=== PATIENT | male | born 1945 | race Caucasian/White ===

== ENCOUNTER 2020-07-28 17:12 | Emergency (ER) | payer MEDICAID, MEDICARE ==
[~2020-07-28] VITALS: Ht 172.7 cm; Wt 136.6 kg
[2020-07-28 17:28] VITALS: BP 116/79
--- NOTE | 2020-07-28 17:39 | ED.ADGEN ---
Adult General Chief Complaint Chief Complaint: MEDICAL CLEARANCE HPI HPI Patient is a 75 year old male brought in while he was on transfer to a rehab hospital. When the EMS drivers gave report to the facility they had indicated that his pacer was "firing". Hospital said the patient needed to get medically screened prior to going to the facility. Possibly due to concern about a defibrillator first pacer spikes. Patient states he feels well and has no complaints. Has had the pacemaker since 2018 without incident Review of Systems Review of Systems Constitutional: Denies fever or chills. [] Eyes: Denies change in visual acuity. [] HENT: Denies nasal congestion or sore throat. [] Respiratory: Denies cough or shortness of breath. [] Cardiovascular: Denies chest pain or edema. [] GI: Denies abdominal pain, nausea, vomiting, bloody stools or diarrhea. [] : Denies dysuria. [] Musculoskeletal: Denies back pain or joint pain. [] Integument: Denies rash. [] Neurologic: Denies headache, focal weakness or sensory changes. [] Endocrine: Denies polyuria or polydipsia. [] Lymphatic: Denies swollen glands. [] Psychiatric: Denies depression or anxiety. [] Allergies Allergies Allergies Coded Allergies Type Severity Reaction Last Updated Verified No Known Drug Allergies 07/28/20 No Physical Exam Physical Exam Constitutional: Well developed, well nourished, no acute distress, non-toxic appearance. [] HENT: Normocephalic, atraumatic, bilateral external ears normal, oropharynx moist, no oral exudates, nose normal. [] Eyes: PERRLA, EOMI, conjunctiva normal, no discharge. [] Neck: Normal range of motion, no tenderness, supple, no stridor. [] Cardiovascular:Heart rate regular rhythm, no murmur [] Lungs & Thorax: Bilateral breath sounds clear to auscultation [] Abdomen: Bowel sounds normal, soft, no tenderness, no masses, no pulsatile masses. [] Skin: Warm, dry, no erythema, no rash. [] Back: No tenderness, no CVA tenderness. [] Extremities: No tenderness, no cyanosis, no clubbing, ROM intact, bilateral lower extremity edema. [] Neurologic: Alert and oriented X 3, normal motor function, normal sensory function, no focal deficits noted. [] Psychologic: Affect normal, judgement normal, mood normal. [] Current Patient Data Vital Signs Vital Signs Date Time Temp Pulse Resp B/P (MAP) Pulse Ox O2 Delivery O2 Flow Rate FiO2 07/28/20 17:28 97.7 69 22 116/79 (91) 97 Nasal Cannula 3.0 97.7 EKG EKG Paced rhythm indeterminate axis, right bundle branch block, wide QRS, no ST elevation or depression [] Radiology/Procedures Radiology/Procedures [] Course & Med Decision Making Course & Med Decision Making Pertinent Labs and Imaging studies reviewed. (See chart for details) [] Dragon Disclaimer Dragon Disclaimer This electronic medical record was generated, in whole or in part, using a voice recognition dictation system. Departure Departure Impression: Primary Impression: Paced cardiac rhythm Disposition: 03 DC/TRF TO SNF Condition: STABLE Patient Instructions: Medical Screening Exam SORAIDA ZARAGOZA MD Jul 28, 2020 17:39
== END 2020-07-28 19:48 ==
LOC: ER 17:12
DX: I49.9 Cardiac arrhythmia, unspecified (principal)
CPT/HCPCS: 99283

== ENCOUNTER 2020-08-03 11:33 | Inpatient (IN) | payer MEDICARE ==
[~2020-08-03] VITALS: Ht 165.1 cm; Wt 139.0 kg
[2020-08-03] VITALS (15 sets, daily range): BP systolic 73–156; BP diastolic 41–94
--- NOTE | 2020-08-03 12:21 | PHYS DOC ---
Past Medical History Past Medical History: A-Fib, CAD, CHF Additional Past Medical Histor: GI BLEED,HODGKINS LYMPHOMA Past Surgical History: Cholecystectomy, Knee Replacement, Pacemaker Additional Past Surgical Histo: PICC RIGHT ARM,RIGHT ANKLE,LEFT MASTECTOMY Smoking Status: Never Smoker Alcohol Use: None General Adult EDM: Chief Complaint: HYPOTENSION HPI: HPI: 75M with PMH of HTN, AF, CKD, CHF, Hx PE on eliquis, presenting from [facility] for evaluation of hypotension. Reportedly hypotensive since yesterday, receiving norepi gtt via right UE midline. Patient reports feeling generally unwell. He developed a nosebleed yesterday, though now hemostatic. Eliquis was held starting 08/01. Hx GI bleed, though patient reports no hematochezia or hematemesis. Per outside facility, the patient's creatinine has been gradually increasing. Review of Systems: Review of Systems: Gen: No fever, chills. Reports feeling unwell. Eyes: No blurred vision, diplopia. ENT: No nasal congestion, sore throat. Reports epistaxis. CV: No CP, palpitations. Resp. No SOB, cough. GI: No abd pain, N/V, hematochezia. : No dysuria, hematuria. Neuro: No THOMASON.reports dizziness, weakness. Skin: No acute rash or lesion. Remainder of systems reviewed and negative unless otherwise specified. Heart Score: Risk Factors: Risk Factors: DM, Current or recent (<one month) smoker, HTN, HLP, family history of CAD, obesity. Risk Scores: Score 0 - 3: 2.5% MACE over next 6 weeks - Discharge Home Score 4 - 6: 20.3% MACE over next 6 weeks - Admit for Clinical Observation Score 7 - 10: 72.7% MACE over next 6 weeks - Early Invasive Strategies Allergies: Allergies: Allergies Coded Allergies Type Severity Reaction Last Updated Verified No Known Drug Allergies 07/28/20 No Physical Exam: PE: Gen: NAD. Well nourished. Head: NC/AT. Eyes: No scleral icterus. No conjunctival injection. ENT: MMM. Posterior OP clear. Neck: Supple. NT. CV: RRR. Peripheral pulses intact. Resp: CTAB. No W/C/R. Abd: Soft. NT. ND. MSK: No peripheral cyanosis. Neuro: Awake and alert. Skin. Warm. Dry. Pale appearing. Psych: Appropriate mood & affect. Current Patient Data: Labs: Laboratory Tests Test 08/03/20 13:09 White Blood Count 17.3 x10^3/uL (4.0-11.0) Red Blood Count 2.41 x10^6/uL (4.30-5.70) Hemoglobin 8.0 g/dL (13.0-17.5) Hematocrit 23.7 % (39.0-53.0) Mean Corpuscular Volume 98 fL (79-100) Mean Corpuscular Hemoglobin 33 pg (25-35) Mean Corpuscular Hemoglobin Concent 34 g/dL (31-37) Red Cell Distribution Width 17.1 % (11.5-14.5) Platelet Count 166 x10^3/uL (140-400) Neutrophils (%) (Auto) 85 % (31-73) Lymphocytes (%) (Auto) 11 % (24-48) Monocytes (%) (Auto) 3 % (0-9) Eosinophils (%) (Auto) 1 % (0-3) Basophils (%) (Auto) 1 % (0-3) Neutrophils # (Auto) 14.6 x10^3/uL (1.8-7.7) Lymphocytes # (Auto) 1.8 x10^3/uL (1.0-4.8) Monocytes # (Auto) 0.6 x10^3/uL (0.0-1.1) Eosinophils # (Auto) 0.2 x10^3/uL (0.0-0.7) Basophils # (Auto) 0.1 x10^3/uL (0.0-0.2) Prothrombin Time 28.8 SEC (11.7-14.0) Prothromb Time International Ratio 2.7 (0.8-1.1) Activated Partial Thromboplast Time 60 SEC (24-38) Urine Collection Type Unknown Urine Color Kaya Urine Clarity Clear Urine pH 5.0 (<5.0-8.0) Urine Specific [place] 1.015 (1.000-1.030) Urine Protein Negative mg/dL (NEG-TRACE) Urine Glucose (UA) Negative mg/dL (NEG) Urine Ketones (Stick) Negative mg/dL (NEG) Urine Blood Moderate (NEG) Urine Nitrite Negative (NEG) Urine Bilirubin Negative (NEG) Urine Urobilinogen Dipstick 0.2 mg/dL (0.2 mg/dL) Urine Leukocyte Esterase Small (NEG) Urine RBC 3-5 /HPF (0-2) Urine WBC 1-4 /HPF (0-4) Urine Squamous Epithelial Cells Few /LPF Urine Bacteria 0 /HPF (0-FEW) Urine Hyaline Casts Few /HPF Urine Mucus Mod /LPF Sodium Level 126 mmol/L (136-145) Chloride Level 89 mmol/L (98-107) Carbon Dioxide Level 24 mmol/L (21-32) Anion Gap 13 (6-14) Blood Urea Nitrogen 113 mg/dL (8-26) Estimated GFR (Cockcroft-Gault) 10.1 BUN/Creatinine Ratio 21 (6-20) Glucose Level 144 mg/dL (70-99) Calcium Level 7.5 mg/dL (8.5-10.1) Total Bilirubin 2.5 mg/dL (0.2-1.0) Aspartate Amino Transf (AST/SGOT) 337 U/L (15-37) Alkaline Phosphatase 316 U/L (46-116) Troponin I Quantitative < 0.017 ng/mL (0.000-0.055) Total Protein 5.0 g/dL (6.4-8.2) Albumin 1.7 g/dL (3.4-5.0) Albumin/Globulin Ratio 0.5 (1.0-1.7) EKG: EKG: [] Radiology/Procedures: Radiology/Procedures: CHEST AP ONLY History: Hypotension Comparison: None. Findings: Single view of the chest is submitted. There is tortuous thoracic aorta. There is triple lead left electronic cardiac device. There is right internal jugular venous catheter with the tip near the superior aspect of the right atrium. There is interstitial opacity somewhat diffusely of the bilateral hemithoraces, also some patchy hazy airspace opacity of the mid left hemithorax. There is no dependent pleural fluid or pneumothorax. Cardiac silhouette is not significantly enlarged. Impression: 1. There is interstitial opacity bilaterally of uncertain chronicity, could be due to interstitial infiltrate or edema. There is also airspace opacity of the mid left hemithorax which may be infiltrate although cannot exclude underlying nodularity. Electronically signed by: Ammon Moreno MD (08/03/2020 1:45 PM) [facility] Course & Med Decision Making: Course & Med Decision Making Pertinent Labs and Imaging studies reviewed. (See chart for details) In summary, 75-year-old male who presents from [facility] for the management of hypotension requiring pressors, now with right IJ central line (was being administered via RUE midline at outside facility), found to be in acute renal failure with creatinine of 5.5. Potassium within normal limits. Also hyponatremic with essentially normal blood glucose. Receiving IV fluids. Hemoglobin is 8.0, at around baseline compared to prior labs. Also with redemonstration of transaminitis without abdominal pain or other GI complaints. Will be admitted for further management. Dragon Disclaimer: Dragon Disclaimer: This electronic medical record was generated, in whole or in part, using a voice recognition dictation system. Departure Departure Impression: Primary Impression: ARF (acute renal failure) Additional Impressions: Hypotension Transaminitis Disposition: ADMITTED INPT THIS HOSP Admitting Physician: TIGIST Condition: GUARDED Referrals: LUCAS BRAGA MD (PCP) TIERA SANCHEZ DO Aug 03, 2020 12:21
[2020-08-03] MEDS ORDERED: NOREPINEPHRINE VIAL 8 MG in IV DEXTROSE 5% 250 ML IV PRN (13:00)
[2020-08-03 13:26] LABS: BASO # 0.1 x10^3/uL (0.0-0.2); BASO % 1 % (0-3); EOS # 0.2 x10^3/uL (0.0-0.7); EOS % 1 % (0-3); HEMATOCRIT 23.7 % (39.0-53.0); LYMPH # 1.8 x10^3/uL (1.0-4.8); LYMPH % 11 % (24-48); MEAN CORPUSCULAR HEMOGLOBIN 33 pg (25-35); MEAN CORPUSCULAR HGB CONC 34 g/dL (31-37); MEAN CORPUSCULAR VOLUME 98 fL (79-100); MONO # 0.6 x10^3/uL (0.0-1.1); MONO % 3 % (0-9); NEUT # 14.6 x10^3/uL (1.8-7.7); NEUT % 85 % (31-73); PLATELET COUNT 166 x10^3/uL (140-400); RED BLOOD COUNT 2.41 x10^6/uL (4.30-5.70); RED CELL DISTRIBUTION WIDTH 17.1 % (11.5-14.5); WHITE BLOOD COUNT 17.3 x10^3/uL (4.0-11.0)
[2020-08-03 13:30] LABS: CALCIUM 7.5 mg/dL (8.5-10.1); CREATININE 5.5 mg/dL (0.7-1.3); GFR 10.1; POTASSIUM 4.9 mmol/L (3.5-5.1)
[2020-08-03 13:31] LABS: PROTHROMBIN TIME PATIENT 28.8 SEC (11.7-14.0)
[2020-08-03 13:36] LABS: ALBUMIN 1.7 g/dL (3.4-5.0); ALBUMIN/GLOBULIN RATIO 0.5 (1.0-1.7); MAGNESIUM 2.3 mg/dL (1.8-2.4); TOTAL BILIRUBIN 2.5 mg/dL (0.2-1.0)
--- NOTE | 2020-08-03 13:48 | RAD ---
CHEST AP ONLY History: Hypotension Comparison: None. Findings: Single view of the chest is submitted. There is tortuous thoracic aorta. There is triple lead left electronic cardiac device. There is right internal jugular venous catheter with the tip near the superior aspect of the right atrium. There is interstitial opacity somewhat diffusely of the bilateral hemithoraces, also some patchy hazy airspace opacity of the mid left hemithorax. There is no dependent pleural fluid or pneumothorax. Cardiac silhouette is not significantly enlarged. Impression: 1. There is interstitial opacity bilaterally of uncertain chronicity, could be due to interstitial infiltrate or edema. There is also airspace opacity of the mid left hemithorax which may be infiltrate although cannot exclude underlying nodularity. Electronically signed by: Ammon Moreno MD (08/03/2020 1:45 PM) [facility]
[2020-08-03 13:52] LABS: BILIRUBIN,URINE NEGATIVE (NEG); CLARITY,URINE CLEAR; COLOR,URINE AMBER; NITRITE,URINE NEGATIVE (NEG); PROTEIN,URINE NEGATIVE (NEG-TRACE); UROBILINOGEN,URINE 0.2 mg/dL (0.2 mg/dL)
[2020-08-03 13:59] LABS: BACTERIA,URINE 0 /HPF (0-FEW); HYALINE CASTS, URINE FEW /HPF
[2020-08-03] MEDS ORDERED: IV NORMAL SALINE 1000ML BAG 1,000 ML IV ONE (14:15)
[2020-08-03] MEDS ORDERED: LIDOCAINE 1% Multi-Dose 20 ML VIAL. ONE (14:55)
[2020-08-03] MEDS ORDERED: LIDOCAINE 1% Multi-Dose 20 ML VIAL. INJ ONE (15:15)
--- NOTE | 2020-08-03 15:28 | HP ---
ADMIT DATE: 08/03/2020 CHIEF COMPLAINT: Hypotension and bleeding. HISTORY OF PRESENT ILLNESS: The patient is a pleasant 75-year-old male who apparently had a pulmonary embolism a couple of years ago that was at another hospital in [place], [place]. His states he has been on Eliquis since then. It sounds as though he has been through a lot in the last couple of years. He actually came today from [facility] where he has been rehabbing, now he has got critical hypotension. We had to place him on IV norepinephrine. He is also bleeding from his gums and his mouth and his nose, although his denies any GI bleeding. This started on 08/01/2020. He rates his symptoms at 07/30, he has associated nausea. I discussed the case with the ER physician. We are going to admit the patient to the ICU. I am going to consult critical care physician and the lens generator. PAST MEDICAL HISTORY: Chronic anticoagulation, AFib, CAD, CHF, pulmonary embolism, Hodgkin's lymphoma, cholecystectomy, knee replacement, pacemaker, PICC line, left mastectomy, right ankle surgery. ALLERGIES: None. FAMILY HISTORY: Hypertension. SOCIAL HISTORY: He does not drink, smoke or take drugs. He is . He is retired. MEDICATIONS: Reviewed, please refer to the MRAD. REVIEW OF SYSTEMS: Unable to obtain. The patient is too weak. PHYSICAL EXAMINATION: VITALS: Within normal limits and are stable. GENERAL: Extremely weak, lethargic. HEENT: He has obvious blood coming from his mouth and gums and nose. EYES: Extraocular muscles are intact, pupils are equally round and reactive to light and accommodation MUSCULOSKELETAL: Well developed, well nourished, good range of motion ENDOCRINE: No thyromegaly was palpated LYMPHATICS: No cervical chain or axillary nodes were noted HEMATOPOIETIC: No bruising NECK: Supple, no JVD, no thyromegaly was noted. LUNGS: Clear to auscultation in all lung willis without rhonchi or wheezing. HEART: RRR, S1, S2 present. Peripheral pulses intact, no obvious murmurs were noted. ABDOMEN: Soft, nontender. Positive bowel sounds no organomegaly, normal bowel sounds. EXTREMITIES: Without any cyanosis, clubbing, or edema. Pedal pulses intact, Homans sign is negative. NEUROLOGIC: He is extremely lethargic, but can talk a little bit. PSYCHIATRIC: He is extremely lethargic. SKIN: He is very pale. VASCULAR: Good capillary refill, neurovascular bundle appears to be intact. LABORATORY DATA: Urinalysis showed a small amount of leukocyte esterase and 1-4 white cells. Electrolytes: Sodium 126, potassium 4.9, chloride 89, bicarbonate 24, BUN 113, creatinine 5.5, glucose 141. White count 17, hemoglobin 8, platelets 85. INR is 2.7. ASSESSMENT AND PLAN: Critical hypotension, possible GI bleed, anemia, azotemia, renal failure, leukocytosis, coagulopathy, transaminitis, with an AST and ALT of 337 and 116 respectively. The patient has been admitted to the ICU on norepinephrine. He is critically ill. I am going to consult Hematology and Pulmonary Medicine and Nephrology. Trend labs. IV saline. Home meds if we can get him stabilized. We will hold off on DVT prophylaxis right now because he is already anticoagulated. Prognosis is extremely guarded. He is critically ill. Critical care time 32 minutes. COREY HAHN DO DR: IKER/william JOB#: [id number] / [id number]
--- NOTE | 2020-08-03 15:58 | RAD ---
CHEST AP ONLY History: Reason: TEMP DIALYSIS CATHETER PLACEMENT / Spl. Instructions: / History: Comparison: August 03, 2020. 12:47 PM. Findings: Interval placement right IJ central line with tip projecting over the right atrium. No pneumothorax. Stable prior right IJ central line. Unchanged left-sided pacemaker/ICD. Unchanged diffuse interstitial thickening. Patchy left midlung opacities, unchanged. No pleural effusion. Unchanged heart size. Impression: 1. Interval placement right IJ central line. No pneumothorax. 2. Unchanged diffuse interstitial thickening with patchy left mid lung opacities. Electronically signed by: Jose Cruz Santiago DO (08/03/2020 3:55 PM) [facility]
[2020-08-03] MEDS ORDERED: ALBUMIN HUMAN 5% 500 ML IV ONE (17:00)
--- NOTE | 2020-08-03 17:07 | RAD ---
Procedure: Ultrasound-guided placement of right internal jugular central venous [id number]/14/2020 3:03 PM Clinical Indication: Acute renal failure, need for central venous access Discussion: The risks and benefits of the procedure were discussed the patient and/or their liability claims representative. Informed consent was obtained. A timeout procedure was performed. All elements of maximal sterile barrier technique including the use of a cap, mask, sterile gown, sterile gloves, large sterile sheet, appropriate hand hygiene, and 2% chlorhexidine for cutaneous antisepsis (or acceptable alternative antiseptic per current guidelines) were followed for this procedure. The patient was prepped and draped in the usual sterile fashion. Ultrasound interrogation of the right neck revealed patency and compressibility of the right internal jugular vein. A 21-gauge micropuncture was then used to gain access to this vein under ultrasound guidance. A hard copy ultrasound image was recorded. A guidewire was advanced centrally. 5 [place] sheath was placed. Over a wire following dilatation, a triple-lumen, temporary dialysis catheter was advanced centrally. Catheter was found to flush and aspirate normally. Follow-up chest radiograph demonstrates tip at the cavoatrial junction. Catheter secured in place and a sterile dressing was applied. No immediate complications were identified. Impression: Successful ultrasound-guided placement of right internal jugular triple-lumen central venous catheter
[2020-08-03] MEDS ORDERED: IV NORMAL SALINE 1000ML BAG 1,000 ML IV PRN ×2 (17:18)
[2020-08-03] MEDS ORDERED: ALBUMIN HUMAN 25% 200 ML IV PRN (17:30)
[2020-08-03] MEDS ORDERED: DIALYSIS PATIENT. MC PRN ×2 (17:30)
[2020-08-03] MEDS ORDERED: 0.9 % SODIUM CHLORIDE 10 ML DISP.SYRIN. IV PRN ×2 (17:30)
--- NOTE | 2020-08-03 17:38 | CONS ---
DATE OF CONSULTATION: 08/03/2020 PULMONARY CONSULTATION ATTENDING PHYSICIAN: Ayo Lock MD REASON FOR CONSULTATION: Shock, respiratory failure, CORKY, history of pulmonary embolism. HISTORY OF PRESENT ILLNESS: The patient is a 75-year-old male who has multiple chronic medical problems including history of chronic hypoxic respiratory failure, on home oxygen at 3 liters; history of non-Hodgkin's lymphoma, status post chemo, finished in 01/2019. According to the , the last two PET scans has shown no active disease. He also has history of breast cancer with bilateral mastectomy. He was on tamoxifen for 5 years and eventually was off. He has history of cardiomyopathy with an EF of 40% based on recent echo. He also has history of Agent Taney exposure and likely pulmonary fibrosis. The patient was at [facility]. However, he was noted to have progressive increase in his renal numbers. He had worsening CORKY. As a result, he was transferred to our facility for hemodialysis. He was also hypotensive and the patient was getting IV Lasix. Currently when he arrived, he was requiring Levophed. His latest blood pressure is 149. He does not appear to be in any obvious respiratory distress. The patient has history of pulmonary embolism without any DVT. He likely has hypercoagulable state due to underlying cancer. He has been on Eliquis. The noticed that he had a nosebleed yesterday. The patient's INR on admission was 2.7. Eliquis has been on hold. He just had a hemodialysis catheter placed and I have been asked to see him for further evaluation. Currently, he is on 3 liters. PAST MEDICAL HISTORY: Extensive including history of non-Hodgkin's lymphoma diagnosed in 2017 and completed chemo in 01/2019. History of morbid obesity with obstructive sleep apnea, on home CPAP; history of chronic hypoxic respiratory failure, on 3 liters of oxygen; history of aneurysmal dilatation of ascending aorta to diameter of about 4 cm; history of epidural abscess, T8 and T9; history of cardiomyopathy with improved ejection fraction based on echo in March to 40-45%. Previous EF was 20%. History of pulmonary embolism in 2017, has been on Eliquis. No DVT. History of breast cancer with bilateral mastectomy. History of GI bleed with colonoscopy with polyps in June. No significant tobacco history. PAST SURGICAL HISTORY: Including AICD. Colonoscopies. REVIEW OF SYSTEMS: Ten point system obtained. Pertinent positives discussed in my history of present illness, otherwise noncontributory. All systems that were negative were reviewed as well. SOCIAL HISTORY: He smoked half pack per day from age 13 to 79, probably 23 years of tobacco use. He used to drink alcohol in the 80s. ALLERGIES: None. MEDICATIONS: Reviewed as listed in the MRAD. FAMILY HISTORY: Noncontributory to lungs. PHYSICAL EXAMINATION: VITAL SIGNS: His vital signs in the ER were reviewed. Blood pressure 122/56, pulse is in the 90s. Pulse ox is 97% on 3 liters, afebrile. He does not appear to be in any obvious respiratory distress. NECK: Supple. He has some ecchymosis around the anterior chest area. No stigmata of active nosebleed at present. LUNGS: With diminished breath sounds. CARDIOVASCULAR: With a regular rate. ABDOMEN: Soft, obese. EXTREMITIES: With bilateral trace pitting edema. LABORATORY DATA: Reviewed. INR 2.7. BUN 113 and creatinine of 5.5. AST, ALT 337 and 116. Bilirubin of 2.5. Albumin 1.7. White cell count 17.3, hemoglobin 8.0 and platelets are 166. IMPRESSION: 1. Chronic hypoxic respiratory failure. Remains on 3 liters of oxygen on a 24-hour basis. 2. The patient with history of pulmonary embolism in 2018. Likely hypercoagulable state from underlying non-Hodgkin's lymphoma and breast cancer. He has been on Eliquis since then. He has no DVT. He had epistaxis yesterday. His INR is 2.7. His venous Doppler done 2 days ago, did not show any DVT as well. It would be reasonable to hold Eliquis for 24 hours and may consider restarting at a lower dose of 2.5 mg b.i.d. 3. Shock, could be combination of hypovolemic and cardiogenic. He is currently on Levophed. We will monitor his blood pressure closely. May try albumin and crystalloids to see an improvement in his blood pressure. 4. History of pulmonary fibrosis. His chest x-ray showed bilateral interstitial infiltrates. He has Agent Taney exposure and that could be the etiology of his fibrosis. It has been clinically stable. 5. History of non-Hodgkin's lymphoma, status post chemo, finished in 01/2019. 6. History of breast cancer with bilateral mastectomy. 7. History of gastrointestinal bleed with colonoscopy showing colonic small polyps in June of this year. 8. Acute kidney injury. The patient is status post hemodialysis catheter placement and will be initiated on hemodialysis. 9. Cardiomyopathy. His ejection fraction used to be 25%, now is improved to 40% based on records. 10. Minimal tobacco history. 11. Status post AICD and pacemaker. 12. History of aneurysmal dilatation of the ascending aorta to a diameter about 4.0. RECOMMENDATIONS: 1. Pulmonary status appears to be stable. I will remain on 3 liters of oxygen to keep saturation 94 and above. 2. We will try combination of colloids and crystalloids and wean Levophed off. 3. Hemodialysis will be initiated today. 4. We will hold Eliquis for 24 hours and if there is no further nosebleed then we can reinitiate at a lower dose of 2.5 mg p.o. b.i.d. 5. Follow renal recommendation. 6. Follow cardiology recommendations. 7. Monitor hemoglobin closely. 8. Not a candidate for IVC filter as there is no evidence of deep venous thrombosis. 9. Follow chest x-ray as needed. 10. Discussed with the patient's in detail. Discussed with the ER physician. His charts from [facility] reviewed and imaging studies reviewed. Critical care time 45 minutes. CHIVO ORDONEZ MD DR: NILSA/william JOB#: [id number] / [id number]
[2020-08-03] MEDS: NOREPINEPHRINE VIAL 32 MG in IV D5W 250ML IV PRN ×2 (17:49→18:13)
[2020-08-03] MEDS ORDERED: PHYTONADIONE 10 MG/ML AMPUL. SQ ONE (18:00)
[2020-08-03] MEDS ORDERED: diphenhydrAMINE ORAL ELIXIR 12.5 MG/5 ML ML PO PRN (18:00)
[2020-08-03] MEDS ORDERED: ACETAMINOPHEN 325 MG TABLET. PO PRN (18:00)
[2020-08-03] MEDS: fentaNYL PF VIAL 100 MCG/2 ML VIAL IVP PRN (18:31)
[2020-08-03] MEDS ORDERED: ONDANSETRON PF 4 MG/2 ML VIAL. IVP PRN (18:45)
--- NOTE | 2020-08-03 19:09 | PDOC ---
Provider Note Date of Service: DATE: 08/03/20 TIME: 19:08 Provider Note H&P dictated. #[id number] Critical care time 40 minutes. Justifications for Admission Other Justification LUCAS BRAGA MD Aug 03, 2020 19:09
[2020-08-03] MEDS ORDERED: GABAPENTIN 100 MG CAPSULE. PO SCH (21:00)
[2020-08-03] MEDS: SODIUM BICARBONATE VIAL 50 MEQ in IV 1/2 NORMAL SALINE 1,000 ML IV SCH (21:06)
--- NOTE | 2020-08-03 21:39 | HP ---
ADMIT DATE: 08/03/2020 HISTORY OF PRESENT ILLNESS: This 75-year-old male who was recently admitted to [facility] because of rectal bleeding and acute onset of atrial fibrillation and recurrent V-tach with fluid retention was treated with IV amiodarone, digoxin level was 2 and it was stopped. The patient also was recently treated for epidural abscess in 03/2020. The patient has a history of pulmonary embolism, atrial fibrillation, pulmonary fibrosis with chronic hypoxic respiratory failure, obstructive sleep apnea, using CPAP on oxygen by nasal cannula 3 liters at night and history of TIA and morbid obesity. He also has had likely GI bleeding that was diverticular and also had hemorrhoidal bleeding. The patient was transferred to [facility] on 07/29. During the stay at [facility], he was noted to have multiple medical problems including leukocytosis. He was on doxycycline for his epidural abscess. He did not have any surgical intervention. Dr. Antoine spoke to Dr. Stanley at the transferring hospital and they agreed to switch the antibiotics to cephalexin. He continued to have leukocytosis from 14,000-16,000. Initially, Eliquis had been stopped but then Eliquis was restarted. He started having nosebleeds and bleeding from the skin as well as other sites. His renal function started getting worse. His creatinine was in the upper 3 range, but then yesterday it went to 4.49 and today it was around 5.06. Dr. Rodriguez had been seeing him and Dr. Rodriguez started him on IV fluids yesterday and multiple IV boluses were given yesterday. His blood pressures fluctuated a lot yesterday and would become low and it would become very high. As per his , this has been also happening to him for the last month or so where the blood pressures have been fluctuating a lot. The patient was seen by the ER physician last night at [facility] and because of hypotension, was started on Levophed. The patient continued to receive more fluids this morning, but his urine output was only 150 mL in the last shift and he started becoming more edematous. He also had some bleeding from the nose. I discussed this with Dr. Rodriguez this morning and because of his hypotension and likely need for hemodialysis and worsening condition, it was decided to transfer the patient to [facility]. [facility] did not have a bed. The patient initially went to [facility] and then subsequently transferred to the ICU. Currently, his blood pressure has dropped further because he was having severe pain and he also received IV fentanyl. Blood pressure systolic dropped to 68. Levophed dose was high, so vasopressin was also added. Last blood pressure was 85/41. Because of his acute hypotension and acute kidney injury likely would require hemodialysis if he remains hemodynamically stable. GI bleeding is when the nurse was cleaning him noted stool with blood. He also has had epistaxis and the INR is 2.7 with last hemoglobin of 8. The patient has been admitted to [facility] for further management. REVIEW OF SYSTEMS: At present time, the patient is complaining of persistent low back pain. He denies any dyspnea, chest pains, palpitations, dizziness. He is not a good historian. He is not feeling well. He has had bleeding from the nose. He denies any abdominal pain, nausea, vomiting. Other systems partially reviewed and are negative. Unable to get all the information from the patient. He also has had some tremors. PAST MEDICAL HISTORY: History of borderline hypotension, GI bleeding, diverticular bleeding, hemorrhoids, recent atrial fibrillation, recurrent v-tach, pulmonary fibrosis with chronic hypoxic respiratory failure, on oxygen by nasal cannula 3 liters at night, obstructive sleep apnea using CPAP and previous history of TIA and morbid obesity. He also has a history of elevated LFTs, thrombocytopenia, congestive heart failure, dilated cardiomyopathy with ejection fraction of 40%, chronic diarrhea, hypokalemia, chronic kidney disease, aortic root dilatation, dyslipoproteinemia, mild coronary artery disease, history of pulmonary embolism, recent epidural abscess in 03/2020 initially treated with doxycycline recently changed to cephalexin. PAST SURGICAL HISTORY: Includes AICD and pacemaker, bilateral total knee arthroplasty, diverticulosis and GI bleeding. He also had a screw placed in the right ankle. FAMILY HISTORY: Brother has Alzheimer's disease, otherwise unremarkable per the patient. SOCIAL HISTORY: No history of smoking, alcoholism or drug abuse. ALLERGIES: None known any. MEDICATIONS: Reviewed and reconciled. PHYSICAL EXAMINATION: VITAL SIGNS: Last blood pressure is 85/41, pulse 62 per minute, respirations 16 per minute, O2 sat 96% on oxygen by nasal cannula 4 liters per minute, temperature 96.3. GENERAL: This patient is an elderly male who is alert, oriented, but not a good historian, obese and appears to be acutely ill, not in any acute distress at this time. EYES: Pupils reacting to light. Conjunctivae pale. Sclerae muddy. HENT: The patient has bleeding from the nostrils and some blood in the mouth. SKIN: Warm and dry. Skin is pale. The patient has macerated skin and wounds with some bleeding in the gluteal area. No cyanosis. NECK: Supple. JVP normal. No thyromegaly. LUNGS: Decreased breath sounds at bases. CARDIOVASCULAR: S1, S2 regular. ABDOMEN: Soft, obese, nontender, no guarding, no rigidity. Bowel sounds present. EXTREMITIES: 3+ edema in all extremities. Also, has anasarca. CENTRAL NERVOUS SYSTEM: Alert, weak, appropriate, but poor historian. LABORATORY FINDINGS: WBC count 17.3, hemoglobin 8, neutrophils 85. INR is 2.7, PTT 60. Sodium 126, potassium 4.9, BUN 113, creatinine 5.5, glucose 144, calcium 7.5, AST 337, ALT 116, alkaline phosphatase 316, total bilirubin 2.5, albumin 1.7. Urinalysis is negative. Hepatitis B surface antigen is nonreactive. Hepatitis B surface antibody reactive. IMPRESSION: 1. Acute hypotension, multifactorial. 2. Acute kidney injury with chronic kidney disease. 3. Coagulopathy. 4. Acute respiratory failure. 5. Recurrent ventricular tachycardia. 6. Atrial fibrillation. 7. Coronary artery disease. 8. Congestive heart failure with ejection fraction of 40%. 9. Elevated LFTs, possibly shock liver. 10. Recent gastrointestinal bleeding including diverticular and hemorrhoidal bleeding. 11. Aortic root dilatation. 12. Hypoalbuminemia with severe malnutrition. 13. History of pulmonary embolism. 14. Status post total knee arthroplasty. 15. Chronic hypoxic respiratory failure with pulmonary fibrosis, on 3 liters oxygen at night with exertion. 16. Obstructive sleep apnea syndrome, using CPAP. 17. Recent epidural abscess in 03/2020 initially treated with doxycycline, now on cephalexin. 18. Transient ischemic attack. 19. Physical deconditioning. 20. Morbid obesity. 21. Leukocytosis. PLAN: Admit to Intensive Care Unit. Consult Dr. Farrell for pulmonary evaluation and management, Dr. Sharif for cardiology evaluation and management. Consult Dr. Valladares for GI evaluation and management. Consult Dr. Rodriguez for nephrology evaluation and management. Consult Dr. Boone for hematology evaluation and management. Consult wound care. Consult Dr. Rey Antoine for infectious disease evaluation and management. Amiodarone Coreg were held yesterday at [facility] due to hypotension. The patient has been admitted to ICU. Continue Levophed, vasopressin has been added. Condition and treatment options were discussed with the on the phone this morning and in person here at bedside this evening. Prognosis of this patient is extremely poor. We will give him 3 mg of subcu vitamin K and also give him 2 units of fresh frozen plasma as he is bleeding in several places. He has a dialysis catheter, but as he is very hypotensive he may not be able to get dialysis soon. We will give him 1 unit of blood also and 500 mL of albumin has been ordered by Dr. Farrell. Continue to monitor hemoglobin and hematocrit q.6. Continue IV fluids. For details, please refer to the orders. LUCAS BRAGA MD DR: ED/william JOB#: [id number] / [id number] JACLYN
[2020-08-03] MEDS: PANTOPRAZOLE IV PUSH 40 MG VIAL. IVP SCH (23:07)
[2020-08-03 23:27] LABS: HEMATOCRIT 21.6 % (39.0-53.0); HEMOGLOBIN 7.2 g/dL (13.0-17.5); RED BLOOD COUNT 2.19 x10^6/uL (4.30-5.70); RED CELL DISTRIBUTION WIDTH 17.3 % (11.5-14.5); WHITE BLOOD COUNT 16.8 x10^3/uL (4.0-11.0)
[2020-08-04] VITALS (29 sets, daily range): BP systolic 75–125; BP diastolic 34–89
[2020-08-04] MEDS: NOREPINEPHRINE VIAL 32 MG in IV D5W 250ML IV PRN ×2 (02:29→20:59)
[2020-08-04 06:24] LABS: BASO # 0.1 x10^3/uL (0.0-0.2); BASO % 1 % (0-3); EOS # 0.2 x10^3/uL (0.0-0.7); EOS % 1 % (0-3); LYMPH # 1.6 x10^3/uL (1.0-4.8); LYMPH % 11 % (24-48); MEAN CORPUSCULAR HEMOGLOBIN 33 pg (25-35); MEAN CORPUSCULAR HGB CONC 33 g/dL (31-37); MEAN CORPUSCULAR VOLUME 98 fL (79-100); MONO # 0.7 x10^3/uL (0.0-1.1); MONO % 5 % (0-9); NEUT # 12.5 x10^3/uL (1.8-7.7); NEUT % 83 % (31-73); PLATELET COUNT 152 x10^3/uL (140-400); RED BLOOD COUNT 2.06 x10^6/uL (4.30-5.70); RED CELL DISTRIBUTION WIDTH 17.1 % (11.5-14.5); WHITE BLOOD COUNT 15.1 x10^3/uL (4.0-11.0)
[2020-08-04 06:38] LABS: ALBUMIN 2.2 g/dL (3.4-5.0); ALBUMIN/GLOBULIN RATIO 0.8 (1.0-1.7); CALCIUM 7.1 mg/dL (8.5-10.1); CREATININE 5.3 mg/dL (0.7-1.3); GFR 10.6; MAGNESIUM 2.1 mg/dL (1.8-2.4); PHOSPHORUS 7.1 mg/dL (2.6-4.7); POTASSIUM 4.7 mmol/L (3.5-5.1); TOTAL BILIRUBIN 3.1 mg/dL (0.2-1.0); TOTAL PROTEIN 5.1 g/dL (6.4-8.2)
[2020-08-04 06:45] LABS: HEMATOCRIT 20.2 % (39.0-53.0)
[2020-08-04 07:02] LABS: PROTHROMBIN TIME PATIENT 26.7 SEC (11.7-14.0)
--- NOTE | 2020-08-04 07:21 | PDOC ---
Infectious Disease Note Vital Sign Vital Signs Vital Signs Date Time Temp Pulse Resp B/P (MAP) Pulse Ox O2 Delivery O2 Flow Rate FiO2 08/04/20 06:00 95 24 90/41 (57) 96 Nasal Cannula 4.0 08/04/20 04:00 97.8 97.8 Labs Lab Laboratory Tests Test 08/03/20 13:09 08/03/20 14:09 08/03/20 23:23 08/04/20 05:50 White Blood Count 17.3 x10^3/uL (4.0-11.0) 16.8 x10^3/uL (4.0-11.0) 15.1 x10^3/uL (4.0-11.0) Red Blood Count 2.41 x10^6/uL (4.30-5.70) 2.19 x10^6/uL (4.30-5.70) 2.06 x10^6/uL (4.30-5.70) Hemoglobin 8.0 g/dL (13.0-17.5) 7.2 g/dL (13.0-17.5) 6.8 g/dL (13.0-17.5) Hematocrit 23.7 % (39.0-53.0) 21.6 % (39.0-53.0) 20.2 % (39.0-53.0) Mean Corpuscular Volume 98 fL (79-100) 99 fL (79-100) 98 fL (79-100) Mean Corpuscular Hemoglobin 33 pg (25-35) 33 pg (25-35) 33 pg (25-35) Mean Corpuscular Hemoglobin Concent 34 g/dL (31-37) 33 g/dL (31-37) 33 g/dL (31-37) Red Cell Distribution Width 17.1 % (11.5-14.5) 17.3 % (11.5-14.5) 17.1 % (11.5-14.5) Platelet Count 166 x10^3/uL (140-400) 158 x10^3/uL (140-400) 152 x10^3/uL (140-400) Neutrophils (%) (Auto) 85 % (31-73) 83 % (31-73) Lymphocytes (%) (Auto) 11 % (24-48) 11 % (24-48) Monocytes (%) (Auto) 3 % (0-9) 5 % (0-9) Eosinophils (%) (Auto) 1 % (0-3) 1 % (0-3) Basophils (%) (Auto) 1 % (0-3) 1 % (0-3) Neutrophils # (Auto) 14.6 x10^3/uL (1.8-7.7) 12.5 x10^3/uL (1.8-7.7) Lymphocytes # (Auto) 1.8 x10^3/uL (1.0-4.8) 1.6 x10^3/uL (1.0-4.8) Monocytes # (Auto) 0.6 x10^3/uL (0.0-1.1) 0.7 x10^3/uL (0.0-1.1) Eosinophils # (Auto) 0.2 x10^3/uL (0.0-0.7) 0.2 x10^3/uL (0.0-0.7) Basophils # (Auto) 0.1 x10^3/uL (0.0-0.2) 0.1 x10^3/uL (0.0-0.2) Prothrombin Time 28.8 SEC (11.7-14.0) 26.7 SEC (11.7-14.0) Prothromb Time International Ratio 2.7 (0.8-1.1) 2.5 (0.8-1.1) Activated Partial Thromboplast Time 60 SEC (24-38) Urine Collection Type Unknown Urine Color Kaya Urine Clarity Clear Urine pH 5.0 (<5.0-8.0) Urine Specific [place] 1.015 (1.000-1.030) Urine Protein Negative mg/dL (NEG-TRACE) Urine Glucose (UA) Negative mg/dL (NEG) Urine Ketones (Stick) Negative mg/dL (NEG) Urine Blood Moderate (NEG) Urine Nitrite Negative (NEG) Urine Bilirubin Negative (NEG) Urine Urobilinogen Dipstick 0.2 mg/dL (0.2 mg/dL) Urine Leukocyte Esterase Small (NEG) Urine RBC 3-5 /HPF (0-2) Urine WBC 1-4 /HPF (0-4) Urine Squamous Epithelial Cells Few /LPF Urine Bacteria 0 /HPF (0-FEW) Urine Hyaline Casts Few /HPF Urine Mucus Mod /LPF Sodium Level 126 mmol/L (136-145) 128 mmol/L (136-145) Potassium Level 4.9 mmol/L (3.5-5.1) 4.7 mmol/L (3.5-5.1) Chloride Level 89 mmol/L (98-107) 91 mmol/L (98-107) Carbon Dioxide Level 24 mmol/L (21-32) 22 mmol/L (21-32) Anion Gap 13 (6-14) 15 (6-14) Blood Urea Nitrogen 113 mg/dL (8-26) 112 mg/dL (8-26) Creatinine 5.5 mg/dL (0.7-1.3) 5.3 mg/dL (0.7-1.3) Estimated GFR (Cockcroft-Gault) 10.1 10.6 BUN/Creatinine Ratio 21 (6-20) 21 (6-20) Glucose Level 144 mg/dL (70-99) 123 mg/dL (70-99) Calcium Level 7.5 mg/dL (8.5-10.1) 7.1 mg/dL (8.5-10.1) Magnesium Level 2.3 mg/dL (1.8-2.4) 2.1 mg/dL (1.8-2.4) Total Bilirubin 2.5 mg/dL (0.2-1.0) 3.1 mg/dL (0.2-1.0) Aspartate Amino Transf (AST/SGOT) 337 U/L (15-37) 303 U/L (15-37) Alanine Aminotransferase (ALT/SGPT) 116 U/L (16-63) 106 U/L (16-63) Alkaline Phosphatase 316 U/L (46-116) 268 U/L (46-116) Troponin I Quantitative < 0.017 ng/mL (0.000-0.055) Total Protein 5.0 g/dL (6.4-8.2) 5.1 g/dL (6.4-8.2) Albumin 1.7 g/dL (3.4-5.0) 2.2 g/dL (3.4-5.0) Albumin/Globulin Ratio 0.5 (1.0-1.7) 0.8 (1.0-1.7) Hepatitis B Surface Antigen Nonreactive (Nonreactive) Hepatitis B Surface Antibody Reactive Phosphorus Level 7.1 mg/dL (2.6-4.7) Objective Assessment pt seen, consult dictated Plan Plan of Care / KEITH FERGUSON MD Aug 04, 2020 07:20
--- NOTE | 2020-08-04 07:52 | NUR ---
dialysis at bedside by Jackie MENDOZA who will give 1 unit PRBCS during treatment.
--- NOTE | 2020-08-04 08:25 | CONS ---
DATE OF CONSULTATION: 08/04/2020 REQUESTING PHYSICIAN: Dr. Lock. REASON FOR CONSULTATION: Hypotension, rule out sepsis. HISTORY OF PRESENT ILLNESS: This is a 75-year-old gentleman who is known to us. The patient originally was transferred to [facility] from [facility]. The patient had T8-T9 diskitis and osteomyelitis with a small epidural abscess. The patient was treated and the culture from the blood was staphylococcal lugdunensis. The patient was treated with nafcillin initially, but then subsequently was changed from [facility] to Rocephin and eventually on a doxycycline. The patient was getting oral doxycycline, where he was then switched over to the Keflex because of Keflex is a better chronic suppression for lugdunensis. The patient was on Keflex at [facility] and the patient had acute onset of atrial fibrillation with recurrent V-tach, fluid retention, eventual hypotension, acute renal failure, hence the patient was transferred to [place]. The patient is alert, awake. Dialysis has been planned for today. The patient is complaining of pain all over including the back, the knee, lot of bleeding from the mouth and under the skin has been noted. The patient is on a small dose of Levophed and his white count has been around 15,000. The patient denies any chest pain, denies any abdominal pain. Denies any nausea, vomiting, diarrhea, headache or visual symptoms. PAST MEDICAL HISTORY: Positive for, as I mentioned, T8-T9 diskitis, osteomyelitis, mall epidural abscess. The patient completed 6 weeks of ceftriaxone and was on oral doxy, which has been changed to Keflex at [facility]. The patient had Staphylococcus lugdunensis oxacillin sensitive bacteremia. The patient also has a history of cardiac arrhythmia, ventricular tachycardia. He has AICD in place, atrial fibrillation, obesity, pulmonary fibrosis, obstructive sleep apnea, congestive heart failure, cardiomyopathy, chronic renal insufficiency, history of pulmonary embolism, TIA, coronary artery disease, total knee arthroplasty bilaterally and has AICD as well as right ankle hardware in place. SOCIAL HISTORY: Negative for smoking, alcohol or drug use. ALLERGIES: No known drug allergies. CURRENT MEDICATIONS: Reviewed. REVIEW OF SYSTEMS: As per HPI, all other systems reviewed and are negative. PHYSICAL EXAMINATION: GENERAL: Awake gentleman, not in any distress. VITAL SIGNS: Stable, afebrile, pulse is 95, respirations 24, blood pressure 90/41. The patient is on vasopressor support. HEENT: Both pupils are round and reacting. No conjunctival lesion. Oral; the patient has dry blood in the mouth, on the tongue and palate, on the lips. NECK: Supple, no JVP, no lymphadenopathy. LUNGS: Decreased breath sounds bilaterally. HEART: S1, S2 regular. No gallop. ABDOMEN: Soft, nontender, no organomegaly. EXTREMITIES: No edema or cyanosis. The patient does have some bleeding under the skin, around the neck, and upper extremities. NEUROLOGIC: The patient is alert, awake, able to communicate and able to move all the extremities. No focal deficit. LABORATORY DATA: White count is 15.1, hemoglobin 6.8, platelets are 152,000. BUN and creatinine is 112 and 5.3. His total bilirubin is 3.1, AST 303, ALT 106, alkaline phosphatase is 268. Albumin is 2.2. Urinalysis showed 3-5 rbc's, 1-4 wbc's. Chest x-ray: Diffuse interstitial thickening with patchy lung opacity. IMPRESSION: 1. Leukocytosis, it is possible it is reactive. It is possible that it may have infection, most recent infection was T8-T9 diskitis and osteomyelitis. 2. T8-T9 diskitis and osteomyelitis with small epidural abscess, completed 6 weeks of ceftriaxone and on a chronic suppressive Keflex, was planned to give for 6 months. 3. Hypotension with acute kidney injury, etiology to be determined. 4. Elevated liver function tests secondary to hypotension. 5. History of staphylococcal lugdunensis oxacillin sensitive bacteremia. 6. Acute kidney injury on top of a chronic renal insufficiency. 7. Cardiac arrhythmia. The patient does have AICD in place. 8. Pulmonary fibrosis. 9. Morbid obesity. 10. Congestive heart failure. 11. Hypotension. RECOMMENDATIONS: We will get blood cultures done and then initiate Peptazol. Supportive care. The patient is going to get dialysis and once the patient is little more stabilized, I would repeat his scanning from the thoracic spine to rule out any further worsening of his prior osteo and epidural abscess. Thank you very much, Dr. Lock, for giving me the opportunity to participate in this patient's care. KEITH FERGUSON MD DR: JURGEN/william JOB#: [id number] / [id number]
--- NOTE | 2020-08-04 08:34 | NUR ---
BLOOD CULTURES DRAWN AND URINE. CHECK WITH BLOOD BANK TO SEE IF OK TO GIVE O-NEGATIVE BLOOD TO O-POSITIVE PT. BLOOD GAVE OK TO GIVE BLOOD.
[2020-08-04] MEDS: VASOPRESSIN 20 UNIT in IV DEXTROSE 5% 100ML 100 ML IV PRN ×3 (09:07→23:53)
--- NOTE | 2020-08-04 09:19 | PDOC ---
IM PROGRESS NOTES- Subjective Subjective No complaints of pain or dyspnea. Continues to have tremors. Has occasional back pain. Denies any abdominal pain or nausea. He had some blood in the mucus so patient has been kept n.p.o. by the transformer tester. Objective Vitals/I&O Vital Signs Date Time Temp Pulse Resp B/P (MAP) Pulse Ox O2 Delivery O2 Flow Rate FiO2 08/04/20 09:10 97.7 75 30 76/56 97.7 08/04/20 08:25 Nasal Cannula 4.0 08/04/20 08:00 96 I & O 08/03/20 08/03/20 08/04/20 15:00 23:00 07:00 Intake Total 1006.6 ml Output Total 300 ml 250 ml Balance -300 ml 756.6 ml Physical Exam Physical Exam GENERAL: This patient is an elderly male who is alert, oriented, but not a good historian, obese and appears to be acutely ill, not in any acute distress at this time. EYES: Pupils reacting to light. Conjunctivae pale. Sclerae muddy. HENT: The patient has bleeding from the nostrils and some blood in the mouth. SKIN: Warm and dry. Skin is pale. The patient has macerated skin and wounds with some bleeding in the gluteal area. No cyanosis. NECK: Supple. JVP normal. No thyromegaly. LUNGS: Decreased breath sounds at bases. CARDIOVASCULAR: S1, S2 regular. ABDOMEN: Soft, obese, nontender, no guarding, no rigidity. Bowel sounds present. EXTREMITIES: 3+ edema in all extremities. Also, has anasarca. CENTRAL NERVOUS SYSTEM: Alert, weak, appropriate, has tremors Labs Laboratory Tests Test 08/03/20 13:09 08/03/20 14:09 08/03/20 23:23 08/04/20 05:50 White Blood Count 17.3 x10^3/uL (4.0-11.0) H 16.8 x10^3/uL (4.0-11.0) H 15.1 x10^3/uL (4.0-11.0) H Red Blood Count 2.41 x10^6/uL (4.30-5.70) L 2.19 x10^6/uL (4.30-5.70) L 2.06 x10^6/uL (4.30-5.70) L Hemoglobin 8.0 g/dL (13.0-17.5) L 7.2 g/dL (13.0-17.5) L 6.8 g/dL (13.0-17.5) *L Hematocrit 23.7 % (39.0-53.0) L 21.6 % (39.0-53.0) L 20.2 % (39.0-53.0) *L Mean Corpuscular Volume 98 fL (79-100) 99 fL (79-100) 98 fL (79-100) Mean Corpuscular Hemoglobin 33 pg (25-35) 33 pg (25-35) 33 pg (25-35) Mean Corpuscular Hemoglobin Concent 34 g/dL (31-37) 33 g/dL (31-37) 33 g/dL (31-37) Red Cell Distribution Width 17.1 % (11.5-14.5) H 17.3 % (11.5-14.5) H 17.1 % (11.5-14.5) H Platelet Count 166 x10^3/uL (140-400) 158 x10^3/uL (140-400) 152 x10^3/uL (140-400) Neutrophils (%) (Auto) 85 % (31-73) H 83 % (31-73) H Lymphocytes (%) (Auto) 11 % (24-48) L 11 % (24-48) L Monocytes (%) (Auto) 3 % (0-9) 5 % (0-9) Eosinophils (%) (Auto) 1 % (0-3) 1 % (0-3) Basophils (%) (Auto) 1 % (0-3) 1 % (0-3) Neutrophils # (Auto) 14.6 x10^3/uL (1.8-7.7) H 12.5 x10^3/uL (1.8-7.7) H Lymphocytes # (Auto) 1.8 x10^3/uL (1.0-4.8) 1.6 x10^3/uL (1.0-4.8) Monocytes # (Auto) 0.6 x10^3/uL (0.0-1.1) 0.7 x10^3/uL (0.0-1.1) Eosinophils # (Auto) 0.2 x10^3/uL (0.0-0.7) 0.2 x10^3/uL (0.0-0.7) Basophils # (Auto) 0.1 x10^3/uL (0.0-0.2) 0.1 x10^3/uL (0.0-0.2) Prothrombin Time 28.8 SEC (11.7-14.0) H 26.7 SEC (11.7-14.0) H Prothrombin Time INR 2.7 (0.8-1.1) H 2.5 (0.8-1.1) H Activated Partial Thromboplast Time 60 SEC (24-38) H Urine Collection Type Unknown Urine Color Kaya Urine Clarity Clear Urine pH 5.0 (<5.0-8.0) Urine Specific [place] 1.015 (1.000-1.030) Urine Protein Negative mg/dL (NEG-TRACE) Urine Glucose (UA) Negative mg/dL (NEG) Urine Ketones (Stick) Negative mg/dL (NEG) Urine Blood Moderate (NEG) Urine Nitrite Negative (NEG) Urine Bilirubin Negative (NEG) Urine Urobilinogen Dipstick 0.2 mg/dL (0.2 mg/dL) Urine Leukocyte Esterase Small (NEG) Urine RBC 3-5 /HPF (0-2) Urine WBC 1-4 /HPF (0-4) Urine Squamous Epithelial Cells Few /LPF Urine Bacteria 0 /HPF (0-FEW) Urine Hyaline Casts Few /HPF Urine Mucus Mod /LPF Sodium Level 126 mmol/L (136-145) L 128 mmol/L (136-145) L Potassium Level 4.9 mmol/L (3.5-5.1) 4.7 mmol/L (3.5-5.1) Chloride Level 89 mmol/L (98-107) L 91 mmol/L (98-107) L Carbon Dioxide Level 24 mmol/L (21-32) 22 mmol/L (21-32) Anion Gap 13 (6-14) 15 (6-14) H Blood Urea Nitrogen 113 mg/dL (8-26) H 112 mg/dL (8-26) H Creatinine 5.5 mg/dL (0.7-1.3) H 5.3 mg/dL (0.7-1.3) H Estimated GFR (Cockcroft-Gault) 10.1 10.6 BUN/Creatinine Ratio 21 (6-20) H 21 (6-20) H Glucose Level 144 mg/dL (70-99) H 123 mg/dL (70-99) H Calcium Level 7.5 mg/dL (8.5-10.1) L 7.1 mg/dL (8.5-10.1) L Magnesium Level 2.3 mg/dL (1.8-2.4) 2.1 mg/dL (1.8-2.4) Total Bilirubin 2.5 mg/dL (0.2-1.0) H 3.1 mg/dL (0.2-1.0) H Aspartate Amino Transferase (AST) 337 U/L (15-37) H 303 U/L (15-37) H Alanine Aminotransferase (ALT) 116 U/L (16-63) H 106 U/L (16-63) H Alkaline Phosphatase 316 U/L (46-116) H 268 U/L (46-116) H Troponin I Quantitative < 0.017 ng/mL (0.000-0.055) Total Protein 5.0 g/dL (6.4-8.2) L 5.1 g/dL (6.4-8.2) L Albumin 1.7 g/dL (3.4-5.0) L 2.2 g/dL (3.4-5.0) L Albumin/Globulin Ratio 0.5 (1.0-1.7) L 0.8 (1.0-1.7) L Hepatitis B Surface Antigen Nonreactive (Nonreactive) Hepatitis B Surface Antibody Reactive Phosphorus Level 7.1 mg/dL (2.6-4.7) H Laboratory Tests 08/03/20 13:09 08/03/20 23:23 08/04/20 05:50 Laboratory Tests 08/03/20 13:09 08/04/20 05:50 Meds Current Medications Medications (Trade) Dose Ordered Sig/Samantha Route PRN Reason Start Time Stop Time Status Last Admin Dose Admin Norepinephrine Bitartrate 8 mg/ Dextrose 258 ml @ 26.51 mls/ hr CONT PRN PRN IV ELEVATED BP, SEE COMMENTS 08/03/20 13:00 08/04/20 01:32 DC 08/03/20 13:30 Sodium Chloride 1,000 ml @ 1,000 mls/hr 1X ONCE IV 08/03/20 14:15 08/03/20 15:14 DC 08/03/20 14:40 Lidocaine HCl (Lidocaine 1% 20ml Vial) 20 ml 1X ONCE INJ 08/03/20 15:15 08/03/20 15:16 DC 08/03/20 15:09 Albumin Human 500 ml @ 125 mls/hr 1X ONCE IV 08/03/20 17:00 08/03/20 20:59 DC 08/03/20 18:39 Norepinephrine Bitartrate 32 mg/ Dextrose 250 ml @ 6.422 mls/ hr CONT PRN IV SEE I/O RECORD 08/03/20 17:15 08/04/20 02:29 Fentanyl Citrate (Fentanyl 2ml Vial) 25 mcg PRN Q3HRS PRN IVP PAIN 08/03/20 18:00 08/03/20 18:31 Phytonadione (Vitamin K Ampule) 3 mg 1X ONCE SQ 08/03/20 18:00 08/03/20 18:26 DC 08/03/20 18:31 Vasopressin 20 unit/Dextrose 101 ml @ 12 mls/hr CONT PRN IV SEE I/O RECORD 08/03/20 18:45 08/04/20 09:07 Pantoprazole Sodium (PROTONIX VIAL for IV PUSH) 40 mg DAILY IVP 08/03/20 18:45 08/03/20 23:07 Sodium Bicarbonate 50 meq/Sodium Chloride 1,050 ml @ 75 mls/hr Q14H IV 08/03/20 20:00 08/03/20 21:06 Assessment Assessment 1. Acute hypotension, multifactorial. 2. Acute kidney injury with chronic kidney disease. 3. Coagulopathy. 4. Acute respiratory failure. 5. Recurrent ventricular tachycardia. 6. Atrial fibrillation. 7. Coronary artery disease. 8. Congestive heart failure with ejection fraction of 40%. 9. Elevated LFTs, possibly shock liver. 10. Recent gastrointestinal bleeding including diverticular and hemorrhoidal bleeding. 11. Aortic root dilatation. 12. Hypoalbuminemia with severe malnutrition. 13. History of pulmonary embolism. 14. Status post total knee arthroplasty. 15. Chronic hypoxic respiratory failure with pulmonary fibrosis, on 3 liters oxygen at night with exertion. 16. Obstructive sleep apnea syndrome, using CPAP. 17. Recent epidural abscess in 03/2020 initially treated with doxycycline, now on cephalexin. 18. Transient ischemic attack. 19. Physical deconditioning. 20. Morbid obesity. 21. Leukocytosis. PLAN: Admit to Intensive Care Unit. Consult Dr. Farrell for pulmonary evaluation and management, Dr. Sharif for cardiology evaluation and management. Consult Dr. Valladares for GI evaluation and management. Consult Dr. Rodriguez for nephrology evaluation and management. Consult Dr. Boone for hematology evaluation and management. Consult wound care. Consult Dr. Rey Antoine for infectious disease evaluation and management. The patient has been admitted to ICU. Continue Levophed,Vasopressin. Condition and treatment options were discussed with the on the phone this morning and in person here at bedside this evening. Prognosis of this patient is extremely poor. We will give him 3 mg of subcu vitamin K and also give him 2 units of fresh frozen plasma as he is bleeding in several places. He has a dialysis catheter, but as he is very hypotensive he may not be able to get dialysis soon. We will give him 1 unit of blood also and 500 mL of albumin has been ordered by Dr. Farrell. Continue to monitor hemoglobin and hematocrit q.6. Continue IV fluids. For details, please refer to the orders. Acute hypotension-continue pressure support, IV fluids, blood transfusion. Acute kidney injury-start hemodialysis as tolerated. BUN is 113 creatinine is 5.3. Acute respiratory failure, history of pulmonary fibrosis-continue oxygen by nasal cannula. Discussed with Dr. Holbrook this morning. He had started him on IV steroids until hypotension is corrected. I will restart IV Solu-Medrol Acute blood loss anemia-blood transfusion. Last hemoglobin is 6.8. Transfuse 2 units of packed red cells. Coagulopathy-he is off Eliquis . He received FFP and vitamin K yesterday. Process Area Supervisor has been consulted. We will check with dough braker if Kcentra is indicated. GI bleeding-consulted Dr. Valladares. Keep patient n.p.o. for now. He will receive 2 units of packed red cells. Recurrent ventricular tachycardia-AICD was adjusted to detect V. tach at 150/min yesterday. Coreg 3.125 mg twice a day was held yesterday because of hypotension. Patient was also on amiodarone and it was held yesterday. Coronary artery disease Dilated cardiomyopathy with ejection fraction of 40% Atrial fibrillation-hold anticoagulation for now Tremors-Likely due to renal failure. gabapentin decreased to 100 mg yesterday I will discontinue it for now. Leukocytosis, recent epidural abscess-likely reactive and due to steroids. Antibiotics per ID Clinically improving slowly. Continue treatment in the ICU. Prognosis of this patient is very poor. Condition, treatment and options discussed with Kathleen on phone. Critical care time 35 minutes. Plan Plan For more details regarding further plans, please refer to the orders. Justifications for Admission Other Justification LUCAS BRAGA MD Aug 04, 2020 09:19
--- NOTE | 2020-08-04 09:52 | PDOC2 ---
GI CONSULT Date of Service: DATE: 08/04/20 TIME: 09:52 Reason For Consult: GI bleed HPI: HPI: 75 y/o male from [facility], history limited from him so obtained from chart, staff, and other records. Sent to ER w/ hypotension, CORKY, epistaxis, bleeding from gums, and possible blood in stools. H/o A Fib, TIA, and PE on Eliquis. Dr. Valladares saw at [facility] - had bleeding c/w hemorrhoids, noted elevated LFTs possible related to CHF or amiodarone, and macrocytic anemia. Previously denied heartburn, dysphagia, PUD, liver, and pancreatic history. ?recent EGD and colonoscopy (06/24/20) at [facility] - colonoscopy w/ polyps? CT on 08/02/20 noted cholelithiasis and small right pleural effusion. Hgb 8.1 to 6.8, MCV 99, plt 120, INR 2.7, bili 3.1, AST 303, ALT 106, Alk Phos 268, BUN 110, Cr 5.3. "Coughed up" some bloody material here per nurse. Currently dialyzing in ICU. PMH: PMH: per other records: CHF, CAD, cardiomyopathy, JAZMINE, TIA, A Fib, PE, epidural abscess, pulm fibrosis/chronic resp failure, lymphoma, ?breast cancer AICD, pacemaker, right ankle surgery, bilateral knee surgeries, ?mastectomy, FH: Family History: No pertinent hx Social History: Smoke: No Drugs: None ROS: Denies pain. Vitals: Vitals: Vital Signs Date Time Temp Pulse Resp B/P (MAP) Pulse Ox O2 Delivery O2 Flow Rate FiO2 08/04/20 09:10 97.7 75 30 76/56 97.7 08/04/20 08:25 Nasal Cannula 4.0 08/04/20 08:00 96 Labs: Labs: Laboratory Tests Test 08/03/20 13:09 08/03/20 14:09 08/03/20 23:23 08/04/20 05:50 White Blood Count 17.3 x10^3/uL (4.0-11.0) 16.8 x10^3/uL (4.0-11.0) 15.1 x10^3/uL (4.0-11.0) Red Blood Count 2.41 x10^6/uL (4.30-5.70) 2.19 x10^6/uL (4.30-5.70) 2.06 x10^6/uL (4.30-5.70) Hemoglobin 8.0 g/dL (13.0-17.5) 7.2 g/dL (13.0-17.5) 6.8 g/dL (13.0-17.5) Hematocrit 23.7 % (39.0-53.0) 21.6 % (39.0-53.0) 20.2 % (39.0-53.0) Mean Corpuscular Volume 98 fL (79-100) 99 fL (79-100) 98 fL (79-100) Mean Corpuscular Hemoglobin 33 pg (25-35) 33 pg (25-35) 33 pg (25-35) Mean Corpuscular Hemoglobin Concent 34 g/dL (31-37) 33 g/dL (31-37) 33 g/dL (31-37) Red Cell Distribution Width 17.1 % (11.5-14.5) 17.3 % (11.5-14.5) 17.1 % (11.5-14.5) Platelet Count 166 x10^3/uL (140-400) 158 x10^3/uL (140-400) 152 x10^3/uL (140-400) Neutrophils (%) (Auto) 85 % (31-73) 83 % (31-73) Lymphocytes (%) (Auto) 11 % (24-48) 11 % (24-48) Monocytes (%) (Auto) 3 % (0-9) 5 % (0-9) Eosinophils (%) (Auto) 1 % (0-3) 1 % (0-3) Basophils (%) (Auto) 1 % (0-3) 1 % (0-3) Neutrophils # (Auto) 14.6 x10^3/uL (1.8-7.7) 12.5 x10^3/uL (1.8-7.7) Lymphocytes # (Auto) 1.8 x10^3/uL (1.0-4.8) 1.6 x10^3/uL (1.0-4.8) Monocytes # (Auto) 0.6 x10^3/uL (0.0-1.1) 0.7 x10^3/uL (0.0-1.1) Eosinophils # (Auto) 0.2 x10^3/uL (0.0-0.7) 0.2 x10^3/uL (0.0-0.7) Basophils # (Auto) 0.1 x10^3/uL (0.0-0.2) 0.1 x10^3/uL (0.0-0.2) Prothrombin Time 28.8 SEC (11.7-14.0) 26.7 SEC (11.7-14.0) Prothromb Time International Ratio 2.7 (0.8-1.1) 2.5 (0.8-1.1) Activated Partial Thromboplast Time 60 SEC (24-38) Urine Collection Type Unknown Urine Color Kaya Urine Clarity Clear Urine pH 5.0 (<5.0-8.0) Urine Specific [place] 1.015 (1.000-1.030) Urine Protein Negative mg/dL (NEG-TRACE) Urine Glucose (UA) Negative mg/dL (NEG) Urine Ketones (Stick) Negative mg/dL (NEG) Urine Blood Moderate (NEG) Urine Nitrite Negative (NEG) Urine Bilirubin Negative (NEG) Urine Urobilinogen Dipstick 0.2 mg/dL (0.2 mg/dL) Urine Leukocyte Esterase Small (NEG) Urine RBC 3-5 /HPF (0-2) Urine WBC 1-4 /HPF (0-4) Urine Squamous Epithelial Cells Few /LPF Urine Bacteria 0 /HPF (0-FEW) Urine Hyaline Casts Few /HPF Urine Mucus Mod /LPF Sodium Level 126 mmol/L (136-145) 128 mmol/L (136-145) Potassium Level 4.9 mmol/L (3.5-5.1) 4.7 mmol/L (3.5-5.1) Chloride Level 89 mmol/L (98-107) 91 mmol/L (98-107) Carbon Dioxide Level 24 mmol/L (21-32) 22 mmol/L (21-32) Anion Gap 13 (6-14) 15 (6-14) Blood Urea Nitrogen 113 mg/dL (8-26) 112 mg/dL (8-26) Creatinine 5.5 mg/dL (0.7-1.3) 5.3 mg/dL (0.7-1.3) Estimated GFR (Cockcroft-Gault) 10.1 10.6 BUN/Creatinine Ratio 21 (6-20) 21 (6-20) Glucose Level 144 mg/dL (70-99) 123 mg/dL (70-99) Calcium Level 7.5 mg/dL (8.5-10.1) 7.1 mg/dL (8.5-10.1) Magnesium Level 2.3 mg/dL (1.8-2.4) 2.1 mg/dL (1.8-2.4) Total Bilirubin 2.5 mg/dL (0.2-1.0) 3.1 mg/dL (0.2-1.0) Aspartate Amino Transf (AST/SGOT) 337 U/L (15-37) 303 U/L (15-37) Alanine Aminotransferase (ALT/SGPT) 116 U/L (16-63) 106 U/L (16-63) Alkaline Phosphatase 316 U/L (46-116) 268 U/L (46-116) Troponin I Quantitative < 0.017 ng/mL (0.000-0.055) Total Protein 5.0 g/dL (6.4-8.2) 5.1 g/dL (6.4-8.2) Albumin 1.7 g/dL (3.4-5.0) 2.2 g/dL (3.4-5.0) Albumin/Globulin Ratio 0.5 (1.0-1.7) 0.8 (1.0-1.7) Hepatitis B Surface Antigen Nonreactive (Nonreactive) Hepatitis B Surface Antibody Reactive Phosphorus Level 7.1 mg/dL (2.6-4.7) Allergies: Coded Allergies: No Known Drug Allergies (Unverified , 07/28/20) Medications: Current Medications Medications (Trade) Dose Ordered Sig/Samantha Route PRN Reason Start Time Stop Time Status Last Admin Dose Admin Norepinephrine Bitartrate 8 mg/ Dextrose 258 ml @ 26.51 mls/ hr CONT PRN PRN IV ELEVATED BP, SEE COMMENTS 08/03/20 13:00 08/04/20 01:32 DC 08/03/20 13:30 Sodium Chloride 1,000 ml @ 1,000 mls/hr 1X ONCE IV 08/03/20 14:15 08/03/20 15:14 DC 08/03/20 14:40 Lidocaine HCl (Lidocaine 1% 20ml Vial) 20 ml 1X ONCE INJ 08/03/20 15:15 08/03/20 15:16 DC 08/03/20 15:09 Albumin Human 500 ml @ 125 mls/hr 1X ONCE IV 08/03/20 17:00 08/03/20 20:59 DC 08/03/20 18:39 Norepinephrine Bitartrate 32 mg/ Dextrose 250 ml @ 6.422 mls/ hr CONT PRN IV SEE I/O RECORD 08/03/20 17:15 08/04/20 02:29 Fentanyl Citrate (Fentanyl 2ml Vial) 25 mcg PRN Q3HRS PRN IVP PAIN 08/03/20 18:00 08/03/20 18:31 Phytonadione (Vitamin K Ampule) 3 mg 1X ONCE SQ 08/03/20 18:00 08/03/20 18:26 DC 08/03/20 18:31 Vasopressin 20 unit/Dextrose 101 ml @ 12 mls/hr CONT PRN IV SEE I/O RECORD 08/03/20 18:45 08/04/20 09:07 Pantoprazole Sodium (PROTONIX VIAL for IV PUSH) 40 mg DAILY IVP 08/03/20 18:45 08/03/20 23:07 Sodium Bicarbonate 50 meq/Sodium Chloride 1,050 ml @ 75 mls/hr Q14H IV 08/03/20 20:00 08/03/20 21:06 Imaging: Imaging: CXR 08/03 Impression: 1. Interval placement right IJ central line. No pneumothorax. 2. Unchanged diffuse interstitial thickening with patchy left mid lung opacities. PE: GEN: chronically ill, dialyzing HEENT: Atraumatic LUNGS: diminished, NC HEART: RRR ABD: large, soft, non-tender EXTREMITY: BLE edema SKIN: bruising NEURO/PSYCH: confused A/P: A/P: CORKY/CKD, hypotension, epistaxis/?hematochezia H/o A Fib and PE on Eliquis Cardiomyopathy, chronic resp failure Chronic anemia, coagulopathy CRC screen - ?recently done at [facility] Elevated LFTs - noted previously, ?related to CHF/amiodarone Cholelithiasis H/o epidural abscess -- Agree w/ PPI. Transfuse as needed, monitor labs. Observe for GI bleeding. DERRICK CORTEZ Aug 04, 2020 09:52
--- NOTE | 2020-08-04 10:09 | PDOC2 ---
RONIT JALLOH FINANCIAL PLANNING ADVISOR 08/04/20 1009: CARDIAC CONSULT DATE OF CONSULT Date of Consult DATE: 08/04/20 TIME: 09:41 REASON FOR CONSULT Reason for Consult: Hypotension, recurrent v-tach REFERRING PHYSICIAN Referring Physician: Dr. Lock SOURCE Source: Chart review, Patient HISTORY OF PRESENT ILLNESS HISTORY OF PRESENT ILLNESS This is a 75 yo male who was initially at [facility] in [place] for concerns of GI bleed. Was noted with recurrent VT and treated with IV Amiodarone therapy. Was transferred to [facility] for ongoing care. While at [facility], noted with worsening CORKY on CKD. Cr was ^ 5. Patient was transferred to [facility] for initiation of hemodialysis. Was also hypotensive requiring pressor support. RN at [facility] noted blood in his stools while cleaning him. Was also having bleeding in his mouth. Has multiple chronic medical conditions including chronic respiratory failure, pulmonary fibrosis, JAZMINE with CPAP, dilated cardiomyopathy s/p AICD with reports of recent echo with LVEF 40%, AFIB, VT on Amiodarone therapy, NHL, breast CA, PE, CKD, spinal abscess, and G IB. He follows with [facility], Dr. Talley. He denies any dizziness, diaphoresis, chest pain or palpitations. PAST MEDICAL HISTORY Cardiovascular: AFIB, CHF, HTN, Hyperlipidemia, Other (VT, ascending aortic aneurysm ) Pulmonary: COPD, Pulmonary embolus, Other (JAZMINE with SPAP) CENTRAL NERVOUS SYSTEM: TIA GI: Diverticulosis, GERD, GI bleed Heme/Onc: Anemia NOS, Cancer (NHL, breast CA) Hepatobiliary: No pertinent hx Psych: No pertinent hx Musculoskeletal: Osteoarthritis Rheumatologic: No pertinent hx Infectious disease: Other (spinal abscess ) Renal/: Chronic renal insuff, Acute renal failure Dermatology: No pertinent hx PAST SURGICAL HISTORY Past Surgical History: Pacemaker (AICD), Total knee replacement (bilateral ) FAMILY HISTORY Family History: Diabetes SOCIAL HISTORY Smoke: Quit ALCOHOL: none Drugs: None Lives: with Family CURRENT MEDICATIONS CURRENT MEDICATIONS Current Medications Medications (Trade) Dose Ordered Sig/Samantha Route PRN Reason Start Time Stop Time Status Last Admin Dose Admin Norepinephrine Bitartrate 8 mg/ Dextrose 258 ml @ 26.51 mls/ hr CONT PRN PRN IV ELEVATED BP, SEE COMMENTS 08/03/20 13:00 08/04/20 01:32 DC 08/03/20 13:30 Sodium Chloride 1,000 ml @ 1,000 mls/hr 1X ONCE IV 08/03/20 14:15 08/03/20 15:14 DC 08/03/20 14:40 Lidocaine HCl (Lidocaine 1% 20ml Vial) 20 ml 1X ONCE INJ 08/03/20 15:15 08/03/20 15:16 DC 08/03/20 15:09 Albumin Human 500 ml @ 125 mls/hr 1X ONCE IV 08/03/20 17:00 08/03/20 20:59 DC 08/03/20 18:39 Norepinephrine Bitartrate 32 mg/ Dextrose 250 ml @ 6.422 mls/ hr CONT PRN IV SEE I/O RECORD 08/03/20 17:15 08/04/20 02:29 Fentanyl Citrate (Fentanyl 2ml Vial) 25 mcg PRN Q3HRS PRN IVP PAIN 08/03/20 18:00 08/03/20 18:31 Phytonadione (Vitamin K Ampule) 3 mg 1X ONCE SQ 08/03/20 18:00 08/03/20 18:26 DC 08/03/20 18:31 Vasopressin 20 unit/Dextrose 101 ml @ 12 mls/hr CONT PRN IV SEE I/O RECORD 08/03/20 18:45 08/04/20 09:07 Pantoprazole Sodium (PROTONIX VIAL for IV PUSH) 40 mg DAILY IVP 08/03/20 18:45 08/03/20 23:07 Sodium Bicarbonate 50 meq/Sodium Chloride 1,050 ml @ 75 mls/hr Q14H IV 08/03/20 20:00 08/03/20 21:06 ALLERGIES ALLERGIES: Coded Allergies: No Known Drug Allergies (Unverified , 07/28/20) ROS Review of System 14 point ROS conducted with pertinent positives noted above in HPI PHYSICAL EXAM General: Alert, Oriented X3, Cooperative, No acute distress HEENT: Atraumatic, Mucous membr. moist/pink Heart: Regular rate Abdomen: Soft, Other (obese) Neuro: Normal speech, Sensation intact Psych/Mental Status: Mental status NL, Mood NL MUSCULOSKELETAL: Osteoarthritic changes both hands VITALS/I&O VITALS/I&O: Vital Signs Date Time Temp Pulse Resp B/P (MAP) Pulse Ox O2 Delivery O2 Flow Rate FiO2 08/04/20 09:10 97.7 75 30 76/56 97.7 08/04/20 08:25 Nasal Cannula 4.0 08/04/20 08:00 96 I & O 08/03/20 08/03/20 08/04/20 15:00 23:00 07:00 Intake Total 1006.6 ml Output Total 300 ml 250 ml Balance -300 ml 756.6 ml LABS Lab: Laboratory Tests Test 08/03/20 13:09 08/03/20 14:09 08/03/20 23:23 08/04/20 05:50 White Blood Count 17.3 x10^3/uL (4.0-11.0) H 16.8 x10^3/uL (4.0-11.0) H 15.1 x10^3/uL (4.0-11.0) H Red Blood Count 2.41 x10^6/uL (4.30-5.70) L 2.19 x10^6/uL (4.30-5.70) L 2.06 x10^6/uL (4.30-5.70) L Hemoglobin 8.0 g/dL (13.0-17.5) L 7.2 g/dL (13.0-17.5) L 6.8 g/dL (13.0-17.5) *L Hematocrit 23.7 % (39.0-53.0) L 21.6 % (39.0-53.0) L 20.2 % (39.0-53.0) *L Mean Corpuscular Volume 98 fL (79-100) 99 fL (79-100) 98 fL (79-100) Mean Corpuscular Hemoglobin 33 pg (25-35) 33 pg (25-35) 33 pg (25-35) Mean Corpuscular Hemoglobin Concent 34 g/dL (31-37) 33 g/dL (31-37) 33 g/dL (31-37) Red Cell Distribution Width 17.1 % (11.5-14.5) H 17.3 % (11.5-14.5) H 17.1 % (11.5-14.5) H Platelet Count 166 x10^3/uL (140-400) 158 x10^3/uL (140-400) 152 x10^3/uL (140-400) Neutrophils (%) (Auto) 85 % (31-73) H 83 % (31-73) H Lymphocytes (%) (Auto) 11 % (24-48) L 11 % (24-48) L Monocytes (%) (Auto) 3 % (0-9) 5 % (0-9) Eosinophils (%) (Auto) 1 % (0-3) 1 % (0-3) Basophils (%) (Auto) 1 % (0-3) 1 % (0-3) Neutrophils # (Auto) 14.6 x10^3/uL (1.8-7.7) H 12.5 x10^3/uL (1.8-7.7) H Lymphocytes # (Auto) 1.8 x10^3/uL (1.0-4.8) 1.6 x10^3/uL (1.0-4.8) Monocytes # (Auto) 0.6 x10^3/uL (0.0-1.1) 0.7 x10^3/uL (0.0-1.1) Eosinophils # (Auto) 0.2 x10^3/uL (0.0-0.7) 0.2 x10^3/uL (0.0-0.7) Basophils # (Auto) 0.1 x10^3/uL (0.0-0.2) 0.1 x10^3/uL (0.0-0.2) Prothrombin Time 28.8 SEC (11.7-14.0) H 26.7 SEC (11.7-14.0) H Prothrombin Time INR 2.7 (0.8-1.1) H 2.5 (0.8-1.1) H Activated Partial Thromboplast Time 60 SEC (24-38) H Urine Collection Type Unknown Urine Color Kaya Urine Clarity Clear Urine pH 5.0 (<5.0-8.0) Urine Specific [place] 1.015 (1.000-1.030) Urine Protein Negative mg/dL (NEG-TRACE) Urine Glucose (UA) Negative mg/dL (NEG) Urine Ketones (Stick) Negative mg/dL (NEG) Urine Blood Moderate (NEG) Urine Nitrite Negative (NEG) Urine Bilirubin Negative (NEG) Urine Urobilinogen Dipstick 0.2 mg/dL (0.2 mg/dL) Urine Leukocyte Esterase Small (NEG) Urine RBC 3-5 /HPF (0-2) Urine WBC 1-4 /HPF (0-4) Urine Squamous Epithelial Cells Few /LPF Urine Bacteria 0 /HPF (0-FEW) Urine Hyaline Casts Few /HPF Urine Mucus Mod /LPF Sodium Level 126 mmol/L (136-145) L 128 mmol/L (136-145) L Potassium Level 4.9 mmol/L (3.5-5.1) 4.7 mmol/L (3.5-5.1) Chloride Level 89 mmol/L (98-107) L 91 mmol/L (98-107) L Carbon Dioxide Level 24 mmol/L (21-32) 22 mmol/L (21-32) Anion Gap 13 (6-14) 15 (6-14) H Blood Urea Nitrogen 113 mg/dL (8-26) H 112 mg/dL (8-26) H Creatinine 5.5 mg/dL (0.7-1.3) H 5.3 mg/dL (0.7-1.3) H Estimated GFR (Cockcroft-Gault) 10.1 10.6 BUN/Creatinine Ratio 21 (6-20) H 21 (6-20) H Glucose Level 144 mg/dL (70-99) H 123 mg/dL (70-99) H Calcium Level 7.5 mg/dL (8.5-10.1) L 7.1 mg/dL (8.5-10.1) L Magnesium Level 2.3 mg/dL (1.8-2.4) 2.1 mg/dL (1.8-2.4) Total Bilirubin 2.5 mg/dL (0.2-1.0) H 3.1 mg/dL (0.2-1.0) H Aspartate Amino Transferase (AST) 337 U/L (15-37) H 303 U/L (15-37) H Alanine Aminotransferase (ALT) 116 U/L (16-63) H 106 U/L (16-63) H Alkaline Phosphatase 316 U/L (46-116) H 268 U/L (46-116) H Troponin I Quantitative < 0.017 ng/mL (0.000-0.055) Total Protein 5.0 g/dL (6.4-8.2) L 5.1 g/dL (6.4-8.2) L Albumin 1.7 g/dL (3.4-5.0) L 2.2 g/dL (3.4-5.0) L Albumin/Globulin Ratio 0.5 (1.0-1.7) L 0.8 (1.0-1.7) L Hepatitis B Surface Antigen Nonreactive (Nonreactive) Hepatitis B Surface Antibody Reactive Phosphorus Level 7.1 mg/dL (2.6-4.7) H Laboratory Tests 08/03/20 13:09 08/03/20 23:23 08/04/20 05:50 Laboratory Tests 08/03/20 13:09 08/04/20 05:50 ECHOCARDIOGRAM ECHOCARDIOGRAM <Conclusion> Limited study. The left ventricle is normal size. Left ventricle systolic function is within normal limits. The Ejection Fraction is 50-55%. Apical motion consistent with pacemaker activation. There is mild concentric left ventricular hypertrophy. Doppler and Color Flow revealed mild tricuspid regurgitation The PA pressure was estimated at 33 mmHg. DATE: 08/04/20 1009 ASSESSMENT/PLAN ASSESSMENT/PLAN 1. CORKY on CKD; progressive. HD has been initiated 2. Chronic respiratory failure, pulmonary fibrosis 3. Dilated cardiomyopathy; s/p AICD ([employer]) last reported LVEF 40%. Follows with Dr. Talley with [facility]. Limited echo showed LVEF 50-55% as noted above 4. H/o VT; on Amiodarone therapy; Spoke with [employer]; patient had 10 min episode of VT 07/10/20 s/p ATP. Rate was near detection zone of 150. No other evidence of VT or shock therapies delivered. Device was interrogated 08/03/20 with normal function. detection zone was lowered. 5. Hypotensive; requiring pressor support 6. PAFIB; maintaining SR. On Eliquis for stroke prophylaxis 7. Anemia, recent GIB; hgb drifting to 6.8. To be transfused 8. Elevated LFTs, coagulopathy; INR 2.5. FFP and vit K 9. Ascending aortic aneurysm; 4.0 cm 10. Severe protein calorie malnutrition 11. H/o PE 12. Morbid obesity, JAZMINE with CPAP 13. Recent epidural abscess; treated with IV antibiotic therapy 14. H/o Non-Hodgkins lymphoma Recommendations Obtain cardiac records from [facility] Obtain recent device interrogation No ASA, OAC with anemia, bleeding Hold Amiodarone, statin with elevated LFTs Pressor support as warranted HD as per nephrology Supportive care Further pending review of records. FATMATA CARNEY MD 08/05/20 0608: CARDIAC CONSULT ASSESSMENT/PLAN ASSESSMENT/PLAN Patient seen and examined 08/04/20. Agree with BLOCKING MACHINE OPERATOR SECOND's assessment and plan. Stop amiodarone secondary to elevated LFT's and coagulopathy Recurrent VT needing ATP noted on device interrogation Consider outpatient referral to EP service once active issues resolve, for possible VT ablation PAF with tele showing AV paced rhythm. Cont eliquis for stroke prophylaxis 2D echo showed normal LVEF Continue hemodialysis per nephrology Thank you for your consultation RONIT JALLOH APRN Aug 04, 2020 10:09 FATMATA CARNEY MD Aug 05, 2020 06:08
--- NOTE | 2020-08-04 10:37 | PDOC ---
PULMONARY PROGRESS NOTES DATE: 08/04/20 TIME: 10:31 Subjective No SOA, cough with blood sputum, on levo and vaso Pale, on HD with concurrent blood transfusion No other concerns from nursing Vitals Vital Signs Date Time Temp Pulse Resp B/P (MAP) Pulse Ox O2 Delivery O2 Flow Rate FiO2 08/04/20 10:29 97.3 81 30 95/34 97.3 08/04/20 08:25 Nasal Cannula 4.0 08/04/20 08:00 96 ROS: No Nausea, No Chest Pain, No Abdominal Pain General: Alert Lungs: Crackles Cardiovascular: S1, S2 Abdomen: Soft, Non-tender Neuro Exam: Alert Extremities: Other (edema +2) Skin: Warm, Dry Labs Laboratory Tests Test 08/03/20 13:09 08/03/20 14:09 08/03/20 23:23 08/04/20 05:50 White Blood Count 17.3 x10^3/uL (4.0-11.0) 16.8 x10^3/uL (4.0-11.0) 15.1 x10^3/uL (4.0-11.0) Red Blood Count 2.41 x10^6/uL (4.30-5.70) 2.19 x10^6/uL (4.30-5.70) 2.06 x10^6/uL (4.30-5.70) Hemoglobin 8.0 g/dL (13.0-17.5) 7.2 g/dL (13.0-17.5) 6.8 g/dL (13.0-17.5) Hematocrit 23.7 % (39.0-53.0) 21.6 % (39.0-53.0) 20.2 % (39.0-53.0) Mean Corpuscular Volume 98 fL (79-100) 99 fL (79-100) 98 fL (79-100) Mean Corpuscular Hemoglobin 33 pg (25-35) 33 pg (25-35) 33 pg (25-35) Mean Corpuscular Hemoglobin Concent 34 g/dL (31-37) 33 g/dL (31-37) 33 g/dL (31-37) Red Cell Distribution Width 17.1 % (11.5-14.5) 17.3 % (11.5-14.5) 17.1 % (11.5-14.5) Platelet Count 166 x10^3/uL (140-400) 158 x10^3/uL (140-400) 152 x10^3/uL (140-400) Neutrophils (%) (Auto) 85 % (31-73) 83 % (31-73) Lymphocytes (%) (Auto) 11 % (24-48) 11 % (24-48) Monocytes (%) (Auto) 3 % (0-9) 5 % (0-9) Eosinophils (%) (Auto) 1 % (0-3) 1 % (0-3) Basophils (%) (Auto) 1 % (0-3) 1 % (0-3) Neutrophils # (Auto) 14.6 x10^3/uL (1.8-7.7) 12.5 x10^3/uL (1.8-7.7) Lymphocytes # (Auto) 1.8 x10^3/uL (1.0-4.8) 1.6 x10^3/uL (1.0-4.8) Monocytes # (Auto) 0.6 x10^3/uL (0.0-1.1) 0.7 x10^3/uL (0.0-1.1) Eosinophils # (Auto) 0.2 x10^3/uL (0.0-0.7) 0.2 x10^3/uL (0.0-0.7) Basophils # (Auto) 0.1 x10^3/uL (0.0-0.2) 0.1 x10^3/uL (0.0-0.2) Prothrombin Time 28.8 SEC (11.7-14.0) 26.7 SEC (11.7-14.0) Prothromb Time International Ratio 2.7 (0.8-1.1) 2.5 (0.8-1.1) Activated Partial Thromboplast Time 60 SEC (24-38) Urine Collection Type Unknown Urine Color Kaya Urine Clarity Clear Urine pH 5.0 (<5.0-8.0) Urine Specific [place] 1.015 (1.000-1.030) Urine Protein Negative mg/dL (NEG-TRACE) Urine Glucose (UA) Negative mg/dL (NEG) Urine Ketones (Stick) Negative mg/dL (NEG) Urine Blood Moderate (NEG) Urine Nitrite Negative (NEG) Urine Bilirubin Negative (NEG) Urine Urobilinogen Dipstick 0.2 mg/dL (0.2 mg/dL) Urine Leukocyte Esterase Small (NEG) Urine RBC 3-5 /HPF (0-2) Urine WBC 1-4 /HPF (0-4) Urine Squamous Epithelial Cells Few /LPF Urine Bacteria 0 /HPF (0-FEW) Urine Hyaline Casts Few /HPF Urine Mucus Mod /LPF Sodium Level 126 mmol/L (136-145) 128 mmol/L (136-145) Potassium Level 4.9 mmol/L (3.5-5.1) 4.7 mmol/L (3.5-5.1) Chloride Level 89 mmol/L (98-107) 91 mmol/L (98-107) Carbon Dioxide Level 24 mmol/L (21-32) 22 mmol/L (21-32) Anion Gap 13 (6-14) 15 (6-14) Blood Urea Nitrogen 113 mg/dL (8-26) 112 mg/dL (8-26) Creatinine 5.5 mg/dL (0.7-1.3) 5.3 mg/dL (0.7-1.3) Estimated GFR (Cockcroft-Gault) 10.1 10.6 BUN/Creatinine Ratio 21 (6-20) 21 (6-20) Glucose Level 144 mg/dL (70-99) 123 mg/dL (70-99) Calcium Level 7.5 mg/dL (8.5-10.1) 7.1 mg/dL (8.5-10.1) Magnesium Level 2.3 mg/dL (1.8-2.4) 2.1 mg/dL (1.8-2.4) Total Bilirubin 2.5 mg/dL (0.2-1.0) 3.1 mg/dL (0.2-1.0) Aspartate Amino Transf (AST/SGOT) 337 U/L (15-37) 303 U/L (15-37) Alanine Aminotransferase (ALT/SGPT) 116 U/L (16-63) 106 U/L (16-63) Alkaline Phosphatase 316 U/L (46-116) 268 U/L (46-116) Troponin I Quantitative < 0.017 ng/mL (0.000-0.055) Total Protein 5.0 g/dL (6.4-8.2) 5.1 g/dL (6.4-8.2) Albumin 1.7 g/dL (3.4-5.0) 2.2 g/dL (3.4-5.0) Albumin/Globulin Ratio 0.5 (1.0-1.7) 0.8 (1.0-1.7) Hepatitis B Surface Antigen Nonreactive (Nonreactive) Hepatitis B Surface Antibody Reactive Phosphorus Level 7.1 mg/dL (2.6-4.7) Laboratory Tests Test 08/03/20 13:09 08/03/20 14:09 08/03/20 23:23 08/04/20 05:50 White Blood Count 17.3 x10^3/uL (4.0-11.0) 16.8 x10^3/uL (4.0-11.0) 15.1 x10^3/uL (4.0-11.0) Red Blood Count 2.41 x10^6/uL (4.30-5.70) 2.19 x10^6/uL (4.30-5.70) 2.06 x10^6/uL (4.30-5.70) Hemoglobin 8.0 g/dL (13.0-17.5) 7.2 g/dL (13.0-17.5) 6.8 g/dL (13.0-17.5) Hematocrit 23.7 % (39.0-53.0) 21.6 % (39.0-53.0) 20.2 % (39.0-53.0) Mean Corpuscular Volume 98 fL (79-100) 99 fL (79-100) 98 fL (79-100) Mean Corpuscular Hemoglobin 33 pg (25-35) 33 pg (25-35) 33 pg (25-35) Mean Corpuscular Hemoglobin Concent 34 g/dL (31-37) 33 g/dL (31-37) 33 g/dL (31-37) Red Cell Distribution Width 17.1 % (11.5-14.5) 17.3 % (11.5-14.5) 17.1 % (11.5-14.5) Platelet Count 166 x10^3/uL (140-400) 158 x10^3/uL (140-400) 152 x10^3/uL (140-400) Neutrophils (%) (Auto) 85 % (31-73) 83 % (31-73) Lymphocytes (%) (Auto) 11 % (24-48) 11 % (24-48) Monocytes (%) (Auto) 3 % (0-9) 5 % (0-9) Eosinophils (%) (Auto) 1 % (0-3) 1 % (0-3) Basophils (%) (Auto) 1 % (0-3) 1 % (0-3) Neutrophils # (Auto) 14.6 x10^3/uL (1.8-7.7) 12.5 x10^3/uL (1.8-7.7) Lymphocytes # (Auto) 1.8 x10^3/uL (1.0-4.8) 1.6 x10^3/uL (1.0-4.8) Monocytes # (Auto) 0.6 x10^3/uL (0.0-1.1) 0.7 x10^3/uL (0.0-1.1) Eosinophils # (Auto) 0.2 x10^3/uL (0.0-0.7) 0.2 x10^3/uL (0.0-0.7) Basophils # (Auto) 0.1 x10^3/uL (0.0-0.2) 0.1 x10^3/uL (0.0-0.2) Prothrombin Time 28.8 SEC (11.7-14.0) 26.7 SEC (11.7-14.0) Prothromb Time International Ratio 2.7 (0.8-1.1) 2.5 (0.8-1.1) Activated Partial Thromboplast Time 60 SEC (24-38) Urine Collection Type Unknown Urine Color Kaya Urine Clarity Clear Urine pH 5.0 (<5.0-8.0) Urine Specific [place] 1.015 (1.000-1.030) Urine Protein Negative mg/dL (NEG-TRACE) Urine Glucose (UA) Negative mg/dL (NEG) Urine Ketones (Stick) Negative mg/dL (NEG) Urine Blood Moderate (NEG) Urine Nitrite Negative (NEG) Urine Bilirubin Negative (NEG) Urine Urobilinogen Dipstick 0.2 mg/dL (0.2 mg/dL) Urine Leukocyte Esterase Small (NEG) Urine RBC 3-5 /HPF (0-2) Urine WBC 1-4 /HPF (0-4) Urine Squamous Epithelial Cells Few /LPF Urine Bacteria 0 /HPF (0-FEW) Urine Hyaline Casts Few /HPF Urine Mucus Mod /LPF Sodium Level 126 mmol/L (136-145) 128 mmol/L (136-145) Potassium Level 4.9 mmol/L (3.5-5.1) 4.7 mmol/L (3.5-5.1) Chloride Level 89 mmol/L (98-107) 91 mmol/L (98-107) Carbon Dioxide Level 24 mmol/L (21-32) 22 mmol/L (21-32) Anion Gap 13 (6-14) 15 (6-14) Blood Urea Nitrogen 113 mg/dL (8-26) 112 mg/dL (8-26) Creatinine 5.5 mg/dL (0.7-1.3) 5.3 mg/dL (0.7-1.3) Estimated GFR (Cockcroft-Gault) 10.1 10.6 BUN/Creatinine Ratio 21 (6-20) 21 (6-20) Glucose Level 144 mg/dL (70-99) 123 mg/dL (70-99) Calcium Level 7.5 mg/dL (8.5-10.1) 7.1 mg/dL (8.5-10.1) Magnesium Level 2.3 mg/dL (1.8-2.4) 2.1 mg/dL (1.8-2.4) Total Bilirubin 2.5 mg/dL (0.2-1.0) 3.1 mg/dL (0.2-1.0) Aspartate Amino Transf (AST/SGOT) 337 U/L (15-37) 303 U/L (15-37) Alanine Aminotransferase (ALT/SGPT) 116 U/L (16-63) 106 U/L (16-63) Alkaline Phosphatase 316 U/L (46-116) 268 U/L (46-116) Troponin I Quantitative < 0.017 ng/mL (0.000-0.055) Total Protein 5.0 g/dL (6.4-8.2) 5.1 g/dL (6.4-8.2) Albumin 1.7 g/dL (3.4-5.0) 2.2 g/dL (3.4-5.0) Albumin/Globulin Ratio 0.5 (1.0-1.7) 0.8 (1.0-1.7) Hepatitis B Surface Antigen Nonreactive (Nonreactive) Hepatitis B Surface Antibody Reactive Phosphorus Level 7.1 mg/dL (2.6-4.7) Comments CXR Impression: 1. Interval placement right IJ central line. No pneumothorax. 2. Unchanged diffuse interstitial thickening with patchy left mid lung opacities. Impression . IMPRESSION: 1. Chronic hypoxic respiratory failure. Remains on 3 liters of oxygen on a 24- hour basis. 2. The patient with history of pulmonary embolism in 2018. Likely hypercoagulable state from underlying non-Hodgkin's lymphoma and breast cancer. He has been on Eliquis since then. He has no DVT. He had epistaxis yesterday. His INR is 2.7. His venous Doppler done 2 days ago, did not show any DVT as well. It would be reasonable to hold Eliquis for 24 hours and may consider restarting at a lower dose of 2.5 mg b.i.d. 3. Shock, could be combination of hypovolemic and cardiogenic. He is currently on Levophed. We will monitor his blood pressure closely. 4. History of pulmonary fibrosis. His chest x-ray showed bilateral interstitial infiltrates. He has Agent [place] exposure and that could be the etiology of his fibrosis. It has been clinically stable. 5. History of non-Hodgkin's lymphoma, status post chemo, finished in 01/2019. 6. History of breast cancer with bilateral mastectomy. 7. History of gastrointestinal bleed with colonoscopy showing colonic small polyps in June of this year. 8. Acute kidney injury. The patient is status post hemodialysis catheter placement and will be initiated on hemodialysis. 9. Cardiomyopathy. His ejection fraction used to be 25%, now is improved to 40% based on records. 10. Minimal tobacco history. 11. Status post AICD and pacemaker. 12. History of aneurysmal dilatation of the ascending aorta to a diameter about 4.0. Plan . RECOMMENDATIONS: Continue supplemental oxygen, baseline oxygen requirments are 3 liters N/C NEBS Follow CXR PRN cont. Vasopressors to keep MAP above 60 Follow nephrology recs for HD Monitor HGB, 6.8 today planned to get two units PRBCs Cont. to hold eliquis,Not a candidate for IVC filter as there is no evidence of deep venous thrombosis Follow HEM/ONC recs in regards to use of eliquis reversal agent Follow Cardiology recs D/W RN and Dr. Lock Critical Care time [id number] AM . CHIVO ORDONEZ MD Aug 04, 2020 10:37
[2020-08-04] MEDS ORDERED: IV NORMAL SALINE 250ML 250 ML IV ONE (11:30)
[2020-08-04] MEDS: SODIUM BICARBONATE VIAL 50 MEQ in IV 1/2 NORMAL SALINE 1,000 ML IV SCH ×2 (11:43→23:53)
[2020-08-04] MEDS: PANTOPRAZOLE IV PUSH 40 MG VIAL. IVP SCH (11:47)
[2020-08-04] MEDS: methylPREDNISolone SOD SUCC PF 125 MG/2 ML VIAL. IV SCH ×3 (11:47→21:03)
--- NOTE | 2020-08-04 11:47 | PDOC2 ---
CONSULT Date of Consult Date of Consult DATE: 08/04/20 TIME: 11:38 Reason for Consult Reason for Consult: CORKY Referring Physician Referring Physician: OMI Identification/Chief Complaint Chief Complaint CONFUSION AND CORKY AND LOW BP Source Source: Chart review History of Present Illness Reason for Visit: THIS IS A 75 YR OLD FROM [facility]. TRANSFERRED THERE FROM [facility]. HAS EPIDURAL ABSCESS AND DISKITIS. ON ANTIBIOTICS AND THERAPY. LAST COUPLE DAYS HAS HAD DECREASED UO AND HYPOTENSION. NEEDED PRESSORS. FLUID BOLUS AND VOLUME CHALLENGE DID NOT HELP. HAS CKD STAGE 3 WITH BASELINE CR OF 1.8. DEVELOPED CORKY WITH CR OF ABOUT 5.0 AND THEN WAS TRANSFERRED HERE AND NOW IN THE ICU. CONFUSED BUT PLEASANT. ALSO CONCERNS OF GI BLEED WITH DROP IN HGB. HAS HX OF V TACH AND ARRHYTHMIAS. HAS AN AICD IN PLACE. CARDIOLOGY AND GI TO SEE PT. PT ALSO BEING SEEN BY ID. RENAL CONSULT DUE TO CORKY. CKD DUE TO HTN HX. Past Medical History Cardiovascular: AFIB, CHF, HTN, Hyperlipidemia, Other (VT, ascending aortic aneurysm ) Pulmonary: COPD, Pulmonary embolus, Other (JAZMINE with SPAP) CENTRAL NERVOUS SYSTEM: TIA GI: GERD, GI bleed Heme/Onc: Anemia NOS, Cancer (NHL, breast CA) Hepatobiliary: No pertinent hx Psych: No pertinent hx Musculoskeletal: Osteoarthritis Rheumatologic: No pertinent hx Infectious disease: Other (spinal abscess ) Renal/: Chronic renal insuff, Acute renal failure Dermatology: No pertinent hx Past Surgical History Past Surgical History: Pacemaker (AICD), Total knee replacement (bilateral ) Family History Family History: Diabetes Social History No ALCOHOL: none Drugs: None Lives: with Family Current Problem List Problem List Problems Medical Problems: (1) ARF (acute renal failure) Status: Acute (2) Hypotension Status: Acute (3) Transaminitis Status: Acute Current Medications Current Medications Current Medications Norepinephrine Bitartrate 8 mg/ Dextrose 258 ml @ 26.51 mls/ hr CONT PRN PRN I V ELEVATED BP, SEE COMMENTS Last administered on 08/03/20at 13:30; Start 08/03/20 at 13:00; Stop 08/04/20 at 01:32; Status DC Sodium Chloride 1,000 ml @ 1,000 mls/hr 1X ONCE IV Last administered on 08/03/20at 14:40; Start 08/03/20 at 14:15; Stop 08/03/20 at 15:14; Status DC Lidocaine HCl (Lidocaine 1% 20ml Vial) 20 ml STK-MED ONCE .ROUTE ; Start 08/03/20 at 14:55; Stop 08/03/20 at 14:56; Status DC Lidocaine HCl (Lidocaine 1% 20ml Vial) 20 ml 1X ONCE INJ Last administered on 08/03/20at 15:09; Start 08/03/20 at 15:15; Stop 08/03/20 at 15:16; Status DC Albumin Human 500 ml @ 125 mls/hr 1X ONCE IV Last administered on 08/03/20at 18:39; Start 08/03/20 at 17:00; Stop 08/03/20 at 20:59; Status DC Norepinephrine Bitartrate 32 mg/ Dextrose 250 ml @ 6.422 mls/ hr CONT PRN IV SEE I/O RECORD Last administered on 08/04/20at 02:29; Start 08/03/20 at 17:15 Sodium Chloride 1,000 ml @ 1,000 mls/hr Q1H PRN IV hypotension; Start 08/03/20 at 17:18; Stop 08/03/20 at 23:17; Status DC Albumin Human 200 ml @ 200 mls/hr 1X PRN PRN IV Hypotension; Start 08/03/20 at 17:30; Stop 08/03/20 at 23:29; Status DC Sodium Chloride (Normal Saline Flush) 10 ml 1X PRN PRN IV AP catheter pack; Start 08/03/20 at 17:30; Stop 08/04/20 at 17:29 Sodium Chloride (Normal Saline Flush) 10 ml 1X PRN PRN IV THREE DIMENSIONAL MAP MODELER catheter pack; Start 08/03/20 at 17:30; Stop 08/04/20 at 17:29 Sodium Chloride 1,000 ml @ 400 mls/hr Q2H30M PRN IV PATENCY; Start 08/03/20 at 17:18; Stop 08/04/20 at 05:17; Status DC Info (PHARMACY MONITORING -- do not chart) 1 each PRN DAILY PRN MC SEE COMMENTS; Start 08/03/20 at 17:30; Stop 08/03/20 at 19:28; Status DC Info (PHARMACY MONITORING -- do not chart) 1 each PRN DAILY PRN MC SEE COMMENTS; Start 08/03/20 at 17:30 Fentanyl Citrate (Fentanyl 2ml Vial) 25 mcg PRN Q3HRS PRN IVP PAIN Last administered on 08/03/20at 18:31; Start 08/03/20 at 18:00 Phytonadione (Vitamin K Ampule) 3 mg 1X ONCE SQ Last administered on 08/03/20at 18:31; Start 08/03/20 at 18:00; Stop 08/03/20 at 18:26; Status DC Acetaminophen (Tylenol) 650 mg 1X PRN PRN PO PRE-TRANSFUSION; Start 08/03/20 at 18:00; Stop 08/04/20 at 17:59 Diphenhydramine HCl (Benadryl Oral Elixir) 12.5 mg 1X PRN PRN PO PRE- TRANSFUSION; Start 08/03/20 at 18:00; Stop 08/04/20 at 17:59 Vasopressin 20 unit/Dextrose 101 ml @ 12 mls/hr CONT PRN IV SEE I/O RECORD Last administered on 08/04/20at 09:07; Start 08/03/20 at 18:45 Pantoprazole Sodium (PROTONIX VIAL for IV PUSH) 40 mg DAILY IVP Last administered on 08/03/20at 23:07; Start 08/03/20 at 18:45 Gabapentin (Neurontin) 100 mg QHS PO ; Start 08/03/20 at 21:00; Stop 08/04/20 at 10:14; Status DC Albuterol Sulfate (Ventolin Neb Soln) 2.5 mg PRN Q4HRS PRN NEB SHORTNESS OF BREATH; Start 08/03/20 at 18:45 Ondansetron HCl (Zofran) 4 mg PRN Q6HRS PRN IVP NAUSEA/VOMITING; Start 08/03/20 at 18:45 Sodium Bicarbonate 50 meq/Sodium Chloride 1,050 ml @ 75 mls/hr Q14H IV Last administered on 08/03/20at 21:06; Start 08/03/20 at 20:00 Methylprednisolone Sodium Succinate (SOLU-Medrol 125MG VIAL) 100 mg Q8HRS IV ; Start 08/04/20 at 09:30 Sodium Chloride 250 ml @ 250 mls/hr 1X ONCE IV ; Start 08/04/20 at 11:30; Stop 08/04/20 at 12:29 Allergies Allergies: Coded Allergies: No Known Drug Allergies (Unverified , 07/28/20) ROS Review of System CONFUSED. UNABLE TO OBTAIN. Physical Exam General: Cooperative, No acute distress HEENT: Atraumatic, PERRLA Lungs: Clear to auscultation Heart: Regular rate Abdomen: Normal bowel sounds, No tenderness Extremities: No clubbing Skin: No breakdown Neuro: Other (CONFUSED) Psych/Mental Status: Other (FLAT AFFECT) MUSCULOSKELETAL: No joint tenderness, No deformity Vitals VITALS Vital Signs Date Time Temp Pulse Resp B/P (MAP) Pulse Ox O2 Delivery O2 Flow Rate FiO2 08/04/20 11:16 97.4 81 24 96/59 (71) 96 Nasal Cannula 4.0 97.4 Labs Labs Laboratory Tests Test 08/03/20 13:09 08/03/20 14:09 08/03/20 23:23 08/04/20 05:50 White Blood Count 17.3 x10^3/uL (4.0-11.0) 16.8 x10^3/uL (4.0-11.0) 15.1 x10^3/uL (4.0-11.0) Red Blood Count 2.41 x10^6/uL (4.30-5.70) 2.19 x10^6/uL (4.30-5.70) 2.06 x10^6/uL (4.30-5.70) Hemoglobin 8.0 g/dL (13.0-17.5) 7.2 g/dL (13.0-17.5) 6.8 g/dL (13.0-17.5) Hematocrit 23.7 % (39.0-53.0) 21.6 % (39.0-53.0) 20.2 % (39.0-53.0) Mean Corpuscular Volume 98 fL (79-100) 99 fL (79-100) 98 fL (79-100) Mean Corpuscular Hemoglobin 33 pg (25-35) 33 pg (25-35) 33 pg (25-35) Mean Corpuscular Hemoglobin Concent 34 g/dL (31-37) 33 g/dL (31-37) 33 g/dL (31-37) Red Cell Distribution Width 17.1 % (11.5-14.5) 17.3 % (11.5-14.5) 17.1 % (11.5-14.5) Platelet Count 166 x10^3/uL (140-400) 158 x10^3/uL (140-400) 152 x10^3/uL (140-400) Neutrophils (%) (Auto) 85 % (31-73) 83 % (31-73) Lymphocytes (%) (Auto) 11 % (24-48) 11 % (24-48) Monocytes (%) (Auto) 3 % (0-9) 5 % (0-9) Eosinophils (%) (Auto) 1 % (0-3) 1 % (0-3) Basophils (%) (Auto) 1 % (0-3) 1 % (0-3) Neutrophils # (Auto) 14.6 x10^3/uL (1.8-7.7) 12.5 x10^3/uL (1.8-7.7) Lymphocytes # (Auto) 1.8 x10^3/uL (1.0-4.8) 1.6 x10^3/uL (1.0-4.8) Monocytes # (Auto) 0.6 x10^3/uL (0.0-1.1) 0.7 x10^3/uL (0.0-1.1) Eosinophils # (Auto) 0.2 x10^3/uL (0.0-0.7) 0.2 x10^3/uL (0.0-0.7) Basophils # (Auto) 0.1 x10^3/uL (0.0-0.2) 0.1 x10^3/uL (0.0-0.2) Prothrombin Time 28.8 SEC (11.7-14.0) 26.7 SEC (11.7-14.0) Prothromb Time International Ratio 2.7 (0.8-1.1) 2.5 (0.8-1.1) Activated Partial Thromboplast Time 60 SEC (24-38) Urine Collection Type Unknown Urine Color Kaya Urine Clarity Clear Urine pH 5.0 (<5.0-8.0) Urine Specific [place] 1.015 (1.000-1.030) Urine Protein Negative mg/dL (NEG-TRACE) Urine Glucose (UA) Negative mg/dL (NEG) Urine Ketones (Stick) Negative mg/dL (NEG) Urine Blood Moderate (NEG) Urine Nitrite Negative (NEG) Urine Bilirubin Negative (NEG) Urine Urobilinogen Dipstick 0.2 mg/dL (0.2 mg/dL) Urine Leukocyte Esterase Small (NEG) Urine RBC 3-5 /HPF (0-2) Urine WBC 1-4 /HPF (0-4) Urine Squamous Epithelial Cells Few /LPF Urine Bacteria 0 /HPF (0-FEW) Urine Hyaline Casts Few /HPF Urine Mucus Mod /LPF Sodium Level 126 mmol/L (136-145) 128 mmol/L (136-145) Potassium Level 4.9 mmol/L (3.5-5.1) 4.7 mmol/L (3.5-5.1) Chloride Level 89 mmol/L (98-107) 91 mmol/L (98-107) Carbon Dioxide Level 24 mmol/L (21-32) 22 mmol/L (21-32) Anion Gap 13 (6-14) 15 (6-14) Blood Urea Nitrogen 113 mg/dL (8-26) 112 mg/dL (8-26) Creatinine 5.5 mg/dL (0.7-1.3) 5.3 mg/dL (0.7-1.3) Estimated GFR (Cockcroft-Gault) 10.1 10.6 BUN/Creatinine Ratio 21 (6-20) 21 (6-20) Glucose Level 144 mg/dL (70-99) 123 mg/dL (70-99) Calcium Level 7.5 mg/dL (8.5-10.1) 7.1 mg/dL (8.5-10.1) Magnesium Level 2.3 mg/dL (1.8-2.4) 2.1 mg/dL (1.8-2.4) Total Bilirubin 2.5 mg/dL (0.2-1.0) 3.1 mg/dL (0.2-1.0) Aspartate Amino Transf (AST/SGOT) 337 U/L (15-37) 303 U/L (15-37) Alanine Aminotransferase (ALT/SGPT) 116 U/L (16-63) 106 U/L (16-63) Alkaline Phosphatase 316 U/L (46-116) 268 U/L (46-116) Troponin I Quantitative < 0.017 ng/mL (0.000-0.055) Total Protein 5.0 g/dL (6.4-8.2) 5.1 g/dL (6.4-8.2) Albumin 1.7 g/dL (3.4-5.0) 2.2 g/dL (3.4-5.0) Albumin/Globulin Ratio 0.5 (1.0-1.7) 0.8 (1.0-1.7) Hepatitis B Surface Antigen Nonreactive (Nonreactive) Hepatitis B Surface Antibody Reactive Phosphorus Level 7.1 mg/dL (2.6-4.7) Laboratory Tests Test 08/03/20 13:09 08/03/20 14:09 08/03/20 23:23 08/04/20 05:50 White Blood Count 17.3 x10^3/uL (4.0-11.0) 16.8 x10^3/uL (4.0-11.0) 15.1 x10^3/uL (4.0-11.0) Red Blood Count 2.41 x10^6/uL (4.30-5.70) 2.19 x10^6/uL (4.30-5.70) 2.06 x10^6/uL (4.30-5.70) Hemoglobin 8.0 g/dL (13.0-17.5) 7.2 g/dL (13.0-17.5) 6.8 g/dL (13.0-17.5) Hematocrit 23.7 % (39.0-53.0) 21.6 % (39.0-53.0) 20.2 % (39.0-53.0) Mean Corpuscular Volume 98 fL (79-100) 99 fL (79-100) 98 fL (79-100) Mean Corpuscular Hemoglobin 33 pg (25-35) 33 pg (25-35) 33 pg (25-35) Mean Corpuscular Hemoglobin Concent 34 g/dL (31-37) 33 g/dL (31-37) 33 g/dL (31-37) Red Cell Distribution Width 17.1 % (11.5-14.5) 17.3 % (11.5-14.5) 17.1 % (11.5-14.5) Platelet Count 166 x10^3/uL (140-400) 158 x10^3/uL (140-400) 152 x10^3/uL (140-400) Neutrophils (%) (Auto) 85 % (31-73) 83 % (31-73) Lymphocytes (%) (Auto) 11 % (24-48) 11 % (24-48) Monocytes (%) (Auto) 3 % (0-9) 5 % (0-9) Eosinophils (%) (Auto) 1 % (0-3) 1 % (0-3) Basophils (%) (Auto) 1 % (0-3) 1 % (0-3) Neutrophils # (Auto) 14.6 x10^3/uL (1.8-7.7) 12.5 x10^3/uL (1.8-7.7) Lymphocytes # (Auto) 1.8 x10^3/uL (1.0-4.8) 1.6 x10^3/uL (1.0-4.8) Monocytes # (Auto) 0.6 x10^3/uL (0.0-1.1) 0.7 x10^3/uL (0.0-1.1) Eosinophils # (Auto) 0.2 x10^3/uL (0.0-0.7) 0.2 x10^3/uL (0.0-0.7) Basophils # (Auto) 0.1 x10^3/uL (0.0-0.2) 0.1 x10^3/uL (0.0-0.2) Prothrombin Time 28.8 SEC (11.7-14.0) 26.7 SEC (11.7-14.0) Prothromb Time International Ratio 2.7 (0.8-1.1) 2.5 (0.8-1.1) Activated Partial Thromboplast Time 60 SEC (24-38) Urine Collection Type Unknown Urine Color Kaya Urine Clarity Clear Urine pH 5.0 (<5.0-8.0) Urine Specific [place] 1.015 (1.000-1.030) Urine Protein Negative mg/dL (NEG-TRACE) Urine Glucose (UA) Negative mg/dL (NEG) Urine Ketones (Stick) Negative mg/dL (NEG) Urine Blood Moderate (NEG) Urine Nitrite Negative (NEG) Urine Bilirubin Negative (NEG) Urine Urobilinogen Dipstick 0.2 mg/dL (0.2 mg/dL) Urine Leukocyte Esterase Small (NEG) Urine RBC 3-5 /HPF (0-2) Urine WBC 1-4 /HPF (0-4) Urine Squamous Epithelial Cells Few /LPF Urine Bacteria 0 /HPF (0-FEW) Urine Hyaline Casts Few /HPF Urine Mucus Mod /LPF Sodium Level 126 mmol/L (136-145) 128 mmol/L (136-145) Potassium Level 4.9 mmol/L (3.5-5.1) 4.7 mmol/L (3.5-5.1) Chloride Level 89 mmol/L (98-107) 91 mmol/L (98-107) Carbon Dioxide Level 24 mmol/L (21-32) 22 mmol/L (21-32) Anion Gap 13 (6-14) 15 (6-14) Blood Urea Nitrogen 113 mg/dL (8-26) 112 mg/dL (8-26) Creatinine 5.5 mg/dL (0.7-1.3) 5.3 mg/dL (0.7-1.3) Estimated GFR (Cockcroft-Gault) 10.1 10.6 BUN/Creatinine Ratio 21 (6-20) 21 (6-20) Glucose Level 144 mg/dL (70-99) 123 mg/dL (70-99) Calcium Level 7.5 mg/dL (8.5-10.1) 7.1 mg/dL (8.5-10.1) Magnesium Level 2.3 mg/dL (1.8-2.4) 2.1 mg/dL (1.8-2.4) Total Bilirubin 2.5 mg/dL (0.2-1.0) 3.1 mg/dL (0.2-1.0) Aspartate Amino Transf (AST/SGOT) 337 U/L (15-37) 303 U/L (15-37) Alanine Aminotransferase (ALT/SGPT) 116 U/L (16-63) 106 U/L (16-63) Alkaline Phosphatase 316 U/L (46-116) 268 U/L (46-116) Troponin I Quantitative < 0.017 ng/mL (0.000-0.055) Total Protein 5.0 g/dL (6.4-8.2) 5.1 g/dL (6.4-8.2) Albumin 1.7 g/dL (3.4-5.0) 2.2 g/dL (3.4-5.0) Albumin/Globulin Ratio 0.5 (1.0-1.7) 0.8 (1.0-1.7) Hepatitis B Surface Antigen Nonreactive (Nonreactive) Hepatitis B Surface Antibody Reactive Phosphorus Level 7.1 mg/dL (2.6-4.7) Assessment/Plan Assessment/Plan IMP CORKY-ATN CKD STAGE 3-CR OF 1.8 AT BASELINE HYPONATREMIA MET ACIDOSIS LEUCOCYTOSIS T8-T9 DISKITIS-OSTEO HYPOTENSION INCREASED LFT'S ANEMIA POSSIBLE GI BLEED MORBID OBESITY CARDIAC ARRHYTHMIA-AICD PLAN PT TRANSFERRED HER FROM [facility] TEMP LINE FOR HD PLACED D/W IR D/W DR BRAGA PRESSORS NEEDED FLUID BOLUS PRBC NEEDED GI EVAL CARDIOLOGY EVAL START AVINASH CHECK IRON HD TODAY UF MINIMAL CLEARANCE ONLY TODAY ANTIBIOTICS PER ID WILL FOLLOW MARIA DOLORES ANGELES MD Aug 04, 2020 11:47
--- NOTE | 2020-08-04 11:58 | NUR ---
PT EXTUBATED BY SADIQ GARCIA.
[2020-08-04 12:22] LABS: HEMATOCRIT 24.8 % (39.0-53.0); HEMOGLOBIN 8.2 g/dL (13.0-17.5); RED BLOOD COUNT 2.58 x10^6/uL (4.30-5.70); WHITE BLOOD COUNT 13.6 x10^3/uL (4.0-11.0)
--- NOTE | 2020-08-04 12:24 | PDOC2 ---
CONSULT Date of Consult Date of Consult DATE: 08/04/20 TIME: 12:07 Reason for Consult Reason for Consult: Bleeding. Recent discontinuation of Eliquis. Question regarding need for Andexanet jenise Referring Physician Referring Physician: Dr. Lock Identification/Chief Complaint Chief Complaint Hypotension Source Source: Chart review, Patient History of Present Illness Reason for Visit: Juan Noguera is 75-year-old male who has been admitted from [facility] due to progressive CORKY. His medical history is pertinent for multiple medical conditions including non-Hodgkin's lymphoma for which he completed chemotherapy in 01/2019 with no evidence of disease recurrence. He also has a prior history of breast cancer for which he completed 5 years of adjuvant tamoxifen. He follows at [facility] in [place]. He does not recall additional details regarding his cancer care. Patient reports a history of pulmonary embolism for which she had been on apixaban 5 mg twice daily. This was recently resumed during his stay at [facility]. He was recently found to have gradually worsening renal function. He has been transferred to the hospital for initiation of dialysis. His initial evaluation in the time of hospitalization showed hypotension, OCRKY on chronic kidney disease, hyponatremia, worsened anemia and abnormal LFTs. He was placed on pressor support and IV hydration was initiated. His hemoglobin was 8 at presentation and has subsequently declined to 6.8 on today's labs. Hemodialysis was initiated today and 2 units of PRBC transfusion was given. Hematology consultation has been sought to advise need for Andexanet jenise given recent administration of Eliquis and current presentation with bleeding. Per chart review, patient had bloody stool at [facility]. He has not had any melena since then. Discussed with RN and bowel movement from this morning was examined and was not indicative of melena. He has had scant hemoptysis. No additional bleeding has been noted. Hemodynamic status has continued to improve. Of note, Mr. Noguera is a gentleman with multiple comorbid conditions including atrial fibrillation and recurrent V-tach which were noted during recent hospital stay,, pulmonary fibrosis with chronic hypoxic respiratory failure, obstructive sleep apnea, using CPAP on oxygen by nasal, GI bleeding secondary to diverticulosis, epidural abscess in 03/2020 for which he remains on antibiotic s. Past Medical History Cardiovascular: AFIB, CHF, HTN, Hyperlipidemia, Other (VT, ascending aortic aneurysm ) Pulmonary: COPD, Pulmonary embolus, Other (JAZMINE with SPAP) CENTRAL NERVOUS SYSTEM: TIA GI: GERD, GI bleed Heme/Onc: Anemia NOS, Cancer (NHL, breast CA) Hepatobiliary: No pertinent hx Psych: No pertinent hx Musculoskeletal: Osteoarthritis Rheumatologic: No pertinent hx Infectious disease: Other (spinal abscess ) Renal/: Chronic renal insuff, Acute renal failure Dermatology: No pertinent hx Past Surgical History Past Surgical History: Pacemaker (AICD), Total knee replacement (bilateral ) Family History Family History: Diabetes Social History No ALCOHOL: none Drugs: None Lives: with Family Current Problem List Problem List Problems Medical Problems: (1) ARF (acute renal failure) Status: Acute (2) Hypotension Status: Acute (3) Transaminitis Status: Acute Current Medications Current Medications Current Medications Norepinephrine Bitartrate 8 mg/ Dextrose 258 ml @ 26.51 mls/ hr CONT PRN PRN IV ELEVATED BP, SEE COMMENTS Last administered on 08/03/20at 13:30; Start 08/03/20 at 13:00; Stop 08/04/20 at 01:32; Status DC Sodium Chloride 1,000 ml @ 1,000 mls/hr 1X ONCE IV Last administered on 08/03/20at 14:40; Start 08/03/20 at 14:15; Stop 08/03/20 at 15:14; Status DC Lidocaine HCl (Lidocaine 1% 20ml Vial) 20 ml STK-MED ONCE .ROUTE ; Start 08/03/20 at 14:55; Stop 08/03/20 at 14:56; Status DC Lidocaine HCl (Lidocaine 1% 20ml Vial) 20 ml 1X ONCE INJ Last administered on 08/03/20at 15:09; Start 08/03/20 at 15:15; Stop 08/03/20 at 15:16; Status DC Albumin Human 500 ml @ 125 mls/hr 1X ONCE IV Last administered on 08/03/20at 18:39; Start 08/03/20 at 17:00; Stop 08/03/20 at 20:59; Status DC Norepinephrine Bitartrate 32 mg/ Dextrose 250 ml @ 6.422 mls/ hr CONT PRN IV SEE I/O RECORD Last administered on 08/04/20at 02:29; Start 08/03/20 at 17:15 Sodium Chloride 1,000 ml @ 1,000 mls/hr Q1H PRN IV hypotension; Start 08/03/20 at 17:18; Stop 08/03/20 at 23:17; Status DC Albumin Human 200 ml @ 200 mls/hr 1X PRN PRN IV Hypotension; Start 08/03/20 at 17:30; Stop 08/03/20 at 23:29; Status DC Sodium Chloride (Normal Saline Flush) 10 ml 1X PRN PRN IV AP catheter pack; Start 08/03/20 at 17:30; Stop 08/04/20 at 17:29 Sodium Chloride (Normal Saline Flush) 10 ml 1X PRN PRN IV TECHNICAL ASSISTANCE CONSULTANT catheter pack; Start 08/03/20 at 17:30; Stop 08/04/20 at 17:29 Sodium Chloride 1,000 ml @ 400 mls/hr Q2H30M PRN IV PATENCY; Start 08/03/20 at 17:18; Stop 08/04/20 at 05:17; Status DC Info (PHARMACY MONITORING -- do not chart) 1 each PRN DAILY PRN MC SEE COMMENTS; Start 08/03/20 at 17:30; Stop 08/03/20 at 19:28; Status DC Info (PHARMACY MONITORING -- do not chart) 1 each PRN DAILY PRN MC SEE COMMENTS; Start 08/03/20 at 17:30 Fentanyl Citrate (Fentanyl 2ml Vial) 25 mcg PRN Q3HRS PRN IVP PAIN Last administered on 08/03/20at 18:31; Start 08/03/20 at 18:00 Phytonadione (Vitamin K Ampule) 3 mg 1X ONCE SQ Last administered on 08/03/20at 18:31; Start 08/03/20 at 18:00; Stop 08/03/20 at 18:26; Status DC Acetaminophen (Tylenol) 650 mg 1X PRN PRN PO PRE-TRANSFUSION; Start 08/03/20 at 18:00; Stop 08/04/20 at 17:59 Diphenhydramine HCl (Benadryl Oral Elixir) 12.5 mg 1X PRN PRN PO PRE- TRANSFUSION; Start 08/03/20 at 18:00; Stop 08/04/20 at 17:59 Vasopressin 20 unit/Dextrose 101 ml @ 12 mls/hr CONT PRN IV SEE I/O RECORD Last administered on 08/04/20at 09:07; Start 08/03/20 at 18:45 Pantoprazole Sodium (PROTONIX VIAL for IV PUSH) 40 mg DAILY IVP Last administered on 08/04/20at 11:47; Start 08/03/20 at 18:45 Gabapentin (Neurontin) 100 mg QHS PO ; Start 08/03/20 at 21:00; Stop 08/04/20 at 10:14; Status DC Albuterol Sulfate (Ventolin Neb Soln) 2.5 mg PRN Q4HRS PRN NEB SHORTNESS OF BREATH; Start 08/03/20 at 18:45 Ondansetron HCl (Zofran) 4 mg PRN Q6HRS PRN IVP NAUSEA/VOMITING; Start 08/03/20 at 18:45 Sodium Bicarbonate 50 meq/Sodium Chloride 1,050 ml @ 75 mls/hr Q14H IV Last administered on 08/04/20at 11:43; Start 08/03/20 at 20:00 Methylprednisolone Sodium Succinate (SOLU-Medrol 125MG VIAL) 100 mg Q8HRS IV Last administered on 08/04/20at 11:47; Start 08/04/20 at 09:30 Sodium Chloride 250 ml @ 250 mls/hr 1X ONCE IV Last administered on 08/04/20at 11:43; Start 08/04/20 at 11:30; Stop 08/04/20 at 12:29 Darbepoetin Jenise (ARANESP for DIALYSIS PTS) 60 mcg WEEKLYHS SQ ; Start 08/04/20 at 21:00 Allergies Allergies: Coded Allergies: No Known Drug Allergies (Unverified , 07/28/20) ROS General: No: Chills, Night Sweats PSYCHOLOGICAL ROS: No: Anxiety, Behavioral Disorder Eyes: No Blurry vision, No Decreased vision HEENT: No: Heacaches, Visual Changes ALLERGY AND IMMUNOLOGY: No: Nasal Congestion, Post Nasal Drip ENDOCRINE: YES: Malaise/lethargy; No: Mood Swings Respiratory: YES: Hemoptysis; No: Cough Cardiovascular: No Chest Pain, No Palpitations Gastrointestinal: No Nausea, No Vomiting, No Melena, No Hematochezia Genitourinary: No Dysuria, No Hematuria Neurological: No Dizziness Skin: No Dry Skin Physical Exam General: Alert, Oriented X3 HEENT: Atraumatic Lungs: Clear to auscultation, Other Heart: Regular rate Abdomen: Normal bowel sounds, Soft Extremities: No clubbing Skin: No rashes, Other (Dialysis catheter in place in neck. No bleeding noted around the catheter) Neuro: Normal speech MUSCULOSKELETAL: No swelling Vitals VITALS Vital Signs Date Time Temp Pulse Resp B/P (MAP) Pulse Ox O2 Delivery O2 Flow Rate FiO2 08/04/20 11:16 97.4 81 24 96/59 (71) 96 Nasal Cannula 4.0 97.4 Labs Labs Laboratory Tests Test 08/03/20 13:09 08/03/20 14:09 08/03/20 23:23 08/04/20 05:50 White Blood Count 17.3 x10^3/uL (4.0-11.0) 16.8 x10^3/uL (4.0-11.0) 15.1 x10^3/uL (4.0-11.0) Red Blood Count 2.41 x10^6/uL (4.30-5.70) 2.19 x10^6/uL (4.30-5.70) 2.06 x10^6/uL (4.30-5.70) Hemoglobin 8.0 g/dL (13.0-17.5) 7.2 g/dL (13.0-17.5) 6.8 g/dL (13.0-17.5) Hematocrit 23.7 % (39.0-53.0) 21.6 % (39.0-53.0) 20.2 % (39.0-53.0) Mean Corpuscular Volume 98 fL (79-100) 99 fL (79-100) 98 fL (79-100) Mean Corpuscular Hemoglobin 33 pg (25-35) 33 pg (25-35) 33 pg (25-35) Mean Corpuscular Hemoglobin Concent 34 g/dL (31-37) 33 g/dL (31-37) 33 g/dL (31-37) Red Cell Distribution Width 17.1 % (11.5-14.5) 17.3 % (11.5-14.5) 17.1 % (11.5-14.5) Platelet Count 166 x10^3/uL (140-400) 158 x10^3/uL (140-400) 152 x10^3/uL (140-400) Neutrophils (%) (Auto) 85 % (31-73) 83 % (31-73) Lymphocytes (%) (Auto) 11 % (24-48) 11 % (24-48) Monocytes (%) (Auto) 3 % (0-9) 5 % (0-9) Eosinophils (%) (Auto) 1 % (0-3) 1 % (0-3) Basophils (%) (Auto) 1 % (0-3) 1 % (0-3) Neutrophils # (Auto) 14.6 x10^3/uL (1.8-7.7) 12.5 x10^3/uL (1.8-7.7) Lymphocytes # (Auto) 1.8 x10^3/uL (1.0-4.8) 1.6 x10^3/uL (1.0-4.8) Monocytes # (Auto) 0.6 x10^3/uL (0.0-1.1) 0.7 x10^3/uL (0.0-1.1) Eosinophils # (Auto) 0.2 x10^3/uL (0.0-0.7) 0.2 x10^3/uL (0.0-0.7) Basophils # (Auto) 0.1 x10^3/uL (0.0-0.2) 0.1 x10^3/uL (0.0-0.2) Prothrombin Time 28.8 SEC (11.7-14.0) 26.7 SEC (11.7-14.0) Prothromb Time International Ratio 2.7 (0.8-1.1) 2.5 (0.8-1.1) Activated Partial Thromboplast Time 60 SEC (24-38) Urine Collection Type Unknown Urine Color Kaya Urine Clarity Clear Urine pH 5.0 (<5.0-8.0) Urine Specific [place] 1.015 (1.000-1.030) Urine Protein Negative mg/dL (NEG-TRACE) Urine Glucose (UA) Negative mg/dL (NEG) Urine Ketones (Stick) Negative mg/dL (NEG) Urine Blood Moderate (NEG) Urine Nitrite Negative (NEG) Urine Bilirubin Negative (NEG) Urine Urobilinogen Dipstick 0.2 mg/dL (0.2 mg/dL) Urine Leukocyte Esterase Small (NEG) Urine RBC 3-5 /HPF (0-2) Urine WBC 1-4 /HPF (0-4) Urine Squamous Epithelial Cells Few /LPF Urine Bacteria 0 /HPF (0-FEW) Urine Hyaline Casts Few /HPF Urine Mucus Mod /LPF Sodium Level 126 mmol/L (136-145) 128 mmol/L (136-145) Potassium Level 4.9 mmol/L (3.5-5.1) 4.7 mmol/L (3.5-5.1) Chloride Level 89 mmol/L (98-107) 91 mmol/L (98-107) Carbon Dioxide Level 24 mmol/L (21-32) 22 mmol/L (21-32) Anion Gap 13 (6-14) 15 (6-14) Blood Urea Nitrogen 113 mg/dL (8-26) 112 mg/dL (8-26) Creatinine 5.5 mg/dL (0.7-1.3) 5.3 mg/dL (0.7-1.3) Estimated GFR (Cockcroft-Gault) 10.1 10.6 BUN/Creatinine Ratio 21 (6-20) 21 (6-20) Glucose Level 144 mg/dL (70-99) 123 mg/dL (70-99) Calcium Level 7.5 mg/dL (8.5-10.1) 7.1 mg/dL (8.5-10.1) Magnesium Level 2.3 mg/dL (1.8-2.4) 2.1 mg/dL (1.8-2.4) Total Bilirubin 2.5 mg/dL (0.2-1.0) 3.1 mg/dL (0.2-1.0) Aspartate Amino Transf (AST/SGOT) 337 U/L (15-37) 303 U/L (15-37) Alanine Aminotransferase (ALT/SGPT) 116 U/L (16-63) 106 U/L (16-63) Alkaline Phosphatase 316 U/L (46-116) 268 U/L (46-116) Troponin I Quantitative < 0.017 ng/mL (0.000-0.055) Total Protein 5.0 g/dL (6.4-8.2) 5.1 g/dL (6.4-8.2) Albumin 1.7 g/dL (3.4-5.0) 2.2 g/dL (3.4-5.0) Albumin/Globulin Ratio 0.5 (1.0-1.7) 0.8 (1.0-1.7) Hepatitis B Surface Antigen Nonreactive (Nonreactive) Hepatitis B Surface Antibody Reactive Phosphorus Level 7.1 mg/dL (2.6-4.7) Laboratory Tests Test 08/03/20 13:09 08/03/20 14:09 08/03/20 23:23 08/04/20 05:50 White Blood Count 17.3 x10^3/uL (4.0-11.0) 16.8 x10^3/uL (4.0-11.0) 15.1 x10^3/uL (4.0-11.0) Red Blood Count 2.41 x10^6/uL (4.30-5.70) 2.19 x10^6/uL (4.30-5.70) 2.06 x10^6/uL (4.30-5.70) Hemoglobin 8.0 g/dL (13.0-17.5) 7.2 g/dL (13.0-17.5) 6.8 g/dL (13.0-17.5) Hematocrit 23.7 % (39.0-53.0) 21.6 % (39.0-53.0) 20.2 % (39.0-53.0) Mean Corpuscular Volume 98 fL (79-100) 99 fL (79-100) 98 fL (79-100) Mean Corpuscular Hemoglobin 33 pg (25-35) 33 pg (25-35) 33 pg (25-35) Mean Corpuscular Hemoglobin Concent 34 g/dL (31-37) 33 g/dL (31-37) 33 g/dL (31-37) Red Cell Distribution Width 17.1 % (11.5-14.5) 17.3 % (11.5-14.5) 17.1 % (11.5-14.5) Platelet Count 166 x10^3/uL (140-400) 158 x10^3/uL (140-400) 152 x10^3/uL (140-400) Neutrophils (%) (Auto) 85 % (31-73) 83 % (31-73) Lymphocytes (%) (Auto) 11 % (24-48) 11 % (24-48) Monocytes (%) (Auto) 3 % (0-9) 5 % (0-9) Eosinophils (%) (Auto) 1 % (0-3) 1 % (0-3) Basophils (%) (Auto) 1 % (0-3) 1 % (0-3) Neutrophils # (Auto) 14.6 x10^3/uL (1.8-7.7) 12.5 x10^3/uL (1.8-7.7) Lymphocytes # (Auto) 1.8 x10^3/uL (1.0-4.8) 1.6 x10^3/uL (1.0-4.8) Monocytes # (Auto) 0.6 x10^3/uL (0.0-1.1) 0.7 x10^3/uL (0.0-1.1) Eosinophils # (Auto) 0.2 x10^3/uL (0.0-0.7) 0.2 x10^3/uL (0.0-0.7) Basophils # (Auto) 0.1 x10^3/uL (0.0-0.2) 0.1 x10^3/uL (0.0-0.2) Prothrombin Time 28.8 SEC (11.7-14.0) 26.7 SEC (11.7-14.0) Prothromb Time International Ratio 2.7 (0.8-1.1) 2.5 (0.8-1.1) Activated Partial Thromboplast Time 60 SEC (24-38) Urine Collection Type Unknown Urine Color Kaya Urine Clarity Clear Urine pH 5.0 (<5.0-8.0) Urine Specific [place] 1.015 (1.000-1.030) Urine Protein Negative mg/dL (NEG-TRACE) Urine Glucose (UA) Negative mg/dL (NEG) Urine Ketones (Stick) Negative mg/dL (NEG) Urine Blood Moderate (NEG) Urine Nitrite Negative (NEG) Urine Bilirubin Negative (NEG) Urine Urobilinogen Dipstick 0.2 mg/dL (0.2 mg/dL) Urine Leukocyte Esterase Small (NEG) Urine RBC 3-5 /HPF (0-2) Urine WBC 1-4 /HPF (0-4) Urine Squamous Epithelial Cells Few /LPF Urine Bacteria 0 /HPF (0-FEW) Urine Hyaline Casts Few /HPF Urine Mucus Mod /LPF Sodium Level 126 mmol/L (136-145) 128 mmol/L (136-145) Potassium Level 4.9 mmol/L (3.5-5.1) 4.7 mmol/L (3.5-5.1) Chloride Level 89 mmol/L (98-107) 91 mmol/L (98-107) Carbon Dioxide Level 24 mmol/L (21-32) 22 mmol/L (21-32) Anion Gap 13 (6-14) 15 (6-14) Blood Urea Nitrogen 113 mg/dL (8-26) 112 mg/dL (8-26) Creatinine 5.5 mg/dL (0.7-1.3) 5.3 mg/dL (0.7-1.3) Estimated GFR (Cockcroft-Gault) 10.1 10.6 BUN/Creatinine Ratio 21 (6-20) 21 (6-20) Glucose Level 144 mg/dL (70-99) 123 mg/dL (70-99) Calcium Level 7.5 mg/dL (8.5-10.1) 7.1 mg/dL (8.5-10.1) Magnesium Level 2.3 mg/dL (1.8-2.4) 2.1 mg/dL (1.8-2.4) Total Bilirubin 2.5 mg/dL (0.2-1.0) 3.1 mg/dL (0.2-1.0) Aspartate Amino Transf (AST/SGOT) 337 U/L (15-37) 303 U/L (15-37) Alanine Aminotransferase (ALT/SGPT) 116 U/L (16-63) 106 U/L (16-63) Alkaline Phosphatase 316 U/L (46-116) 268 U/L (46-116) Troponin I Quantitative < 0.017 ng/mL (0.000-0.055) Total Protein 5.0 g/dL (6.4-8.2) 5.1 g/dL (6.4-8.2) Albumin 1.7 g/dL (3.4-5.0) 2.2 g/dL (3.4-5.0) Albumin/Globulin Ratio 0.5 (1.0-1.7) 0.8 (1.0-1.7) Hepatitis B Surface Antigen Nonreactive (Nonreactive) Hepatitis B Surface Antibody Reactive Phosphorus Level 7.1 mg/dL (2.6-4.7) Assessment/Plan Assessment/Plan Assessment: Non-Hodgkin's lymphoma status post chemo immunotherapy completed in January 2019 History of breast cancer, completed adjuvant endocrine therapy History of pulmonary embolism, on Eliquis which is now on hold 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 Initiated on dialysis Acute on chronic normocytic anemia, likely multifactorial secondary to bleeding, chronic inflammation and worsened chronic kidney disease Vertebral osteomyelitis with epidural abscess Recommendations: -Given lack of active major bleeding and stabilization of hemodynamic status, I would recommend continued observation and holding Eliquis at this time -Can consider Andexanet jenise if major bleeding is noted. Please call [phone] if bloody stools are noted -Continue hemodialysis per nephrology -Check iron studies, B12, SPEP and free Light Chains for Evaluation of Anemia -Consider abdominal imaging to further investigate abnormal LFTs. I will defer to Dr. Lock regarding this. -I will request records regarding his stay of lymphoma and cancer care -Can consider resuming Eliquis at 2.5 mg twice daily dose after stabilization of clinical status. Would not recommend resuming at 5 mg twice daily dosing given renal dysfunction -Will follow Drake Lehman MD Medical Oncology/Hematology Ph: [phone] RACHELE LEHMAN MD Aug 04, 2020 12:24
--- NOTE | 2020-08-04 12:34 | CARD ---
MR#: [id number] Date of Study: 08/04/2020 Ordering Physician: CHIVO ORDONEZ, Referring Physician: CHIVO ORDONEZ Tech: Elva Arevalo RDCS APPROVED REPORT EXAM: LIMITED Two-dimensional echocardiogram Other Information Quality : Good INDICATION Cardiomyopathy LV Function:Systolic Surgery/Intervention ICD/Pacemaker: 2D DIMENSIONS RVDd2.5 (2.9-3.5cm)Left Atrium(2D)4.2 (1.6-4.0cm) IVSd1.2 (0.7-1.1cm)Aortic Root(2D)3.6 (2.0-3.7cm) LVDd5.6 (3.9-5.9cm)LVOT Diameter2.3 (1.8-2.4cm) PWd1.1 (0.7-1.1cm)LVDs4.3 (2.5-4.0cm) FS (%) 24.2 %SV74.4 ml Tricuspid Valve TR P. [id number] TR Peak [id number] LEFT VENTRICLE Limited study. The left ventricle is normal size. There is mild concentric left ventricular hypertro phy. Left ventricle systolic function is within normal limits. The Ejection Fraction is 50-55%. Apic al motion consistent with pacemaker activation. RIGHT VENTRICLE The right ventricle is normal size. The right ventricular systolic function is normal. There is a pac emaker lead in the right ventricle. ATRIA The left atrium is mildly dilated. The right atrium is mildly dilated. The interatrial septum is inta ct with no evidence for an atrial septal defect or patent foramen ovale as noted on 2-D or Doppler im aging. AORTIC VALVE The aortic valve is calcified but opens well. MITRAL VALVE The mitral valve is calcified but opens well. There is no evidence of mitral valve prolapse. TRICUSPID VALVE The tricuspid valve is normal in structure and function. Doppler and Color Flow revealed mild tricusp id regurgitation The PA pressure was estimated at 33 mmHg. There is no tricuspid valve stenosis. GREAT VESSELS The aortic root is mildly enlarged at 3.6 cm. The IVC is normal in size and collapses >50% with inspi ration. PERICARDIAL EFFUSION There is no evidence of significant pericardial effusion. Critical Notification Critical Value: No <Conclusion> Limited study. The left ventricle is normal size. Left ventricle systolic function is within normal limits. The Ejection Fraction is 50-55%. Apical motion consistent with pacemaker activation. There is mild concentric left ventricular hypertrophy. Doppler and Color Flow revealed mild tricuspid regurgitation The PA pressure was estimated at 33 mmHg. Signed by : Miky Zeng MD Electronically Approved : 08/04/2020 12:34:28
[2020-08-04] MEDS: PIPERACILLIN/TAZOBACTAM 2.25 GM in IV NORMAL SALINE 50ML 50 ML IV SCH ×2 (14:45→21:42)
--- NOTE | 2020-08-04 15:36 | NUR ---
SS following for discharge planning. SS reviewed pt chart and discussed with pt RN. Pt is from [facility], ; fax [phone]. Pt currently requiring oxygen. Pt on Levo and Vasopressin drips. Pt getting hemodialysis today. SS will continue to follow for discharge planning.
[2020-08-04 18:40] LABS: HEMATOCRIT 25.2 % (39.0-53.0); HEMOGLOBIN 8.5 g/dL (13.0-17.5); RED BLOOD COUNT 2.61 x10^6/uL (4.30-5.70); RED CELL DISTRIBUTION WIDTH 18.4 % (11.5-14.5)
--- NOTE | 2020-08-04 18:43 | NUR ---
ABLE TO WEAN DOWN LEVOPHED AND PT HAD DIALYSIS THIS SHIFT. PT WILL REMAIN NPO PER GI AND THEY WILL MAKE A DETERMINATION ON WORK UP IN AM. PT REMAINS ON 4L NC. WILL CONTINUE TO ASSESS.
[2020-08-04] MEDS: ALBUTEROL SULFATE 2.5 MG/3 ML NEBU. NEB PRN (20:42)
[2020-08-04] MEDS ORDERED: DARBEPOETIN ALFA 60 MCG/0.3 ML DISP.SYRIN. SQ SCH (21:00)
[2020-08-04] MEDS: fentaNYL PF VIAL 100 MCG/2 ML VIAL IVP PRN (21:04)
[2020-08-05] VITALS (23 sets, daily range): BP systolic 80–158; BP diastolic 44–97
[2020-08-05 00:09] LABS: HEMATOCRIT 25.2 % (39.0-53.0); HEMOGLOBIN 8.5 g/dL (13.0-17.5); RED BLOOD COUNT 2.62 x10^6/uL (4.30-5.70); RED CELL DISTRIBUTION WIDTH 18.6 % (11.5-14.5)
[2020-08-05] MEDS: methylPREDNISolone SOD SUCC PF 125 MG/2 ML VIAL. IV SCH ×3 (05:26→22:15)
[2020-08-05] MEDS: PIPERACILLIN/TAZOBACTAM 2.25 GM in IV NORMAL SALINE 50ML 50 ML IV SCH ×3 (05:27→22:15)
[2020-08-05 05:36] LABS: BASO % 0 % (0-3); EOS % 0 % (0-3); HEMOGLOBIN 8.4 g/dL (13.0-17.5); LYMPH % 7 % (24-48); MEAN CORPUSCULAR HEMOGLOBIN 32 pg (25-35); MEAN CORPUSCULAR HGB CONC 33 g/dL (31-37); MEAN CORPUSCULAR VOLUME 97 fL (79-100); MONO # 0.4 x10^3/uL (0.0-1.1); MONO % 3 % (0-9); NEUT # 14.5 x10^3/uL (1.8-7.7); NEUT % 91 % (31-73); PLATELET COUNT 124 x10^3/uL (140-400); RED BLOOD COUNT 2.58 x10^6/uL (4.30-5.70); RED CELL DISTRIBUTION WIDTH 18.3 % (11.5-14.5)
[2020-08-05 05:53] LABS: ALBUMIN/GLOBULIN RATIO 0.7 (1.0-1.7); CALCIUM 6.8 mg/dL (8.5-10.1); CREATININE 3.7 mg/dL (0.7-1.3); POTASSIUM 4.4 mmol/L (3.5-5.1); TOTAL BILIRUBIN 4.8 mg/dL (0.2-1.0); TOTAL PROTEIN 4.8 g/dL (6.4-8.2)
--- NOTE | 2020-08-05 05:58 | NUR ---
Patient restless through the night and occasionally would wear Bipap. Would get confused and belligerent and pulled off bipap mask complaining of diffucluty breathing. Applied mitts but would not wear either. Needed to be redirected frequently. Then he would begin complaining of SOA with NC. Agreed to wear bipap but still needed to redirected. Will continue to monitor. called and requested for update on patient.
[2020-08-05 06:08] LABS: PROTHROMBIN TIME PATIENT 23.9 SEC (11.7-14.0)
--- NOTE | 2020-08-05 07:26 | PDOC ---
Infectious Disease Note Subjective Subjective Patient is awake she is feeling okay although on BiPAP ROS ROS No nausea vomiting diarrhea Vital Sign Vital Signs Vital Signs Date Time Temp Pulse Resp B/P (MAP) Pulse Ox O2 Delivery O2 Flow Rate FiO2 08/05/20 06:00 73 32 113/66 (82) 96 BiPAP/CPAP 08/05/20 05:00 08/05/20 04:00 98.1 98.1 Physical Exam PHYSICAL EXAM GENERAL: Awake gentleman, not in any distress. VITAL SIGNS: Stable, The patient is on vasopressor support. HEENT: Both pupils are round and reacting. No conjunctival lesion. Oral; the patient has dry blood in the mouth, on the tongue and palate, on the lips. NECK: Supple, no JVP, no lymphadenopathy. LUNGS: Decreased breath sounds bilaterally. HEART: S1, S2 regular. No gallop. ABDOMEN: Soft, nontender, no organomegaly. EXTREMITIES: No edema or cyanosis. The patient does have some bleeding under the skin, around the neck, and upper extremities. NEUROLOGIC: The patient is alert, awake, able to communicate and able to move all the extremities. No focal deficit. Labs Lab Laboratory Tests Test 08/04/20 12:15 08/04/20 18:30 08/04/20 23:45 08/05/20 05:10 White Blood Count 13.6 x10^3/uL (4.0-11.0) 15.0 x10^3/uL (4.0-11.0) 15.0 x10^3/uL (4.0-11.0) 16.0 x10^3/uL (4.0-11.0) Red Blood Count 2.58 x10^6/uL (4.30-5.70) 2.61 x10^6/uL (4.30-5.70) 2.62 x10^6/uL (4.30-5.70) 2.58 x10^6/uL (4.30-5.70) Hemoglobin 8.2 g/dL (13.0-17.5) 8.5 g/dL (13.0-17.5) 8.5 g/dL (13.0-17.5) 8.4 g/dL (13.0-17.5) Hematocrit 24.8 % (39.0-53.0) 25.2 % (39.0-53.0) 25.2 % (39.0-53.0) 25.0 % (39.0-53.0) Mean Corpuscular Volume 96 fL (79-100) 96 fL (79-100) 96 fL (79-100) 97 fL (79-100) Mean Corpuscular Hemoglobin 32 pg (25-35) 33 pg (25-35) 32 pg (25-35) 32 pg (25-35) Mean Corpuscular Hemoglobin Concent 33 g/dL (31-37) 34 g/dL (31-37) 34 g/dL (31-37) 33 g/dL (31-37) Red Cell Distribution Width 18.0 % (11.5-14.5) 18.4 % (11.5-14.5) 18.6 % (11.5-14.5) 18.3 % (11.5-14.5) Platelet Count 116 x10^3/uL (140-400) 122 x10^3/uL (140-400) 125 x10^3/uL (140-400) 124 x10^3/uL (140-400) Neutrophils (%) (Auto) 91 % (31-73) Lymphocytes (%) (Auto) 7 % (24-48) Monocytes (%) (Auto) 3 % (0-9) Eosinophils (%) (Auto) 0 % (0-3) Basophils (%) (Auto) 0 % (0-3) Neutrophils # (Auto) 14.5 x10^3/uL (1.8-7.7) Lymphocytes # (Auto) 1.0 x10^3/uL (1.0-4.8) Monocytes # (Auto) 0.4 x10^3/uL (0.0-1.1) Eosinophils # (Auto) 0.0 x10^3/uL (0.0-0.7) Basophils # (Auto) 0.0 x10^3/uL (0.0-0.2) Prothrombin Time 23.9 SEC (11.7-14.0) Prothromb Time International Ratio 2.2 (0.8-1.1) Sodium Level 133 mmol/L (136-145) Potassium Level 4.4 mmol/L (3.5-5.1) Chloride Level 96 mmol/L (98-107) Carbon Dioxide Level 26 mmol/L (21-32) Anion Gap 11 (6-14) Blood Urea Nitrogen 67 mg/dL (8-26) Creatinine 3.7 mg/dL (0.7-1.3) Estimated GFR (Cockcroft-Gault) 16.0 BUN/Creatinine Ratio 18 (6-20) Glucose Level 160 mg/dL (70-99) Calcium Level 6.8 mg/dL (8.5-10.1) Iron Level 87 ug/dL (65-175) Total Iron Binding Capacity 78 ug/dL (250-450) Iron Saturation % (15-34) Total Bilirubin 4.8 mg/dL (0.2-1.0) Aspartate Amino Transf (AST/SGOT) 384 U/L (15-37) Alanine Aminotransferase (ALT/SGPT) 118 U/L (16-63) Alkaline Phosphatase 281 U/L (46-116) Total Protein 4.8 g/dL (6.4-8.2) Albumin 2.0 g/dL (3.4-5.0) Albumin/Globulin Ratio 0.7 (1.0-1.7) Micro Blood culture positive with gram-negative rods Objective Assessment IMPRESSION: 1. Leukocytosis, it is possible it is reactive. It is possible that it may have infection, most recent infection was T8-T9 diskitis and osteomyelitis. 2. T8-T9 diskitis and osteomyelitis with small epidural abscess, completed 6 weeks of ceftriaxone and on a chronic suppressive Keflex, was planned to give for 6 months. 3. Hypotension with acute kidney injury, etiology to be determined. 4. Elevated liver function tests secondary to hypotension. 5. History of staphylococcal lugdunensis oxacillin sensitive bacteremia. 6. Acute kidney injury on top of a chronic renal insufficiency. 7. Cardiac arrhythmia. The patient does have AICD in place. 8. Pulmonary fibrosis. 9. Morbid obesity. 10. Congestive heart failure. 11. Hypotension. Plan Plan of Care Continue Zosyn Follow the cultures Supportive care Dialysis KEITH FERGUSON MD Aug 05, 2020 07:26
[2020-08-05] MEDS ORDERED: IV NORMAL SALINE 1000ML BAG 1,000 ML IV PRN ×2 (08:20)
[2020-08-05] MEDS ORDERED: ALBUMIN HUMAN 25% 200 ML IV PRN (08:30)
[2020-08-05] MEDS ORDERED: DIALYSIS PATIENT. MC PRN ×2 (08:30)
[2020-08-05] MEDS: ALBUTEROL SULFATE 2.5 MG/3 ML NEBU. NEB PRN (08:34)
[2020-08-05] MEDS: VASOPRESSIN 20 UNIT in IV DEXTROSE 5% 100ML 100 ML IV PRN ×2 (08:37→16:36)
--- NOTE | 2020-08-05 08:50 | PDOC ---
IM PROGRESS NOTES- Subjective Subjective No complaints of pain or dyspnea. Continues to have tremors. Has occasional back pain. Denies any abdominal pain or nausea. He had some blood in the mucus so patient has been kept n.p.o. by the building tech. Objective Vitals/I&O Vital Signs Date Time Temp Pulse Resp B/P (MAP) Pulse Ox O2 Delivery O2 Flow Rate FiO2 08/05/20 08:35 94 Nasal Cannula 4.5 08/05/20 06:00 73 32 113/66 (82) 08/05/20 04:00 98.1 98.1 I & O 08/04/20 08/04/20 08/05/20 15:00 23:00 07:00 Intake Total 150 ml 50 ml 2943.2 ml Output Total 480 ml 230 ml Balance 150 ml -430 ml 2713.2 ml Physical Exam Physical Exam GENERAL: This patient is an elderly male who is alert, oriented, but not a good historian, obese and appears to be acutely ill, not in any acute distress at this time. EYES: Pupils reacting to light. Conjunctivae pale. Sclerae muddy. HENT: The patient has bleeding from the nostrils and some blood in the mouth. SKIN: Warm and dry. Skin is pale. The patient has macerated skin and wounds with some bleeding in the gluteal area. No cyanosis. NECK: Supple. JVP normal. No thyromegaly. LUNGS: Decreased breath sounds at bases. CARDIOVASCULAR: S1, S2 regular. ABDOMEN: Soft, obese, nontender, no guarding, no rigidity. Bowel sounds present. EXTREMITIES: 3+ edema in all extremities. Also, has anasarca. CENTRAL NERVOUS SYSTEM: Alert, weak, appropriate, has tremors Labs Laboratory Tests Test 08/04/20 12:15 08/04/20 18:30 08/04/20 23:45 08/05/20 05:10 White Blood Count 13.6 x10^3/uL (4.0-11.0) H 15.0 x10^3/uL (4.0-11.0) H 15.0 x10^3/uL (4.0-11.0) H 16.0 x10^3/uL (4.0-11.0) H Red Blood Count 2.58 x10^6/uL (4.30-5.70) L 2.61 x10^6/uL (4.30-5.70) L 2.62 x10^6/uL (4.30-5.70) L 2.58 x10^6/uL (4.30-5.70) L Hemoglobin 8.2 g/dL (13.0-17.5) L 8.5 g/dL (13.0-17.5) L 8.5 g/dL (13.0-17.5) L 8.4 g/dL (13.0-17.5) L Hematocrit 24.8 % (39.0-53.0) L 25.2 % (39.0-53.0) L 25.2 % (39.0-53.0) L 25.0 % (39.0-53.0) L Mean Corpuscular Volume 96 fL (79-100) 96 fL (79-100) 96 fL (79-100) 97 fL (79-100) Mean Corpuscular Hemoglobin 32 pg (25-35) 33 pg (25-35) 32 pg (25-35) 32 p g (25-35) Mean Corpuscular Hemoglobin Concent 33 g/dL (31-37) 34 g/dL (31-37) 34 g/dL (31-37) 33 g/dL (31-37) Red Cell Distribution Width 18.0 % (11.5-14.5) H 18.4 % (11.5-14.5) H 18.6 % (11.5-14.5) H 18.3 % (11.5-14.5) H Platelet Count 116 x10^3/uL (140-400) L 122 x10^3/uL (140-400) L 125 x10^3/uL (140-400) L 124 x10^3/uL (140-400) L Neutrophils (%) (Auto) 91 % (31-73) H Lymphocytes (%) (Auto) 7 % (24-48) L Monocytes (%) (Auto) 3 % (0-9) Eosinophils (%) (Auto) 0 % (0-3) Basophils (%) (Auto) 0 % (0-3) Neutrophils # (Auto) 14.5 x10^3/uL (1.8-7.7) H Lymphocytes # (Auto) 1.0 x10^3/uL (1.0-4.8) Monocytes # (Auto) 0.4 x10^3/uL (0.0-1.1) Eosinophils # (Auto) 0.0 x10^3/uL (0.0-0.7) Basophils # (Auto) 0.0 x10^3/uL (0.0-0.2) Prothrombin Time 23.9 SEC (11.7-14.0) H Prothrombin Time INR 2.2 (0.8-1.1) H Sodium Level 133 mmol/L (136-145) L Potassium Level 4.4 mmol/L (3.5-5.1) Chloride Level 96 mmol/L (98-107) L Carbon Dioxide Level 26 mmol/L (21-32) Anion Gap 11 (6-14) Blood Urea Nitrogen 67 mg/dL (8-26) H Creatinine 3.7 mg/dL (0.7-1.3) H Estimated GFR (Cockcroft-Gault) 16.0 BUN/Creatinine Ratio 18 (6-20) Glucose Level 160 mg/dL (70-99) H Calcium Level 6.8 mg/dL (8.5-10.1) L Iron Level 87 ug/dL (65-175) Total Iron Binding Capacity 78 ug/dL (250-450) L Iron Saturation % (15-34) Total Bilirubin 4.8 mg/dL (0.2-1.0) H Aspartate Amino Transferase (AST) 384 U/L (15-37) H Alanine Aminotransferase (ALT) 118 U/L (16-63) H Alkaline Phosphatase 281 U/L (46-116) H Total Protein 4.8 g/dL (6.4-8.2) L Albumin 2.0 g/dL (3.4-5.0) L Albumin/Globulin Ratio 0.7 (1.0-1.7) L Laboratory Tests 08/04/20 12:15 08/04/20 18:30 08/04/20 23:45 08/05/20 05:10 Laboratory Tests 08/05/20 05:10 Meds Current Medications Medications (Trade) Dose Ordered Sig/Samantha Route PRN Reason Start Time Stop Time Status Last Admin Dose Admin Methylprednisolone Sodium Succinate (SOLU-Medrol 125MG VIAL) 100 mg Q8HRS IV 08/04/20 09:30 08/05/20 05:26 Sodium Chloride 250 ml @ 250 mls/hr 1X ONCE IV 08/04/20 11:30 08/04/20 12:29 DC 08/04/20 11:43 Darbepoetin Hitesh (ARANESP for DIALYSIS PTS) 60 mcg WEEKLYHS SQ 08/04/20 21:00 08/04/20 21:00 Piperacillin Sod/ Tazobactam Sod 2.25 gm/Sodium Chloride 50 ml @ 100 mls/hr Q8HRS IV 08/04/20 14:00 08/05/20 05:27 Assessment Assessment 1. Acute hypotension, multifactorial. 2. Acute kidney injury with chronic kidney disease. 3. Coagulopathy. 4. Acute respiratory failure. 5. Recurrent ventricular tachycardia. 6. Atrial fibrillation. 7. Coronary artery disease. 8. Congestive heart failure with ejection fraction of 40%. 9. Elevated LFTs, possibly shock liver. 10. Recent gastrointestinal bleeding including diverticular and hemorrhoidal bleeding. 11. Aortic root dilatation. 12. Hypoalbuminemia with severe malnutrition. 13. History of pulmonary embolism. 14. Status post total knee arthroplasty. 15. Chronic hypoxic respiratory failure with pulmonary fibrosis, on 3 liters oxygen at night with exertion. 16. Obstructive sleep apnea syndrome, using CPAP. 17. Recent epidural abscess in 03/2020 initially treated with doxycycline, now on cephalexin. 18. Transient ischemic attack. 19. Physical deconditioning. 20. Morbid obesity. 21. Leukocytosis. PLAN: Admit to Intensive Care Unit. Consult Dr. Farrell for pulmonary evaluation and management, Dr. Sharif for cardiology evaluation and management. Consult Dr. Valladares for GI evaluation and management. Consult Dr. Rodriguez for nephrology evaluation and management. Consult Dr. Boone for hematology evaluation and management. Consult wound care. Consult Dr. Rey Antoine for infectious disease evaluation and management. The patient has been admitted to ICU. Continue Levophed,Vasopressin. Condition and treatment options were discussed with the on the phone this morning and in person here at bedside this evening. Prognosis of this patient is extremely poor. We will give him 3 mg of subcu vitamin K and also give him 2 units of fresh frozen plasma as he is bleeding in several places. He has a dialysis catheter, but as he is very hypotensive he may not be able to get dialysis soon. We will give him 1 unit of blood also and 500 mL of albumin has been ordered by Dr. Farrell. Continue to monitor hemoglobin and hematocrit q.6. Continue IV fluids. For details, please refer to the orders. Acute hypotension-continue pressure support, IV fluids, blood transfusion. Possible sepsis-blood culture 1 out of 2 shows gram-negative rods. On Zosyn. Acute kidney injury-start hemodialysis as tolerated. Renal function is improving with dialysis. Urine output is improving.. Acute respiratory failure, history of pulmonary fibrosis-continue oxygen by nasal cannula. Discussed with Dr. Holbrook this morning. He had started him on IV steroids until hypotension is corrected. Discontinue Solu-Medrol as patient is clinically improving. Acute blood loss anemia-blood transfusion. Globin dropped to 6.8. He was given 2 units of packed red blood cells. Currently hemoglobin is staying above 8. Coagulopathy-he is off Eliquis . He received FFP and vitamin K yesterday. Smooth Plater has been consulted. He does not recommend K Centra at this time but consider if major bleeding occurs. GI bleeding-consulted Dr. Valladares. Keep patient n.p.o. for now. He will receive 2 units of packed red cells. Recurrent ventricular tachycardia-AICD was adjusted to detect V. tach at 150/min yesterday. Coreg 3.125 mg twice a day was held yesterday because of hypotension. Patient was also on amiodarone and it was held yesterday. Coronary artery disease amiodarone and statins discontinued due to elevated LFTs and coagulopathy. He should follow-up with an web site specialist for VT ablation after he gets better. Dilated cardiomyopathy with ejection fraction of 40% Atrial fibrillation-hold anticoagulation for now Tremors-Likely due to renal failure. gabapentin decreased to 100 mg yesterday I will discontinue it for now. Leukocytosis, recent epidural abscess-likely reactive and due to steroids. Antibiotics per ID Clinically improving slowly. Continue treatment in the ICU. Prognosis of this patient is very poor. Condition, treatment and options discussed with Kathleen on phone. Plan Plan For more details regarding further plans, please refer to the orders. Justifications for Admission Other Justification LUCAS BRAGA MD Aug 05, 2020 08:50
--- NOTE | 2020-08-05 09:29 | PDOC ---
LARISA PITTMAN DEVICE ENGINEER 08/05/20 0929: CARDIO Progress Notes Date and Time Date of Service 08/05/2020 Time of Evaluation 0850 Subjective Subjective: No Chest Pain, No shortness of breath, No Palpitations, Other (laying flat no SOA) Vitals Vitals Vital Signs Date Time Temp Pulse Resp B/P (MAP) Pulse Ox O2 Delivery O2 Flow Rate FiO2 08/05/20 08:35 94 Nasal Cannula 4.5 08/05/20 06:00 73 32 113/66 (82) 08/05/20 04:00 98.1 98.1 Weight Weight [ ] Input and Output Intake and Output Intake and Output 08/05/20 07:00 Intake Total 3143.2 ml Output Total 710 ml Balance 2433.2 ml Intake IV Total 2993.2 ml Blood Product IV Normal Saline Flush 150 ml Output Urine Total 710 ml # Bowel Movements 2 Laboratory Labs Laboratory Tests Test 08/04/20 12:15 08/04/20 18:30 08/04/20 23:45 08/05/20 05:10 White Blood Count 13.6 x10^3/uL (4.0-11.0) 15.0 x10^3/uL (4.0-11.0) 15.0 x10^3/uL (4.0-11.0) 16.0 x10^3/uL (4.0-11.0) Red Blood Count 2.58 x10^6/uL (4.30-5.70) 2.61 x10^6/uL (4.30-5.70) 2.62 x10^6/uL (4.30-5.70) 2.58 x10^6/uL (4.30-5.70) Hemoglobin 8.2 g/dL (13.0-17.5) 8.5 g/dL (13.0-17.5) 8.5 g/dL (13.0-17.5) 8.4 g/dL (13.0-17.5) Hematocrit 24.8 % (39.0-53.0) 25.2 % (39.0-53.0) 25.2 % (39.0-53.0) 25.0 % (39.0-53.0) Mean Corpuscular Volume 96 fL (79-100) 96 fL (79-100) 96 fL (79-100) 97 fL (79-100) Mean Corpuscular Hemoglobin 32 pg (25-35) 33 pg (25-35) 32 pg (25-35) 32 pg (25-35) Mean Corpuscular Hemoglobin Concent 33 g/dL (31-37) 34 g/dL (31-37) 34 g/dL (31-37) 33 g/dL (31-37) Red Cell Distribution Width 18.0 % (11.5-14.5) 18.4 % (11.5-14.5) 18.6 % (11.5-14.5) 18.3 % (11.5-14.5) Platelet Count 116 x10^3/uL (140-400) 122 x10^3/uL (140-400) 125 x10^3/uL (140-400) 124 x10^3/uL (140-400) Neutrophils (%) (Auto) 91 % (31-73) Lymphocytes (%) (Auto) 7 % (24-48) Monocytes (%) (Auto) 3 % (0-9) Eosinophils (%) (Auto) 0 % (0-3) Basophils (%) (Auto) 0 % (0-3) Neutrophils # (Auto) 14.5 x10^3/uL (1.8-7.7) Lymphocytes # (Auto) 1.0 x10^3/uL (1.0-4.8) Monocytes # (Auto) 0.4 x10^3/uL (0.0-1.1) Eosinophils # (Auto) 0.0 x10^3/uL (0.0-0.7) Basophils # (Auto) 0.0 x10^3/uL (0.0-0.2) Prothrombin Time 23.9 SEC (11.7-14.0) Prothromb Time International Ratio 2.2 (0.8-1.1) Sodium Level 133 mmol/L (136-145) Potassium Level 4.4 mmol/L (3.5-5.1) Chloride Level 96 mmol/L (98-107) Carbon Dioxide Level 26 mmol/L (21-32) Anion Gap 11 (6-14) Blood Urea Nitrogen 67 mg/dL (8-26) Creatinine 3.7 mg/dL (0.7-1.3) Estimated GFR (Cockcroft-Gault) 16.0 BUN/Creatinine Ratio 18 (6-20) Glucose Level 160 mg/dL (70-99) Calcium Level 6.8 mg/dL (8.5-10.1) Iron Level 87 ug/dL (65-175) Total Iron Binding Capacity 78 ug/dL (250-450) Iron Saturation % (15-34) Total Bilirubin 4.8 mg/dL (0.2-1.0) Aspartate Amino Transf (AST/SGOT) 384 U/L (15-37) Alanine Aminotransferase (ALT/SGPT) 118 U/L (16-63) Alkaline Phosphatase 281 U/L (46-116) Total Protein 4.8 g/dL (6.4-8.2) Albumin 2.0 g/dL (3.4-5.0) Albumin/Globulin Ratio 0.7 (1.0-1.7) Microbiology Micro Microbiology 08/04/20 Urine Culture - Final, Complete 08/04/20 Blood Culture - Final, Complete Physical Exam HEENT: Neck Supple W Full Motion Chest: Symmetric LUNGS: Other (diminished) Heart: RRR (Atrial paced), other (distant heart sounds) Abdomen: Other (obese) Extremities: Other (anasarca) Neurology: alert, oriented, follow commands Assessment Assessment 1. CORKY on CKD; worse, presently having HD 2. Chronic respiratory failure, pulmonary fibrosis, SOA better 3. Dilated cardiomyopathy; s/p AICD ([employer]) last reported LVEF 40%. Follows with Dr. Talley with [facility]. Limited echo showed LVEF 50-55% as noted above 4. H/o VT; on Amiodarone therapy; Spoke with [employer]; patient had 10 min episode of VT 07/10/20 s/p ATP. Rate was near detection zone of 150. No other e vidence of VT or shock therapies delivered. Device was interrogated 08/03/20 with normal function. detection zone was lowered. 5. Hypotensive; requiring pressor support 6. PAFIB; maintaining SR. On Eliquis for stroke prophylaxis 7. Anemia, recent GIB; hgb drifting to 6.8. To be transfused 8. Elevated LFTs, coagulopathy; INR 2.5. FFP and vit K 9. Ascending aortic aneurysm; 4.0 cm 10. Severe protein calorie malnutrition 11. H/o PE 12. Morbid obesity, JAZMINE with CPAP 13. Recent epidural abscess; treated with IV antibiotic therapy 14. H/o Non-Hodgkins lymphoma Recommendations [facility] Holding ASA, OAC with anemia, bleeding Hold Amiodarone, statin with elevated LFTs Pressor support, on levophed/vasopressin HD as per nephrology Supportive care Justicifation of Admission Dx: Justifications for Admission: Justification of Admission Dx: Yes FATMATA CARNEY MD 08/05/20 1524: CARDIO Progress Notes Assessment Assessment Patient seen and examined. Agree with CARVER AND CHECKERER SPECIALS's assessment and plan. Amiodarone and statins stopped secondary to elevated LFT's and coagulopathy Recurrent VT needing ATP noted on device interrogation Consider outpatient referral to EP service once active issues resolve, for possible VT ablation PAF with tele showing AV paced rhythm. Cont eliquis for stroke prophylaxis 2D echo showed normal LVEF Continue hemodialysis per nephrology Wean pressors off as tolerated LARISA PITTMAN APRN Aug 05, 2020 09:29 FATMATA CARNEY MD Aug 05, 2020 15:24
--- NOTE | 2020-08-05 10:18 | PDOC ---
PULMONARY PROGRESS NOTES DATE: 08/05/20 TIME: 10:11 Subjective No SOA, no further hemoptysis or nose bleed on levo and vaso on HD with concurrent blood transfusion No other concerns from nursing Vitals Vital Signs Date Time Temp Pulse Resp B/P (MAP) Pulse Ox O2 Delivery O2 Flow Rate FiO2 08/05/20 08:35 94 Nasal Cannula 4.5 08/05/20 06:00 73 32 113/66 (82) 08/05/20 04:00 98.1 98.1 ROS: No Nausea, No Chest Pain, No Abdominal Pain General: Alert, No acute distress Lungs: Crackles Cardiovascular: S1, S2 Abdomen: Soft, Non-tender Neuro Exam: Alert Extremities: Other (edema +2) Skin: Warm, Dry Labs Laboratory Tests Test 08/03/20 13:09 08/03/20 14:09 08/03/20 23:23 08/04/20 05:50 White Blood Count 17.3 x10^3/uL (4.0-11.0) 16.8 x10^3/uL (4.0-11.0) 15.1 x10^3/uL (4.0-11.0) Red Blood Count 2.41 x10^6/uL (4.30-5.70) 2.19 x10^6/uL (4.30-5.70) 2.06 x10^6/uL (4.30-5.70) Hemoglobin 8.0 g/dL (13.0-17.5) 7.2 g/dL (13.0-17.5) 6.8 g/dL (13.0-17.5) Hematocrit 23.7 % (39.0-53.0) 21.6 % (39.0-53.0) 20.2 % (39.0-53.0) Mean Corpuscular Volume 98 fL (79-100) 99 fL (79-100) 98 fL (79-100) Mean Corpuscular Hemoglobin 33 pg (25-35) 33 pg (25-35) 33 pg (25-35) Mean Corpuscular Hemoglobin Concent 34 g/dL (31-37) 33 g/dL (31-37) 33 g/dL (31-37) Red Cell Distribution Width 17.1 % (11.5-14.5) 17.3 % (11.5-14.5) 17.1 % (11.5-14.5) Platelet Count 166 x10^3/uL (140-400) 158 x10^3/uL (140-400) 152 x10^3/uL (140-400) Neutrophils (%) (Auto) 85 % (31-73) 83 % (31-73) Lymphocytes (%) (Auto) 11 % (24-48) 11 % (24-48) Monocytes (%) (Auto) 3 % (0-9) 5 % (0-9) Eosinophils (%) (Auto) 1 % (0-3) 1 % (0-3) Basophils (%) (Auto) 1 % (0-3) 1 % (0-3) Neutrophils # (Auto) 14.6 x10^3/uL (1.8-7.7) 12.5 x10^3/uL (1.8-7.7) Lymphocytes # (Auto) 1.8 x10^3/uL (1.0-4.8) 1.6 x10^3/uL (1.0-4.8) Monocytes # (Auto) 0.6 x10^3/uL (0.0-1.1) 0.7 x10^3/uL (0.0-1.1) Eosinophils # (Auto) 0.2 x10^3/uL (0.0-0.7) 0.2 x10^3/uL (0.0-0.7) Basophils # (Auto) 0.1 x10^3/uL (0.0-0.2) 0.1 x10^3/uL (0.0-0.2) Prothrombin Time 28.8 SEC (11.7-14.0) 26.7 SEC (11.7-14.0) Prothromb Time International Ratio 2.7 (0.8-1.1) 2.5 (0.8-1.1) Activated Partial Thromboplast Time 60 SEC (24-38) Urine Collection Type Unknown Urine Color Kaya Urine Clarity Clear Urine pH 5.0 (<5.0-8.0) Urine Specific [place] 1.015 (1.000-1.030) Urine Protein Negative mg/dL (NEG-TRACE) Urine Glucose (UA) Negative mg/dL (NEG) Urine Ketones (Stick) Negative mg/dL (NEG) Urine Blood Moderate (NEG) Urine Nitrite Negative (NEG) Urine Bilirubin Negative (NEG) Urine Urobilinogen Dipstick 0.2 mg/dL (0.2 mg/dL) Urine Leukocyte Esterase Small (NEG) Urine RBC 3-5 /HPF (0-2) Urine WBC 1-4 /HPF (0-4) Urine Squamous Epithelial Cells Few /LPF Urine Bacteria 0 /HPF (0-FEW) Urine Hyaline Casts Few /HPF Urine Mucus Mod /LPF Sodium Level 126 mmol/L (136-145) 128 mmol/L (136-145) Potassium Level 4.9 mmol/L (3.5-5.1) 4.7 mmol/L (3.5-5.1) Chloride Level 89 mmol/L (98-107) 91 mmol/L (98-107) Carbon Dioxide Level 24 mmol/L (21-32) 22 mmol/L (21-32) Anion Gap 13 (6-14) 15 (6-14) Blood Urea Nitrogen 113 mg/dL (8-26) 112 mg/dL (8-26) Creatinine 5.5 mg/dL (0.7-1.3) 5.3 mg/dL (0.7-1.3) Estimated GFR (Cockcroft-Gault) 10.1 10.6 BUN/Creatinine Ratio 21 (6-20) 21 (6-20) Glucose Level 144 mg/dL (70-99) 123 mg/dL (70-99) Calcium Level 7.5 mg/dL (8.5-10.1) 7.1 mg/dL (8.5-10.1) Magnesium Level 2.3 mg/dL (1.8-2.4) 2.1 mg/dL (1.8-2.4) Total Bilirubin 2.5 mg/dL (0.2-1.0) 3.1 mg/dL (0.2-1.0) Aspartate Amino Transf (AST/SGOT) 337 U/L (15-37) 303 U/L (15-37) Alanine Aminotransferase (ALT/SGPT) 116 U/L (16-63) 106 U/L (16-63) Alkaline Phosphatase 316 U/L (46-116) 268 U/L (46-116) Troponin I Quantitative < 0.017 ng/mL (0.000-0.055) Total Protein 5.0 g/dL (6.4-8.2) 5.1 g/dL (6.4-8.2) Albumin 1.7 g/dL (3.4-5.0) 2.2 g/dL (3.4-5.0) Albumin/Globulin Ratio 0.5 (1.0-1.7) 0.8 (1.0-1.7) Hepatitis B Surface Antigen Nonreactive (Nonreactive) Hepatitis B Surface Antibody Reactive Phosphorus Level 7.1 mg/dL (2.6-4.7) Test 08/04/20 12:15 08/04/20 18:30 08/04/20 23:45 08/05/20 05:10 White Blood Count 13.6 x10^3/uL (4.0-11.0) 15.0 x10^3/uL (4.0-11.0) 15.0 x10^3/uL (4.0-11.0) 16.0 x10^3/uL (4.0-11.0) Red Blood Count 2.58 x10^6/uL (4.30-5.70) 2.61 x10^6/uL (4.30-5.70) 2.62 x10^6/uL (4.30-5.70) 2.58 x10^6/uL (4.30-5.70) Hemoglobin 8.2 g/dL (13.0-17.5) 8.5 g/dL (13.0-17.5) 8.5 g/dL (13.0-17.5) 8.4 g/dL (13.0-17.5) Hematocrit 24.8 % (39.0-53.0) 25.2 % (39.0-53.0) 25.2 % (39.0-53.0) 25.0 % (39.0-53.0) Mean Corpuscular Volume 96 fL (79-100) 96 fL (79-100) 96 fL (79-100) 97 fL (79-100) Mean Corpuscular Hemoglobin 32 pg (25-35) 33 pg (25-35) 32 pg (25-35) 32 pg (25-35) Mean Corpuscular Hemoglobin Concent 33 g/dL (31-37) 34 g/dL (31-37) 34 g/dL (31-37) 33 g/dL (31-37) Red Cell Distribution Width 18.0 % (11.5-14.5) 18.4 % (11.5-14.5) 18.6 % (11.5-14.5) 18.3 % (11.5-14.5) Platelet Count 116 x10^3/uL (140-400) 122 x10^3/uL (140-400) 125 x10^3/uL (140-400) 124 x10^3/uL (140-400) Neutrophils (%) (Auto) 91 % (31-73) Lymphocytes (%) (Auto) 7 % (24-48) Monocytes (%) (Auto) 3 % (0-9) Eosinophils (%) (Auto) 0 % (0-3) Basophils (%) (Auto) 0 % (0-3) Neutrophils # (Auto) 14.5 x10^3/uL (1.8-7.7) Lymphocytes # (Auto) 1.0 x10^3/uL (1.0-4.8) Monocytes # (Auto) 0.4 x10^3/uL (0.0-1.1) Eosinophils # (Auto) 0.0 x10^3/uL (0.0-0.7) Basophils # (Auto) 0.0 x10^3/uL (0.0-0.2) Prothrombin Time 23.9 SEC (11.7-14.0) Prothromb Time International Ratio 2.2 (0.8-1.1) Sodium Level 133 mmol/L (136-145) Potassium Level 4.4 mmol/L (3.5-5.1) Chloride Level 96 mmol/L (98-107) Carbon Dioxide Level 26 mmol/L (21-32) Anion Gap 11 (6-14) Blood Urea Nitrogen 67 mg/dL (8-26) Creatinine 3.7 mg/dL (0.7-1.3) Estimated GFR (Cockcroft-Gault) 16.0 BUN/Creatinine Ratio 18 (6-20) Glucose Level 160 mg/dL (70-99) Calcium Level 6.8 mg/dL (8.5-10.1) Iron Level 87 ug/dL (65-175) Total Iron Binding Capacity 78 ug/dL (250-450) Iron Saturation % (15-34) Total Bilirubin 4.8 mg/dL (0.2-1.0) Aspartate Amino Transf (AST/SGOT) 384 U/L (15-37) Alanine Aminotransferase (ALT/SGPT) 118 U/L (16-63) Alkaline Phosphatase 281 U/L (46-116) Total Protein 4.8 g/dL (6.4-8.2) Albumin 2.0 g/dL (3.4-5.0) Albumin/Globulin Ratio 0.7 (1.0-1.7) Laboratory Tests Test 08/04/20 12:15 08/04/20 18:30 08/04/20 23:45 08/05/20 05:10 White Blood Count 13.6 x10^3/uL (4.0-11.0) 15.0 x10^3/uL (4.0-11.0) 15.0 x10^3/uL (4.0-11.0) 16.0 x10^3/uL (4.0-11.0) Red Blood Count 2.58 x10^6/uL (4.30-5.70) 2.61 x10^6/uL (4.30-5.70) 2.62 x10^6/uL (4.30-5.70) 2.58 x10^6/uL (4.30-5.70) Hemoglobin 8.2 g/dL (13.0-17.5) 8.5 g/dL (13.0-17.5) 8.5 g/dL (13.0-17.5) 8.4 g/dL (13.0-17.5) Hematocrit 24.8 % (39.0-53.0) 25.2 % (39.0-53.0) 25.2 % (39.0-53.0) 25.0 % (39.0-53.0) Mean Corpuscular Volume 96 fL (79-100) 96 fL (79-100) 96 fL (79-100) 97 fL (79-100) Mean Corpuscular Hemoglobin 32 pg (25-35) 33 pg (25-35) 32 pg (25-35) 32 pg (25-35) Mean Corpuscular Hemoglobin Concent 33 g/dL (31-37) 34 g/dL (31-37) 34 g/dL (31-37) 33 g/dL (31-37) Red Cell Distribution Width 18.0 % (11.5-14.5) 18.4 % (11.5-14.5) 18.6 % (11.5-14.5) 18.3 % (11.5-14.5) Platelet Count 116 x10^3/uL (140-400) 122 x10^3/uL (140-400) 125 x10^3/uL (140-400) 124 x10^3/uL (140-400) Neutrophils (%) (Auto) 91 % (31-73) Lymphocytes (%) (Auto) 7 % (24-48) Monocytes (%) (Auto) 3 % (0-9) Eosinophils (%) (Auto) 0 % (0-3) Basophils (%) (Auto) 0 % (0-3) Neutrophils # (Auto) 14.5 x10^3/uL (1.8-7.7) Lymphocytes # (Auto) 1.0 x10^3/uL (1.0-4.8) Monocytes # (Auto) 0.4 x10^3/uL (0.0-1.1) Eosinophils # (Auto) 0.0 x10^3/uL (0.0-0.7) Basophils # (Auto) 0.0 x10^3/uL (0.0-0.2) Prothrombin Time 23.9 SEC (11.7-14.0) Prothromb Time International Ratio 2.2 (0.8-1.1) Sodium Level 133 mmol/L (136-145) Potassium Level 4.4 mmol/L (3.5-5.1) Chloride Level 96 mmol/L (98-107) Carbon Dioxide Level 26 mmol/L (21-32) Anion Gap 11 (6-14) Blood Urea Nitrogen 67 mg/dL (8-26) Creatinine 3.7 mg/dL (0.7-1.3) Estimated GFR (Cockcroft-Gault) 16.0 BUN/Creatinine Ratio 18 (6-20) Glucose Level 160 mg/dL (70-99) Calcium Level 6.8 mg/dL (8.5-10.1) Iron Level 87 ug/dL (65-175) Total Iron Binding Capacity 78 ug/dL (250-450) Iron Saturation % (15-34) Total Bilirubin 4.8 mg/dL (0.2-1.0) Aspartate Amino Transf (AST/SGOT) 384 U/L (15-37) Alanine Aminotransferase (ALT/SGPT) 118 U/L (16-63) Alkaline Phosphatase 281 U/L (46-116) Total Protein 4.8 g/dL (6.4-8.2) Albumin 2.0 g/dL (3.4-5.0) Albumin/Globulin Ratio 0.7 (1.0-1.7) Comments CXR Impression: 1. Interval placement right IJ central line. No pneumothorax. 2. Unchanged diffuse interstitial thickening with patchy left mid lung opacities. Impression . IMPRESSION: 1. Chronic hypoxic respiratory failure. Remains on 3 liters of oxygen on a 24- hour basis. 2. The patient with history of pulmonary embolism in 2018. Likely hypercoagulable state from underlying non-Hodgkin's lymphoma and breast cancer. He has been on Eliquis since then. He has no DVT. He had epistaxis 3 days ago, resolved. His venous Doppler done 2 days ago, did not show any DVT as well. Eliquis on hold for 48 hours . will restart at a lower dose of 2.5 mg b.i.d. 3. Shock, could be combination of hypovolemic and cardiogenic. He is currently on Levophed. We will monitor his blood pressure closely. 4. History of pulmonary fibrosis. His chest x-ray showed bilateral interstitial infiltrates. He has Agent [employer] exposure and that could be the etiology of his fibrosis. It has been clinically stable. 5. History of non-Hodgkin's lymphoma, status post chemo, finished in 01/2019. 6. History of breast cancer with bilateral mastectomy. 7. History of gastrointestinal bleed with colonoscopy showing colonic small polyps in June of this year. 8. Acute kidney injury. The patient is status post hemodialysis catheter placement and will be initiated on hemodialysis. 9. Cardiomyopathy. His ejection fraction used to be 25%, now is improved to 40% based on records. 10. Minimal tobacco history. 11. Status post AICD and pacemaker. 12. History of aneurysmal dilatation of the ascending aorta to a diameter about 4.0. Plan . RECOMMENDATIONS: Continue supplemental oxygen, baseline oxygen requirments are 3 liters N/C NEBS Follow CXR PRN cont. Vasopressors to keep MAP above 60 Follow nephrology recs for HD Monitor HGB, Resume eliquis at 2.5 mg BID.,Not a candidate for IVC filter as there is no evidence of deep venous thrombosis Follow HEM/ONC recs Follow Cardiology recs D/W RN and RT cct 30 min . CHIVO ORDONEZ MD Aug 05, 2020 10:18
--- NOTE | 2020-08-05 10:36 | PDOC ---
Renal-Progress Notes Subjective Notes Notes NO COMPLAINTS History of Present Illness Hx of present illness STABLE Vitals Vitals Vital Signs Date Time Temp Pulse Resp B/P (MAP) Pulse Ox O2 Delivery O2 Flow Rate FiO2 08/05/20 08:35 94 Nasal Cannula 4.5 08/05/20 06:00 73 32 113/66 (82) 08/05/20 04:00 98.1 98.1 Weight Weight [ ] I.O. Intake and Output Intake and Output 08/05/20 07:00 Intake Total 3143.2 ml Output Total 710 ml Balance 2433.2 ml Intake IV Total 2993.2 ml Blood Product IV Normal Saline Flush 150 ml Output Urine Total 710 ml # Bowel Movements 2 Labs Labs Laboratory Tests Test 08/04/20 12:15 08/04/20 18:30 08/04/20 23:45 08/05/20 05:10 White Blood Count 13.6 x10^3/uL (4.0-11.0) 15.0 x10^3/uL (4.0-11.0) 15.0 x10^3/uL (4.0-11.0) 16.0 x10^3/uL (4.0-11.0) Red Blood Count 2.58 x10^6/uL (4.30-5.70) 2.61 x10^6/uL (4.30-5.70) 2.62 x10^6/uL (4.30-5.70) 2.58 x10^6/uL (4.30-5.70) Hemoglobin 8.2 g/dL (13.0-17.5) 8.5 g/dL (13.0-17.5) 8.5 g/dL (13.0-17.5) 8.4 g/dL (13.0-17.5) Hematocrit 24.8 % (39.0-53.0) 25.2 % (39.0-53.0) 25.2 % (39.0-53.0) 25.0 % (39.0-53.0) Mean Corpuscular Volume 96 fL (79-100) 96 fL (79-100) 96 fL (79-100) 97 fL (79-100) Mean Corpuscular Hemoglobin 32 pg (25-35) 33 pg (25-35) 32 pg (25-35) 32 pg (25-35) Mean Corpuscular Hemoglobin Concent 33 g/dL (31-37) 34 g/dL (31-37) 34 g/dL (31-37) 33 g/dL (31-37) Red Cell Distribution Width 18.0 % (11.5-14.5) 18.4 % (11.5-14.5) 18.6 % (11.5-14.5) 18.3 % (11.5-14.5) Platelet Count 116 x10^3/uL (140-400) 122 x10^3/uL (140-400) 125 x10^3/uL (140-400) 124 x10^3/uL (140-400) Neutrophils (%) (Auto) 91 % (31-73) Lymphocytes (%) (Auto) 7 % (24-48) Monocytes (%) (Auto) 3 % (0-9) Eosinophils (%) (Auto) 0 % (0-3) Basophils (%) (Auto) 0 % (0-3) Neutrophils # (Auto) 14.5 x10^3/uL (1.8-7.7) Lymphocytes # (Auto) 1.0 x10^3/uL (1.0-4.8) Monocytes # (Auto) 0.4 x10^3/uL (0.0-1.1) Eosinophils # (Auto) 0.0 x10^3/uL (0.0-0.7) Basophils # (Auto) 0.0 x10^3/uL (0.0-0.2) Prothrombin Time 23.9 SEC (11.7-14.0) Prothromb Time International Ratio 2.2 (0.8-1.1) Sodium Level 133 mmol/L (136-145) Potassium Level 4.4 mmol/L (3.5-5.1) Chloride Level 96 mmol/L (98-107) Carbon Dioxide Level 26 mmol/L (21-32) Anion Gap 11 (6-14) Blood Urea Nitrogen 67 mg/dL (8-26) Creatinine 3.7 mg/dL (0.7-1.3) Estimated GFR (Cockcroft-Gault) 16.0 BUN/Creatinine Ratio 18 (6-20) Glucose Level 160 mg/dL (70-99) Calcium Level 6.8 mg/dL (8.5-10.1) Iron Level 87 ug/dL (65-175) Total Iron Binding Capacity 78 ug/dL (250-450) Iron Saturation % (15-34) Total Bilirubin 4.8 mg/dL (0.2-1.0) Aspartate Amino Transf (AST/SGOT) 384 U/L (15-37) Alanine Aminotransferase (ALT/SGPT) 118 U/L (16-63) Alkaline Phosphatase 281 U/L (46-116) Total Protein 4.8 g/dL (6.4-8.2) Albumin 2.0 g/dL (3.4-5.0) Albumin/Globulin Ratio 0.7 (1.0-1.7) Micro Micro Microbiology 08/04/20 Urine Culture - Final, Complete 08/04/20 Blood Culture - Final, Complete Review of Systems Constitutional: yes: other (CONFUSED) Physical Exam General Appearance: no apparent distress Skin: warm Heart: S1S2 Abdomen: soft, bowel sounds present Genitourinary: bladder flat Neurology: alert, follow commands Assessment Assessment IMP [id number] CKD STAGE 3-CR OF 1.8 AT BASELINE HYPONATREMIA MET ACIDOSIS LEUCOCYTOSIS T8-T9 DISKITIS-OSTEO HYPOTENSION INCREASED LFT'S ANEMIA POSSIBLE GI BLEED MORBID OBESITY CARDIAC ARRHYTHMIA-AICD PLAN HD TODAY UF TOLERATED D/W DR BRAGA PRESSORS NEEDED PRBC NEEDED GI EVAL CARDIOLOGY EVAL HEME EVAL STARTED AVINASH IRON STORES OK ANTIBIOTICS PER ID WILL FOLLOW LOOK FOR RENAL RECOVERY OVER THE WEEKEND MARIA DOLORES ANGELES MD Aug 05, 2020 10:36
--- NOTE | 2020-08-05 12:40 | PDOC ---
Date of Service: DATE: 08/05/20 TIME: 12:32 Subjective: Subjective: Say hello. Objective: Objective: D/w nurse - has had some dark tarry stools. Reviewed notes - observation recommended per hematology. Vital Signs: Vital Signs Date Time Temp Pulse Resp B/P (MAP) Pulse Ox O2 Delivery O2 Flow Rate FiO2 08/05/20 11:00 65 28 116/69 (85) 93 Nasal Cannula 4.0 08/05/20 08:00 97.6 97.6 Labs: Laboratory Tests Test 08/04/20 18:30 08/04/20 23:45 08/05/20 05:10 White Blood Count 15.0 x10^3/uL 15.0 x10^3/uL 16.0 x10^3/uL Red Blood Count 2.61 x10^6/uL 2.62 x10^6/uL 2.58 x10^6/uL Hemoglobin 8.5 g/dL 8.5 g/dL 8.4 g/dL Hematocrit 25.2 % 25.2 % 25.0 % Mean Corpuscular Volume 96 fL 96 fL 97 fL Mean Corpuscular Hemoglobin 33 pg 32 pg 32 pg Mean Corpuscular Hemoglobin Concent 34 g/dL 34 g/dL 33 g/dL Red Cell Distribution Width 18.4 % 18.6 % 18.3 % Platelet Count 122 x10^3/uL 125 x10^3/uL 124 x10^3/uL Neutrophils (%) (Auto) 91 % Lymphocytes (%) (Auto) 7 % Monocytes (%) (Auto) 3 % Eosinophils (%) (Auto) 0 % Basophils (%) (Auto) 0 % Neutrophils # (Auto) 14.5 x10^3/uL Lymphocytes # (Auto) 1.0 x10^3/uL Monocytes # (Auto) 0.4 x10^3/uL Eosinophils # (Auto) 0.0 x10^3/uL Basophils # (Auto) 0.0 x10^3/uL Prothrombin Time 23.9 SEC Prothromb Time International Ratio 2.2 Sodium Level 133 mmol/L Potassium Level 4.4 mmol/L Chloride Level 96 mmol/L Carbon Dioxide Level 26 mmol/L Anion Gap 11 Blood Urea Nitrogen 67 mg/dL Creatinine 3.7 mg/dL Estimated GFR (Cockcroft-Gault) 16.0 BUN/Creatinine Ratio 18 Glucose Level 160 mg/dL Calcium Level 6.8 mg/dL Iron Level 87 ug/dL Total Iron Binding Capacity 78 ug/dL Iron Saturation % Total Bilirubin 4.8 mg/dL Aspartate Amino Transf (AST/SGOT) 384 U/L Alanine Aminotransferase (ALT/SGPT) 118 U/L Alkaline Phosphatase 281 U/L Total Protein 4.8 g/dL Albumin 2.0 g/dL Albumin/Globulin Ratio 0.7 Imaging: Echo <Conclusion> Limited study. The left ventricle is normal size. Left ventricle systolic function is within normal limits. The Ejection Fraction is 50-55%. Apical motion consistent with pacemaker activation. There is mild concentric left ventricular hypertrophy. Doppler and Color Flow revealed mild tricuspid regurgitation The PA pressure was estimated at 33 mmHg. PE: GEN: NAD - dialyzing and on bedpan when I saw LUNGS: clear, NC HEART: RR ABD: large, soft, non-tender NEURO/PSYCH: bit more alert today A/P: CORKY/CKD - on HD GNR bacteremia H/o A Fib and PE on Eliquis and ASA - on hold Cardiomyopathy, chronic resp failure Chronic anemia, coagulopathy - stable post transfusions Elevated LFTs - history of same, bit worse today - possibly 2/2 to CHF, amiodarone on hold -- Continue same per GI. Justicifation of Admission Dx: Justifications for Admission: Justification of Admission Dx: Yes DERRICK CORTEZ Aug 05, 2020 12:40
--- NOTE | 2020-08-05 14:20 | NUR ---
SS following up with discharge planning. SS reviewed pt chart and discussed with pt RN. Pt is currently requiring oxygen via nasal canula. Pt on Vasopressin, Levophed, and Bicarb drip. Pt on IV Solu Medrol and IV Zosyn. Pt having hemodialysis. SS phoned and faxed updated clinical to [facility], ; fax [phone]. [facility] reported that they will have a bed available for pt on 08/08/2020. SS will continue to follow for discharge planning.
[2020-08-05] MEDS: PANTOPRAZOLE IV PUSH 40 MG VIAL. IVP SCH (14:32)
[2020-08-05] MEDS: NOREPINEPHRINE VIAL 32 MG in IV D5W 250ML IV PRN (14:34)
--- NOTE | 2020-08-05 15:24 | NUR ---
Wound/Ostomy Care Wound Type/Assessment: Patient seen per wound care consult. See wound assessment. Patient has stage II pressure ulcer to bilateral buttocks. Wound cleansed, assessed, and measured. Treatment Recommendations/Plan: Apply collagen (white left in room) then cover with contact layer (left in room) and cover with foam. Education provided: Patient and patient's educated on dressing changes and turning. Offloading surface/device: Patient is on an ICU bed. Patient refused to turn at this time. Recommended Referrals/Tests: N/A Discharge Recommendations for dressings: Dressing changes and supplies left in room. No other wounds noted. Will follow patient regarding wound care. Bed lowered and call light in reach.
[2020-08-05] MEDS: SODIUM BICARBONATE VIAL 50 MEQ in IV 1/2 NORMAL SALINE 1,000 ML IV SCH (16:37)
--- NOTE | 2020-08-05 17:07 | PDOC ---
PROGRESS NOTES Date of Service DATE: 08/05/20 TIME: 16:54 Subjective Subjective Mr Noguera was awake, alert and more responsive today. His was at bedside today. Per RN, he had 3 dark bowel movements today that were tarry. No edin blood and no hematemesis. Continues to require pressor support Objective Objective Vital Signs Date Time Temp Pulse Resp B/P (MAP) Pulse Ox O2 Delivery O2 Flow Rate FiO2 08/05/20 16:00 98.1 62 24 106/55 (72) 96 BiPAP/CPAP 98.1 08/05/20 16:00 4.0 Intake and Output 08/05/20 07:00 Intake Total 3143.2 ml Output Total 710 ml Balance 2433.2 ml IV Total 2993.2 ml Blood Product IV Normal Saline Flush 150 ml Output Urine Total 710 ml # Bowel Movements 2 Physical Exam Abdomen: Normal bowel sounds, Soft Heart: Regular rate General: Alert, Oriented X3 HEENT: PERRLA Lungs: Clear to auscultation Neck: Supple Neuro: Normal speech Psych/Mental Status: Mental status NL Skin: No rashes Assessment Assessment Assessment: Non-Hodgkin's lymphoma status post chemo immunotherapy completed in January 2019 History of breast cancer, completed adjuvant endocrine therapy History of pulmonary embolism, on Eliquis which is now on hold 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 Initiated on dialysis Acute on chronic normocytic anemia, likely multifactorial secondary to bleeding, chronic inflammation and worsened chronic kidney disease Vertebral osteomyelitis with epidural abscess Plan Plan of Care -Hold eliquis for an additional day given concern for bleeding. Suspect this may be from previously resolved bleeding since Hb has remained stable -Resume Eliquis 2.5 mg BID tomorrow if Hb remains stable -Given low suspicion for active bleeding, I would recommend continued observation and holding Eliquis at this time -Can consider Andexanet jenise if sudden change in hemodynamic status is noted is noted. Please call [phone] if bloody stools are noted -Continue hemodialysis per nephrology -Checked iron studies, B12, SPEP and free Light Chains for Evaluation of Anemia -Consider abdominal imaging to further investigate abnormal LFTs. I will defer to Dr. Lock regarding this. -Will request records from Dr Amador Whitlock regarding his NHL hx rDake Lehman MD Medical Oncology/Hematology Ph: [phone] Comment Review of Relevant I have reviewed the following items dale (where applicable) has been applied. Labs Laboratory Tests Test 08/03/20 23:23 08/04/20 05:50 08/04/20 12:15 08/04/20 18:30 White Blood Count 16.8 x10^3/uL (4.0-11.0) 15.1 x10^3/uL (4.0-11.0) 13.6 x10^3/uL (4.0-11.0) 15.0 x10^3/uL (4.0-11.0) Red Blood Count 2.19 x10^6/uL (4.30-5.70) 2.06 x10^6/uL (4.30-5.70) 2.58 x10^6/uL (4.30-5.70) 2.61 x10^6/uL (4.30-5.70) Hemoglobin 7.2 g/dL (13.0-17.5) 6.8 g/dL (13.0-17.5) 8.2 g/dL (13.0-17.5) 8.5 g/dL (13.0-17.5) Hematocrit 21.6 % (39.0-53.0) 20.2 % (39.0-53.0) 24.8 % (39.0-53.0) 25.2 % (39.0-53.0) Mean Corpuscular Volume 99 fL (79-100) 98 fL (79-100) 96 fL (79-100) 96 fL (79-100) Mean Corpuscular Hemoglobin 33 pg (25-35) 33 pg (25-35) 32 pg (25-35) 33 pg (25-35) Mean Corpuscular Hemoglobin Concent 33 g/dL (31-37) 33 g/dL (31-37) 33 g/dL (31-37) 34 g/dL (31-37) Red Cell Distribution Width 17.3 % (11.5-14.5) 17.1 % (11.5-14.5) 18.0 % (11.5-14.5) 18.4 % (11.5-14.5) Platelet Count 158 x10^3/uL (140-400) 152 x10^3/uL (140-400) 116 x10^3/uL (140-400) 122 x10^3/uL (140-400) Neutrophils (%) (Auto) 83 % (31-73) Lymphocytes (%) (Auto) 11 % (24-48) Monocytes (%) (Auto) 5 % (0-9) Eosinophils (%) (Auto) 1 % (0-3) Basophils (%) (Auto) 1 % (0-3) Neutrophils # (Auto) 12.5 x10^3/uL (1.8-7.7) Lymphocytes # (Auto) 1.6 x10^3/uL (1.0-4.8) Monocytes # (Auto) 0.7 x10^3/uL (0.0-1.1) Eosinophils # (Auto) 0.2 x10^3/uL (0.0-0.7) Basophils # (Auto) 0.1 x10^3/uL (0.0-0.2) Prothrombin Time 26.7 SEC (11.7-14.0) Prothromb Time International Ratio 2.5 (0.8-1.1) Sodium Level 128 mmol/L (136-145) Potassium Level 4.7 mmol/L (3.5-5.1) Chloride Level 91 mmol/L (98-107) Carbon Dioxide Level 22 mmol/L (21-32) Anion Gap 15 (6-14) Blood Urea Nitrogen 112 mg/dL (8-26) Creatinine 5.3 mg/dL (0.7-1.3) Estimated GFR (Cockcroft-Gault) 10.6 BUN/Creatinine Ratio 21 (6-20) Glucose Level 123 mg/dL (70-99) Calcium Level 7.1 mg/dL (8.5-10.1) Phosphorus Level 7.1 mg/dL (2.6-4.7) Magnesium Level 2.1 mg/dL (1.8-2.4) Total Bilirubin 3.1 mg/dL (0.2-1.0) Aspartate Amino Transf (AST/SGOT) 303 U/L (15-37) Alanine Aminotransferase (ALT/SGPT) 106 U/L (16-63) Alkaline Phosphatase 268 U/L (46-116) Total Protein 5.1 g/dL (6.4-8.2) Albumin 2.2 g/dL (3.4-5.0) Albumin/Globulin Ratio 0.8 (1.0-1.7) Test 08/04/20 23:45 08/05/20 05:10 White Blood Count 15.0 x10^3/uL (4.0-11.0) 16.0 x10^3/uL (4.0-11.0) Red Blood Count 2.62 x10^6/uL (4.30-5.70) 2.58 x10^6/uL (4.30-5.70) Hemoglobin 8.5 g/dL (13.0-17.5) 8.4 g/dL (13.0-17.5) Hematocrit 25.2 % (39.0-53.0) 25.0 % (39.0-53.0) Mean Corpuscular Volume 96 fL (79-100) 97 fL (79-100) Mean Corpuscular Hemoglobin 32 pg (25-35) 32 pg (25-35) Mean Corpuscular Hemoglobin Concent 34 g/dL (31-37) 33 g/dL (31-37) Red Cell Distribution Width 18.6 % (11.5-14.5) 18.3 % (11.5-14.5) Platelet Count 125 x10^3/uL (140-400) 124 x10^3/uL (140-400) Neutrophils (%) (Auto) 91 % (31-73) Lymphocytes (%) (Auto) 7 % (24-48) Monocytes (%) (Auto) 3 % (0-9) Eosinophils (%) (Auto) 0 % (0-3) Basophils (%) (Auto) 0 % (0-3) Neutrophils # (Auto) 14.5 x10^3/uL (1.8-7.7) Lymphocytes # (Auto) 1.0 x10^3/uL (1.0-4.8) Monocytes # (Auto) 0.4 x10^3/uL (0.0-1.1) Eosinophils # (Auto) 0.0 x10^3/uL (0.0-0.7) Basophils # (Auto) 0.0 x10^3/uL (0.0-0.2) Prothrombin Time 23.9 SEC (11.7-14.0) Prothromb Time International Ratio 2.2 (0.8-1.1) Sodium Level 133 mmol/L (136-145) Potassium Level 4.4 mmol/L (3.5-5.1) Chloride Level 96 mmol/L (98-107) Carbon Dioxide Level 26 mmol/L (21-32) Anion Gap 11 (6-14) Blood Urea Nitrogen 67 mg/dL (8-26) Creatinine 3.7 mg/dL (0.7-1.3) Estimated GFR (Cockcroft-Gault) 16.0 BUN/Creatinine Ratio 18 (6-20) Glucose Level 160 mg/dL (70-99) Calcium Level 6.8 mg/dL (8.5-10.1) Iron Level 87 ug/dL (65-175) Total Iron Binding Capacity 78 ug/dL (250-450) Iron Saturation % (15-34) Total Bilirubin 4.8 mg/dL (0.2-1.0) Aspartate Amino Transf (AST/SGOT) 384 U/L (15-37) Alanine Aminotransferase (ALT/SGPT) 118 U/L (16-63) Alkaline Phosphatase 281 U/L (46-116) Total Protein 4.8 g/dL (6.4-8.2) Albumin 2.0 g/dL (3.4-5.0) Albumin/Globulin Ratio 0.7 (1.0-1.7) Laboratory Tests Test 08/04/20 18:30 08/04/20 23:45 08/05/20 05:10 White Blood Count 15.0 x10^3/uL (4.0-11.0) 15.0 x10^3/uL (4.0-11.0) 16.0 x10^3/uL (4.0-11.0) Red Blood Count 2.61 x10^6/uL (4.30-5.70) 2.62 x10^6/uL (4.30-5.70) 2.58 x10^6/uL (4.30-5.70) Hemoglobin 8.5 g/dL (13.0-17.5) 8.5 g/dL (13.0-17.5) 8.4 g/dL (13.0-17.5) Hematocrit 25.2 % (39.0-53.0) 25.2 % (39.0-53.0) 25.0 % (39.0-53.0) Mean Corpuscular Volume 96 fL (79-100) 96 fL (79-100) 97 fL (79-100) Mean Corpuscular Hemoglobin 33 pg (25-35) 32 pg (25-35) 32 pg (25-35) Mean Corpuscular Hemoglobin Concent 34 g/dL (31-37) 34 g/dL (31-37) 33 g/dL (31-37) Red Cell Distribution Width 18.4 % (11.5-14.5) 18.6 % (11.5-14.5) 18.3 % (11.5-14.5) Platelet Count 122 x10^3/uL (140-400) 125 x10^3/uL (140-400) 124 x10^3/uL (140-400) Neutrophils (%) (Auto) 91 % (31-73) Lymphocytes (%) (Auto) 7 % (24-48) Monocytes (%) (Auto) 3 % (0-9) Eosinophils (%) (Auto) 0 % (0-3) Basophils (%) (Auto) 0 % (0-3) Neutrophils # (Auto) 14.5 x10^3/uL (1.8-7.7) Lymphocytes # (Auto) 1.0 x10^3/uL (1.0-4.8) Monocytes # (Auto) 0.4 x10^3/uL (0.0-1.1) Eosinophils # (Auto) 0.0 x10^3/uL (0.0-0.7) Basophils # (Auto) 0.0 x10^3/uL (0.0-0.2) Prothrombin Time 23.9 SEC (11.7-14.0) Prothromb Time International Ratio 2.2 (0.8-1.1) Sodium Level 133 mmol/L (136-145) Potassium Level 4.4 mmol/L (3.5-5.1) Chloride Level 96 mmol/L (98-107) Carbon Dioxide Level 26 mmol/L (21-32) Anion Gap 11 (6-14) Blood Urea Nitrogen 67 mg/dL (8-26) Creatinine 3.7 mg/dL (0.7-1.3) Estimated GFR (Cockcroft-Gault) 16.0 BUN/Creatinine Ratio 18 (6-20) Glucose Level 160 mg/dL (70-99) Calcium Level 6.8 mg/dL (8.5-10.1) Iron Level 87 ug/dL (65-175) Total Iron Binding Capacity 78 ug/dL (250-450) Iron Saturation % (15-34) Total Bilirubin 4.8 mg/dL (0.2-1.0) Aspartate Amino Transf (AST/SGOT) 384 U/L (15-37) Alanine Aminotransferase (ALT/SGPT) 118 U/L (16-63) Alkaline Phosphatase 281 U/L (46-116) Total Protein 4.8 g/dL (6.4-8.2) Albumin 2.0 g/dL (3.4-5.0) Albumin/Globulin Ratio 0.7 (1.0-1.7) Microbiology 08/04/20 Urine Culture - Final, Complete 08/04/20 Blood Culture - Final, Complete Medications Current Medications Norepinephrine Bitartrate 8 mg/ Dextrose 258 ml @ 26.51 mls/ hr CONT PRN PRN IV ELEVATED BP, SEE COMMENTS Last administered on 08/03/20at 13:30; Start 08/03/20 at 13:00; Stop 08/04/20 at 01:32; Status DC Sodium Chloride 1,000 ml @ 1,000 mls/hr 1X ONCE IV Last administered on 08/03/20at 14:40; Start 08/03/20 at 14:15; Stop 08/03/20 at 15:14; Status DC Lidocaine HCl (Lidocaine 1% 20ml Vial) 20 ml STK-MED ONCE .ROUTE ; Start 08/03/20 at 14:55; Stop 08/03/20 at 14:56; Status DC Lidocaine HCl (Lidocaine 1% 20ml Vial) 20 ml 1X ONCE INJ Last administered on 08/03/20at 15:09; Start 08/03/20 at 15:15; Stop 08/03/20 at 15:16; Status DC Albumin Human 500 ml @ 125 mls/hr 1X ONCE IV Last administered on 08/03/20at 18:39; Start 08/03/20 at 17:00; Stop 08/03/20 at 20:59; Status DC Norepinephrine Bitartrate 32 mg/ Dextrose 250 ml @ 6.422 mls/ hr CONT PRN IV SEE I/O RECORD Last administered on 08/05/20at 14:34; Start 08/03/20 at 17:15 Sodium Chloride 1,000 ml @ 1,000 mls/hr Q1H PRN IV hypotension; Start 08/03/20 at 17:18; Stop 08/03/20 at 23:17; Status DC Albumin Human 200 ml @ 200 mls/hr 1X PRN PRN IV Hypotension; Start 08/03/20 at 17:30; Stop 08/03/20 at 23:29; Status DC Sodium Chloride (Normal Saline Flush) 10 ml 1X PRN PRN IV AP catheter pack; Start 08/03/20 at 17:30; Stop 08/04/20 at 17:29; Status DC Sodium Chloride (Normal Saline Flush) 10 ml 1X PRN PRN IV [employer] catheter pack; Start 08/03/20 at 17:30; Stop 08/04/20 at 17:29; Status DC Sodium Chloride 1,000 ml @ 400 mls/hr Q2H30M PRN IV PATENCY; Start 08/03/20 at 17:18; Stop 08/04/20 at 05:17; Status DC Info (PHARMACY MONITORING -- do not chart) 1 each PRN DAILY PRN MC SEE COMMENTS; Start 08/03/20 at 17:30; Stop 08/03/20 at 19:28; Status DC Info (PHARMACY MONITORING -- do not chart) 1 each PRN DAILY PRN MC SEE COMMENTS; Start 08/03/20 at 17:30 Fentanyl Citrate (Fentanyl 2ml Vial) 25 mcg PRN Q3HRS PRN IVP PAIN Last administered on 08/04/20at 21:04; Start 08/03/20 at 18:00 Phytonadione (Vitamin K Ampule) 3 mg 1X ONCE SQ Last administered on 08/03/20at 18:31; Start 08/03/20 at 18:00; Stop 08/03/20 at 18:26; Status DC Acetaminophen (Tylenol) 650 mg 1X PRN PRN PO PRE-TRANSFUSION; Start 08/03/20 at 18:00; Stop 08/04/20 at 17:59; Status DC Diphenhydramine HCl (Benadryl Oral Elixir) 12.5 mg 1X PRN PRN PO PRE- TRANSFUSION; Start 08/03/20 at 18:00; Stop 08/04/20 at 17:59; Status DC Vasopressin 20 unit/Dextrose 101 ml @ 12 mls/hr CONT PRN IV SEE I/O RECORD Last administered on 08/05/20at 16:36; Start 08/03/20 at 18:45 Pantoprazole Sodium (PROTONIX VIAL for IV PUSH) 40 mg DAILY IVP Last adm inistered on 08/05/20at 14:32; Start 08/03/20 at 18:45 Gabapentin (Neurontin) 100 mg QHS PO ; Start 08/03/20 at 21:00; Stop 08/04/20 at 10:14; Status DC Albuterol Sulfate (Ventolin Neb Soln) 2.5 mg PRN Q4HRS PRN NEB SHORTNESS OF BREATH Last administered on 08/05/20at 08:34; Start 08/03/20 at 18:45 Ondansetron HCl (Zofran) 4 mg PRN Q6HRS PRN IVP NAUSEA/VOMITING; Start at 18:45 Sodium Bicarbonate 50 meq/Sodium Chloride 1,050 ml @ 75 mls/hr Q14H IV Last administered on 08/05/20 16:37; Start 08/03/20 at 20:00 Methylprednisolone Sodium Succinate (SOLU-Medrol 125MG VIAL) 100 mg Q8HRS IV Last administered on 08/05/20at 14:32; Start 08/04/20 at 09:30 Sodium Chloride 250 ml @ 250 mls/hr 1X ONCE IV Last administered on 08/04/20at 11:43; Start 08/04/20 at 11:30; Stop 08/04/20 at 12:29; Status DC Darbepoetin Jenise (ARANESP for DIALYSIS PTS) 60 mcg WEEKLYHS SQ Last a dministered on 08/04/20at 21:00; Start 08/04/20 at 21:00 Piperacillin Sod/ Tazobactam Sod 2.25 gm/Sodium Chloride 50 ml @ 100 mls/hr Q8HRS IV Last administered on 08/05/20at 14:33; Start 08/04/20 at 14:00 Sodium Chloride 1,000 ml @ 1,000 mls/hr Q1H PRN IV hypotension; Start 08/05/20 at 08:20; Stop 08/05/20 at 14:19; Status DC Albumin Human 200 ml @ 200 mls/hr 1X PRN PRN IV Hypotension Last administered on 08/05/20at 09:42; Start 08/05/20 at 08:30; Stop 08/05/20 at 14:29; Status DC Sodium Chloride 1,000 ml @ 400 mls/hr Q2H30M PRN IV PATENCY; Start 08/05/20 at 08:20; Stop 08/05/20 at 20:19 Info (PHARMACY MONITORING -- do not chart) 1 each PRN DAILY PRN MC SEE COMMENTS; Start 08/05/20 at 08:30 Info (PHARMACY MONITORING -- do not chart) 1 each PRN DAILY PRN MC SEE COMMENTS; Start 08/05/20 at 08:30 Apixaban (Eliquis) 2.5 mg BID PO ; Start 08/05/20 at 21:00; Stop 08/05/20 at 15:16; Status DC Vitals/I & O Vital Sign - Last 24 Hours 08/04/20 08/04/20 08/04/20 08/04/20 17:29 18:18 19:00 20:00 Temp 97.4 97.4 97.4 97.4 Pulse 81 66 77 Resp 24 24 B/P (MAP) 93/70 (78) 113/87 (96) 84/57 (66) Pulse Ox 96 96 96 O2 Delivery Nasal Cannula Nasal Cannula Nasal Cannula Nasal Cannula O2 Flow Rate 4.0 4.0 4.0 4.0 08/04/20 08/04/20 08/04/20 08/04/20 20:00 21:00 21:04 21:08 Temp 98.4 98.4 Pulse 65 69 Resp 19 25 25 B/P (MAP) 112/89 (97) 101/52 (68) Pulse Ox 96 98 96 96 O2 Delivery Nasal Cannula BiPAP/CPAP BiPAP/CPAP BiPAP/CPAP O2 Flow Rate 4.0 4.0 4.0 08/04/20 08/04/20 08/04/20 08/04/20 21:34 22:00 23:00 23:59 Pulse 60 60 Resp 23 23 18 B/P (MAP) 122/58 (79) 109/52 (71) Pulse Ox 96 99 98 O2 Delivery Nasal Cannula BiPAP/CPAP Nasal Cannula Nasal Cannula O2 Flow Rate 4.0 4.0 4.0 4.0 08/05/20 08/05/20 08/05/20 08/05/20 00:00 00:44 01:00 02:00 Temp 97.9 97.9 Pulse 65 60 77 Resp 18 18 32 B/P (MAP) 99/83 (88) 90/83 (85) 85/44 (58) Pulse Ox 91 96 99 91 O2 Delivery Nasal Cannula BiPAP/CPAP BiPAP/CPAP Nasal Cannula O2 Flow Rate 4.0 4.0 08/05/20 08/05/20 08/05/20 08/05/20 03:00 04:00 04:00 05:00 Temp 98.1 98.1 Pulse 73 71 73 Resp 32 32 32 B/P (MAP) 127/97 (107) 98/73 (81) 110/59 (76) Pulse Ox 93 93 93 O2 Delivery Nasal Cannula Nasal Cannula Nasal Cannula Nasal Cannula O2 Flow Rate 4.0 4.0 4.0 08/05/20 08/05/20 08/05/20 08/05/20 05:05 06:00 07:00 08:00 Temp 97.6 97.6 Pulse 73 77 68 Resp 32 26 34 B/P (MAP) 113/66 (82) 119/56 (77) Pulse Ox 96 96 92 O2 Delivery BiPAP/CPAP BiPAP/CPAP Nasal Cannula Nasal Cannula O2 Flow Rate 4.0 4.0 08/05/20 08/05/20 08/05/20 08/05/20 08:30 08:35 09:00 10:00 Pulse 66 65 Resp 18 22 B/P (MAP) 84/67 (73) 98/75 (83) Pulse Ox 94 92 93 O2 Delivery Nasal Cannula Nasal Cannula Nasal Cannula Nasal Cannula O2 Flow Rate 4.0 4.5 4.0 4.0 08/05/20 08/05/20 08/05/20 08/05/20 11:00 12:00 12:00 13:00 Temp 97.9 97.9 Pulse 65 62 70 Resp 28 28 29 B/P (MAP) 116/69 (85) 114/56 (75) 87/60 (69) Pulse Ox 93 90 93 O2 Delivery Nasal Cannula Nasal Cannula Nasal Cannula Nasal Cannula O2 Flow Rate 4.0 4.0 4.0 4.0 08/05/20 08/05/20 08/05/20 08/05/20 14:00 15:00 16:00 16:00 Temp 98.1 98.1 Pulse 61 60 62 Resp 24 24 24 B/P (MAP) 80/49 (59) 100/57 (71) 106/55 (72) Pulse Ox 94 94 96 O2 Delivery Nasal Cannula BiPAP/CPAP Nasal Cannula BiPAP/CPAP O2 Flow Rate 4.0 4.0 Intake and Output 08/04/20 08/04/20 08/05/20 15:00 23:00 07:00 Intake Total 150 ml 50 ml 2943.2 ml Output Total 480 ml 230 ml Balance 150 ml -430 ml 2713.2 ml Justifications for Admission Other Justification RACHELE LEHMAN MD Aug 05, 2020 17:07
[2020-08-05] MEDS ORDERED: APIXABAN 2.5 MG TABLET. PO SCH (21:00)
[2020-08-06] VITALS (24 sets, daily range): BP systolic 91–125; BP diastolic 45–119
[2020-08-06] MEDS: VASOPRESSIN 20 UNIT in IV DEXTROSE 5% 100ML 100 ML IV PRN ×3 (01:41→19:13)
[2020-08-06] MEDS: PIPERACILLIN/TAZOBACTAM 2.25 GM in IV NORMAL SALINE 50ML 50 ML IV SCH ×3 (05:57→22:12)
[2020-08-06] MEDS: methylPREDNISolone SOD SUCC PF 125 MG/2 ML VIAL. IV SCH ×3 (05:58→22:12)
[2020-08-06 06:06] LABS: ALBUMIN 2.5 g/dL (3.4-5.0); ALBUMIN/GLOBULIN RATIO 0.9 (1.0-1.7); CALCIUM 7.3 mg/dL (8.5-10.1); CREATININE 3.2 mg/dL (0.7-1.3); GFR 18.9; POTASSIUM 3.9 mmol/L (3.5-5.1); TOTAL BILIRUBIN 7.3 mg/dL (0.2-1.0); TOTAL PROTEIN 5.3 g/dL (6.4-8.2)
[2020-08-06 06:15] LABS: BASO % 0 % (0-3); EOS # 0.2 x10^3/uL (0.0-0.7); EOS % 1 % (0-3); HEMATOCRIT 24.6 % (39.0-53.0); HEMOGLOBIN 8.2 g/dL (13.0-17.5); LYMPH % 5 % (24-48); MEAN CORPUSCULAR HEMOGLOBIN 32 pg (25-35); MEAN CORPUSCULAR HGB CONC 33 g/dL (31-37); MEAN CORPUSCULAR VOLUME 97 fL (79-100); MONO # 0.3 x10^3/uL (0.0-1.1); MONO % 2 % (0-9); NEUT # 16.5 x10^3/uL (1.8-7.7); NEUT % 92 % (31-73); PLATELET COUNT 129 x10^3/uL (140-400); RED BLOOD COUNT 2.54 x10^6/uL (4.30-5.70); RED CELL DISTRIBUTION WIDTH 18.2 % (11.5-14.5); WHITE BLOOD COUNT 18.1 x10^3/uL (4.0-11.0)
[2020-08-06 06:17] LABS: PROTHROMBIN TIME PATIENT 22.1 SEC (11.7-14.0)
[2020-08-06] MEDS: SODIUM BICARBONATE VIAL 50 MEQ in IV 1/2 NORMAL SALINE 1,000 ML IV SCH (07:41)
[2020-08-06] MEDS: NOREPINEPHRINE VIAL 32 MG in IV D5W 250ML IV PRN ×2 (08:32→22:13)
--- NOTE | 2020-08-06 09:04 | PDOC ---
Infectious Disease Note Subjective Subjective Patient is awake he is feeling okay although on BiPAP ROS ROS No nausea vomiting diarrhea or fever Vital Sign Vital Signs Vital Signs Date Time Temp Pulse Resp B/P (MAP) Pulse Ox O2 Delivery O2 Flow Rate FiO2 08/06/20 07:00 62 23 91 BiPAP/CPAP 08/06/20 04:00 98.6 98.6 08/05/20 18:00 6.0 Physical Exam PHYSICAL EXAM GENERAL: Awake gentleman, not in any distress. VITAL SIGNS: Stable, The patient is on vasopressor support. HEENT: Both pupils are round and reacting. No conjunctival lesion. Oral; the patient has dry blood in the mouth, on the tongue and palate, on the lips. NECK: Supple, no JVP, no lymphadenopathy. LUNGS: Decreased breath sounds bilaterally. HEART: S1, S2 regular. No gallop. ABDOMEN: Soft, nontender, no organomegaly. EXTREMITIES: No edema or cyanosis. The patient does have some bleeding under the skin, around the neck, and upper extremities. NEUROLOGIC: The patient is alert, awake, able to communicate and able to move all the extremities. No focal deficit. Labs Lab Laboratory Tests Test 08/06/20 05:40 White Blood Count 18.1 x10^3/uL (4.0-11.0) Red Blood Count 2.54 x10^6/uL (4.30-5.70) Hemoglobin 8.2 g/dL (13.0-17.5) Hematocrit 24.6 % (39.0-53.0) Mean Corpuscular Volume 97 fL (79-100) Mean Corpuscular Hemoglobin 32 pg (25-35) Mean Corpuscular Hemoglobin Concent 33 g/dL (31-37) Red Cell Distribution Width 18.2 % (11.5-14.5) Platelet Count 129 x10^3/uL (140-400) Neutrophils (%) (Auto) 92 % (31-73) Lymphocytes (%) (Auto) 5 % (24-48) Monocytes (%) (Auto) 2 % (0-9) Eosinophils (%) (Auto) 1 % (0-3) Basophils (%) (Auto) 0 % (0-3) Neutrophils # (Auto) 16.5 x10^3/uL (1.8-7.7) Lymphocytes # (Auto) 1.0 x10^3/uL (1.0-4.8) Monocytes # (Auto) 0.3 x10^3/uL (0.0-1.1) Eosinophils # (Auto) 0.2 x10^3/uL (0.0-0.7) Basophils # (Auto) 0.0 x10^3/uL (0.0-0.2) Prothrombin Time 22.1 SEC (11.7-14.0) Prothromb Time International Ratio 2.0 (0.8-1.1) Sodium Level 135 mmol/L (136-145) Potassium Level 3.9 mmol/L (3.5-5.1) Chloride Level 95 mmol/L (98-107) Carbon Dioxide Level 26 mmol/L (21-32) Anion Gap 14 (6-14) Blood Urea Nitrogen 46 mg/dL (8-26) Creatinine 3.2 mg/dL (0.7-1.3) Estimated GFR (Cockcroft-Gault) 18.9 BUN/Creatinine Ratio 14 (6-20) Glucose Level 157 mg/dL (70-99) Calcium Level 7.3 mg/dL (8.5-10.1) Total Bilirubin 7.3 mg/dL (0.2-1.0) Aspartate Amino Transf (AST/SGOT) 324 U/L (15-37) Alanine Aminotransferase (ALT/SGPT) 124 U/L (16-63) Alkaline Phosphatase 246 U/L (46-116) Total Protein 5.3 g/dL (6.4-8.2) Albumin 2.5 g/dL (3.4-5.0) Albumin/Globulin Ratio 0.9 (1.0-1.7) Micro Blood culture positive with gram-negative rods Objective Assessment IMPRESSION: 1. Leukocytosis, it is possible it is reactive. It is possible that it may have infection, most recent infection was T8-T9 diskitis and osteomyelitis. 2. T8-T9 diskitis and osteomyelitis with small epidural abscess, completed 6 weeks of ceftriaxone and on a chronic suppressive Keflex, was planned to give for 6 months. 3. Hypotension with acute kidney injury, etiology to be determined. 4. Elevated liver function tests secondary to hypotension. 5. History of staphylococcal lugdunensis oxacillin sensitive bacteremia. 6. Acute kidney injury on top of a chronic renal insufficiency. 7. Cardiac arrhythmia. The patient does have AICD in place. 8. Pulmonary fibrosis. 9. Morbid obesity. 10. Congestive heart failure. 11. Hypotension. Plan Plan of Care Continue Zosyn Follow the cultures Supportive care Dialysis Discussed with patient's in detail KEITH FERGUSON MD Aug 06, 2020 09:04
--- NOTE | 2020-08-06 09:28 | PDOC ---
PULMONARY PROGRESS NOTES DATE: 08/06/20 TIME: 09:28 Subjective on bipap, open eyes w verbal stimuli, is weak on levo and vaso HD with concurrent blood transfusion yesterday Vitals Vital Signs Date Time Temp Pulse Resp B/P (MAP) Pulse Ox O2 Delivery O2 Flow Rate FiO2 08/06/20 08:11 92 BiPAP/CPAP 08/06/20 07:00 62 23 08/06/20 04:00 98.6 98.6 08/05/20 18:00 6.0 Comments ros unable to obtain on bipap General: Alert HEENT: Other (nc at perrl bipap mask o n) Lungs: Crackles Cardiovascular: S1, S2 Abdomen: Soft, Non-tender Neuro Exam: Alert Extremities: Other (edema +2) Skin: Warm, Dry Labs Laboratory Tests Test 08/04/20 12:15 08/04/20 18:30 08/04/20 23:45 08/05/20 05:10 White Blood Count 13.6 x10^3/uL (4.0-11.0) 15.0 x10^3/uL (4.0-11.0) 15.0 x10^3/uL (4.0-11.0) 16.0 x10^3/uL (4.0-11.0) Red Blood Count 2.58 x10^6/uL (4.30-5.70) 2.61 x10^6/uL (4.30-5.70) 2.62 x10^6/uL (4.30-5.70) 2.58 x10^6/uL (4.30-5.70) Hemoglobin 8.2 g/dL (13.0-17.5) 8.5 g/dL (13.0-17.5) 8.5 g/dL (13.0-17.5) 8.4 g/dL (13.0-17.5) Hematocrit 24.8 % (39.0-53.0) 25.2 % (39.0-53.0) 25.2 % (39.0-53.0) 25.0 % (39.0-53.0) Mean Corpuscular Volume 96 fL (79-100) 96 fL (79-100) 96 fL (79-100) 97 fL (79-100) Mean Corpuscular Hemoglobin 32 pg (25-35) 33 pg (25-35) 32 pg (25-35) 32 pg (25-35) Mean Corpuscular Hemoglobin Concent 33 g/dL (31-37) 34 g/dL (31-37) 34 g/dL (31-37) 33 g/dL (31-37) Red Cell Distribution Width 18.0 % (11.5-14.5) 18.4 % (11.5-14.5) 18.6 % (11.5-14.5) 18.3 % (11.5-14.5) Platelet Count 116 x10^3/uL (140-400) 122 x10^3/uL (140-400) 125 x10^3/uL (140-400) 124 x10^3/uL (140-400) Neutrophils (%) (Auto) 91 % (31-73) Lymphocytes (%) (Auto) 7 % (24-48) Monocytes (%) (Auto) 3 % (0-9) Eosinophils (%) (Auto) 0 % (0-3) Basophils (%) (Auto) 0 % (0-3) Neutrophils # (Auto) 14.5 x10^3/uL (1.8-7.7) Lymphocytes # (Auto) 1.0 x10^3/uL (1.0-4.8) Monocytes # (Auto) 0.4 x10^3/uL (0.0-1.1) Eosinophils # (Auto) 0.0 x10^3/uL (0.0-0.7) Basophils # (Auto) 0.0 x10^3/uL (0.0-0.2) Prothrombin Time 23.9 SEC (11.7-14.0) Prothromb Time International Ratio 2.2 (0.8-1.1) Sodium Level 133 mmol/L (136-145) Potassium Level 4.4 mmol/L (3.5-5.1) Chloride Level 96 mmol/L (98-107) Carbon Dioxide Level 26 mmol/L (21-32) Anion Gap 11 (6-14) Blood Urea Nitrogen 67 mg/dL (8-26) Creatinine 3.7 mg/dL (0.7-1.3) Estimated GFR (Cockcroft-Gault) 16.0 BUN/Creatinine Ratio 18 (6-20) Glucose Level 160 mg/dL (70-99) Calcium Level 6.8 mg/dL (8.5-10.1) Iron Level 87 ug/dL (65-175) Total Iron Binding Capacity 78 ug/dL (250-450) Iron Saturation % (15-34) Total Bilirubin 4.8 mg/dL (0.2-1.0) Aspartate Amino Transf (AST/SGOT) 384 U/L (15-37) Alanine Aminotransferase (ALT/SGPT) 118 U/L (16-63) Alkaline Phosphatase 281 U/L (46-116) Total Protein 4.8 g/dL (6.4-8.2) Albumin 2.0 g/dL (3.4-5.0) Albumin/Globulin Ratio 0.7 (1.0-1.7) Test 08/06/20 05:40 White Blood Count 18.1 x10^3/uL (4.0-11.0) Red Blood Count 2.54 x10^6/uL (4.30-5.70) Hemoglobin 8.2 g/dL (13.0-17.5) Hematocrit 24.6 % (39.0-53.0) Mean Corpuscular Volume 97 fL (79-100) Mean Corpuscular Hemoglobin 32 pg (25-35) Mean Corpuscular Hemoglobin Concent 33 g/dL (31-37) Red Cell Distribution Width 18.2 % (11.5-14.5) Platelet Count 129 x10^3/uL (140-400) Neutrophils (%) (Auto) 92 % (31-73) Lymphocytes (%) (Auto) 5 % (24-48) Monocytes (%) (Auto) 2 % (0-9) Eosinophils (%) (Auto) 1 % (0-3) Basophils (%) (Auto) 0 % (0-3) Neutrophils # (Auto) 16.5 x10^3/uL (1.8-7.7) Lymphocytes # (Auto) 1.0 x10^3/uL (1.0-4.8) Monocytes # (Auto) 0.3 x10^3/uL (0.0-1.1) Eosinophils # (Auto) 0.2 x10^3/uL (0.0-0.7) Basophils # (Auto) 0.0 x10^3/uL (0.0-0.2) Prothrombin Time 22.1 SEC (11.7-14.0) Prothromb Time International Ratio 2.0 (0.8-1.1) Sodium Level 135 mmol/L (136-145) Potassium Level 3.9 mmol/L (3.5-5.1) Chloride Level 95 mmol/L (98-107) Carbon Dioxide Level 26 mmol/L (21-32) Anion Gap 14 (6-14) Blood Urea Nitrogen 46 mg/dL (8-26) Creatinine 3.2 mg/dL (0.7-1.3) Estimated GFR (Cockcroft-Gault) 18.9 BUN/Creatinine Ratio 14 (6-20) Glucose Level 157 mg/dL (70-99) Calcium Level 7.3 mg/dL (8.5-10.1) Total Bilirubin 7.3 mg/dL (0.2-1.0) Aspartate Amino Transf (AST/SGOT) 324 U/L (15-37) Alanine Aminotransferase (ALT/SGPT) 124 U/L (16-63) Alkaline Phosphatase 246 U/L (46-116) Total Protein 5.3 g/dL (6.4-8.2) Albumin 2.5 g/dL (3.4-5.0) Albumin/Globulin Ratio 0.9 (1.0-1.7) Laboratory Tests Test 08/06/20 05:40 White Blood Count 18.1 x10^3/uL (4.0-11.0) Red Blood Count 2.54 x10^6/uL (4.30-5.70) Hemoglobin 8.2 g/dL (13.0-17.5) Hematocrit 24.6 % (39.0-53.0) Mean Corpuscular Volume 97 fL (79-100) Mean Corpuscular Hemoglobin 32 pg (25-35) Mean Corpuscular Hemoglobin Concent 33 g/dL (31-37) Red Cell Distribution Width 18.2 % (11.5-14.5) Platelet Count 129 x10^3/uL (140-400) Neutrophils (%) (Auto) 92 % (31-73) Lymphocytes (%) (Auto) 5 % (24-48) Monocytes (%) (Auto) 2 % (0-9) Eosinophils (%) (Auto) 1 % (0-3) Basophils (%) (Auto) 0 % (0-3) Neutrophils # (Auto) 16.5 x10^3/uL (1.8-7.7) Lymphocytes # (Auto) 1.0 x10^3/uL (1.0-4.8) Monocytes # (Auto) 0.3 x10^3/uL (0.0-1.1) Eosinophils # (Auto) 0.2 x10^3/uL (0.0-0.7) Basophils # (Auto) 0.0 x10^3/uL (0.0-0.2) Prothrombin Time 22.1 SEC (11.7-14.0) Prothromb Time International Ratio 2.0 (0.8-1.1) Sodium Level 135 mmol/L (136-145) Potassium Level 3.9 mmol/L (3.5-5.1) Chloride Level 95 mmol/L (98-107) Carbon Dioxide Level 26 mmol/L (21-32) Anion Gap 14 (6-14) Blood Urea Nitrogen 46 mg/dL (8-26) Creatinine 3.2 mg/dL (0.7-1.3) Estimated GFR (Cockcroft-Gault) 18.9 BUN/Creatinine Ratio 14 (6-20) Glucose Level 157 mg/dL (70-99) Calcium Level 7.3 mg/dL (8.5-10.1) Total Bilirubin 7.3 mg/dL (0.2-1.0) Aspartate Amino Transf (AST/SGOT) 324 U/L (15-37) Alanine Aminotransferase (ALT/SGPT) 124 U/L (16-63) Alkaline Phosphatase 246 U/L (46-116) Total Protein 5.3 g/dL (6.4-8.2) Albumin 2.5 g/dL (3.4-5.0) Albumin/Globulin Ratio 0.9 (1.0-1.7) Comments CXR reviewed, Interval increase in the bilateral perihilar infiltrates. Impression . IMPRESSION: 1. acute on Chronic hypoxic respiratory failure. at home on 3 liters of oxygen now on bipap 2. The patient with history of pulmonary embolism in 2018. Likely hypercoagulable state from underlying non-Hodgkin's lymphoma and breast cancer. He has been on Eliquis since then. He has no DVT. He had epistaxis 3 days ago, resolved. His venous Doppler done 2 days ago, did not show any DVT as well. Eliquis on hold for 48 hours . will restart at a lower dose of 2.5 mg b.i.d. 3. Shock, could be combination of hypovolemic and cardiogenic. He is currently on Levophed. We will monitor his blood pressure closely. 4. History of pulmonary fibrosis. His chest x-ray showed bilateral interstitial infiltrates. He has Agent [place] exposure and that could be the etiology of his fibrosis. It has been clinically stable. 5. History of non-Hodgkin's lymphoma, status post chemo, finished in 01/2019. 6. History of breast cancer with bilateral mastectomy. 7. History of gastrointestinal bleed with colonoscopy showing colonic small polyps in June of this year. 8. Acute kidney injury. The patient is status post hemodialysis catheter placement and will be initiated on hemodialysis. 9. Cardiomyopathy. His ejection fraction used to be 25%, now is improved to 40% based on records. 10. Minimal tobacco history. 11. Status post AICD and pacemaker. 12. History of aneurysmal dilatation of the ascending aorta to a diameter about 4.0. 13. CORKY Plan . RECOMMENDATIONS: on bipap desat off bipap, ? HD, discussed w dr kraus, ISIDRO today NEBS Follow CXR PRN cont. Vasopressors to keep MAP above 60 Follow nephrology recs for HD Monitor HGB, Resume eliquis at 2.5 mg BID.,Not a candidate for IVC filter as there is no evid ence of deep venous thrombosis Follow HEM/ONC recs Follow Cardiology recs D/W RN and RT critically ill cct 30 min no overlap . LIBERTAD WEINSTEIN MD Aug 06, 2020 09:28
[2020-08-06] MEDS ORDERED: AMINO AC 3%/ELECTROLYTE/GLYCER 1,000 ML IV SCH (10:30)
--- NOTE | 2020-08-06 10:38 | PDOC ---
PROGRESS NOTES Date of Service: DATE: 08/06/20 TIME: 10:34 Subjective Subjective seen in ICU ,on BIPAP Objective Objective Vital Signs Date Time Temp Pulse Resp B/P (MAP) Pulse Ox O2 Delivery O2 Flow Rate FiO2 08/06/20 09:00 60 23 114/61 (78) 92 BiPAP/CPAP 08/06/20 08:00 97.5 97.5 08/06/20 07:30 4.0 Intake and Output 08/06/20 07:00 Intake Total 2213 ml Output Total 192 ml Balance 202 ml Intake Oral 800 ml IV Total 1413 ml Output Urine Total 192 ml # Bowel Movements 4 Physical Exam Physical Exam BIPAP Abdomen: Normal bowel sounds, Soft Heart: Regular rate Extremities: No clubbing, Other (edema legs) General: mild distress HEENT: PERRLA Lungs: Clear to auscultation MUSCULOSKELETAL: No swelling Neck: Supple Skin: No rashes COMMENT Sauceda , central line, dialysis cathter Diagnosis Problem List Problems Medical Problems: (1) ARF (acute renal failure) Status: Acute (2) Hypotension Status: Acute (3) Transaminitis Status: Acute Assessment Assessment 1. Acute hypotension, multifactorial. 2. Acute kidney injury with chronic kidney disease. 3. Coagulopathy. 4. Acute respiratory failure. 5. Recurrent ventricular tachycardia. 6. Atrial fibrillation. 7. Coronary artery disease. 8. Congestive heart failure with ejection fraction of 40%. 9. Elevated LFTs, possibly shock liver. 10. Recent gastrointestinal bleeding including diverticular and hemorrhoidal bleeding. 11. Aortic root dilatation. 12. Hypoalbuminemia with severe malnutrition. 13. History of pulmonary embolism. 14. Status post total knee arthroplasty. 15. Chronic hypoxic respiratory failure with pulmonary fibrosis, on 3 liters oxygen at night with exertion. 16. Obstructive sleep apnea syndrome, using CPAP. 17. Recent epidural abscess in 03/2020 initially treated with doxycycline, now on cephalexin. 18. Transient ischemic attack. 19. Physical deconditioning. 20. Morbid obesity. 21. Leukocytosis. PLAN: positive blood c/s , gram neg bacteremia. On Zosyn IV BIPAP for resp failure levophed low dose for Hypotension. Just started on dilysis recently ,had 2 dialysis days spoke with RN and pts Procreddine for nutrition. Admit to Intensive Care Unit. Consult Dr. Farrell for pulmonary evaluation and management, Dr. Sharif for cardiology evaluation and management. Consult Dr. Valladares for GI evaluation and management. Consult Dr. Rodriguez for nephrology evaluation and management. Consult Dr. Boone for hematology evaluation and management. Consult wound care. Consult Dr. Rey Antoine for infectious disease evaluation and management. The patient has been admitted to ICU. Continue Levophed,Vasopressin. Condition and treatment options were discussed with the on the phone this morning and in person here at bedside this evening. Prognosis of this patient is extremely poor. We will give him 3 mg of subcu vitamin K and also give him 2 units of fresh frozen plasma as he is bleeding in several places. He has a dialysis catheter, but as he is very hypotensive he may not be able to get dialysis soon. We will give him 1 unit of blood also and 500 mL of albumin has been ordered by Dr. Farrell. Continue to monitor hemoglobin and hematocrit q.6. Continue IV fluids. For details, please refer to the orders. Acute hypotension-continue pressure support, IV fluids, blood transfusion. Possible sepsis-blood culture 1 out of 2 shows gram-negative rods. On Zosyn. Acute kidney injury-start hemodialysis as tolerated. Renal function is improving with dialysis. Urine output is improving.. Acute respiratory failure, history of pulmonary fibrosis-continue oxygen by nasal cannula. Discussed with Dr. Holbrook this morning. He had started him on IV steroids until hypotension is corrected. Discontinue Solu-Medrol as patient is clinically improving. Acute blood loss anemia-blood transfusion. Globin dropped to 6.8. He was given 2 units of packed red blood cells. Currently hemoglobin is staying above 8. Coagulopathy-he is off Eliquis . He received FFP and vitamin K yesterday. Wire Coating Machine Operator has been consulted. He does not recommend K Centra at this time but consider if major bleeding occurs. GI bleeding-consulted Dr. Valladares. Keep patient n.p.o. for now. He will receive 2 units of packed red cells. Recurrent ventricular tachycardia-AICD was adjusted to detect V. tach at 150/min yesterday. Coreg 3.125 mg twice a day was held yesterday because of hypotension. Patient was also on amiodarone and it was held yesterday. Coronary artery disease amiodarone and statins discontinued due to elevated LFTs and coagulopathy. He should follow-up with an special education curriculum specialist for VT ablation after he gets better. Dilated cardiomyopathy with ejection fraction of 40% Atrial fibrillation-hold anticoagulation for now Tremors-Likely due to renal failure. gabapentin decreased to 100 mg yesterday I will discontinue it for now. Leukocytosis, recent epidural abscess-likely reactive and due to steroids. Antibiotics per ID Clinically improving slowly. Continue treatment in the ICU. Prognosis of this patient is very poor. Condition, treatment and options discussed with Kathleen on phone. Plan Plan of Care Problems Medical Problems: (1) ARF (acute renal failure) Status: Acute (2) Hypotension Status: Acute (3) Transaminitis Status: Acute Comment Review of Relevant I have reviewed the following items dale (where applicable) has been applied. Labs Laboratory Tests Test 08/06/20 05:40 White Blood Count 18.1 x10^3/uL (4.0-11.0) Red Blood Count 2.54 x10^6/uL (4.30-5.70) Hemoglobin 8.2 g/dL (13.0-17.5) Hematocrit 24.6 % (39.0-53.0) Mean Corpuscular Volume 97 fL (79-100) Mean Corpuscular Hemoglobin 32 pg (25-35) Mean Corpuscular Hemoglobin Concent 33 g/dL (31-37) Red Cell Distribution Width 18.2 % (11.5-14.5) Platelet Count 129 x10^3/uL (140-400) Neutrophils (%) (Auto) 92 % (31-73) Lymphocytes (%) (Auto) 5 % (24-48) Monocytes (%) (Auto) 2 % (0-9) Eosinophils (%) (Auto) 1 % (0-3) Basophils (%) (Auto) 0 % (0-3) Neutrophils # (Auto) 16.5 x10^3/uL (1.8-7.7) Lymphocytes # (Auto) 1.0 x10^3/uL (1.0-4.8) Monocytes # (Auto) 0.3 x10^3/uL (0.0-1.1) Eosinophils # (Auto) 0.2 x10^3/uL (0.0-0.7) Basophils # (Auto) 0.0 x10^3/uL (0.0-0.2) Prothrombin Time 22.1 SEC (11.7-14.0) Prothromb Time International Ratio 2.0 (0.8-1.1) Sodium Level 135 mmol/L (136-145) Potassium Level 3.9 mmol/L (3.5-5.1) Chloride Level 95 mmol/L (98-107) Carbon Dioxide Level 26 mmol/L (21-32) Anion Gap 14 (6-14) Blood Urea Nitrogen 46 mg/dL (8-26) Creatinine 3.2 mg/dL (0.7-1.3) Estimated GFR (Cockcroft-Gault) 18.9 BUN/Creatinine Ratio 14 (6-20) Glucose Level 157 mg/dL (70-99) Calcium Level 7.3 mg/dL (8.5-10.1) Total Bilirubin 7.3 mg/dL (0.2-1.0) Aspartate Amino Transf (AST/SGOT) 324 U/L (15-37) Alanine Aminotransferase (ALT/SGPT) 124 U/L (16-63) Alkaline Phosphatase 246 U/L (46-116) Total Protein 5.3 g/dL (6.4-8.2) Albumin 2.5 g/dL (3.4-5.0) Albumin/Globulin Ratio 0.9 (1.0-1.7) Microbiology 08/04/20 Urine Culture - Final, Complete 08/04/20 Blood Culture - Final, Complete Medications Current Medications Amino Acids/ Glycerin/ Electrolytes 1,000 ml @ 80 mls/hr [id number] IV ; Start 08/06/20 at 10:30 Apixaban (Eliquis) 2.5 mg BID PO ; Start 08/05/20 at 21:00; Stop 08/05/20 at 15:16; Status DC Lactobacillus Rhamnosus (Culturelle) 1 cap BID PO ; Start 08/06/20 at 21:00 Vitals/I & O Vital Sign - Last 24 Hours 08/05/20 08/05/20 08/05/20 08/05/20 11:00 12:00 12:00 13:00 Temp 97.9 97.9 Pulse 65 62 70 Resp 28 28 29 B/P (MAP) 116/69 (85) 114/56 (75) 87/60 (69) Pulse Ox 93 90 93 O2 Delivery Nasal Cannula Nasal Cannula Nasal Cannula Nasal Cannula O2 Flow Rate 4.0 4.0 4.0 4.0 08/05/20 08/05/20 08/05/20 08/05/20 14:00 15:00 16:00 16:00 Temp 98.1 98.1 Pulse 61 60 62 Resp 24 24 24 B/P (MAP) 80/49 (59) 100/57 (71) 106/55 (72) Pulse Ox 94 94 96 O2 Delivery Nasal Cannula BiPAP/CPAP Nasal Cannula BiPAP/CPAP O2 Flow Rate 4.0 4.0 08/05/20 08/05/20 08/05/20 08/05/20 17:00 18:00 19:00 20:00 Pulse 72 65 64 Resp 20 19 B/P (MAP) 108/56 (73) 91/53 (66) 107/47 (67) Pulse Ox 92 91 93 O2 Delivery Nasal Cannula Nasal Cannula BiPAP/CPAP Bi-pap O2 Flow Rate 6.0 6.0 08/05/20 08/05/20 08/05/20 08/05/20 20:00 21:00 22:00 23:00 Temp 98.4 98.4 Pulse 60 62 60 66 Resp 25 19 21 B/P (MAP) 100/52 (68) 109/47 (67) 158/81 (106) 113/51 (71) Pulse Ox 92 90 87 94 O2 Delivery BiPAP/CPAP BiPAP/CPAP BiPAP/CPAP BiPAP/CPAP 08/06/20 08/06/20 08/06/20 08/06/20 00:00 00:00 01:00 02:00 Temp 98.0 98.0 Pulse 64 64 64 Resp 19 B/P (MAP) 108/82 (91) 100/63 (75) 107/50 (69) Pulse Ox 93 93 93 O2 Delivery Bi-pap BiPAP/CPAP BiPAP/CPAP BiPAP/CPAP 08/06/20 08/06/20 08/06/20 08/06/20 03:00 03:50 04:00 04:00 Temp 98.6 98.6 Pulse 64 62 Resp 23 B/P (MAP) 103/52 (69) 107/58 (74) Pulse Ox 92 93 93 O2 Delivery BiPAP/CPAP BiPAP/CPAP BiPAP/CPAP Bi-pap 08/06/20 08/06/20 08/06/20 08/06/20 05:00 06:00 07:00 07:30 Pulse 62 64 62 62 Resp 26 19 23 35 B/P (MAP) 106/53 (70) 98/49 (65) 105/51 (69) Pulse Ox 93 93 91 83 O2 Delivery BiPAP/CPAP BiPAP/CPAP BiPAP/CPAP Nasal Cannula O2 Flow Rate 4.0 08/06/20 08/06/20 08/06/20 08/06/20 08:00 08:00 08:11 09:00 Temp 97.5 97.5 Pulse 64 60 Resp 19 23 B/P (MAP) 112/48 (69) 114/61 (78) Pulse Ox 93 92 92 O2 Delivery Bi-pap BiPAP/CPAP BiPAP/CPAP BiPAP/CPAP Intake and Output 08/05/20 08/05/20 08/06/20 15:00 23:00 07:00 Intake Total 440 ml 1653 ml 120 ml Output Total 120 ml 50 ml 22 ml Balance 320 ml 1603 ml 98 ml Justifications for Admission Other Justification JESSICA ULLOA MD Aug 06, 2020 10:38
[2020-08-06] MEDS: PANTOPRAZOLE IV PUSH 40 MG VIAL. IVP SCH (10:47)
--- NOTE | 2020-08-06 11:29 | PDOC ---
DATE OF SERVICE: DOS: DATE: 08/06/20 TIME: 11:28 SUBJECTIVE ROS Follow-up for acute renal failure, ATN Overnight patient's respiratory status is worsened to where he is now BiPAP dependent. CVS: no Orthopnea, no CP RESP: + SOB, ? JONES GI: no Nausea, no Vomiting : no Dysuria, no Urgency -Sauceda catheter in place with minimal urine output OBJECTIVE Vital Signs Vital Signs Date Time Temp Pulse Resp B/P (MAP) Pulse Ox O2 Delivery O2 Flow Rate FiO2 08/06/20 10:00 64 21 116/67 (83) 94 BiPAP/CPAP 08/06/20 08:00 97.5 97.5 08/06/20 07:30 4.0 I & 0 Intake and Output 08/06/20 07:00 Intake Total 2213 ml Output Total 192 ml Balance 2021 ml Intake Oral 800 ml IV Total 1413 ml Output Urine Total 192 ml # Bowel Movements 4 PHYSICAL EXAM Physical Exam General Appearance: Awake Alert Oriented x 1-2 In mod resp Distress Eyes: VIsion Unchanged Conjunctiva Normal EN: No EN Drainage Mucous Memb. dry on bipap Neck: no JVD no JVP Supple no Thyromegaly, short thick neck CVS: S1 S2 possible murmur No Gallop No Rub +2 Edema Resp: Occasional Rales no rhonchi minimal Acc. Muscle use GI: BAS +ve NO Bruit Non Tender Non Distended, obese abdomen : No CVA tenderness; no Suprapubic Tenderness SKIN: no visible Rashes Breast Exam deferred Mu.Sk: Limited range of motion, no obvious muscle Atrophy Heme: Unable to palpate Obvious LAD no palpable splenomegaly NEURO: Decreased strength no asterixis Psych: Somewhat depressed no active hallucination DIAGNOSIS/ASSESSMENT Assessment & Plan [id number]: Patient was dialyzed yesterday solute clearance appears to have improved slightly CKD STAGE 3-CR OF 1.8 AT BASELINE Hyponatremia: Now resolved MET ACIDOSIS: Now resolved Respiratory distress requiring BiPAP: Stat chest x-ray has been ordered. Urine output has been minimal. I's and O's balance appear to be positive 2 liters. We will proceed with dialysis later today for ultrafiltration T8-T9 DISKITIS-OSTEO: Defer antibiotics to primary team and ID HYPOTENSION: Remains on pressors currently INCREASED LFT'S: Consider GI evaluation ANEMIA in the setting of renal failure: Start EPO; POSSIBLE GI BLEED is being evaluated for. Iron saturations are felt to be high I will defer to GI to see if they feel there may be an element of hemochromatosis here versus associated with recent blood transfusion MORBID OBESITY. Hyperphosphatemia: Recheck phosphorus in the near future Hypocalcemia corrects for hypoalbuminemia COMMENT/RELEVANT DATA Meds Current Medications Medications (Trade) Dose Ordered Sig/Samantha Start Time Stop Time Status Last Admin Dose Admin Acetaminophen (Tylenol) 650 mg 1X PRN PRN 08/03/20 18:00 08/04/20 17:59 DC Albumin Human 200 ml @ 200 mls/hr 1X PRN PRN 08/05/20 08:30 08/05/20 14:29 DC 08/05/20 09:42 200 MLS/HR Albuterol Sulfate (Ventolin Neb Soln) 2.5 mg PRN Q4HRS PRN 08/03/20 18:45 08/05/20 08:34 2.5 MG Amino Acids/ Glycerin/ Electrolytes 1,000 ml @ 80 mls/hr [id number] 08/06/20 10:30 08/06/20 10:47 80 MLS/HR Apixaban (Eliquis) 2.5 mg BID 08/05/20 21:00 08/05/20 15:16 DC Darbepoetin Hitesh (ARANESP for DIALYSIS PTS) 60 mcg WEEKLYHS 08/04/20 21:00 08/04/20 21:00 60 MCG Diphenhydramine HCl (Benadryl Oral Elixir) 12.5 mg 1X PRN PRN 08/03/20 18:00 08/04/20 17:59 DC Fentanyl Citrate (Fentanyl 2ml Vial) 25 mcg PRN Q3HRS PRN 08/03/20 18:00 08/04/20 21:04 25 MCG Gabapentin (Neurontin) 100 mg QHS 08/03/20 21:00 08/04/20 10:14 DC Info (PHARMACY MONITORING -- do not chart) 1 each PRN DAILY PRN 08/05/20 08:30 Lactobacillus Rhamnosus (Culturelle) 1 cap BID 08/06/20 21:00 Lidocaine HCl (Lidocaine 1% 20ml Vial) 20 ml 1X ONCE 08/03/20 15:15 08/03/20 15:16 DC 08/03/20 15:09 3 ML Methylprednisolone Sodium Succinate (SOLU-Medrol 125MG VIAL) 100 mg Q8HRS 08/04/20 09:30 08/06/20 05:58 100 MG Norepinephrine Bitartrate 32 mg/ Dextrose 250 ml @ 6.422 mls/ hr CONT PRN 08/03/20 17:15 08/06/20 08:32 12.844 MLS/HR Norepinephrine Bitartrate 8 mg/ Dextrose 258 ml @ 26.51 mls/ hr CONT PRN PRN 08/03/20 13:00 08/04/20 01:32 DC 08/03/20 13:30 26.51 MLS/HR Ondansetron HCl (Zofran) 4 mg PRN Q6HRS PRN 08/03/20 18:45 Pantoprazole Sodium (PROTONIX VIAL for IV PUSH) 40 mg DAILY 08/03/20 18:45 08/06/20 10:47 40 MG Phytonadione (Vitamin K Ampule) 3 mg 1X ONCE 08/03/20 18:00 08/03/20 18:26 DC 08/03/20 18:31 3 MG Piperacillin Sod/ Tazobactam Sod 2.25 gm/Sodium Chloride 50 ml @ 100 mls/hr Q8HRS 08/04/20 14:00 08/06/20 05:57 100 MLS/HR Sodium Bicarbonate 50 meq/Sodium Chloride 1,050 ml @ 75 mls/hr Q14H 08/03/20 20:00 08/06/20 07:41 75 MLS/HR Sodium Chloride 1,000 ml @ 400 mls/hr Q2H30M PRN 08/05/20 08:20 08/05/20 20:19 DC Sodium Chloride (Normal Saline Flush) 10 ml 1X PRN PRN 08/03/20 17:30 08/04/20 17:29 DC Vasopressin 20 unit/Dextrose 101 ml @ 12 mls/hr CONT PRN 08/03/20 18:45 08/06/20 08:32 12 MLS/HR Lab Laboratory Tests Test 08/06/20 05:40 White Blood Count 18.1 x10^3/uL (4.0-11.0) Red Blood Count 2.54 x10^6/uL (4.30-5.70) Hemoglobin 8.2 g/dL (13.0-17.5) Hematocrit 24.6 % (39.0-53.0) Mean Corpuscular Volume 97 fL (79-100) Mean Corpuscular Hemoglobin 32 pg (25-35) Mean Corpuscular Hemoglobin Concent 33 g/dL (31-37) Red Cell Distribution Width 18.2 % (11.5-14.5) Platelet Count 129 x10^3/uL (140-400) Neutrophils (%) (Auto) 92 % (31-73) Lymphocytes (%) (Auto) 5 % (24-48) Monocytes (%) (Auto) 2 % (0-9) Eosinophils (%) (Auto) 1 % (0-3) Basophils (%) (Auto) 0 % (0-3) Neutrophils # (Auto) 16.5 x10^3/uL (1.8-7.7) Lymphocytes # (Auto) 1.0 x10^3/uL (1.0-4.8) Monocytes # (Auto) 0.3 x10^3/uL (0.0-1.1) Eosinophils # (Auto) 0.2 x10^3/uL (0.0-0.7) Basophils # (Auto) 0.0 x10^3/uL (0.0-0.2) Prothrombin Time 22.1 SEC (11.7-14.0) Prothromb Time International Ratio 2.0 (0.8-1.1) Sodium Level 135 mmol/L (136-145) Potassium Level 3.9 mmol/L (3.5-5.1) Chloride Level 95 mmol/L (98-107) Carbon Dioxide Level 26 mmol/L (21-32) Anion Gap 14 (6-14) Blood Urea Nitrogen 46 mg/dL (8-26) Creatinine 3.2 mg/dL (0.7-1.3) Estimated GFR (Cockcroft-Gault) 18.9 BUN/Creatinine Ratio 14 (6-20) Glucose Level 157 mg/dL (70-99) Calcium Level 7.3 mg/dL (8.5-10.1) Total Bilirubin 7.3 mg/dL (0.2-1.0) Aspartate Amino Transf (AST/SGOT) 324 U/L (15-37) Alanine Aminotransferase (ALT/SGPT) 124 U/L (16-63) Alkaline Phosphatase 246 U/L (46-116) Total Protein 5.3 g/dL (6.4-8.2) Albumin 2.5 g/dL (3.4-5.0) Albumin/Globulin Ratio 0.9 (1.0-1.7) Results All relevant outside records, renal labs, imaging studies, telemetry/EKG's were reviewed. Justicifation of Admission Dx: Justifications for Admission: Justification of Admission Dx: Yes ILANA FERGUSON MD Aug 06, 2020 11:29
--- NOTE | 2020-08-06 11:53 | RAD ---
AP portable chest radiograph 08/06/2020 Clinical History: Worsening hypoxia. An AP erect portable digital radiograph of the chest was obtained. Comparison study is dated 08/03/2020. The left-sided pacemaker and right internal jugular central venous catheter is unchanged position. The cardiac silhouette is mildly enlarged. The thoracic aorta is tortuous. Atherosclerotic calcification thoracic aorta is seen. Bilateral perihilar infiltrates are seen which is increased slightly since the previous examination. Surgical clips overlie the left axilla. No pneumothorax or pleural effusion is noted. The osseous structures are unchanged. Impression: Interval increase in the bilateral perihilar infiltrates. Electronically signed by: Dex Phoenix MD (08/06/2020 11:50 AM) [id number]
--- NOTE | 2020-08-06 13:11 | PDOC ---
PROGRESS NOTES Date of Service: DATE: 08/06/20 TIME: 13:11 Subjective Subjective On BiPAP, continues to need pressor support Objective Objective Vital Signs Date Time Temp Pulse Resp B/P (MAP) Pulse Ox O2 Delivery O2 Flow Rate FiO2 08/06/20 11:50 96 BiPAP/CPAP 08/06/20 10:00 64 21 116/67 (83) 08/06/20 08:00 97.5 97.5 08/06/20 07:30 4.0 Intake and Output 08/06/20 07:00 Intake Total 2213 ml Output Total 192 ml Balance 202 ml Intake Oral 800 ml IV Total 1413 ml Output Urine Total 192 ml # Bowel Movements 4 Physical Exam Physical Exam BIPAP Abdomen: Normal bowel sounds, Soft Heart: Regular rate Extremities: No clubbing, Other (2+ edema) HEENT: PERRLA Lungs: Clear to auscultation MUSCULOSKELETAL: No swelling Neck: Supple Skin: No rashes COMMENT [place] , central line, dialysis cathter Assessment Assessment 1. CORKY on CKD; on hemodialysis per nephrology team 2. Chronic respiratory failure, pulmonary fibrosis, SOA better 3. Dilated cardiomyopathy; s/p AICD ([employer]) last reported LVEF 40%. Follows with Dr. Talley with [facility]. Limited echo showed LVEF 50-55% 4. H/o VT; on Amiodarone therapy; Spoke with [employer]; patient had 10 min episode of VT 07/10/20 s/p ATP. Rate was near detection zone of 150. No other evidence of VT or shock therapies delivered. Device was interrogated 08/03/20 with normal function. detection zone was lowered. Amiodarone stopped secondary to elevated LFTs. Plan outpatient referral to EP service for possible ablation therapy. 5. Hypotensive; requiring pressor support 6. PAFIB; maintaining SR. On Eliquis for stroke prophylaxis 7. Anemia, recent GIB; per primary team 8. Elevated LFTs, coagulopathy; 9. Ascending aortic aneurysm; 4.0 cm 10. Severe protein calorie malnutrition 11. H/o PE 12. Morbid obesity, JAZMINE with CPAP 13. Recent epidural abscess; treated with IV antibiotic therapy 14. H/o Non-Hodgkins lymphoma Plan Plan of Care Problems Medical Problems: (1) ARF (acute renal failure) Status: Acute (2) Hypotension Status: Acute (3) Transaminitis Status: Acute Comment Review of Relevant I have reviewed the following items dale (where applicable) has been applied. Labs Laboratory Tests Test 08/06/20 05:40 White Blood Count 18.1 x10^3/uL (4.0-11.0) Red Blood Count 2.54 x10^6/uL (4.30-5.70) Hemoglobin 8.2 g/dL (13.0-17.5) Hematocrit 24.6 % (39.0-53.0) Mean Corpuscular Volume 97 fL (79-100) Mean Corpuscular Hemoglobin 32 pg (25-35) Mean Corpuscular Hemoglobin Concent 33 g/dL (31-37) Red Cell Distribution Width 18.2 % (11.5-14.5) Platelet Count 129 x10^3/uL (140-400) Neutrophils (%) (Auto) 92 % (31-73) Lymphocytes (%) (Auto) 5 % (24-48) Monocytes (%) (Auto) 2 % (0-9) Eosinophils (%) (Auto) 1 % (0-3) Basophils (%) (Auto) 0 % (0-3) Neutrophils # (Auto) 16.5 x10^3/uL (1.8-7.7) Lymphocytes # (Auto) 1.0 x10^3/uL (1.0-4.8) Monocytes # (Auto) 0.3 x10^3/uL (0.0-1.1) Eosinophils # (Auto) 0.2 x10^3/uL (0.0-0.7) Basophils # (Auto) 0.0 x10^3/uL (0.0-0.2) Prothrombin Time 22.1 SEC (11.7-14.0) Prothromb Time International Ratio 2.0 (0.8-1.1) Sodium Level 135 mmol/L (136-145) Potassium Level 3.9 mmol/L (3.5-5.1) Chloride Level 95 mmol/L (98-107) Carbon Dioxide Level 26 mmol/L (21-32) Anion Gap 14 (6-14) Blood Urea Nitrogen 46 mg/dL (8-26) Creatinine 3.2 mg/dL (0.7-1.3) Estimated GFR (Cockcroft-Gault) 18.9 BUN/Creatinine Ratio 14 (6-20) Glucose Level 157 mg/dL (70-99) Calcium Level 7.3 mg/dL (8.5-10.1) Total Bilirubin 7.3 mg/dL (0.2-1.0) Aspartate Amino Transf (AST/SGOT) 324 U/L (15-37) Alanine Aminotransferase (ALT/SGPT) 124 U/L (16-63) Alkaline Phosphatase 246 U/L (46-116) Total Protein 5.3 g/dL (6.4-8.2) Albumin 2.5 g/dL (3.4-5.0) Albumin/Globulin Ratio 0.9 (1.0-1.7) Microbiology 08/04/20 Urine Culture - Final, Complete 08/04/20 Blood Culture - Preliminary, Resulted Medications Current Medications Amino Acids/ Glycerin/ Electrolytes 1,000 ml @ 80 mls/hr [id number] IV Last administered on 08/06/20at 10:47; Start 08/06/20 at 10:30; Stop 08/06/20 at 11:39; Status DC Apixaban (Eliquis) 2.5 mg BID PO ; Start 08/05/20 at 21:00; Stop 08/05/20 at 15:16; Status DC Lactobacillus Rhamnosus (Culturelle) 1 cap BID PO ; Start 08/06/20 at 21:00 Vitals/I & O Vital Sign - Last 24 Hours 08/05/20 08/05/20 08/05/20 08/05/20 14:00 15:00 16:00 16:00 Temp 98.1 98.1 Pulse 61 60 62 Resp 24 24 24 B/P (MAP) 80/49 (59) 100/57 (71) 106/55 (72) Pulse Ox 94 94 96 O2 Delivery Nasal Cannula BiPAP/CPAP Nasal Cannula BiPAP/CPAP O2 Flow Rate 4.0 4.0 08/05/20 08/05/20 08/05/20 08/05/20 17:00 18:00 19:00 20:00 Pulse 72 65 64 Resp 22 20 19 B/P (MAP) 108/56 (73) 91/53 (66) 107/47 (67) Pulse Ox 92 91 93 O2 Delivery Nasal Cannula Nasal Cannula BiPAP/CPAP Bi-pap O2 Flow Rate 6.0 6.0 08/05/20 08/05/20 08/05/20 08/05/20 20:00 21:00 22:00 23:00 Temp 98.4 98.4 Pulse 60 62 60 66 Resp 19 21 B/P (MAP) 100/52 (68) 109/47 (67) 158/81 (106) 113/51 (71) Pulse Ox 92 90 87 94 O2 Delivery BiPAP/CPAP BiPAP/CPAP BiPAP/CPAP BiPAP/CPAP 08/06/20 08/06/20 08/06/20 08/06/20 00:00 00:00 01:00 02:00 Temp 98.0 98.0 Pulse 64 64 64 Resp 19 19 B/P (MAP) 108/82 (91) 100/63 (75) 107/50 (69) Pulse Ox 93 93 93 O2 Delivery Bi-pap BiPAP/CPAP BiPAP/CPAP BiPAP/CPAP 08/06/20 08/06/20 08/06/20 08/06/20 03:00 03:50 04:00 04:00 Temp 98.6 98.6 Pulse 64 62 Resp 23 B/P (MAP) 103/52 (69) 107/58 (74) Pulse Ox 92 93 93 O2 Delivery BiPAP/CPAP BiPAP/CPAP BiPAP/CPAP Bi-pap 08/06/20 08/06/20 08/06/20 08/06/20 05:00 06:00 07:00 07:30 Pulse 62 64 62 62 Resp 23 35 B/P (MAP) 106/53 (70) 98/49 (65) 105/51 (69) Pulse Ox 93 93 91 83 O2 Delivery BiPAP/CPAP BiPAP/CPAP BiPAP/CPAP Nasal Cannula O2 Flow Rate 4.0 08/06/20 08/06/20 08/06/20 08/06/20 08:00 08:00 08:11 09:00 Temp 97.5 97.5 Pulse 64 60 Resp 19 23 B/P (MAP) 112/48 (69) 114/61 (78) Pulse Ox 93 92 92 O2 Delivery Bi-pap BiPAP/CPAP BiPAP/CPAP BiPAP/CPAP 08/06/20 08/06/20 10:00 11:50 Pulse 64 Resp 21 B/P (MAP) 116/67 (83) Pulse Ox 94 96 O2 Delivery BiPAP/CPAP BiPAP/CPAP Intake and Output 08/05/20 08/05/20 08/06/20 15:00 23:00 07:00 Intake Total 440 ml 1653 ml 120 ml Output Total 120 ml 50 ml 22 ml Balance 320 ml 1603 ml 98 ml FATMATA CARNEY MD Aug 06, 2020 13:11
[2020-08-06] MEDS ORDERED: IV NORMAL SALINE 1000ML BAG 1,000 ML IV PRN ×2 (14:04)
[2020-08-06] MEDS ORDERED: 0.9 % SODIUM CHLORIDE 10 ML DISP.SYRIN. IV PRN ×2 (14:15)
[2020-08-06] MEDS ORDERED: DIALYSIS PATIENT. MC PRN ×2 (14:15)
[2020-08-06] MEDS ORDERED: ALBUMIN HUMAN 25% 200 ML IV PRN (14:15)
[2020-08-06] MEDS: fentaNYL PF VIAL 100 MCG/2 ML VIAL IVP PRN (19:21)
[2020-08-06] MEDS: LACTOBACILLUS RHAMNOSUS GG 1 CAPSULE. PO SCH (20:24)
[2020-08-07] VITALS (26 sets, daily range): BP systolic 84–131; BP diastolic 40–79
[2020-08-07] MEDS: VASOPRESSIN 20 UNIT in IV DEXTROSE 5% 100ML 100 ML IV PRN ×3 (06:04→20:20)
[2020-08-07] MEDS: PIPERACILLIN/TAZOBACTAM 2.25 GM in IV NORMAL SALINE 50ML 50 ML IV SCH ×3 (06:04→22:53)
[2020-08-07] MEDS: methylPREDNISolone SOD SUCC PF 125 MG/2 ML VIAL. IV SCH ×3 (06:05→22:53)
[2020-08-07 06:48] LABS: BASO % 0 % (0-3); EOS % 0 % (0-3); HEMATOCRIT 22.6 % (39.0-53.0); HEMOGLOBIN 7.5 g/dL (13.0-17.5); LYMPH # 0.7 x10^3/uL (1.0-4.8); LYMPH % 4 % (24-48); MEAN CORPUSCULAR HEMOGLOBIN 33 pg (25-35); MEAN CORPUSCULAR HGB CONC 33 g/dL (31-37); MEAN CORPUSCULAR VOLUME 98 fL (79-100); MONO # 0.2 x10^3/uL (0.0-1.1); MONO % 1 % (0-9); NEUT # 16.8 x10^3/uL (1.8-7.7); NEUT % 95 % (31-73); PLATELET COUNT 108 x10^3/uL (140-400); RED BLOOD COUNT 2.29 x10^6/uL (4.30-5.70); RED CELL DISTRIBUTION WIDTH 18.4 % (11.5-14.5); WHITE BLOOD COUNT 17.8 x10^3/uL (4.0-11.0)
[2020-08-07 06:58] LABS: ALBUMIN 2.5 g/dL (3.4-5.0); CALCIUM 7.7 mg/dL (8.5-10.1); CREATININE 2.8 mg/dL (0.7-1.3); GFR 22.1; POTASSIUM 3.9 mmol/L (3.5-5.1); TOTAL BILIRUBIN 8.2 mg/dL (0.2-1.0)
--- NOTE | 2020-08-07 07:48 | PDOC ---
PULMONARY PROGRESS NOTES DATE: 08/07/20 TIME: 07:48 Subjective had HD yesterday, on 02 15 lpm, sob better, has occ cough, is tired on levo and vaso Vitals Vital Signs Date Time Temp Pulse Resp B/P (MAP) Pulse Ox O2 Delivery O2 Flow Rate FiO2 08/07/20 06:00 65 16 85/40 (55) 91 Nasal Cannula 7.0 08/07/20 04:00 97.6 97.6 Comments ros as mentioned as above other sys otherwise neg ROS: No Nausea General: Alert HEENT: Other (nc at perrl shallow oropharynx nose clear neck no lad no thyromegaly) Lungs: Crackles Cardiovascular: S1, S2 Abdomen: Soft, Non-tender, Other (no mass) Neuro Exam: Alert Extremities: Other (edema +2) Skin: Warm, Dry Labs Laboratory Tests Test 08/06/20 05:40 08/07/20 06:10 White Blood Count 18.1 x10^3/uL (4.0-11.0) 17.8 x10^3/uL (4.0-11.0) Red Blood Count 2.54 x10^6/uL (4.30-5.70) 2.29 x10^6/uL (4.30-5.70) Hemoglobin 8.2 g/dL (13.0-17.5) 7.5 g/dL (13.0-17.5) Hematocrit 24.6 % (39.0-53.0) 22.6 % (39.0-53.0) Mean Corpuscular Volume 97 fL (79-100) 98 fL (79-100) Mean Corpuscular Hemoglobin 32 pg (25-35) 33 pg (25-35) Mean Corpuscular Hemoglobin Concent 33 g/dL (31-37) 33 g/dL (31-37) Red Cell Distribution Width 18.2 % (11.5-14.5) 18.4 % (11.5-14.5) Platelet Count 129 x10^3/uL (140-400) 108 x10^3/uL (140-400) Neutrophils (%) (Auto) 92 % (31-73) 95 % (31-73) Lymphocytes (%) (Auto) 5 % (24-48) 4 % (24-48) Monocytes (%) (Auto) 2 % (0-9) 1 % (0-9) Eosinophils (%) (Auto) 1 % (0-3) 0 % (0-3) Basophils (%) (Auto) 0 % (0-3) 0 % (0-3) Neutrophils # (Auto) 16.5 x10^3/uL (1.8-7.7) 16.8 x10^3/uL (1.8-7.7) Lymphocytes # (Auto) 1.0 x10^3/uL (1.0-4.8) 0.7 x10^3/uL (1.0-4.8) Monocytes # (Auto) 0.3 x10^3/uL (0.0-1.1) 0.2 x10^3/uL (0.0-1.1) Eosinophils # (Auto) 0.2 x10^3/uL (0.0-0.7) 0.0 x10^3/uL (0.0-0.7) Basophils # (Auto) 0.0 x10^3/uL (0.0-0.2) 0.0 x10^3/uL (0.0-0.2) Prothrombin Time 22.1 SEC (11.7-14.0) Prothromb Time International Ratio 2.0 (0.8-1.1) Sodium Level 135 mmol/L (136-145) 137 mmol/L (136-145) Potassium Level 3.9 mmol/L (3.5-5.1) 3.9 mmol/L (3.5-5.1) Chloride Level 95 mmol/L (98-107) 98 mmol/L (98-107) Carbon Dioxide Level 26 mmol/L (21-32) 26 mmol/L (21-32) Anion Gap 14 (6-14) 13 (6-14) Blood Urea Nitrogen 46 mg/dL (8-26) 34 mg/dL (8-26) Creatinine 3.2 mg/dL (0.7-1.3) 2.8 mg/dL (0.7-1.3) Estimated GFR (Cockcroft-Gault) 18.9 22.1 BUN/Creatinine Ratio 14 (6-20) 12 (6-20) Glucose Level 157 mg/dL (70-99) 136 mg/dL (70-99) Calcium Level 7.3 mg/dL (8.5-10.1) 7.7 mg/dL (8.5-10.1) Total Bilirubin 7.3 mg/dL (0.2-1.0) 8.2 mg/dL (0.2-1.0) Aspartate Amino Transf (AST/SGOT) 324 U/L (15-37) 295 U/L (15-37) Alanine Aminotransferase (ALT/SGPT) 124 U/L (16-63) 125 U/L (16-63) Alkaline Phosphatase 246 U/L (46-116) 213 U/L (46-116) Total Protein 5.3 g/dL (6.4-8.2) 5.0 g/dL (6.4-8.2) Albumin 2.5 g/dL (3.4-5.0) 2.5 g/dL (3.4-5.0) Albumin/Globulin Ratio 0.9 (1.0-1.7) 1.0 (1.0-1.7) Laboratory Tests Test 08/07/20 06:10 White Blood Count 17.8 x10^3/uL (4.0-11.0) Red Blood Count 2.29 x10^6/uL (4.30-5.70) Hemoglobin 7.5 g/dL (13.0-17.5) Hematocrit 22.6 % (39.0-53.0) Mean Corpuscular Volume 98 fL (79-100) Mean Corpuscular Hemoglobin 33 pg (25-35) Mean Corpuscular Hemoglobin Concent 33 g/dL (31-37) Red Cell Distribution Width 18.4 % (11.5-14.5) Platelet Count 108 x10^3/uL (140-400) Neutrophils (%) (Auto) 95 % (31-73) Lymphocytes (%) (Auto) 4 % (24-48) Monocytes (%) (Auto) 1 % (0-9) Eosinophils (%) (Auto) 0 % (0-3) Basophils (%) (Auto) 0 % (0-3) Neutrophils # (Auto) 16.8 x10^3/uL (1.8-7.7) Lymphocytes # (Auto) 0.7 x10^3/uL (1.0-4.8) Monocytes # (Auto) 0.2 x10^3/uL (0.0-1.1) Eosinophils # (Auto) 0.0 x10^3/uL (0.0-0.7) Basophils # (Auto) 0.0 x10^3/uL (0.0-0.2) Sodium Level 137 mmol/L (136-145) Potassium Level 3.9 mmol/L (3.5-5.1) Chloride Level 98 mmol/L (98-107) Carbon Dioxide Level 26 mmol/L (21-32) Anion Gap 13 (6-14) Blood Urea Nitrogen 34 mg/dL (8-26) Creatinine 2.8 mg/dL (0.7-1.3) Estimated GFR (Cockcroft-Gault) 22.1 BUN/Creatinine Ratio 12 (6-20) Glucose Level 136 mg/dL (70-99) Calcium Level 7.7 mg/dL (8.5-10.1) Total Bilirubin 8.2 mg/dL (0.2-1.0) Aspartate Amino Transf (AST/SGOT) 295 U/L (15-37) Alanine Aminotransferase (ALT/SGPT) 125 U/L (16-63) Alkaline Phosphatase 213 U/L (46-116) Total Protein 5.0 g/dL (6.4-8.2) Albumin 2.5 g/dL (3.4-5.0) Albumin/Globulin Ratio 1.0 (1.0-1.7) Comments CXR reviewed, 08/06 Interval increase in the bilateral perihilar infiltrates. Impression . IMPRESSION: 1. acute on Chronic hypoxic respiratory failure. multifactorial in etiology, at home on 3 liters of oxygen now on bipap 2. The patient with history of pulmonary embolism in 2018. Likely hypercoagulable state from underlying non-Hodgkin's lymphoma and breast cancer. He has been on Eliquis since then. He has no DVT. He had epistaxis , resolved. His venous Doppler done 2 days ago, did not show any DVT as well. Eliquis was on hold for 48 hours . restarted on lower dose of 2.5 mg b.i.d. 3. Shock, could be combination of hypovolemic and cardiogenic. He is currently on Levophed. We will monitor his blood pressure closely. 4. History of pulmonary fibrosis. His chest x-ray showed bilateral interstitial infiltrates. He has Agent [place] exposure and that could be the etiology of his fibrosis. It has been clinically stable. 5. History of non-Hodgkin's lymphoma, status post chemo, finished in 01/2019. 6. History of breast cancer with bilateral mastectomy. 7. History of gastrointestinal bleed with colonoscopy showing colonic small polyps in June of this year. 8. Acute kidney injury. The patient is status post hemodialysis catheter placement and will be initiated on hemodialysis. 9. Cardiomyopathy. His ejection fraction used to be 25%, now is improved to 40% based on records. 10. Minimal tobacco history. 11. Status post AICD and pacemaker. 12. History of aneurysmal dilatation of the ascending aorta to a diameter about 4.0. 13. CORKY Plan . RECOMMENDATIONS: cont bipap prn during day, cont at nigh, setting reviewed, titrate fio2 to keep sat 90% NEBS Follow CXR PRN cont. Vasopressors to keep MAP above 60, cont solumedrol Follow nephrology recs for HD Monitor HGB, cont eliquis at 2.5 mg BID.,Not a candidate for IVC filter as there is no evidence of deep venous thrombosis Follow HEM/ONC recs Follow Cardiology recs D/W RN and RT . LIBERTAD WEINSTEIN MD Aug 07, 2020 07:48
[2020-08-07 08:58] LABS: BASE EXCESS ABG -1 mmol/L (-3-3); HCO3 ABG 23 mmol/L (21-28); PCO2 ABG 32 mmHg (35-46); PO2 ABG 58 mmHg (65-108); SAT O2 ABG 89 % (92-99)
[2020-08-07 09:15] LABS: FIO2 ABG 80% (15L NC)
[2020-08-07] MEDS: LACTOBACILLUS RHAMNOSUS GG 1 CAPSULE. PO SCH ×2 (09:24→20:32)
[2020-08-07] MEDS: PANTOPRAZOLE IV PUSH 40 MG VIAL. IVP SCH (09:24)
--- NOTE | 2020-08-07 10:02 | PDOC ---
Infectious Disease Note Subjective Subjective Patient is awake he is feeling better, off bipap ROS ROS no n/v/d/ Vital Sign Vital Signs Vital Signs Date Time Temp Pulse Resp B/P (MAP) Pulse Ox O2 Delivery O2 Flow Rate FiO2 08/07/20 08:04 83 Nasal Cannula 15.0 08/07/20 07:00 66 31 103/47 (65) 08/07/20 04:00 97.6 97.6 Physical Exam PHYSICAL EXAM GENERAL: Awake gentleman, not in any distress. VITAL SIGNS: Stable, The patient is on vasopressor support. HEENT: Both pupils are round and reacting. No conjunctival lesion. Oral; the patient has dry blood in the mouth, on the tongue and palate, on the lips. NECK: Supple, no JVP, no lymphadenopathy. LUNGS: Decreased breath sounds bilaterally. HEART: S1, S2 regular. No gallop. ABDOMEN: Soft, nontender, no organomegaly. EXTREMITIES: No edema or cyanosis. The patient does have some bleeding under the skin, around the neck, and upper extremities. NEUROLOGIC: The patient is alert, awake, able to communicate and able to move all the extremities. No focal deficit. Labs Lab Laboratory Tests Test 08/07/20 06:10 08/07/20 08:30 White Blood Count 17.8 x10^3/uL (4.0-11.0) Red Blood Count 2.29 x10^6/uL (4.30-5.70) Hemoglobin 7.5 g/dL (13.0-17.5) Hematocrit 22.6 % (39.0-53.0) Mean Corpuscular Volume 98 fL (79-100) Mean Corpuscular Hemoglobin 33 pg (25-35) Mean Corpuscular Hemoglobin Concent 33 g/dL (31-37) Red Cell Distribution Width 18.4 % (11.5-14.5) Platelet Count 108 x10^3/uL (140-400) Neutrophils (%) (Auto) 95 % (31-73) Lymphocytes (%) (Auto) 4 % (24-48) Monocytes (%) (Auto) 1 % (0-9) Eosinophils (%) (Auto) 0 % (0-3) Basophils (%) (Auto) 0 % (0-3) Neutrophils # (Auto) 16.8 x10^3/uL (1.8-7.7) Lymphocytes # (Auto) 0.7 x10^3/uL (1.0-4.8) Monocytes # (Auto) 0.2 x10^3/uL (0.0-1.1) Eosinophils # (Auto) 0.0 x10^3/uL (0.0-0.7) Basophils # (Auto) 0.0 x10^3/uL (0.0-0.2) Sodium Level 137 mmol/L (136-145) Potassium Level 3.9 mmol/L (3.5-5.1) Chloride Level 98 mmol/L (98-107) Carbon Dioxide Level 26 mmol/L (21-32) Anion Gap 13 (6-14) Blood Urea Nitrogen 34 mg/dL (8-26) Creatinine 2.8 mg/dL (0.7-1.3) Estimated GFR (Cockcroft-Gault) 22.1 BUN/Creatinine Ratio 12 (6-20) Glucose Level 136 mg/dL (70-99) Calcium Level 7.7 mg/dL (8.5-10.1) Total Bilirubin 8.2 mg/dL (0.2-1.0) Aspartate Amino Transf (AST/SGOT) 295 U/L (15-37) Alanine Aminotransferase (ALT/SGPT) 125 U/L (16-63) Alkaline Phosphatase 213 U/L (46-116) Total Protein 5.0 g/dL (6.4-8.2) Albumin 2.5 g/dL (3.4-5.0) Albumin/Globulin Ratio 1.0 (1.0-1.7) O2 Saturation 89 % (92-99) Arterial Blood pH 7.46 (7.35-7.45) Arterial Blood pCO2 at Patient Temp 32 mmHg (35-46) Arterial Blood pO2 at Patient Temp 58 mmHg (65-108) Arterial Blood HCO3 23 mmol/L (21-28) Arterial Blood Base Excess -1 mmol/L (-3-3) FiO2 80% (15l nc) Micro BLOOD CULTURE LC Final Final GRAM NEGATIVE RODS FINAL ID= [PSEUDOMONAS AERUGINOSA] PSEUDOMONAS AERUGINOSA ANTIMICROBIAL SUSCEPTIBILITY Final Comment NEG LEYDI 56 PSEUDOMONAS AERUGINOSA ANTIBIOTIC RESULT INTERPRETATION AMIKACIN <=16 S AZTREONAM <=4 S CEFTAZIDIME 4 S CIPROFLOXACIN <=0.25 S CEFEPIME 4 S CEFTAZIDIME/AVIBACTAM <=4 S GENTAMICIN 4 S LEVOFLOXACIN <=0.5 S MEROPENEM <=1 S PIPERACILLIN/TAZOBACTAM <=8 S TOBRAMYCIN <=2 S Unless otherwise specified, Testing Performed by: [facility] [address] [place] [address] For Inquires, the Physician may contact the Microbiology department at [phone] Objective Assessment IMPRESSION: 1. Leukocytosis, it is possible it is reactive. It is possible that it may have infection, most recent infection was T8-T9 diskitis and osteomyelitis. 2. T8-T9 diskitis and osteomyelitis with small epidural abscess, completed 6 weeks of ceftriaxone and on a chronic suppressive Keflex, was planned to give for 6 months. 3. Hypotension with acute kidney injury, etiology to be determined. 4. Elevated liver function tests secondary to hypotension. 5. History of staphylococcal lugdunensis oxacillin sensitive bacteremia. 6. Acute kidney injury on top of a chronic renal insufficiency. 7. Cardiac arrhythmia. The patient does have AICD in place. 8. Pulmonary fibrosis. 9. Morbid obesity. 10. Congestive heart failure. 11. Hypotension. Plan Plan of Care Continue Zosyn Follow the cultures Supportive care Dialysis Discussed with patient's in detail d/w Dr Ashvin FERGUSON,KEITH Newell MD Aug 07, 2020 10:02
--- NOTE | 2020-08-07 10:18 | PDOC ---
IM PROGRESS NOTES- Subjective Subjective No complaints of pain or dyspnea. Has occasional back pain. Denies any abdominal pain or nausea. Yesterday he was more short of breath. Today dyspnea is improving. He is on oxygen by nasal cannula. Objective Vitals/I&O Vital Signs Date Time Temp Pulse Resp B/P (MAP) Pulse Ox O2 Delivery O2 Flow Rate FiO2 08/07/20 08:04 83 Nasal Cannula 15.0 08/07/20 07:00 66 31 103/47 (65) 08/07/20 04:00 97.6 97.6 I & O 08/06/20 08/06/20 08/07/20 15:00 23:00 07:00 Intake Total 480 ml 350 ml 707.3 ml Output Total 20 ml 0 ml 15 ml Balance 460 ml 350 ml 692.3 ml Physical Exam Physical Exam GENERAL: This patient is an elderly male who is alert, oriented, but not a good historian, obese and appears to be acutely ill, not in any acute distress at this time. SKIN: Warm and dry. Skin is pale. The patient has macerated skin and wounds NECK: Supple. LUNGS: Decreased breath sounds at bases. CARDIOVASCULAR: S1, S2 regular. ABDOMEN: Soft, obese, non tender, no guarding, no rigidity. present. EXTREMITIES: 3+ edema in all extremities. Also, has anasarca. CENTRAL NERVOUS SYSTEM: Alert, weak, appropriate, tremors are improving. Labs Laboratory Tests Test 08/07/20 06:10 08/07/20 08:30 White Blood Count 17.8 x10^3/uL (4.0-11.0) H Red Blood Count 2.29 x10^6/uL (4.30-5.70) L Hemoglobin 7.5 g/dL (13.0-17.5) L Hematocrit 22.6 % (39.0-53.0) L Mean Corpuscular Volume 98 fL (79-100) Mean Corpuscular Hemoglobin 33 pg (25-35) Mean Corpuscular Hemoglobin Concent 33 g/dL (31-37) Red Cell Distribution Width 18.4 % (11.5-14.5) H Platelet Count 108 x10^3/uL (140-400) L Neutrophils (%) (Auto) 95 % (31-73) H Lymphocytes (%) (Auto) 4 % (24-48) L Monocytes (%) (Auto) 1 % (0-9) Eosinophils (%) (Auto) 0 % (0-3) Basophils (%) (Auto) 0 % (0-3) Neutrophils # (Auto) 16.8 x10^3/uL (1.8-7.7) H Lymphocytes # (Auto) 0.7 x10^3/uL (1.0-4.8) L Monocytes # (Auto) 0.2 x10^3/uL (0.0-1.1) Eosinophils # (Auto) 0.0 x10^3/uL (0.0-0.7) Basophils # (Auto) 0.0 x10^3/uL (0.0-0.2) Sodium Level 137 mmol/L (136-145) Potassium Level 3.9 mmol/L (3.5-5.1) Chloride Level 98 mmol/L (98-107) Carbon Dioxide Level 26 mmol/L (21-32) Anion Gap 13 (6-14) Blood Urea Nitrogen 34 mg/dL (8-26) H Creatinine 2.8 mg/dL (0.7-1.3) H Estimated GFR (Cockcroft-Gault) 22.1 BUN/Creatinine Ratio 12 (6-20) Glucose Level 136 mg/dL (70-99) H Calcium Level 7.7 mg/dL (8.5-10.1) L Total Bilirubin 8.2 mg/dL (0.2-1.0) H Aspartate Amino Transferase (AST) 295 U/L (15-37) H Alanine Aminotransferase (ALT) 125 U/L (16-63) H Alkaline Phosphatase 213 U/L (46-116) H Total Protein 5.0 g/dL (6.4-8.2) L Albumin 2.5 g/dL (3.4-5.0) L Albumin/Globulin Ratio 1.0 (1.0-1.7) O2 Saturation 89 % (92-99) L Arterial Blood pH 7.46 (7.35-7.45) H Arterial Blood pCO2 at Patient Temp 32 mmHg (35-46) L Arterial Blood pO2 at Patient Temp 58 mmHg (65-108) L Arterial Blood HCO3 23 mmol/L (21-28) Arterial Blood Base Excess -1 mmol/L (-3-3) FiO2 80% (15l nc) Laboratory Tests 08/07/20 06:10 Laboratory Tests 08/07/20 06:10 Meds Current Medications Medications (Trade) Dose Ordered Sig/Samantha Route PRN Reason Start Time Stop Time Status Last Admin Dose Admin Lactobacillus Rhamnosus (Culturelle) 1 cap BID PO 08/06/20 21:00 08/07/20 09:24 Amino Acids/ Glycerin/ Electrolytes 1,000 ml @ 80 mls/hr [id number] IV 08/06/20 10:30 08/06/20 11:39 DC 08/06/20 10:47 Albumin Human 200 ml @ 200 mls/hr 1X PRN PRN IV Hypotension 08/06/20 14:15 08/06/20 20:14 DC 08/06/20 15:27 Assessment Assessment 1. Acute hypotension, multifactorial. 2. Acute kidney injury with chronic kidney disease. 3. Coagulopathy. 4. Acute respiratory failure. 5. Recurrent ventricular tachycardia. 6. Atrial fibrillation. 7. Coronary artery disease. 8. Congestive heart failure with ejection fraction of 40%. 9. Elevated LFTs, possibly shock liver. 10. Recent gastrointestinal bleeding including diverticular and hemorrhoidal bleeding. 11. Aortic root dilatation. 12. Hypoalbuminemia with severe malnutrition. 13. History of pulmonary embolism. 14. Status post total knee arthroplasty. 15. Chronic hypoxic respiratory failure with pulmonary fibrosis, on 3 liters oxygen at night with exertion. 16. Obstructive sleep apnea syndrome, using CPAP. 17. Recent epidural abscess in 03/2020 initially treated with doxycycline, now on cephalexin. 18. Transient ischemic attack. 19. Physical deconditioning. 20. Morbid obesity. 21. Leukocytosis. PLAN: positive blood c/s , gram neg bacteremia. On Zosyn IV BIPAP for resp failure levophed low dose for Hypotension. Just started on dilysis recently ,had 2 dialysis days spoke with RN and pts Charles for nutrition. Admit to Intensive Care Unit. Consult Dr. Farrell for pulmonary evaluation and management, Dr. Sharif for cardiology evaluation and management. Consult Dr. Valladares for GI evaluation and management. Consult Dr. Rodriguez for nephrology evaluation and management. Consult Dr. Boone for hematology evaluation and management. Consult wound care. Consult Dr. Rey Antoine for infectious disease evaluation and management. The patient has been admitted to ICU. Continue Levophed,Vasopressin. Condition and treatment options were discussed with the on the phone this morning and in person here at bedside this evening. Prognosis of this patient is extremely poor. We will give him 3 mg of subcu vitamin K and also give him 2 units of fresh frozen plasma as he is bleeding in several places. He has a dialysis catheter, but as he is very hypotensive he may not be able to get dialysis soon. We will give him 1 unit of blood also and 500 mL of albumin has been ordered by Dr. Farrell. Continue to monitor hemoglobin and hematocrit q.6. Continue IV fluids. For details, please refer to the orders. Acute hypotension-continue pressure support, IV fluids, blood transfusion. Possible sepsis-blood culture showed Pseudomonas aeruginosa on Zosyn. T7-8 discitis Acute kidney injury-start hemodialysis as tolerated. Renal function is improving with dialysis. Urine output is improving.. Acute respiratory failure, history of pulmonary fibrosis-continue oxygen by nasal cannula. Discussed with Dr. Holbrook this morning. He had started him on IV steroids until hypotension is corrected. Discontinue Solu-Medrol as patient is clinically improving. Acute blood loss anemia-blood transfusion. Hemoglobin dropped to 6.8. He was given 2 units of packed red blood cells. Currently hemoglobin is 7.5 patient is still hypotensive and requiring pressure support. Transfuse 1 more unit of packed red cells with dialysis today. Coagulopathy-he is off Eliquis . He received FFP and vitamin K yesterday. Ramp Manager has been consulted. He does not recommend K Centra at this time but consider if major bleeding occurs. GI bleeding-consulted Dr. Valladares. Keep patient n.p.o. for now. He will receive 2 units of packed red cells. Recurrent ventricular tachycardia-AICD was adjusted to detect V. tach at 150/min yesterday. Coreg 3.125 mg twice a day was held yesterday because of hypotension. Patient was also on amiodarone and it was held yesterday. Coronary artery disease amiodarone and statins discontinued due to elevated LFTs and coagulopathy. He should follow-up with an transcription specialist for VT ablation after he gets better. Dilated cardiomyopathy with ejection fraction of 40% Atrial fibrillation-hold anticoagulation for now Tremors-Likely due to renal failure. gabapentin decreased to 100 mg yesterday I will discontinue it for now. Leukocytosis, recent epidural abscess-likely reactive and due to steroids. Antibiotics per ID Clinically improving slowly. Discussed with Dr.Achal Antoine, Dr. Rey Antoine, Dr. Sharif about condition and treatment. Continue IV steroids. Continue treatment in the ICU. Prognosis of this patient is very poor. Condition, treatment and options discussed with Kathleen. Plan Plan For more details regarding further plans, please refer to the orders. Justifications for Admission Other Justification LUCAS BRAGA MD Aug 07, 2020 10:18
--- NOTE | 2020-08-07 10:33 | PDOC ---
DATE OF SERVICE: DOS: DATE: 08/07/20 TIME: 10:28 SUBJECTIVE ROS Follow-up for acute kidney injury Patient appears to be doing much better from the respiratory standpoint CVS: no Orthopnea, no CP RESP: no SOB, no JONES GI: no Nausea, no Vomiting : no Dysuria, no Urgency OBJECTIVE Vital Signs Vital Signs Date Time Temp Pulse Resp B/P (MAP) Pulse Ox O2 Delivery O2 Flow Rate FiO2 08/07/20 10:00 66 37 95/53 (67) 91 Nasal Cannula 15.0 08/07/20 08:00 97.9 97.9 I & 0 Intake and Output 08/07/20 07:00 Intake Total 1537.3 ml Output Total 35 ml Balance 1502.3 ml Intake Oral 580 ml IV Total 957.3 ml Output Urine Total 35 ml # Bowel Movements 3 PHYSICAL EXAM Physical Exam General Appearance: Awake Alert Oriented x 1-2 In mod resp Distress Eyes: VIsion Unchanged Conjunctiva Normal EN: No EN Drainage Mucous Memb. dry on bipap Neck: no JVD no JVP Supple no Thyromegaly, short thick neck CVS: S1 S2 possible murmur No Gallop No Rub +2 Edema Resp: Occasional Rales no rhonchi minimal Acc. Muscle use GI: BAS +ve NO Bruit Non Tender Non Distended, obese abdomen : No CVA tenderness; no Suprapubic Tenderness DIAGNOSIS/ASSESSMENT Assessment & Plan [id number]: Dialysis as below F 180 NR 3.0 Hrs 3 K 2.5 Ca 140 Na 35 HC03 Qb 350 + Qd 500+ Heparin 0 Units Uf 3 Kgs or to dry weight as tolerated Transfuse 1 Unit PRCBC's on HD as ordered May give 25-50 gms of 25% Albumin if needed to maintain Hemodynamic stability Treatment plan reviewed and discussed with technician automatic CKD STAGE 3-CR OF 1.8 AT BASELINE Respiratory distress much improved after ultrafiltration Anasarca: Ultrafiltrate as best tolerated. No significant findings on echo to explain anasarca. T8-T9 DISKITIS-OSTEO: Defer antibiotics to primary team and ID HYPOTENSION: Remains on pressors currently: Precise etiology unclear INCREASED LFT'S: Consider GI evaluation ANEMIA in the setting of renal failure: EPO as ordered continue same Discussed with Dr. Lock and Dr. Seamus Ferguson, at bedside COMMENT/RELEVANT DATA Meds Current Medications Medications (Trade) Dose Ordered Sig/Samantha Start Time Stop Time Status Last Admin Dose Admin Acetaminophen (Tylenol) 650 mg 1X PRN PRN 08/03/20 18:00 08/04/20 17:59 DC Albumin Human 200 ml @ 200 mls/hr 1X PRN PRN 08/06/20 14:15 08/06/20 20:14 DC 08/06/20 15:27 200 MLS/HR Albuterol Sulfate (Ventolin Neb Soln) 2.5 mg PRN Q4HRS PRN 08/03/20 18:45 08/05/20 08:34 2.5 MG Amino Acids/ Glycerin/ Electrolytes 1,000 ml @ 80 mls/hr [id number] 08/06/20 10:30 08/06/20 11:39 DC 08/06/20 10:47 80 MLS/HR Apixaban (Eliquis) 2.5 mg BID 08/05/20 21:00 08/05/20 15:16 DC Darbepoetin Hitesh (ARANESP for DIALYSIS PTS) 60 mcg WEEKLYHS 08/04/20 21:00 08/04/20 21:00 60 MCG Diphenhydramine HCl (Benadryl Oral Elixir) 12.5 mg 1X PRN PRN 08/03/20 18:00 08/04/20 17:59 DC Fentanyl Citrate (Fentanyl 2ml Vial) 25 mcg PRN Q3HRS PRN 08/03/20 18:00 08/06/20 19:21 25 MCG Gabapentin (Neurontin) 100 mg QHS 08/03/20 21:00 08/04/20 10:14 DC Info (PHARMACY MONITORING -- do not chart) 1 each PRN DAILY PRN 08/06/20 14:15 UNV Lactobacillus Rhamnosus (Culturelle) 1 cap BID 08/06/20 21:00 08/07/20 09:24 1 CAP Lidocaine HCl (Lidocaine 1% 20ml Vial) 20 ml 1X ONCE 08/03/20 15:15 08/03/20 15:16 DC 08/03/20 15:09 3 ML Methylprednisolone Sodium Succinate (SOLU-Medrol 125MG VIAL) 100 mg Q8HRS 08/04/20 09:30 08/07/20 06:05 100 MG Norepinephrine Bitartrate 32 mg/ Dextrose 250 ml @ 6.422 mls/ hr CONT PRN 08/03/20 17:15 08/06/20 22:13 17.339 MLS/HR Norepinephrine Bitartrate 8 mg/ Dextrose 258 ml @ 26.51 mls/ hr CONT PRN PRN 08/03/20 13:00 08/04/20 01:32 DC 08/03/20 13:30 26.51 MLS/HR Ondansetron HCl (Zofran) 4 mg PRN Q6HRS PRN 08/03/20 18:45 Pantoprazole Sodium (PROTONIX VIAL for IV PUSH) 40 mg DAILY 08/03/20 18:45 08/07/20 09:24 40 MG Phytonadione (Vitamin K Ampule) 3 mg 1X ONCE 08/03/20 18:00 08/03/20 18:26 DC 08/03/20 18:31 3 MG Piperacillin Sod/ Tazobactam Sod 2.25 gm/Sodium Chloride 50 ml @ 100 mls/hr Q8HRS 08/04/20 14:00 08/07/20 06:04 100 MLS/HR Sodium Bicarbonate 50 meq/Sodium Chloride 1,050 ml @ 75 mls/hr Q14H 08/03/20 20:00 08/06/20 11:39 DC 08/06/20 07:41 75 MLS/HR Sodium Chloride 1,000 ml @ 400 mls/hr Q2H30M PRN 08/06/20 14:04 08/07/20 02:03 DC Sodium Chloride (Normal Saline Flush) 10 ml 1X PRN PRN 08/06/20 14:15 08/07/20 14:14 Vasopressin 20 unit/Dextrose 101 ml @ 12 mls/hr CONT PRN 08/03/20 18:45 08/07/20 06:04 12 MLS/HR Lab Laboratory Tests Test 08/07/20 06:10 08/07/20 08:30 White Blood Count 17.8 x10^3/uL (4.0-11.0) Red Blood Count 2.29 x10^6/uL (4.30-5.70) Hemoglobin 7.5 g/dL (13.0-17.5) Hematocrit 22.6 % (39.0-53.0) Mean Corpuscular Volume 98 fL (79-100) Mean Corpuscular Hemoglobin 33 pg (25-35) Mean Corpuscular Hemoglobin Concent 33 g/dL (31-37) Red Cell Distribution Width 18.4 % (11.5-14.5) Platelet Count 108 x10^3/uL (140-400) Neutrophils (%) (Auto) 95 % (31-73) Lymphocytes (%) (Auto) 4 % (24-48) Monocytes (%) (Auto) 1 % (0-9) Eosinophils (%) (Auto) 0 % (0-3) Basophils (%) (Auto) 0 % (0-3) Neutrophils # (Auto) 16.8 x10^3/uL (1.8-7.7) Lymphocytes # (Auto) 0.7 x10^3/uL (1.0-4.8) Monocytes # (Auto) 0.2 x10^3/uL (0.0-1.1) Eosinophils # (Auto) 0.0 x10^3/uL (0.0-0.7) Basophils # (Auto) 0.0 x10^3/uL (0.0-0.2) Sodium Level 137 mmol/L (136-145) Potassium Level 3.9 mmol/L (3.5-5.1) Chloride Level 98 mmol/L (98-107) Carbon Dioxide Level 26 mmol/L (21-32) Anion Gap 13 (6-14) Blood Urea Nitrogen 34 mg/dL (8-26) Creatinine 2.8 mg/dL (0.7-1.3) Estimated GFR (Cockcroft-Gault) 22.1 BUN/Creatinine Ratio 12 (6-20) Glucose Level 136 mg/dL (70-99) Calcium Level 7.7 mg/dL (8.5-10.1) Total Bilirubin 8.2 mg/dL (0.2-1.0) Aspartate Amino Transf (AST/SGOT) 295 U/L (15-37) Alanine Aminotransferase (ALT/SGPT) 125 U/L (16-63) Alkaline Phosphatase 213 U/L (46-116) Total Protein 5.0 g/dL (6.4-8.2) Albumin 2.5 g/dL (3.4-5.0) Albumin/Globulin Ratio 1.0 (1.0-1.7) O2 Saturation 89 % (92-99) Arterial Blood pH 7.46 (7.35-7.45) Arterial Blood pCO2 at Patient Temp 32 mmHg (35-46) Arterial Blood pO2 at Patient Temp 58 mmHg (65-108) Arterial Blood HCO3 23 mmol/L (21-28) Arterial Blood Base Excess -1 mmol/L (-3-3) FiO2 80% (15l nc) Results All relevant outside records, renal labs, imaging studies, telemetry/EKG's were reviewed. Justicifation of Admission Dx: Justifications for Admission: Justification of Admission Dx: Yes ILANA FERGUSON MD Aug 07, 2020 10:33
[2020-08-07 11:25] LABS: PROTHROMBIN TIME PATIENT 22.7 SEC (11.7-14.0)
--- NOTE | 2020-08-07 12:06 | PDOC ---
PROGRESS NOTES Date of Service: DATE: 08/07/20 TIME: 12:03 Subjective Subjective Off BiPAP, feeling better Objective Objective Vital Signs Date Time Temp Pulse Resp B/P (MAP) Pulse Ox O2 Delivery O2 Flow Rate FiO2 08/07/20 11:30 92 Nasal Cannula 15.0 08/07/20 10:00 66 37 95/53 (67) 08/07/20 08:00 97.9 97.9 Intake and Output 08/07/20 07:00 Intake Total 1537.3 ml Output Total 35 ml Balance 1502.3 ml Intake Oral 580 ml IV Total 957.3 ml Output Urine Total 35 ml # Bowel Movements 3 Physical Exam Physical Exam BIPAP Abdomen: Normal bowel sounds, Soft Heart: Regular rate Extremities: No clubbing, Other (1-2+ pitting edema) HEENT: PERRLA Lungs: Clear to auscultation Neck: Supple Skin: No rashes COMMENT [place] , central line, dialysis cathter Assessment Assessment 1. CORKY on CKD; on hemodialysis per nephrology team 2. Acute on chronic chronic respiratory failure, pulmonary fibrosis, SOA better, off BiPAP. Pulmonary team following. 3. Dilated cardiomyopathy; s/p AICD ([employer]) last reported LVEF 40%. Follows with Dr. Talley with [facility]. Limited echo showed LVEF 50-55% 4. H/o VT; on Amiodarone therapy;patient had 10 min episode of VT 07/10/20 s/p ATP. Rate was near detection zone of 150. No other evidence of VT or shock therapies delivered. Device was interrogated 08/03/20 with normal function. detection zone was lowered. Amiodarone stopped secondary to elevated LFTs. Plan outpatient referral to EP service for possible ablation therapy. 5. Sepsis/hypotension, needing pressor support. Continue antibiotics per ID team. 6. PAFIB; telemetry showed AV paced rhythm. On Eliquis for stroke prophylaxis 7. Anemia, recent GIB; per primary team 8. Elevated LFTs, coagulopathy; 9. Ascending aortic aneurysm; 4.0 cm 10. Severe protein calorie malnutrition 11. H/o PE 12. Morbid obesity, JAZMINE with CPAP 13. Recent epidural abscess; treated with IV antibiotic therapy 14. H/o Non-Hodgkins lymphoma Plan Plan of Care Problems Medical Problems: (1) ARF (acute renal failure) Status: Acute (2) Hypotension Status: Acute (3) Transaminitis Status: Acute Comment Review of Relevant I have reviewed the following items dale (where applicable) has been applied. Labs Laboratory Tests Test 08/07/20 06:10 08/07/20 08:30 08/07/20 10:45 White Blood Count 17.8 x10^3/uL (4.0-11.0) Red Blood Count 2.29 x10^6/uL (4.30-5.70) Hemoglobin 7.5 g/dL (13.0-17.5) Hematocrit 22.6 % (39.0-53.0) Mean Corpuscular Volume 98 fL (79-100) Mean Corpuscular Hemoglobin 33 pg (25-35) Mean Corpuscular Hemoglobin Concent 33 g/dL (31-37) Red Cell Distribution Width 18.4 % (11.5-14.5) Platelet Count 108 x10^3/uL (140-400) Neutrophils (%) (Auto) 95 % (31-73) Lymphocytes (%) (Auto) 4 % (24-48) Monocytes (%) (Auto) 1 % (0-9) Eosinophils (%) (Auto) 0 % (0-3) Basophils (%) (Auto) 0 % (0-3) Neutrophils # (Auto) 16.8 x10^3/uL (1.8-7.7) Lymphocytes # (Auto) 0.7 x10^3/uL (1.0-4.8) Monocytes # (Auto) 0.2 x10^3/uL (0.0-1.1) Eosinophils # (Auto) 0.0 x10^3/uL (0.0-0.7) Basophils # (Auto) 0.0 x10^3/uL (0.0-0.2) Sodium Level 137 mmol/L (136-145) Potassium Level 3.9 mmol/L (3.5-5.1) Chloride Level 98 mmol/L (98-107) Carbon Dioxide Level 26 mmol/L (21-32) Anion Gap 13 (6-14) Blood Urea Nitrogen 34 mg/dL (8-26) Creatinine 2.8 mg/dL (0.7-1.3) Estimated GFR (Cockcroft-Gault) 22.1 BUN/Creatinine Ratio 12 (6-20) Glucose Level 136 mg/dL (70-99) Calcium Level 7.7 mg/dL (8.5-10.1) Total Bilirubin 8.2 mg/dL (0.2-1.0) Aspartate Amino Transf (AST/SGOT) 295 U/L (15-37) Alanine Aminotransferase (ALT/SGPT) 125 U/L (16-63) Alkaline Phosphatase 213 U/L (46-116) Total Protein 5.0 g/dL (6.4-8.2) Albumin 2.5 g/dL (3.4-5.0) Albumin/Globulin Ratio 1.0 (1.0-1.7) O2 Saturation 89 % (92-99) Arterial Blood pH 7.46 (7.35-7.45) Arterial Blood pCO2 at Patient Temp 32 mmHg (35-46) Arterial Blood pO2 at Patient Temp 58 mmHg (65-108) Arterial Blood HCO3 23 mmol/L (21-28) Arterial Blood Base Excess -1 mmol/L (-3-3) FiO2 80% (15l nc) Prothrombin Time 22.7 SEC (11.7-14.0) Prothromb Time International Ratio 2.0 (0.8-1.1) Microbiology 08/04/20 Urine Culture - Final, Complete 08/04/20 Blood Culture - Final, Complete 08/04/20 Antimicrobic Susceptibility - Final, Complete Medications Current Medications Albumin Human 200 ml @ 200 mls/hr 1X PRN PRN IV Hypotension Last administered on 08/06/20at 15:27; Start 08/06/20 at 14:15; Stop 08/06/20 at 20:14; Status DC Info (PHARMACY MONITORING -- do not chart) 1 each PRN DAILY PRN MC SEE COMMENTS; Start 08/06/20 at 14:15; Stop 08/06/20 at 14:09; Status DC Info (PHARMACY MONITORING -- do not chart) 1 each PRN DAILY PRN MC SEE COMMENTS; Start 08/06/20 at 14:15; Status UNV Lactobacillus Rhamnosus (Culturelle) 1 cap BID PO Last administered on 08/07/20at 09:24; Start 08/06/20 at 21:00 Sodium Chloride 1,000 ml @ 400 mls/hr Q2H30M PRN IV PATENCY; Start 08/06/20 at 14:04; Stop 08/07/20 at 02:03; Status DC Sodium Chloride 1,000 ml @ 1,000 mls/hr Q1H PRN IV hypotension; Start 08/06/20 at 14:04; Stop 08/06/20 at 20:03; Status DC Sodium Chloride (Normal Saline Flush) 10 ml 1X PRN PRN IV AP catheter pack; Start 08/06/20 at 14:15; Stop 08/07/20 at 14:14 Sodium Chloride (Normal Saline Flush) 10 ml 1X PRN PRN IV DEVIL DOG catheter pack; Start 08/06/20 at 14:15; Stop 08/07/20 at 14:14 Vitals/I & O Vital Sign - Last 24 Hours 08/06/20 08/06/20 08/06/20 08/06/20 13:00 14:00 15:00 15:46 Pulse 65 68 64 Resp 30 20 21 B/P (MAP) 106/45 (65) 109/45 (66) 91/54 (66) Pulse Ox 97 96 96 96 O2 Delivery BiPAP/CPAP BiPAP/CPAP BiPAP/CPAP BiPAP/CPAP 08/06/20 08/06/20 08/06/20 08/06/20 16:00 16:00 16:55 17:00 Temp 97.6 97.6 Pulse 62 84 Resp 20 18 B/P (MAP) 97/54 (68) 94/70 (78) Pulse Ox 98 97 97 O2 Delivery BiPAP/CPAP Bi-pap BiPAP/CPAP BiPAP/CPAP 08/06/20 08/06/20 08/06/20 08/06/20 18:00 19:00 19:21 19:46 Pulse 76 60 Resp 15 27 22 B/P (MAP) 91/71 (78) 109/45 (66) Pulse Ox 99 96 90 91 O2 Delivery BiPAP/CPAP Nasal Cannula Nasal Cannula Nasal Cannula O2 Flow Rate 7.0 7.0 7.0 08/06/20 08/06/20 08/06/20 08/06/20 20:00 20:00 20:03 21:00 Temp 97.3 97.3 Pulse 60 64 Resp 27 26 30 B/P (MAP) 109/45 (66) 105/55 (72) Pulse Ox 91 97 98 O2 Delivery Nasal Cannula Nasal Cannula Nasal Cannula BiPAP/CPAP O2 Flow Rate 7.0 7.0 7.0 08/06/20 08/06/20 08/06/20 08/07/20 22:00 23:00 23:00 00:00 Temp 98.0 98.0 Pulse 99 64 73 Resp 27 14 16 B/P (MAP) 108/64 (79) 125/119 (121) 106/51 (69) Pulse Ox 96 99 96 95 O2 Delivery BiPAP/CPAP BiPAP/CPAP BiPAP/CPAP BiPAP/CPAP 08/07/20 08/07/20 08/07/20 08/07/20 00:00 01:00 02:00 02:53 Pulse 62 63 Resp 16 18 B/P (MAP) 87/55 (66) 109/53 (71) Pulse Ox 96 93 99 O2 Delivery Bi-pap BiPAP/CPAP BiPAP/CPAP BiPAP/CPAP 08/07/20 08/07/20 08/07/20 08/07/20 03:00 04:00 04:00 05:00 Temp 97.6 97.6 Pulse 69 67 66 Resp 16 28 32 B/P (MAP) 114/79 (91) 84/50 (61) 104/48 (66) Pulse Ox 94 94 94 O2 Delivery BiPAP/CPAP BiPAP/CPAP Bi-pap BiPAP/CPAP 08/07/20 08/07/20 08/07/20 08/07/20 06:00 07:00 08:00 08:00 Temp 97.9 97.9 Pulse 65 66 64 Resp 16 31 35 B/P (MAP) 85/40 (55) 103/47 (65) 100/44 (62) Pulse Ox 91 92 91 O2 Delivery Nasal Cannula BiPAP/CPAP Bi-pap Nasal Cannula O2 Flow Rate 7.0 15.0 08/07/20 08/07/20 08/07/20 08/07/20 08:04 09:00 10:00 11:30 Pulse 62 66 Resp 30 37 B/P (MAP) 106/50 (68) 95/53 (67) Pulse Ox 83 94 91 92 O2 Delivery Nasal Cannula Nasal Cannula Nasal Cannula Nasal Cannula O2 Flow Rate 15.0 15.0 15.0 15.0 Intake and Output0 08/06/20 08/06/20 08/07/20 15:00 23:00 07:00 Intake Total 480 ml 350 ml 707.3 ml Output Total 20 ml 0 ml 15 ml Balance 460 ml 350 ml 692.3 ml FATMATA CARNEY MD Aug 07, 2020 12:06
[2020-08-07] MEDS ORDERED: DIALYSIS PATIENT. MC PRN ×2 (12:15)
--- NOTE | 2020-08-07 22:16 | PDOC ---
PROGRESS NOTES Date of Service DATE: 08/08/20 TIME: 09:13 Subjective Subjective No new symptoms today, respiratory status is improved. No bleeding overnight. Objective Objective Vital Signs Date Time Temp Pulse Resp B/P (MAP) Pulse Ox O2 Delivery O2 Flow Rate FiO2 08/07/20 18:00 73 30 120/72 (88) 90 Nasal Cannula 15.0 08/07/20 16:00 97.6 97.6 Intake and Output 08/07/20 07:00 Intake Total 1587.3 ml Output Total 35 ml Balance 1552.3 ml Intake Oral 580 ml IV Total 1007.3 ml Output Urine Total 35 ml # Bowel Movements 3 Physical Exam Abdomen: Normal bowel sounds, Soft Heart: Regular rate, Other Extremities: No cyanosis General: Alert, Oriented X3 HEENT: Atraumatic Lungs: Clear to auscultation MUSCULOSKELETAL: No swelling Neck: Supple Neuro: Normal speech Psych/Mental Status: Mental status NL Skin: No rashes Assessment Assessment Non-Hodgkin's lymphoma status post chemo immunotherapy completed in January 2019 History of breast cancer, completed adjuvant endocrine therapy History of pulmonary embolism, on Eliquis which is now on hold 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 Initiated on dialysis Acute on chronic normocytic anemia, likely multifactorial secondary to bleeding, chronic inflammation and worsened chronic kidney disease Vertebral osteomyelitis with epidural abscess Plan Plan of Care -Resume Eliquis 2.5 mg BID -Monitor closely for changes in hemodynamic status, drop in Hb, or bleeding -Can consider Andexanet jenise if sudden change in hemodynamic status is noted is noted. Please call [phone] if bloody stools are noted -Continue hemodialysis per nephrology -Checked iron studies, B12, SPEP and free Light Chains for evaluation of anemia -Consider abdominal imaging to further investigate abnormal LFTs. I will defer to Dr. Lock regarding this. -Will request records from Dr Amador Whitlock regarding his NHL hx Drake Lehman MD Medical Oncology/Hematology Ph: [phone] Comment Review of Relevant I have reviewed the following items dale (where applicable) has been applied. Labs Laboratory Tests Test 08/06/20 05:40 08/07/20 06:10 08/07/20 08:30 08/07/20 10:45 White Blood Count 18.1 x10^3/uL (4.0-11.0) 17.8 x10^3/uL (4.0-11.0) Red Blood Count 2.54 x10^6/uL (4.30-5.70) 2.29 x10^6/uL (4.30-5.70) Hemoglobin 8.2 g/dL (13.0-17.5) 7.5 g/dL (13.0-17.5) Hematocrit 24.6 % (39.0-53.0) 22.6 % (39.0-53.0) Mean Corpuscular Volume 97 fL (79-100) 98 fL (79-100) Mean Corpuscular Hemoglobin 32 pg (25-35) 33 pg (25-35) Mean Corpuscular Hemoglobin Concent 33 g/dL (31-37) 33 g/dL (31-37) Red Cell Distribution Width 18.2 % (11.5-14.5) 18.4 % (11.5-14.5) Platelet Count 129 x10^3/uL (140-400) 108 x10^3/uL (140-400) Neutrophils (%) (Auto) 92 % (31-73) 95 % (31-73) Lymphocytes (%) (Auto) 5 % (24-48) 4 % (24-48) Monocytes (%) (Auto) 2 % (0-9) 1 % (0-9) Eosinophils (%) (Auto) 1 % (0-3) 0 % (0-3) Basophils (%) (Auto) 0 % (0-3) 0 % (0-3) Neutrophils # (Auto) 16.5 x10^3/uL (1.8-7.7) 16.8 x10^3/uL (1.8-7.7) Lymphocytes # (Auto) 1.0 x10^3/uL (1.0-4.8) 0.7 x10^3/uL (1.0-4.8) Monocytes # (Auto) 0.3 x10^3/uL (0.0-1.1) 0.2 x10^3/uL (0.0-1.1) Eosinophils # (Auto) 0.2 x10^3/uL (0.0-0.7) 0.0 x10^3/uL (0.0-0.7) Basophils # (Auto) 0.0 x10^3/uL (0.0-0.2) 0.0 x10^3/uL (0.0-0.2) Prothrombin Time 22.1 SEC (11.7-14.0) 22.7 SEC (11.7-14.0) Prothromb Time International Ratio 2.0 (0.8-1.1) 2.0 (0.8-1.1) Sodium Level 135 mmol/L (136-145) 137 mmol/L (136-145) Potassium Level 3.9 mmol/L (3.5-5.1) 3.9 mmol/L (3.5-5.1) Chloride Level 95 mmol/L (98-107) 98 mmol/L (98-107) Carbon Dioxide Level 26 mmol/L (21-32) 26 mmol/L (21-32) Anion Gap 14 (6-14) 13 (6-14) Blood Urea Nitrogen 46 mg/dL (8-26) 34 mg/dL (8-26) Creatinine 3.2 mg/dL (0.7-1.3) 2.8 mg/dL (0.7-1.3) Estimated GFR (Cockcroft-Gault) 18.9 22.1 BUN/Creatinine Ratio 14 (6-20) 12 (6-20) Glucose Level 157 mg/dL (70-99) 136 mg/dL (70-99) Calcium Level 7.3 mg/dL (8.5-10.1) 7.7 mg/dL (8.5-10.1) Total Bilirubin 7.3 mg/dL (0.2-1.0) 8.2 mg/dL (0.2-1.0) Aspartate Amino Transf (AST/SGOT) 324 U/L (15-37) 295 U/L (15-37) Alanine Aminotransferase (ALT/SGPT) 124 U/L (16-63) 125 U/L (16-63) Alkaline Phosphatase 246 U/L (46-116) 213 U/L (46-116) Total Protein 5.3 g/dL (6.4-8.2) 5.0 g/dL (6.4-8.2) Albumin 2.5 g/dL (3.4-5.0) 2.5 g/dL (3.4-5.0) Albumin/Globulin Ratio 0.9 (1.0-1.7) 1.0 (1.0-1.7) O2 Saturation 89 % (92-99) Arterial Blood pH 7.46 (7.35-7.45) Arterial Blood pCO2 at Patient Temp 32 mmHg (35-46) Arterial Blood pO2 at Patient Temp 58 mmHg (65-108) Arterial Blood HCO3 23 mmol/L (21-28) Arterial Blood Base Excess -1 mmol/L (-3-3) FiO2 80% (15l nc) Laboratory Tests Test 08/07/20 06:10 08/07/20 08:30 08/07/20 10:45 White Blood Count 17.8 x10^3/uL (4.0-11.0) Red Blood Count 2.29 x10^6/uL (4.30-5.70) Hemoglobin 7.5 g/dL (13.0-17.5) Hematocrit 22.6 % (39.0-53.0) Mean Corpuscular Volume 98 fL (79-100) Mean Corpuscular Hemoglobin 33 pg (25-35) Mean Corpuscular Hemoglobin Concent 33 g/dL (31-37) Red Cell Distribution Width 18.4 % (11.5-14.5) Platelet Count 108 x10^3/uL (140-400) Neutrophils (%) (Auto) 95 % (31-73) Lymphocytes (%) (Auto) 4 % (24-48) Monocytes (%) (Auto) 1 % (0-9) Eosinophils (%) (Auto) 0 % (0-3) Basophils (%) (Auto) 0 % (0-3) Neutrophils # (Auto) 16.8 x10^3/uL (1.8-7.7) Lymphocytes # (Auto) 0.7 x10^3/uL (1.0-4.8) Monocytes # (Auto) 0.2 x10^3/uL (0.0-1.1) Eosinophils # (Auto) 0.0 x10^3/uL (0.0-0.7) Basophils # (Auto) 0.0 x10^3/uL (0.0-0.2) Sodium Level 137 mmol/L (136-145) Potassium Level 3.9 mmol/L (3.5-5.1) Chloride Level 98 mmol/L (98-107) Carbon Dioxide Level 26 mmol/L (21-32) Anion Gap 13 (6-14) Blood Urea Nitrogen 34 mg/dL (8-26) Creatinine 2.8 mg/dL (0.7-1.3) Estimated GFR (Cockcroft-Gault) 22.1 BUN/Creatinine Ratio 12 (6-20) Glucose Level 136 mg/dL (70-99) Calcium Level 7.7 mg/dL (8.5-10.1) Total Bilirubin 8.2 mg/dL (0.2-1.0) Aspartate Amino Transf (AST/SGOT) 295 U/L (15-37) Alanine Aminotransferase (ALT/SGPT) 125 U/L (16-63) Alkaline Phosphatase 213 U/L (46-116) Total Protein 5.0 g/dL (6.4-8.2) Albumin 2.5 g/dL (3.4-5.0) Albumin/Globulin Ratio 1.0 (1.0-1.7) O2 Saturation 89 % (92-99) Arterial Blood pH 7.46 (7.35-7.45) Arterial Blood pCO2 at Patient Temp 32 mmHg (35-46) Arterial Blood pO2 at Patient Temp 58 mmHg (65-108) Arterial Blood HCO3 23 mmol/L (21-28) Arterial Blood Base Excess -1 mmol/L (-3-3) FiO2 80% (15l nc) Prothrombin Time 22.7 SEC (11.7-14.0) Prothromb Time International Ratio 2.0 (0.8-1.1) Microbiology 08/04/20 Urine Culture - Final, Complete 08/04/20 Blood Culture - Final, Complete 08/04/20 Antimicrobic Susceptibility - Final, Complete Medications Current Medications Norepinephrine Bitartrate 8 mg/ Dextrose 258 ml @ 26.51 mls/ hr CONT PRN PRN IV ELEVATED BP, SEE COMMENTS Last administered on 08/03/20at 13:30; Start 08/03/20 at 13:00; Stop 08/04/20 at 01:32; Status DC Sodium Chloride 1,000 ml @ 1,000 mls/hr 1X ONCE IV Last administered on 08/03/20at 14:40; Start 08/03/20 at 14:15; Stop 08/03/20 at 15:14; Status DC Lidocaine HCl (Lidocaine 1% 20ml Vial) 20 ml STK-MED ONCE .ROUTE ; Start 08/03/20 at 14:55; Stop 08/03/20 at 14:56; Status DC Lidocaine HCl (Lidocaine 1% 20ml Vial) 20 ml 1X ONCE INJ Last administered on 08/03/20at 15:09; Start 08/03/20 at 15:15; Stop 08/03/20 at 15:16; Status DC Albumin Human 500 ml @ 125 mls/hr 1X ONCE IV Last administered on 08/03/20at 18:39; Start 08/03/20 at 17:00; Stop 08/03/20 at 20:59; Status DC Norepinephrine Bitartrate 32 mg/ Dextrose 250 ml @ 6.422 mls/ hr CONT PRN IV SEE I/O RECORD Last administered on 08/06/20at 22:13; Start 08/03/20 at 17:15 Sodium Chloride 1,000 ml @ 1,000 mls/hr Q1H PRN IV hypotension; Start 08/03/20 at 17:18; Stop 08/03/20 at 23:17; Status DC Albumin Human 200 ml @ 200 mls/hr 1X PRN PRN IV Hypotension; Start 08/03/20 at 17:30; Stop 08/03/20 at 23:29; Status DC Sodium Chloride (Normal Saline Flush) 10 ml 1X PRN PRN IV AP catheter pack; Start 08/03/20 at 17:30; Stop 08/04/20 at 17:29; Status DC Sodium Chloride (Normal Saline Flush) 10 ml 1X PRN PRN IV WHEEL OF FORTUNE DEALER catheter pack; Start 08/03/20 at 17:30; Stop 08/04/20 at 17:29; Status DC Sodium Chloride 1,000 ml @ 400 mls/hr Q2H30M PRN IV PATENCY; Start 08/03/20 at 17:18; Stop 08/04/20 at 05:17; Status DC Info (PHARMACY MONITORING -- do not chart) 1 each PRN DAILY PRN MC SEE COMMENTS; Start 08/03/20 at 17:30; Stop 08/03/20 at 19:28; Status DC Info (PHARMACY MONITORING -- do not chart) 1 each PRN DAILY PRN MC SEE COMMENTS; Start 08/03/20 at 17:30; Stop 08/06/20 at 07:55; Status DC Fentanyl Citrate (Fentanyl 2ml Vial) 25 mcg PRN Q3HRS PRN IVP PAIN Last administered on 08/06/20at 19:21; Start 08/03/20 at 18:00 Phytonadione (Vitamin K Ampule) 3 mg 1X ONCE SQ Last administered on 08/03/20at 18:31; Start 08/03/20 at 18:00; Stop 08/03/20 at 18:26; Status DC Acetaminophen (Tylenol) 650 mg 1X PRN PRN PO PRE-TRANSFUSION; Start 08/03/20 at 18:00; Stop 08/04/20 at 17:59; Status DC Diphenhydramine HCl (Benadryl Oral Elixir) 12.5 mg 1X PRN PRN PO PRE- TRANSFUSION; Start 08/03/20 at 18:00; Stop 08/04/20 at 17:59; Status DC Vasopressin 20 unit/Dextrose 101 ml @ 12 mls/hr CONT PRN IV SEE I/O RECORD Last administered on 08/07/20at 20:20; Start 08/03/20 at 18:45 Pantoprazole Sodium (PROTONIX VIAL for IV PUSH) 40 mg DAILY IVP Last administered on 08/07/20at 09:24; Start 08/03/20 at 18:45 Gabapentin (Neurontin) 100 mg QHS PO ; Start 08/03/20 at 21:00; Stop 08/04/20 at 10:14; Status DC Albuterol Sulfate (Ventolin Neb Soln) 2.5 mg PRN Q4HRS PRN NEB SHORTNESS OF BREATH Last administered on 08/05/20at 08:34; Start 08/03/20 at 18:45 Ondansetron HCl (Zofran) 4 mg PRN Q6HRS PRN IVP NAUSEA/VOMITING; Start 08/03/20 at 18:45 Sodium Bicarbonate 50 meq/Sodium Chloride 1,050 ml @ 75 mls/hr Q14H IV Last administered on 08/06/20at 07:41; Start 08/03/20 at 20:00; Stop 08/06/20 at 11:39; Status DC Methylprednisolone Sodium Succinate (SOLU-Medrol 125MG VIAL) 100 mg Q8HRS IV Last administered on 08/07/20at 16:21; Start 08/04/20 at 09:30 Sodium Chloride 250 ml @ 250 mls/hr 1X ONCE IV Last administered on 08/04/20at 11:43; Start 08/04/20 at 11:30; Stop 08/04/20 at 12:29; Status DC Darbepoetin Jenise (ARANESP for DIALYSIS PTS) 60 mcg WEEKLYHS SQ Last administered on 08/04/20at 21:00; Start 08/04/20 at 21:00 Piperacillin Sod/ Tazobactam Sod 2.25 gm/Sodium Chloride 50 ml @ 100 mls/hr Q8HRS IV Last administered on 08/07/20at 16:21; Start 08/04/20 at 14:00 Sodium Chloride 1,000 ml @ 1,000 mls/hr Q1H PRN IV hypotension; Start 08/05/20 at 08:20; Stop 08/05/20 at 14:19; Status DC Albumin Human 200 ml @ 200 mls/hr 1X PRN PRN IV Hypotension Last administered on 08/05/20at 09:42; Start 08/05/20 at 08:30; Stop 08/05/20 at 14:29; Status DC Sodium Chloride 1,000 ml @ 400 mls/hr Q2H30M PRN IV PATENCY; Start 08/05/20 at 08:20; Stop 08/05/20 at 20:19; Status DC Info (PHARMACY MONITORING -- do not chart) 1 each PRN DAILY PRN MC SEE COMMENTS; Start 08/05/20 at 08:30; Stop 08/06/20 at 07:55; Status DC Info (PHARMACY MONITORING -- do not chart) 1 each PRN DAILY PRN MC SEE COMMENTS; Start 08/05/20 at 08:30; Stop 08/07/20 at 14:28; Status DC Apixaban (Eliquis) 2.5 mg BID PO ; Start 08/05/20 at 21:00; Stop 08/05/20 at 15:16; Status DC Lactobacillus Rhamnosus (Culturelle) 1 cap BID PO Last administered on 08/07/20at 20:32; Start 08/06/20 at 21:00 Amino Acids/ Glycerin/ Electrolytes 1,000 ml @ 80 mls/hr [id number] IV Last administered on 08/06/20at 10:47; Start 08/06/20 at 10:30; Stop 08/06/20 at 11:39; Status DC Sodium Chloride 1,000 ml @ 1,000 mls/hr Q1H PRN IV hypotension; Start 08/06/20 at 14:04; Stop 08/06/20 at 20:03; Status DC Albumin Human 200 ml @ 200 mls/hr 1X PRN PRN IV Hypotension Last administered on 08/06/20at 15:27; Start 08/06/20 at 14:15; Stop 08/06/20 at 20:14; Status DC Sodium Chloride (Normal Saline Flush) 10 ml 1X PRN PRN IV AP catheter pack; Start 08/06/20 at 14:15; Stop 08/07/20 at 14:14; Status DC Sodium Chloride (Normal Saline Flush) 10 ml 1X PRN PRN IV WHEEL OF FORTUNE DEALER catheter pack; Start 08/06/20 at 14:15; Stop 08/07/20 at 14:14; Status DC Sodium Chloride 1,000 ml @ 400 mls/hr Q2H30M PRN IV PATENCY; Start 08/06/20 at 14:04; Stop 08/07/20 at 02:03; Status DC Info (PHARMACY MONITORING -- do not chart) 1 each PRN DAILY PRN MC SEE COMMENTS; Start 08/06/20 at 14:15; Stop 08/06/20 at 14:09; Status DC Info (PHARMACY MONITORING -- do not chart) 1 each PRN DAILY PRN MC SEE COMMENTS; Start 08/06/20 at 14:15; Status UNV Info (PHARMACY MONITORING -- do not chart) 1 each PRN DAILY PRN MC SEE COMMENTS; Start 08/07/20 at 12:15; Stop 08/07/20 at 14:28; Status DC Info (PHARMACY MONITORING -- do not chart) 1 each PRN DAILY PRN MC SEE COMMENTS; Start 08/07/20 at 12:15 Vitals/I & O Vital Sign - Last 24 Hours 08/06/20 08/06/20 08/07/20 08/07/20 23:00 23:00 00:00 00:00 Temp 98.0 98.0 Pulse 64 73 Resp 14 16 B/P (MAP) 125/119 (121) 106/51 (69) Pulse Ox 99 96 95 O2 Delivery BiPAP/CPAP BiPAP/CPAP BiPAP/CPAP Bi-pap 08/07/20 08/07/20 08/07/20 08/07/20 01:00 02:00 02:53 03:00 Pulse 62 63 69 Resp 16 18 16 B/P (MAP) 87/55 (66) 109/53 (71) 114/79 (91) Pulse Ox 96 93 99 94 O2 Delivery BiPAP/CPAP BiPAP/CPAP BiPAP/CPAP BiPAP/CPAP 08/07/20 08/07/20 08/07/20 08/07/20 04:00 04:00 05:00 06:00 Temp 97.6 97.6 Pulse 67 66 65 Resp 28 32 16 B/P (MAP) 84/50 (61) 104/48 (66) 85/40 (55) Pulse Ox 94 94 91 O2 Delivery BiPAP/CPAP Bi-pap BiPAP/CPAP Nasal Cannula O2 Flow Rate 7.0 08/07/20 08/07/20 08/07/20 08/07/20 07:00 08:00 08:00 08:04 Temp 97.9 97.9 Pulse 66 64 Resp 31 35 B/P (MAP) 103/47 (65) 100/44 (62) Pulse Ox 92 91 83 O2 Delivery BiPAP/CPAP Bi-pap Nasal Cannula Nasal Cannula O2 Flow Rate 15.0 15.0 08/07/20 08/07/20 08/07/20 08/07/20 09:00 10:00 11:00 11:30 Pulse 62 66 68 Resp 30 37 25 B/P (MAP) 106/50 (68) 95/53 (67) 102/62 (75) Pulse Ox 94 91 94 92 O2 Delivery Nasal Cannula Nasal Cannula Nasal Cannula Nasal Cannula O2 Flow Rate 15.0 15.0 15.0 15.0 08/07/20 08/07/20 08/07/20 08/07/20 12:00 12:00 13:00 13:54 Temp 97.7 94.9 97.7 94.9 Pulse 66 66 68 Resp 32 22 28 B/P (MAP) 107/66 (80) 107/66 (80) 102/61 Pulse Ox 91 97 O2 Delivery Nasal Cannula Nasal Cannula Nasal Cannula O2 Flow Rate 15.0 15.0 15.0 08/07/20 08/07/20 08/07/20 10/18/20 14:00 14:06 15:00 16:00 Temp 96.7 96.7 Pulse 73 71 72 Resp 24 30 24 B/P (MAP) 128/65 (86) 131/68 119/54 (75) Pulse Ox 92 93 O2 Delivery Nasal Cannula Nasal Cannula Nasal Cannula O2 Flow Rate 15.0 15.0 15.0 08/07/20 08/07/20 08/07/20 08/07/20 16:00 16:00 17:00 18:00 Temp 97.6 97.6 Pulse 76 75 73 Resp 26 30 30 B/P (MAP) 104/64 (77) 116/72 (87) 120/72 (88) Pulse Ox 93 92 90 O2 Delivery Nasal Cannula Nasal Cannula Nasal Cannula O2 Flow Rate 15.0 15.0 15.0 15.0 Intake and Output 08/06/20 08/06/20 08/07/20 15:00 23:00 07:00 Intake Total 480 ml 350 ml 757.3 ml Output Total 20 ml 0 ml 15 ml Balance 460 ml 350 ml 742.3 ml Justifications for Admission Other Justification RACHELE LEHMAN MD Aug 07, 2020 22:16
[2020-08-07] MEDS: NOREPINEPHRINE VIAL 32 MG in IV D5W 250ML IV PRN (22:55)
[2020-08-08] VITALS (14 sets, daily range): BP systolic 70–114; BP diastolic 45–78
[2020-08-08] MEDS: VASOPRESSIN 20 UNIT in IV DEXTROSE 5% 100ML 100 ML IV PRN ×2 (05:59→13:55)
[2020-08-08] MEDS: PIPERACILLIN/TAZOBACTAM 2.25 GM in IV NORMAL SALINE 50ML 50 ML IV SCH (06:05)
[2020-08-08] MEDS: methylPREDNISolone SOD SUCC PF 125 MG/2 ML VIAL. IV SCH ×2 (06:06→14:04)
[2020-08-08 06:53] LABS: BASO % 0 % (0-3); EOS % 0 % (0-3); HEMATOCRIT 26.5 % (39.0-53.0); LYMPH # 0.8 x10^3/uL (1.0-4.8); LYMPH % 4 % (24-48); MEAN CORPUSCULAR HEMOGLOBIN 33 pg (25-35); MEAN CORPUSCULAR HGB CONC 34 g/dL (31-37); MEAN CORPUSCULAR VOLUME 96 fL (79-100); MONO # 0.2 x10^3/uL (0.0-1.1); MONO % 1 % (0-9); NEUT # 21.8 x10^3/uL (1.8-7.7); NEUT % 96 % (31-73); PLATELET COUNT 134 x10^3/uL (140-400); RED BLOOD COUNT 2.76 x10^6/uL (4.30-5.70); RED CELL DISTRIBUTION WIDTH 18.8 % (11.5-14.5); WHITE BLOOD COUNT 22.8 x10^3/uL (4.0-11.0)
[2020-08-08 07:11] LABS: PROTHROMBIN TIME PATIENT 20.4 SEC (11.7-14.0)
--- NOTE | 2020-08-08 07:41 | PDOC ---
Infectious Disease Note Subjective Subjective Patient is awake he is feeling better, on bipap ROS ROS no n/v/d/fever Vital Sign Vital Signs Vital Signs Date Time Temp Pulse Resp B/P (MAP) Pulse Ox O2 Delivery O2 Flow Rate FiO2 08/08/20 06:00 74 22 100/58 (72) 92 BiPAP/CPAP 08/08/20 04:00 97.2 97.2 08/07/20 23:00 15.0 Physical Exam PHYSICAL EXAM GENERAL: Awake gentleman, not in any distress. VITAL SIGNS: Stable, The patient is on vasopressor support. HEENT: Both pupils are round and reacting. No conjunctival lesion. Oral; the patient has dry blood in the mouth, on the tongue and palate, on the lips. NECK: Supple, no JVP, no lymphadenopathy. LUNGS: Decreased breath sounds bilaterally. HEART: S1, S2 regular. No gallop. ABDOMEN: Soft, nontender, no organomegaly. EXTREMITIES: No edema or cyanosis. The patient does have some bleeding under the skin, around the neck, and upper extremities. NEUROLOGIC: The patient is alert, awake, able to communicate and able to move all the extremities. No focal deficit. Labs Lab Laboratory Tests Test 08/07/20 08:30 08/07/20 10:45 08/08/20 06:15 O2 Saturation 89 % (92-99) Arterial Blood pH 7.46 (7.35-7.45) Arterial Blood pCO2 at Patient Temp 32 mmHg (35-46) Arterial Blood pO2 at Patient Temp 58 mmHg (65-108) Arterial Blood HCO3 23 mmol/L (21-28) Arterial Blood Base Excess -1 mmol/L (-3-3) FiO2 80% (15l nc) Prothrombin Time 22.7 SEC (11.7-14.0) 20.4 SEC (11.7-14.0) Prothromb Time International Ratio 2.0 (0.8-1.1) 1.8 (0.8-1.1) White Blood Count 22.8 x10^3/uL (4.0-11.0) Red Blood Count 2.76 x10^6/uL (4.30-5.70) Hemoglobin 9.0 g/dL (13.0-17.5) Hematocrit 26.5 % (39.0-53.0) Mean Corpuscular Volume 96 fL (79-100) Mean Corpuscular Hemoglobin 33 pg (25-35) Mean Corpuscular Hemoglobin Concent 34 g/dL (31-37) Red Cell Distribution Width 18.8 % (11.5-14.5) Platelet Count 134 x10^3/uL (140-400) Neutrophils (%) (Auto) 96 % (31-73) Lymphocytes (%) (Auto) 4 % (24-48) Monocytes (%) (Auto) 1 % (0-9) Eosinophils (%) (Auto) 0 % (0-3) Basophils (%) (Auto) 0 % (0-3) Neutrophils # (Auto) 21.8 x10^3/uL (1.8-7.7) Lymphocytes # (Auto) 0.8 x10^3/uL (1.0-4.8) Monocytes # (Auto) 0.2 x10^3/uL (0.0-1.1) Eosinophils # (Auto) 0.0 x10^3/uL (0.0-0.7) Basophils # (Auto) 0.0 x10^3/uL (0.0-0.2) Micro BLOOD CULTURE LC Final Final GRAM NEGATIVE RODS FINAL ID= [PSEUDOMONAS AERUGINOSA] PSEUDOMONAS AERUGINOSA ANTIMICROBIAL SUSCEPTIBILITY Final Comment NEG LEYDI 56 PSEUDOMONAS AERUGINOSA ANTIBIOTIC RESULT INTERPRETATION AMIKACIN <=16 S AZTREONAM <=4 S CEFTAZIDIME 4 S CIPROFLOXACIN <=0.25 S CEFEPIME 4 S CEFTAZIDIME/AVIBACTAM <=4 S GENTAMICIN 4 S LEVOFLOXACIN <=0.5 S MEROPENEM <=1 S PIPERACILLIN/TAZOBACTAM <=8 S TOBRAMYCIN <=2 S Unless otherwise specified, Testing Performed by: [address] [id number] For Inquires, the Physician may contact the Microbiology department at [phone] Objective Assessment IMPRESSION: 1. Leukocytosis, it is possible it is reactive. It is possible that it may have infection, most recent infection was T8-T9 diskitis and osteomyelitis. 2. T8-T9 diskitis and osteomyelitis with small epidural abscess, completed 6 weeks of ceftriaxone and on a chronic suppressive Keflex, was planned to give for 6 months. 3. Hypotension with acute kidney injury, etiology to be determined. 4. Elevated liver function tests secondary to hypotension. 5. History of staphylococcal lugdunensis oxacillin sensitive bacteremia. 6. Acute kidney injury on top of a chronic renal insufficiency. 7. Cardiac arrhythmia. The patient does have AICD in place. 8. Pulmonary fibrosis. 9. Morbid obesity. 10. Congestive heart failure. 11. Hypotension. 12 PSA bacteremia Plan Plan of Care Continue Zosyn Follow the cultures Supportive care Dialysis Discussed with patient's in detail d/w Dr Ashvin FERGUSON,KEITH Newell MD Aug 08, 2020 07:41
[2020-08-08 08:23] LABS: ALBUMIN 2.5 g/dL (3.4-5.0); ALBUMIN/GLOBULIN RATIO 0.9 (1.0-1.7); CREATININE 2.6 mg/dL (0.7-1.3); GFR 24.1; POTASSIUM 3.6 mmol/L (3.5-5.1); TOTAL BILIRUBIN 11.1 mg/dL (0.2-1.0); TOTAL PROTEIN 5.3 g/dL (6.4-8.2)
--- NOTE | 2020-08-08 08:33 | PDOC ---
PULMONARY PROGRESS NOTES DATE: 08/08/20 TIME: 08:33 Subjective had HD yesterday, on 02 15 lpm, sob better, has occ cough, is tired on levo and vaso Vitals Vital Signs Date Time Temp Pulse Resp B/P (MAP) Pulse Ox O2 Delivery O2 Flow Rate FiO2 08/08/20 08:17 Bi-pap 08/08/20 08:00 97.2 74 25 104/45 (64) 92 97.2 08/08/20 07:56 15.0 Comments ros as mentioned as above other sys otherwise neg ROS: No Nausea General: Alert HEENT: Other (nc at perrl shallow oropharynx nose clear neck no lad no thyromegaly) Lungs: Crackles Cardiovascular: S1, S2 Abdomen: Soft, Non-tender, Other (no mass) Neuro Exam: Alert Extremities: Other (edema +2) Skin: Warm, Dry Labs Laboratory Tests Test 08/07/20 06:10 08/07/20 08:30 08/07/20 10:45 08/08/20 06:15 White Blood Count 17.8 x10^3/uL (4.0-11.0) 22.8 x10^3/uL (4.0-11.0) Red Blood Count 2.29 x10^6/uL (4.30-5.70) 2.76 x10^6/uL (4.30-5.70) Hemoglobin 7.5 g/dL (13.0-17.5) 9.0 g/dL (13.0-17.5) Hematocrit 22.6 % (39.0-53.0) 26.5 % (39.0-53.0) Mean Corpuscular Volume 98 fL (79-100) 96 fL (79-100) Mean Corpuscular Hemoglobin 33 pg (25-35) 33 pg (25-35) Mean Corpuscular Hemoglobin Concent 33 g/dL (31-37) 34 g/dL (31-37) Red Cell Distribution Width 18.4 % (11.5-14.5) 18.8 % (11.5-14.5) Platelet Count 108 x10^3/uL (140-400) 134 x10^3/uL (140-400) Neutrophils (%) (Auto) 95 % (31-73) 96 % (31-73) Lymphocytes (%) (Auto) 4 % (24-48) 4 % (24-48) Monocytes (%) (Auto) 1 % (0-9) 1 % (0-9) Eosinophils (%) (Auto) 0 % (0-3) 0 % (0-3) Basophils (%) (Auto) 0 % (0-3) 0 % (0-3) Neutrophils # (Auto) 16.8 x10^3/uL (1.8-7.7) 21.8 x10^3/uL (1.8-7.7) Lymphocytes # (Auto) 0.7 x10^3/uL (1.0-4.8) 0.8 x10^3/uL (1.0-4.8) Monocytes # (Auto) 0.2 x10^3/uL (0.0-1.1) 0.2 x10^3/uL (0.0-1.1) Eosinophils # (Auto) 0.0 x10^3/uL (0.0-0.7) 0.0 x10^3/uL (0.0-0.7) Basophils # (Auto) 0.0 x10^3/uL (0.0-0.2) 0.0 x10^3/uL (0.0-0.2) Sodium Level 137 mmol/L (136-145) Potassium Level 3.9 mmol/L (3.5-5.1) Chloride Level 98 mmol/L (98-107) Carbon Dioxide Level 26 mmol/L (21-32) Anion Gap 13 (6-14) Blood Urea Nitrogen 34 mg/dL (8-26) Creatinine 2.8 mg/dL (0.7-1.3) Estimated GFR (Cockcroft-Gault) 22.1 BUN/Creatinine Ratio 12 (6-20) Glucose Level 136 mg/dL (70-99) Calcium Level 7.7 mg/dL (8.5-10.1) Total Bilirubin 8.2 mg/dL (0.2-1.0) Aspartate Amino Transf (AST/SGOT) 295 U/L (15-37) Alanine Aminotransferase (ALT/SGPT) 125 U/L (16-63) Alkaline Phosphatase 213 U/L (46-116) Total Protein 5.0 g/dL (6.4-8.2) Albumin 2.5 g/dL (3.4-5.0) Albumin/Globulin Ratio 1.0 (1.0-1.7) O2 Saturation 89 % (92-99) Arterial Blood pH 7.46 (7.35-7.45) Arterial Blood pCO2 at Patient Temp 32 mmHg (35-46) Arterial Blood pO2 at Patient Temp 58 mmHg (65-108) Arterial Blood HCO3 23 mmol/L (21-28) Arterial Blood Base Excess -1 mmol/L (-3-3) FiO2 80% (15l nc) Prothrombin Time 22.7 SEC (11.7-14.0) 20.4 SEC (11.7-14.0) Prothromb Time International Ratio 2.0 (0.8-1.1) 1.8 (0.8-1.1) Test 08/08/20 07:50 Sodium Level 136 mmol/L (136-145) Potassium Level 3.6 mmol/L (3.5-5.1) Chloride Level 97 mmol/L (98-107) Carbon Dioxide Level 24 mmol/L (21-32) Anion Gap 15 (6-14) Blood Urea Nitrogen 28 mg/dL (8-26) Creatinine 2.6 mg/dL (0.7-1.3) Estimated GFR (Cockcroft-Gault) 24.1 BUN/Creatinine Ratio 11 (6-20) Glucose Level 151 mg/dL (70-99) Calcium Level 8.0 mg/dL (8.5-10.1) Total Bilirubin 11.1 mg/dL (0.2-1.0) Aspartate Amino Transf (AST/SGOT) 301 U/L (15-37) Alanine Aminotransferase (ALT/SGPT) 134 U/L (16-63) Alkaline Phosphatase 233 U/L (46-116) Total Protein 5.3 g/dL (6.4-8.2) Albumin 2.5 g/dL (3.4-5.0) Albumin/Globulin Ratio 0.9 (1.0-1.7) Laboratory Tests Test 08/07/20 10:45 08/08/20 06:15 08/08/20 07:50 Prothrombin Time 22.7 SEC (11.7-14.0) 20.4 SEC (11.7-14.0) Prothromb Time International Ratio 2.0 (0.8-1.1) 1.8 (0.8-1.1) White Blood Count 22.8 x10^3/uL (4.0-11.0) Red Blood Count 2.76 x10^6/uL (4.30-5.70) Hemoglobin 9.0 g/dL (13.0-17.5) Hematocrit 26.5 % (39.0-53.0) Mean Corpuscular Volume 96 fL (79-100) Mean Corpuscular Hemoglobin 33 pg (25-35) Mean Corpuscular Hemoglobin Concent 34 g/dL (31-37) Red Cell Distribution Width 18.8 % (11.5-14.5) Platelet Count 134 x10^3/uL (140-400) Neutrophils (%) (Auto) 96 % (31-73) Lymphocytes (%) (Auto) 4 % (24-48) Monocytes (%) (Auto) 1 % (0-9) Eosinophils (%) (Auto) 0 % (0-3) Basophils (%) (Auto) 0 % (0-3) Neutrophils # (Auto) 21.8 x10^3/uL (1.8-7.7) Lymphocytes # (Auto) 0.8 x10^3/uL (1.0-4.8) Monocytes # (Auto) 0.2 x10^3/uL (0.0-1.1) Eosinophils # (Auto) 0.0 x10^3/uL (0.0-0.7) Basophils # (Auto) 0.0 x10^3/uL (0.0-0.2) Sodium Level 136 mmol/L (136-145) Potassium Level 3.6 mmol/L (3.5-5.1) Chloride Level 97 mmol/L (98-107) Carbon Dioxide Level 24 mmol/L (21-32) Anion Gap 15 (6-14) Blood Urea Nitrogen 28 mg/dL (8-26) Creatinine 2.6 mg/dL (0.7-1.3) Estimated GFR (Cockcroft-Gault) 24.1 BUN/Creatinine Ratio 11 (6-20) Glucose Level 151 mg/dL (70-99) Calcium Level 8.0 mg/dL (8.5-10.1) Total Bilirubin 11.1 mg/dL (0.2-1.0) Aspartate Amino Transf (AST/SGOT) 301 U/L (15-37) Alanine Aminotransferase (ALT/SGPT) 134 U/L (16-63) Alkaline Phosphatase 233 U/L (46-116) Total Protein 5.3 g/dL (6.4-8.2) Albumin 2.5 g/dL (3.4-5.0) Albumin/Globulin Ratio 0.9 (1.0-1.7) Comments CXR reviewed, 08/06 Interval increase in the bilateral perihilar infiltrates. Impression . IMPRESSION: 1. acute on Chronic hypoxic respiratory failure. multifactorial in etiology, at home on 3 liters of oxygen now on bipap 2. The patient with history of pulmonary embolism in 2018. Likely hypercoagulable state from underlying non-Hodgkin's lymphoma and breast cancer. He has been on Eliquis since then. He has no DVT. He had epistaxis , resolved. His venous Doppler done 2 days ago, did not show any DVT as well. Eliquis was on hold for 48 hours . restarted on lower dose of 2.5 mg b.i.d. 3. Shock, could be combination of hypovolemic and cardiogenic. He is currently on Levophed. We will monitor his blood pressure closely. 4. History of pulmonary fibrosis. His chest x-ray showed bilateral interstitial infiltrates. He has Agent [place] exposure and that could be the etiology of his fibrosis. It has been clinically stable. 5. History of non-Hodgkin's lymphoma, status post chemo, finished in 01/2019. 6. History of breast cancer with bilateral mastectomy. 7. History of gastrointestinal bleed with colonoscopy showing colonic small polyps in June of this year. 8. Acute kidney injury. The patient is status post hemodialysis catheter placement and will be initiated on hemodialysis. 9. Cardiomyopathy. His ejection fraction used to be 25%, now is improved to 40% based on records. 10. Minimal tobacco history. 11. Status post AICD and pacemaker. 12. History of aneurysmal dilatation of the ascending aorta to a diameter about 4.0. 13. CORKY Plan . RECOMMENDATIONS: cont bipap prn during day, [facility], setting reviewed, titrate fio2 to keep sat 90% NEBS Follow CXR PRN cont. Vasopressors to keep MAP above 60, cont solumedrol Follow nephrology recs for HD Monitor HGB, cont eliquis at 2.5 mg BID.,Not a candidate for IVC filter as there is no evidence of deep venous thrombosis Follow HEM/ONC recs Follow Cardiology recs D/W RN and RT . MANUEL BULLOCK MD Aug 08, 2020 08:33
--- NOTE | 2020-08-08 08:50 | PDOC ---
IM PROGRESS NOTES- Subjective Subjective No complaints of pain or dyspnea. Has occasional back pain. Denies any abdominal pain or nausea. Yesterday he was more short of breath. Today dyspnea is improving. He is on oxygen by nasal cannula. Objective Vitals/I&O Vital Signs Date Time Temp Pulse Resp B/P (MAP) Pulse Ox O2 Delivery O2 Flow Rate FiO2 08/08/20 08:17 Bi-pap 08/08/20 08:00 97.2 74 25 104/45 (64) 92 97.2 08/08/20 07:56 15.0 I & O 08/07/20 08/07/20 08/08/20 15:00 23:00 07:00 Intake Total 820 ml 672 ml 642 ml Output Total 10 ml 0 ml 0 ml Balance 810 ml 672 ml 642 ml Physical Exam Physical Exam GENERAL: This patient is an elderly male who is alert, oriented, but not a good historian, obese and appears to be acutely ill, not in any acute distress at this time. SKIN: Warm and dry. Skin is pale. The patient has macerated skin and wounds NECK: Supple. LUNGS: Decreased breath sounds at bases. CARDIOVASCULAR: S1, S2 regular. ABDOMEN: Soft, obese, non tender, no guarding, no rigidity. present. EXTREMITIES: 3+ edema in all extremities. Also, has anasarca. CENTRAL NERVOUS SYSTEM: Alert, weak, appropriate, tremors are improving. Labs Laboratory Tests Test 08/07/20 10:45 08/08/20 06:15 08/08/20 07:50 Prothrombin Time 22.7 SEC (11.7-14.0) H 20.4 SEC (11.7-14.0) H Prothrombin Time INR 2.0 (0.8-1.1) H 1.8 (0.8-1.1) H White Blood Count 22.8 x10^3/uL (4.0-11.0) H Red Blood Count 2.76 x10^6/uL (4.30-5.70) L Hemoglobin 9.0 g/dL (13.0-17.5) L Hematocrit 26.5 % (39.0-53.0) L Mean Corpuscular Volume 96 fL (79-100) Mean Corpuscular Hemoglobin 33 pg (25-35) Mean Corpuscular Hemoglobin Concent 34 g/dL (31-37) Red Cell Distribution Width 18.8 % (11.5-14.5) H Platelet Count 134 x10^3/uL (140-400) L Neutrophils (%) (Auto) 96 % (31-73) H Lymphocytes (%) (Auto) 4 % (24-48) L Monocytes (%) (Auto) 1 % (0-9) Eosinophils (%) (Auto) 0 % (0-3) Basophils (%) (Auto) 0 % (0-3) Neutrophils # (Auto) 21.8 x10^3/uL (1.8-7.7) H Lymphocytes # (Auto) 0.8 x10^3/uL (1.0-4.8) L Monocytes # (Auto) 0.2 x10^3/uL (0.0-1.1) Eosinophils # (Auto) 0.0 x10^3/uL (0.0-0.7) Basophils # (Auto) 0.0 x10^3/uL (0.0-0.2) Platelet Estimate Pending Sodium Level 136 mmol/L (136-145) Potassium Level 3.6 mmol/L (3.5-5.1) Chloride Level 97 mmol/L (98-107) L Carbon Dioxide Level 24 mmol/L (21-32) Anion Gap 15 (6-14) H Blood Urea Nitrogen 28 mg/dL (8-26) H Creatinine 2.6 mg/dL (0.7-1.3) H Estimated GFR (Cockcroft-Gault) 24.1 BUN/Creatinine Ratio 11 (6-20) Glucose Level 151 mg/dL (70-99) H Calcium Level 8.0 mg/dL (8.5-10.1) L Total Bilirubin 11.1 mg/dL (0.2-1.0) H Aspartate Amino Transferase (AST) 301 U/L (15-37) H Alanine Aminotransferase (ALT) 134 U/L (16-63) H Alkaline Phosphatase 233 U/L (46-116) H Total Protein 5.3 g/dL (6.4-8.2) L Albumin 2.5 g/dL (3.4-5.0) L Albumin/Globulin Ratio 0.9 (1.0-1.7) L Laboratory Tests 08/08/20 06:15 Laboratory Tests 08/08/20 07:50 Assessment Assessment 1. Acute hypotension, multifactorial. 2. Acute kidney injury with chronic kidney disease. 3. Coagulopathy. 4. Acute respiratory failure. 5. Recurrent ventricular tachycardia. 6. Atrial fibrillation. 7. Coronary artery disease. 8. Congestive heart failure with ejection fraction of 40%. 9. Elevated LFTs, possibly shock liver. 10. Recent gastrointestinal bleeding including diverticular and hemorrhoidal bleeding. 11. Aortic root dilatation. 12. Hypoalbuminemia with severe malnutrition. 13. History of pulmonary embolism. 14. Status post total knee arthroplasty. 15. Chronic hypoxic respiratory failure with pulmonary fibrosis, on 3 liters oxygen at night with exertion. 16. Obstructive sleep apnea syndrome, using CPAP. 17. Recent epidural abscess in 03/2020 initially treated with doxycycline, now on cephalexin. 18. Transient ischemic attack. 19. Physical deconditioning. 20. Morbid obesity. 21. Leukocytosis. PLAN: positive blood c/s , gram neg bacteremia. On Zosyn IV BIPAP for resp failure levophed low dose for Hypotension. Just started on dilysis recently ,had 2 dialysis days spoke with RN and pts Charles for nutrition. Admit to Intensive Care Unit. Consult Dr. Farrell for pulmonary evaluation and management, Dr. Sharif for cardiology evaluation and management. Consult Dr. Valladares for GI evaluation and management. Consult Dr. Rodriguez for nephrology evaluation and management. Consult Dr. Boone for hematology evaluation and management. Consult wound care. Consult Dr. Rey Antoine for infectious disease evaluation and management. The patient has been admitted to ICU. Continue Levophed,Vasopressin. Condition and treatment options were discussed with the on the phone this morning and in person here at bedside this evening. Prognosis of this patient is extremely poor. We will give him 3 mg of subcu vitamin K and also give him 2 units of fresh frozen plasma as he is bleeding in several places. He has a dialysis catheter, but as he is very hypotensive he may not be able to get dialysis soon. We will give him 1 unit of blood also and 500 mL of albumin has been ordered by Dr. Farrell. Continue to monitor hemoglobin and hematocrit q.6. Continue IV fluids. For details, please refer to the orders. Acute hypotension-continue pressure support, IV fluids, blood transfusion. Clinically improving. Levophed and vasopressin are being tapered. Possible sepsis-blood culture showed Pseudomonas aeruginosa on Zosyn. T7-8 discitis Acute kidney injury-start hemodialysis as tolerated. Renal function is improving with dialysis. Acute respiratory failure, history of pulmonary fibrosis-continue oxygen by nasal cannula. Discussed with Dr. Holbrook this morning. He had started him on IV steroids until hypotension is corrected. Discontinue Solu-Medrol as patient is clinically improving. Acute blood loss anemia-blood transfusion. Hemoglobin dropped to 6.8. He was given 2 units of packed red blood cells. Hemoglobin is now 9. Coagulopathy-he is off Eliquis . He received FFP and vitamin K . [employer] Manager has been consulted. He does not recommend [facility] at this time but consider if major bleeding occurs. INR is 1.8. GI bleeding-consulted Dr. Valladares. Keep patient n.p.o. for now. He will receive 2 units of packed red cells. Bleeding is resolved. Recurrent ventricular tachycardia-AICD was adjusted to detect V. tach at 150/min yesterday. Coreg 3.125 mg twice a day was held yesterday because of hypotension. Patient was also on amiodarone and it was held yesterday. Coronary artery disease amiodarone and statins discontinued due to elevated LFTs and coagulopathy. He should follow-up with an renal medicine specialist for VT ablation after he gets better. Dilated cardiomyopathy with ejection fraction of 40% Atrial fibrillation-hold anticoagulation for now Tremors-Likely due to renal failure. gabapentin decreased to 100 mg yesterday I will discontinue it for now. Leukocytosis, recent epidural abscess-likely reactive and due to steroids. Elevated LFTs ? shock liver. Clinically improving slowly. Discussed with Dr.Achal Antoine, Dr. Rey Antoine, Dr. Sharif about condition and treatment. Continue IV steroids. Continue treatment in the ICU. Prognosis of this patient is very poor. Condition, treatment and options discussed with Kathleen. Options in place of amiodarone, renal, lung and liver issues, condition, treatment extensively discussed with her. Patient is clinically improving and if he remains stable he may be able to go back to [facility] later this afternoon. Plan Plan For more details regarding further plans, please refer to the orders. Justifications for Admission Other Justification LUCAS BRAGA MD Aug 08, 2020 08:50
[2020-08-08] MEDS ORDERED: IV NORMAL SALINE 1000ML BAG 1,000 ML IV PRN ×2 (08:59)
[2020-08-08] MEDS ORDERED: diphenhydrAMINE 50 MG/ML VIAL IV PRN ×2 (09:00)
[2020-08-08] MEDS ORDERED: ALBUMIN HUMAN 25% 200 ML IV ONE (09:00)
[2020-08-08] MEDS ORDERED: APIXABAN 2.5 MG TABLET. PO SCH (09:00)
[2020-08-08] MEDS ORDERED: DIALYSIS PATIENT. MC PRN (09:00)
[2020-08-08 09:05] LABS: HEMOGLOBIN 6.8 g/dL (13.0-17.5)
--- NOTE | 2020-08-08 09:11 | PDOC3 ---
IM DISCHARGE SUMMARY Date of Admission Date of Admission Date of Admission: Aug 03, 2020 at 14:39 Date of Discharge Date of Discharge August 08, 2020 Consults Consults Rey Antoine MD; Taz Farrell MD; Gregorio Guerra MD; Todd Rodriguez MD; Javy Sharif MD; Mark Boone MD; Luis Valladares MD Procedures Procedures dialysis catheter Labs Labs Laboratory Tests Test 08/07/20 10:45 08/08/20 06:15 08/08/20 07:50 Prothrombin Time 22.7 SEC (11.7-14.0) H 20.4 SEC (11.7-14.0) H Prothrombin Time INR 2.0 (0.8-1.1) H 1.8 (0.8-1.1) H White Blood Count 22.8 x10^3/uL (4.0-11.0) H Red Blood Count 2.76 x10^6/uL (4.30-5.70) L Hemoglobin 9.0 g/dL (13.0-17.5) L Hematocrit 26.5 % (39.0-53.0) L Mean Corpuscular Volume 96 fL (79-100) Mean Corpuscular Hemoglobin 33 pg (25-35) Mean Corpuscular Hemoglobin Concent 34 g/dL (31-37) Red Cell Distribution Width 18.8 % (11.5-14.5) H Platelet Count 134 x10^3/uL (140-400) L Neutrophils (%) (Auto) 96 % (31-73) H Lymphocytes (%) (Auto) 4 % (24-48) L Monocytes (%) (Auto) 1 % (0-9) Eosinophils (%) (Auto) 0 % (0-3) Basophils (%) (Auto) 0 % (0-3) Neutrophils # (Auto) 21.8 x10^3/uL (1.8-7.7) H Lymphocytes # (Auto) 0.8 x10^3/uL (1.0-4.8) L Monocytes # (Auto) 0.2 x10^3/uL (0.0-1.1) Eosinophils # (Auto) 0.0 x10^3/uL (0.0-0.7) Basophils # (Auto) 0.0 x10^3/uL (0.0-0.2) Platelet Estimate Pending Sodium Level 136 mmol/L (136-145) Potassium Level 3.6 mmol/L (3.5-5.1) Chloride Level 97 mmol/L (98-107) L Carbon Dioxide Level 24 mmol/L (21-32) Anion Gap 15 (6-14) H Blood Urea Nitrogen 28 mg/dL (8-26) H Creatinine 2.6 mg/dL (0.7-1.3) H Estimated GFR (Cockcroft-Gault) 24.1 BUN/Creatinine Ratio 11 (6-20) Glucose Level 151 mg/dL (70-99) H Calcium Level 8.0 mg/dL (8.5-10.1) L Total Bilirubin 11.1 mg/dL (0.2-1.0) H Aspartate Amino Transferase (AST) 301 U/L (15-37) H Alanine Aminotransferase (ALT) 134 U/L (16-63) H Alkaline Phosphatase 233 U/L (46-116) H Total Protein 5.3 g/dL (6.4-8.2) L Albumin 2.5 g/dL (3.4-5.0) L Albumin/Globulin Ratio 0.9 (1.0-1.7) L Laboratory Tests 08/08/20 06:15 Laboratory Tests 08/08/20 07:50 Brief hospital course Brief hospital course This 75-year-old male who was recently admitted to [facility] because of rectal bleeding and acute onset of atrial fibrillation and recurrent V-tach with fluid retention was treated with IV amiodarone, digoxin level was 2 and it was stopped. The patient also was recently treated for epidural abscess in 03/2020. The patient has a history of pulmonary embolism, atrial fibrillation, pulmonary fibrosis with chronic hypoxic respiratory failure, obstructive sleep apnea, using CPAP on oxygen by nasal cannula 3 liters at night and history of TIA and morbid obesity. He also has had likely GI bleeding that was diverticular and also had hemorrhoidal bleeding. The patient was transferred to [facility] on 07/29. During the stay at [facility], he was noted to have multiple medical problems including leukocytosis. He was on doxycycline for his epidural abscess. He did not have any surgical intervention. Dr. Antoine spoke to Dr. Mankame at the transferring hospital and they agreed to switch the antibiotics to cephalexin. He continued to have leukocytosis from 14,000-16,000. Initially, Eliquis had been stopped but then Eliquis was restarted. He started having nosebleeds and bleeding from the skin as well as other sites. His renal function started getting worse. His creatinine was in the upper 3 range, but then yesterday it went to 4.49 and today it was around 5.06. Dr. Rodriguez had been seeing him and Dr. Rodriguez started him on IV fluids yesterday and multiple IV boluses were given yesterday. His blood pressures fluctuated a lot yesterday and would become low and it would become very high. As per his , this has been also happening to him for the last month or so where the blood pressures have been fluctuating a lot. The patient was seen by the ER physician last night at [facility] and because of hypotension, was started on Levophed. The patient continued to receive more fluids this morning, but his urine output was only 150 mL in the last shift and he started becoming more edematous. He also had some bleeding from the nose. I discussed this with Dr. Rodriguez this morning and because of his hypotension and likely need for hemodialysis and worsening condition, it was decided to transfer the patient to [facility]. [facility] did not have a bed. The patient initially went to [facility] and then subsequently transferred to the ICU. Currently, his blood pressure has dropped further because he was having severe pain and he also received IV fentanyl. Blood pressure systolic dropped to 68. Levophed dose was high, so vasopressin was also added. Last blood pressure was 85/41. Because of his acute hypotension and acute kidney injury likely would require hemodialysis if he remains hemodynamically stable. GI bleeding is when the nurse was cleaning him noted stool with blood. He also has had epistaxis and the INR is 2.7 with last hemoglobin of 8. The patient has been admitted to [facility] for further management. For more details regarding the past history, family history, social history, surgical history and other details, please refer to History and Physical. positive blood c/s , gram neg bacteremia. On Zosyn IV BIPAP for resp failure levophed low dose for Hypotension. Just started on dilysis recently ,had 2 dialysis days spoke with RN and pts Charles for nutrition. Admit to Intensive Care Unit. Consult Dr. Farrell for pulmonary evaluation and management, Dr. Sharif for cardiology evaluation and management. Consult Dr. Valladares for GI evaluation and management. Consult Dr. Rodriguez for nephrology evaluation and management. Consult Dr. Boone for hematology evaluation and management. Consult wound care. Consult Dr. Rey Antoine for infectious disease evaluation and management. The patient has been admitted to ICU. Continue Levophed,Vasopressin. Condition and treatment options were discussed with the on the phone this morning and in person here at bedside this evening. Prognosis of this patient is extremely poor. We will give him 3 mg of subcu vitamin K and also give him 2 units of fresh frozen plasma as he is bleeding in several places. He has a dialysis catheter, but as he is very hypotensive he may not be able to get dialysis soon. We will give him 1 unit of blood also and 500 mL of albumin has been ordered by Dr. Farrell. Continue to monitor hemoglobin and hematocrit q.6. Continue IV fluids. For details, please refer to the orders. Acute hypotension-continue pressure support, IV fluids, blood transfusion. Clinically improving. Levophed and vasopressin are being tapered. Possible sepsis-blood culture showed Pseudomonas aeruginosa on Zosyn. T7-8 discitis Acute kidney injury-start hemodialysis as tolerated. Renal function is improving with dialysis. Acute respiratory failure, history of pulmonary fibrosis-continue oxygen by nasal cannula. Discussed with Dr. Holbrook this morning. He had started him on IV steroids until hypotension is corrected. Continue Solu-Medrol as patient is clinically improving. Oxygen saturations are around 88 to 89% on oxygen by nasal cannula. Continue BiPAP at night Acute blood loss anemia-blood transfusion. Hemoglobin dropped to 6.8. He was given 2 units of packed red blood cells. Hemoglobin is now 9. Coagulopathy-he is off Eliquis . He received FFP and vitamin K . Nurse Prn has been consulted. He does not recommend [facility] at this time but consider if major bleeding occurs. INR is 1.8. GI bleeding-consulted Dr. Valladares. Keep patient n.p.o. for now. He will receive 2 units of packed red cells. Bleeding is resolved. Recurrent ventricular tachycardia-AICD was adjusted to detect V. tach at 150/min yesterday. Coreg 3.125 mg twice a day was held yesterday because of hypotension. Patient was also on amiodarone and it was held yesterday. Coronary artery disease amiodarone and statins discontinued due to elevated LFTs and coagulopathy. He should follow-up with an home health specialist for VT ablation after he gets better. Dilated cardiomyopathy with ejection fraction of 40% Atrial fibrillation-hold anticoagulation for now Tremors-Likely due to renal failure. gabapentin decreased to 100 mg yesterday I will discontinue it for now. Leukocytosis, recent epidural abscess-likely reactive and due to steroids. Elevated LFTs ? shock liver. Clinically improving slowly. Discussed with Dr.Achal Antoine, Dr. Rey Antoine, Dr. Sharif about condition and treatment. Continue IV steroids. Continue treatment in the ICU. Prognosis of this patient is very poor. Condition, treatment and options discussed with Kathleen. Options in place of amiodarone, renal, lung and liver issues, condition, treatment extensively discussed with her. Patient is clinically improving and if he remains stable he may be able to go back to [facility] later this afternoon. He is tolerating dialysis. Blood pressure is improving. Hemoglobin is stable. Medications Medications reviewed and reconciled for discharge. Allergy Allergies Coded Allergies Type Severity Reaction Last Updated Verified No Known Drug Allergies 07/28/20 No Follow up . Dr. Lucas Lock DISPOSITION: intermediate acute care hosp Comments Discharge Management - 35 minutes. For other details please refer to discharge instructions Justicifation of Admission Dx: Justifications for Admission: Justification of Admission Dx: Yes LUCAS LOCK MD Aug 08, 2020 09:11
[2020-08-08 09:50] LABS: % BANDS 2 % (0-9); % LYMPHS 1 % (24-48); % MONOS 2 % (0-10); % SEGS 95 % (35-66); ANISOCYTOSIS SLIGHT; PLT ESTIMATE DECREASED (ADEQUATE); TOXIC VACUOLATION PRESENT
[2020-08-08 09:51] LABS: POIKILOCYTOSIS PRESENT; TARGET CELLS PRESENT
--- NOTE | 2020-08-08 10:03 | PDOC ---
Date of Service: DATE: 08/08/20 TIME: 09:57 Subjective: Subjective: Says doing okay. Objective: Objective: D/w nurse - no GI bleeding, thinks eats a little when helps, possible DC to [facility] today. Vital Signs: Vital Signs Date Time Temp Pulse Resp B/P (MAP) Pulse Ox O2 Delivery O2 Flow Rate FiO2 08/08/20 09:11 97.2 69 19 99/55 (70) 92 Nasal Cannula 15.0 97.2 Labs: Laboratory Tests Test 08/07/20 10:45 08/08/20 06:15 08/08/20 07:50 Prothrombin Time 22.7 SEC 20.4 SEC Prothromb Time International Ratio 2.0 1.8 White Blood Count 22.8 x10^3/uL Red Blood Count 2.76 x10^6/uL Hemoglobin 9.0 g/dL Hematocrit 26.5 % Mean Corpuscular Volume 96 fL Mean Corpuscular Hemoglobin 33 pg Mean Corpuscular Hemoglobin Concent 34 g/dL Red Cell Distribution Width 18.8 % Platelet Count 134 x10^3/uL Neutrophils (%) (Auto) 96 % Lymphocytes (%) (Auto) 4 % Monocytes (%) (Auto) 1 % Eosinophils (%) (Auto) 0 % Basophils (%) (Auto) 0 % Neutrophils # (Auto) 21.8 x10^3/uL Lymphocytes # (Auto) 0.8 x10^3/uL Monocytes # (Auto) 0.2 x10^3/uL Eosinophils # (Auto) 0.0 x10^3/uL Basophils # (Auto) 0.0 x10^3/uL Segmented Neutrophils % 95 % Band Neutrophils % 2 % Lymphocytes % 1 % Monocytes % 2 % Toxic Vacuolation Present Platelet Estimate Decreased Large Platelets Few Giant Platelets Few Poikilocytosis Present Anisocytosis Slight Target Cells Present Sodium Level 136 mmol/L Potassium Level 3.6 mmol/L Chloride Level 97 mmol/L Carbon Dioxide Level 24 mmol/L Anion Gap 15 Blood Urea Nitrogen 28 mg/dL Creatinine 2.6 mg/dL Estimated GFR (Cockcroft-Gault) 24.1 BUN/Creatinine Ratio 11 Glucose Level 151 mg/dL Calcium Level 8.0 mg/dL Total Bilirubin 11.1 mg/dL Aspartate Amino Transf (AST/SGOT) 301 U/L Alanine Aminotransferase (ALT/SGPT) 134 U/L Alkaline Phosphatase 233 U/L Total Protein 5.3 g/dL Albumin 2.5 g/dL Albumin/Globulin Ratio 0.9 BLOOD CULTURE LC Final Final GRAM NEGATIVE RODS FINAL ID= [PSEUDOMONAS AERUGINOSA] PE: GEN: appears chronically ill, dialyzing LUNGS: diminished, NC 15L HEART: RR ABD: large, soft, non-tender NEURO/PSYCH: more alert - talking w/ dialysis nurse A/P: Pseudomonas bacteremia CORKY/CKD - has been on HD here H/o A Fib and PE - anti-coag on hold Cardiomyopathy, chronic resp failure Chronic anemia, coagulopathy - transfused pRBC yesterday; no reports of recurrent GI bleeding - 'scopes recently in [place], [place] w/ diverticulosis and hemorrhoids Elevated LFTs - worse - previously thought 2/2 to CHF/amiodarone -- Possible DC plans noted. Justicifation of Admission Dx: Justifications for Admission: Justification of Admission Dx: Yes DERRICK CORTEZ Aug 08, 2020 10:03
--- NOTE | 2020-08-08 10:19 | PDOC ---
DATE OF SERVICE DATE: 08/08/20 TIME: 10:13 SUBJECTIVE ROS Stable, No complaints on Dialysis On pressors OBJECTIVE Vital Signs Vital Signs Date Time Temp Pulse Resp B/P (MAP) Pulse Ox O2 Delivery O2 Flow Rate FiO2 08/08/20 09:11 97.2 69 19 99/55 (70) 92 Nasal Cannula 15.0 97.2 I & 0 Intake and Output 08/08/20 07:00 Intake Total 2134 ml Output Total 10 ml Balance 2124 ml Intake Oral 1100 ml IV Total 934 ml Blood Product IV Normal Saline Flush 100 ml Output Urine Total 10 ml PHYSICAL EXAM Physical Exam GENERAL: not in any distress. HEENT: OM moist . O2 by NC NECK: Supple, LUNGS: Decreased breath sounds ant HEART: S1, S2 regular. ABDOMEN: Soft, nontender, EXTREMITIES: No edema or cyanosis. NEUROLOGIC: , awake, confused ,No focal deficit. Sau[place] in place DIAGNOSIS/ASSESSMENT Assessment & Plan CORKY-ATN- Oligo anuric , requiring dialysis Seen on HD, tolerating well, Discussed treatment plan with bench assembler CKD stage 3- Baseline Cr 1.8 Respiratory distress - improved after ultrafiltration T8-T9 DISKITIS- Osteomyelitis Hypotension : Remains on pressors currently: Increased LFT'S: GI following Anemia - On EPO COMMENT/RELEVANT DATA Meds Current Medications Medications (Trade) Dose Ordered Sig/Samantha Start Time Stop Time Status Last Admin Dose Admin Acetaminophen (Tylenol) 650 mg 1X PRN PRN 08/03/20 18:00 08/04/20 17:59 DC Albumin Human 200 ml @ 200 mls/hr 1X ONCE 08/08/20 09:00 08/08/20 09:59 DC 08/08/20 09:26 200 MLS/HR Albuterol Sulfate (Ventolin Neb Soln) 2.5 mg PRN Q4HRS PRN 08/03/20 18:45 08/05/20 08:34 2.5 MG Amino Acids/ Glycerin/ Electrolytes 1,000 ml @ 80 mls/hr [id number] 08/06/20 10:30 08/06/20 11:39 DC 08/06/20 10:47 80 MLS/HR Apixaban (Eliquis) 2.5 mg BID 08/08/20 09:00 08/08/20 09:10 DC Darbepoetin Hitesh (ARANESP for DIALYSIS PTS) 60 mcg WEEKLYHS 08/04/20 21:00 08/04/20 21:00 60 MCG Diphenhydramine HCl (Benadryl Oral Elixir) 12.5 mg 1X PRN PRN 08/03/20 18:00 08/04/20 17:59 DC Diphenhydramine HCl (Benadryl) 25 mg 1X PRN PRN 08/08/20 09:00 08/09/20 08:59 Fentanyl Citrate (Fentanyl 2ml Vial) 25 mcg PRN Q3HRS PRN 08/03/20 18:00 08/06/20 19:21 25 MCG Gabapentin (Neurontin) 100 mg QHS 08/03/20 21:00 08/04/20 10:14 DC Info (PHARMACY MONITORING -- do not chart) 1 each PRN DAILY PRN 08/08/20 09:00 Lactobacillus Rhamnosus (Culturelle) 1 cap BID 08/06/20 21:00 08/07/20 20:32 1 CAP Lidocaine HCl (Lidocaine 1% 20ml Vial) 20 ml 1X ONCE 08/03/20 15:15 08/03/20 15:16 DC 08/03/20 15:09 3 ML Methylprednisolone Sodium Succinate (SOLU-Medrol 125MG VIAL) 100 mg Q8HRS 08/04/20 09:30 08/08/20 06:06 100 MG Norepinephrine Bitartrate 32 mg/ Dextrose 250 ml @ 6.422 mls/ hr CONT PRN 08/03/20 17:15 08/07/20 22:55 19.266 MLS/HR Norepinephrine Bitartrate 8 mg/ Dextrose 258 ml @ 26.51 mls/ hr CONT PRN PRN 08/03/20 13:00 08/04/20 01:32 DC 08/03/20 13:30 26.51 MLS/HR Ondansetron HCl (Zofran) 4 mg PRN Q6HRS PRN 08/03/20 18:45 Pantoprazole Sodium (PROTONIX VIAL for IV PUSH) 40 mg DAILY 08/03/20 18:45 08/07/20 09:24 40 MG Phytonadione (Vitamin K Ampule) 3 mg 1X ONCE 08/03/20 18:00 08/03/20 18:26 DC 08/03/20 18:31 3 MG Piperacillin Sod/ Tazobactam Sod 2.25 gm/Sodium Chloride 50 ml @ 100 mls/hr Q8HRS 08/04/20 14:00 08/08/20 06:05 100 MLS/HR Sodium Bicarbonate 50 meq/Sodium Chloride 1,050 ml @ 75 mls/hr Q14H 08/03/20 20:00 08/06/20 11:39 DC 08/06/20 07:41 75 MLS/HR Sodium Chloride 1,000 ml @ 400 mls/hr Q2H30M PRN 08/08/20 08:59 08/08/20 20:58 Sodium Chloride (Normal Saline Flush) 10 ml 1X PRN PRN 08/06/20 14:15 08/07/20 14:14 DC Vasopressin 20 unit/Dextrose 101 ml @ 12 mls/hr CONT PRN 08/03/20 18:45 08/08/20 05:59 12 MLS/HR Lab Laboratory Tests Test 08/07/20 10:45 08/08/20 06:15 08/08/20 07:50 Prothrombin Time 22.7 SEC (11.7-14.0) 20.4 SEC (11.7-14.0) Prothromb Time International Ratio 2.0 (0.8-1.1) 1.8 (0.8-1.1) White Blood Count 22.8 x10^3/uL (4.0-11.0) Red Blood Count 2.76 x10^6/uL (4.30-5.70) Hemoglobin 9.0 g/dL (13.0-17.5) Hematocrit 26.5 % (39.0-53.0) Mean Corpuscular Volume 96 fL (79-100) Mean Corpuscular Hemoglobin 33 pg (25-35) Mean Corpuscular Hemoglobin Concent 34 g/dL (31-37) Red Cell Distribution Width 18.8 % (11.5-14.5) Platelet Count 134 x10^3/uL (140-400) Neutrophils (%) (Auto) 96 % (31-73) Lymphocytes (%) (Auto) 4 % (24-48) Monocytes (%) (Auto) 1 % (0-9) Eosinophils (%) (Auto) 0 % (0-3) Basophils (%) (Auto) 0 % (0-3) Neutrophils # (Auto) 21.8 x10^3/uL (1.8-7.7) Lymphocytes # (Auto) 0.8 x10^3/uL (1.0-4.8) Monocytes # (Auto) 0.2 x10^3/uL (0.0-1.1) Eosinophils # (Auto) 0.0 x10^3/uL (0.0-0.7) Basophils # (Auto) 0.0 x10^3/uL (0.0-0.2) Segmented Neutrophils % 95 % (35-66) Band Neutrophils % 2 % (0-9) Lymphocytes % 1 % (24-48) Monocytes % 2 % (0-10) Toxic Vacuolation Present Platelet Estimate Decreased (ADEQUATE) Large Platelets Few Giant Platelets Few Poikilocytosis Present Anisocytosis Slight Target Cells Present Sodium Level 136 mmol/L (136-145) Potassium Level 3.6 mmol/L (3.5-5.1) Chloride Level 97 mmol/L (98-107) Carbon Dioxide Level 24 mmol/L (21-32) Anion Gap 15 (6-14) Blood Urea Nitrogen 28 mg/dL (8-26) Creatinine 2.6 mg/dL (0.7-1.3) Estimated GFR (Cockcroft-Gault) 24.1 BUN/Creatinine Ratio 11 (6-20) Glucose Level 151 mg/dL (70-99) Calcium Level 8.0 mg/dL (8.5-10.1) Total Bilirubin 11.1 mg/dL (0.2-1.0) Aspartate Amino Transf (AST/SGOT) 301 U/L (15-37) Alanine Aminotransferase (ALT/SGPT) 134 U/L (16-63) Alkaline Phosphatase 233 U/L (46-116) Total Protein 5.3 g/dL (6.4-8.2) Albumin 2.5 g/dL (3.4-5.0) Albumin/Globulin Ratio 0.9 (1.0-1.7) Results All relevant outside records, renal labs, imaging studies, telemetry/EKG's were reviewed. Justicifation of Admission Dx: Justifications for Admission: Justification of Admission Dx: Yes GAYLE ABRAHAM MD Aug 08, 2020 10:19
--- NOTE | 2020-08-08 10:39 | NUR ---
PT RECEIVING DIALYSIS AT THIS TIME.
--- NOTE | 2020-08-08 12:02 | NUR ---
SS following up with discharge planning. SS reviewed pt chart and discussed with pt RN. Pt is currently on 15 liters nasal canula. Pt on Vasopressin and Levophed. Pt on IV Zosyn. Pt having dialysis today. Discharge orders received for return to [facility], ; fax [phone]. SS phoned and faxed discharge orders to [facility]. Pt will discharge today and return to [facility] at 1400 via [facility] transport. Pt, pt's RN, and pt's spouse notified. Packet and ambulance form on the chart.
--- NOTE | 2020-08-08 12:21 | PDOC ---
PULMONARY PROGRESS NOTES DATE: 08/08/20 TIME: 12:19 Subjective Patient is seen while on hemodialysis, remains on vasopressor medication Levophed and vasopressin Wore BiPAP overnight, currently on nasal cannula Reports he is feeling much better [facility] Vitals Vital Signs Date Time Temp Pulse Resp B/P (MAP) Pulse Ox O2 Delivery O2 Flow Rate FiO2 08/08/20 11:03 97.5 71 24 100/65 (77) 92 Nasal Cannula 15.0 97.5 ROS: No Nausea, No Chest Pain, No Abdominal Pain, No Increase Cough General: Alert, Oriented X4 HEENT: Other (nc at perrl shallow oropharynx nose clear neck no lad no thyromegaly) Lungs: Crackles Cardiovascular: S1, S2 Abdomen: Soft, Non-tender, Other (no mass) Neuro Exam: Alert Extremities: Other (edema +2) Skin: Warm, Dry Labs Laboratory Tests Test 08/06/20 13:50 08/07/20 06:10 08/07/20 08:30 08/07/20 10:45 Cortisol PM Sample 49.6 ug/dL (3.1-16.7) White Blood Count 17.8 x10^3/uL (4.0-11.0) Red Blood Count 2.29 x10^6/uL (4.30-5.70) Hemoglobin 7.5 g/dL (13.0-17.5) Hematocrit 22.6 % (39.0-53.0) Mean Corpuscular Volume 98 fL (79-100) Mean Corpuscular Hemoglobin 33 pg (25-35) Mean Corpuscular Hemoglobin Concent 33 g/dL (31-37) Red Cell Distribution Width 18.4 % (11.5-14.5) Platelet Count 108 x10^3/uL (140-400) Neutrophils (%) (Auto) 95 % (31-73) Lymphocytes (%) (Auto) 4 % (24-48) Monocytes (%) (Auto) 1 % (0-9) Eosinophils (%) (Auto) 0 % (0-3) Basophils (%) (Auto) 0 % (0-3) Neutrophils # (Auto) 16.8 x10^3/uL (1.8-7.7) Lymphocytes # (Auto) 0.7 x10^3/uL (1.0-4.8) Monocytes # (Auto) 0.2 x10^3/uL (0.0-1.1) Eosinophils # (Auto) 0.0 x10^3/uL (0.0-0.7) Basophils # (Auto) 0.0 x10^3/uL (0.0-0.2) Sodium Level 137 mmol/L (136-145) Potassium Level 3.9 mmol/L (3.5-5.1) Chloride Level 98 mmol/L (98-107) Carbon Dioxide Level 26 mmol/L (21-32) Anion Gap 13 (6-14) Blood Urea Nitrogen 34 mg/dL (8-26) Creatinine 2.8 mg/dL (0.7-1.3) Estimated GFR (Cockcroft-Gault) 22.1 BUN/Creatinine Ratio 12 (6-20) Glucose Level 136 mg/dL (70-99) Calcium Level 7.7 mg/dL (8.5-10.1) Total Bilirubin 8.2 mg/dL (0.2-1.0) Aspartate Amino Transf (AST/SGOT) 295 U/L (15-37) Alanine Aminotransferase (ALT/SGPT) 125 U/L (16-63) Alkaline Phosphatase 213 U/L (46-116) Total Protein 5.0 g/dL (6.4-8.2) Albumin 2.5 g/dL (3.4-5.0) Albumin/Globulin Ratio 1.0 (1.0-1.7) O2 Saturation 89 % (92-99) Arterial Blood pH 7.46 (7.35-7.45) Arterial Blood pCO2 at Patient Temp 32 mmHg (35-46) Arterial Blood pO2 at Patient Temp 58 mmHg (65-108) Arterial Blood HCO3 23 mmol/L (21-28) Arterial Blood Base Excess -1 mmol/L (-3-3) FiO2 80% (15l nc) Prothrombin Time 22.7 SEC (11.7-14.0) Prothromb Time International Ratio 2.0 (0.8-1.1) Test 08/08/20 06:15 08/08/20 07:50 White Blood Count 22.8 x10^3/uL (4.0-11.0) Red Blood Count 2.76 x10^6/uL (4.30-5.70) Hemoglobin 9.0 g/dL (13.0-17.5) Hematocrit 26.5 % (39.0-53.0) Mean Corpuscular Volume 96 fL (79-100) Mean Corpuscular Hemoglobin 33 pg (25-35) Mean Corpuscular Hemoglobin Concent 34 g/dL (31-37) Red Cell Distribution Width 18.8 % (11.5-14.5) Platelet Count 134 x10^3/uL (140-400) Neutrophils (%) (Auto) 96 % (31-73) Lymphocytes (%) (Auto) 4 % (24-48) Monocytes (%) (Auto) 1 % (0-9) Eosinophils (%) (Auto) 0 % (0-3) Basophils (%) (Auto) 0 % (0-3) Neutrophils # (Auto) 21.8 x10^3/uL (1.8-7.7) Lymphocytes # (Auto) 0.8 x10^3/uL (1.0-4.8) Monocytes # (Auto) 0.2 x10^3/uL (0.0-1.1) Eosinophils # (Auto) 0.0 x10^3/uL (0.0-0.7) Basophils # (Auto) 0.0 x10^3/uL (0.0-0.2) Segmented Neutrophils % 95 % (35-66) Band Neutrophils % 2 % (0-9) Lymphocytes % 1 % (24-48) Monocytes % 2 % (0-10) Toxic Vacuolation Present Platelet Estimate Decreased (ADEQUATE) Large Platelets Few Giant Platelets Few Poikilocytosis Present Anisocytosis Slight Target Cells Present Prothrombin Time 20.4 SEC (11.7-14.0) Prothromb Time International Ratio 1.8 (0.8-1.1) Sodium Level 136 mmol/L (136-145) Potassium Level 3.6 mmol/L (3.5-5.1) Chloride Level 97 mmol/L (98-107) Carbon Dioxide Level 24 mmol/L (21-32) Anion Gap 15 (6-14) Blood Urea Nitrogen 28 mg/dL (8-26) Creatinine 2.6 mg/dL (0.7-1.3) Estimated GFR (Cockcroft-Gault) 24.1 BUN/Creatinine Ratio 11 (6-20) Glucose Level 151 mg/dL (70-99) Calcium Level 8.0 mg/dL (8.5-10.1) Total Bilirubin 11.1 mg/dL (0.2-1.0) Aspartate Amino Transf (AST/SGOT) 301 U/L (15-37) Alanine Aminotransferase (ALT/SGPT) 134 U/L (16-63) Alkaline Phosphatase 233 U/L (46-116) Total Protein 5.3 g/dL (6.4-8.2) Albumin 2.5 g/dL (3.4-5.0) Albumin/Globulin Ratio 0.9 (1.0-1.7) Laboratory Tests Test 08/08/20 06:15 08/08/20 07:50 White Blood Count 22.8 x10^3/uL (4.0-11.0) Red Blood Count 2.76 x10^6/uL (4.30-5.70) Hemoglobin 9.0 g/dL (13.0-17.5) Hematocrit 26.5 % (39.0-53.0) Mean Corpuscular Volume 96 fL (79-100) Mean Corpuscular Hemoglobin 33 pg (25-35) Mean Corpuscular Hemoglobin Concent 34 g/dL (31-37) Red Cell Distribution Width 18.8 % (11.5-14.5) Platelet Count 134 x10^3/uL (140-400) Neutrophils (%) (Auto) 96 % (31-73) Lymphocytes (%) (Auto) 4 % (24-48) Monocytes (%) (Auto) 1 % (0-9) Eosinophils (%) (Auto) 0 % (0-3) Basophils (%) (Auto) 0 % (0-3) Neutrophils # (Auto) 21.8 x10^3/uL (1.8-7.7) Lymphocytes # (Auto) 0.8 x10^3/uL (1.0-4.8) Monocytes # (Auto) 0.2 x10^3/uL (0.0-1.1) Eosinophils # (Auto) 0.0 x10^3/uL (0.0-0.7) Basophils # (Auto) 0.0 x10^3/uL (0.0-0.2) Segmented Neutrophils % 95 % (35-66) Band Neutrophils % 2 % (0-9) Lymphocytes % 1 % (24-48) Monocytes % 2 % (0-10) Toxic Vacuolation Present Platelet Estimate Decreased (ADEQUATE) Large Platelets Few Giant Platelets Few Poikilocytosis Present Anisocytosis Slight Target Cells Present Prothrombin Time 20.4 SEC (11.7-14.0) Prothromb Time International Ratio 1.8 (0.8-1.1) Sodium Level 136 mmol/L (136-145) Potassium Level 3.6 mmol/L (3.5-5.1) Chloride Level 97 mmol/L (98-107) Carbon Dioxide Level 24 mmol/L (21-32) Anion Gap 15 (6-14) Blood Urea Nitrogen 28 mg/dL (8-26) Creatinine 2.6 mg/dL (0.7-1.3) Estimated GFR (Cockcroft-Gault) 24.1 BUN/Creatinine Ratio 11 (6-20) Glucose Level 151 mg/dL (70-99) Calcium Level 8.0 mg/dL (8.5-10.1) Total Bilirubin 11.1 mg/dL (0.2-1.0) Aspartate Amino Transf (AST/SGOT) 301 U/L (15-37) Alanine Aminotransferase (ALT/SGPT) 134 U/L (16-63) Alkaline Phosphatase 233 U/L (46-116) Total Protein 5.3 g/dL (6.4-8.2) Albumin 2.5 g/dL (3.4-5.0) Albumin/Globulin Ratio 0.9 (1.0-1.7) Comments CXR reviewed, 08/06 Interval increase in the bilateral perihilar infiltrates. Impression . IMPRESSION: 1. acute on Chronic hypoxic respiratory failure. multifactorial in etiology, at home on 3 liters of oxygen now on bipap 2. The patient with history of pulmonary embolism in 2018. Likely hypercoagulable state from underlying non-Hodgkin's lymphoma and breast cancer. He has been on Eliquis since then. He has no DVT. He had epistaxis , resolved. His venous Doppler done 2 days ago, did not show any DVT as well. Eliquis was on hold for 48 hours . restarted on lower dose of 2.5 mg b.i.d. 3. Shock, could be combination of hypovolemic and cardiogenic. He is currently on Levophed. We will monitor his blood pressure closely. 4. History of pulmonary fibrosis. His chest x-ray showed bilateral interstitial infiltrates. He has Agent [place] exposure and that could be the etiology of his fibrosis. It has been clinically stable. 5. History of non-Hodgkin's lymphoma, status post chemo, finished in 01/2019. 6. History of breast cancer with bilateral mastectomy. 7. History of gastrointestinal bleed with colonoscopy showing colonic small polyps in June of this year. 8. Acute kidney injury. The patient is status post hemodialysis catheter placement and will be initiated on hemodialysis. 9. Cardiomyopathy. His ejection fraction used to be 25%, now is improved to 40% based on records. 10. Minimal tobacco history. 11. Status post AICD and pacemaker. 12. History of aneurysmal dilatation of the ascending aorta to a diameter about 4.0. 13. CORKY Plan . RECOMMENDATIONS: Continue supplemental oxygen as needed to keep oxygen saturations above 90%, as needed BiPAP use and BiPAP at at bedtime NEBS Follow CXR PRN Follow infectious disease recommendations in regards to antibiotics cont. Vasopressors to keep MAP above 60, Follow nephrology recs for HD Monitor HGB, hemoglobin is stable Not a candidate for IVC filter as there is no evidence of deep venous thrombosis Follow HEM/ONC recs --Kimberlee remains on hold Follow Cardiology recs [facility] D/W RN and RT Critical care time [id number] AM, no overlap . MANUEL BULLOCK MD Aug 08, 2020 12:21
--- NOTE | 2020-08-08 12:53 | NUR ---
DIALYSIS FINISHED [facility] REPORTS 3LITER OFF.
--- NOTE | 2020-08-08 13:37 | NUR ---
REPORT CALLED TO [facility].
[2020-08-08] MEDS: NOREPINEPHRINE VIAL 32 MG in IV D5W 250ML IV PRN (13:55)
[2020-08-08] MEDS: ALBUTEROL SULFATE 2.5 MG/3 ML NEBU. NEB PRN (14:18)
--- NOTE | 2020-08-08 14:56 | NUR ---
PT TRANSFERRED TO [facility] ON BIPAP AND LEVOPHED AND VASOPRESSIN GTT.
--- NOTE | 2020-08-08 19:42 | PDOC ---
PROGRESS NOTES Date of Service: DATE: 08/08/20 TIME: 19:40 Subjective Subjective On Bipap, needing pressors Objective Objective Vital Signs Date Time Temp Pulse Resp B/P (MAP) Pulse Ox O2 Delivery O2 Flow Rate FiO2 08/08/20 14:53 97.5 72 23 112/65 (81) 94 BiPAP/CPAP 97.5 08/08/20 12:00 Intake and Output 08/08/20 07:00 Intake Total 2134 ml Output Total 10 ml Balance 2124 ml Intake Oral 1100 ml IV Total 934 ml Blood Product IV Normal Saline Flush 100 ml Output Urine Total 10 ml Physical Exam Physical Exam BIPAP Abdomen: Normal bowel sounds, Soft Heart: Regular rate, Other Extremities: No cyanosis General: Alert, Oriented X3 HEENT: Atraumatic Lungs: Clear to auscultation MUSCULOSKELETAL: No swelling Neck: Supple Neuro: Normal speech Psych/Mental Status: Mental status NL Skin: No rashes COMMENT [place] , central line, dialysis cathter Assessment Assessment 1. CORKY on CKD; on hemodialysis per nephrology team 2. Acute on chronic chronic respiratory failure, pulmonary fibrosis. Pulmonary team following. 3. Dilated cardiomyopathy; s/p AICD ([employer]) last reported LVEF 40%. Follows with Dr. Talley with [facility]. Limited echo showed LVEF 50-55% 4. H/o VT; on Amiodarone therapy;patient had 10 min episode of VT 07/10/20 s/p ATP. Rate was near detection zone of 150. No other evidence of VT or shock therapies delivered. Device was interrogated 08/03/20 with normal function. detection zone was lowered. Amiodarone stopped secondary to elevated LFTs. Plan outpatient referral to EP service for possible ablation therapy. 5. Sepsis/hypotension, needing pressor support. Continue antibiotics per ID team. 6. PAFIB; telemetry showed AV paced rhythm. On Eliquis for stroke prophylaxis 7. Anemia, recent GIB; per primary team 8. Elevated LFTs, coagulopathy; 9. Ascending aortic aneurysm; 4.0 cm 10. Severe protein calorie malnutrition 11. H/o PE 12. Morbid obesity, JAZMINE with CPAP 13. Recent epidural abscess; treated with IV antibiotic therapy 14. H/o Non-Hodgkins lymphoma Plan to transfer patient to today - will continue to follow up there Plan Plan of Care Problems Medical Problems: (1) ARF (acute renal failure) Status: Acute (2) Hypotension Status: Acute (3) Transaminitis Status: Acute Comment Review of Relevant I have reviewed the following items dale (where applicable) has been applied. Labs Laboratory Tests Test 08/08/20 06:15 08/08/20 07:50 White Blood Count 22.8 x10^3/uL (4.0-11.0) Red Blood Count 2.76 x10^6/uL (4.30-5.70) Hemoglobin 9.0 g/dL (13.0-17.5) Hematocrit 26.5 % (39.0-53.0) Mean Corpuscular Volume 96 fL (79-100) Mean Corpuscular Hemoglobin 33 pg (25-35) Mean Corpuscular Hemoglobin Concent 34 g/dL (31-37) Red Cell Distribution Width 18.8 % (11.5-14.5) Platelet Count 134 x10^3/uL (140-400) Neutrophils (%) (Auto) 96 % (31-73) Lymphocytes (%) (Auto) 4 % (24-48) Monocytes (%) (Auto) 1 % (0-9) Eosinophils (%) (Auto) 0 % (0-3) Basophils (%) (Auto) 0 % (0-3) Neutrophils # (Auto) 21.8 x10^3/uL (1.8-7.7) Lymphocytes # (Auto) 0.8 x10^3/uL (1.0-4.8) Monocytes # (Auto) 0.2 x10^3/uL (0.0-1.1) Eosinophils # (Auto) 0.0 x10^3/uL (0.0-0.7) Basophils # (Auto) 0.0 x10^3/uL (0.0-0.2) Segmented Neutrophils % 95 % (35-66) Band Neutrophils % 2 % (0-9) Lymphocytes % 1 % (24-48) Monocytes % 2 % (0-10) Toxic Vacuolation Present Platelet Estimate Decreased (ADEQUATE) Large Platelets Few Giant Platelets Few Poikilocytosis Present Anisocytosis Slight Target Cells Present Prothrombin Time 20.4 SEC (11.7-14.0) Prothromb Time International Ratio 1.8 (0.8-1.1) Sodium Level 136 mmol/L (136-145) Potassium Level 3.6 mmol/L (3.5-5.1) Chloride Level 97 mmol/L (98-107) Carbon Dioxide Level 24 mmol/L (21-32) Anion Gap 15 (6-14) Blood Urea Nitrogen 28 mg/dL (8-26) Creatinine 2.6 mg/dL (0.7-1.3) Estimated GFR (Cockcroft-Gault) 24.1 BUN/Creatinine Ratio 11 (6-20) Glucose Level 151 mg/dL (70-99) Calcium Level 8.0 mg/dL (8.5-10.1) Total Bilirubin 11.1 mg/dL (0.2-1.0) Aspartate Amino Transf (AST/SGOT) 301 U/L (15-37) Alanine Aminotransferase (ALT/SGPT) 134 U/L (16-63) Alkaline Phosphatase 233 U/L (46-116) Total Protein 5.3 g/dL (6.4-8.2) Albumin 2.5 g/dL (3.4-5.0) Albumin/Globulin Ratio 0.9 (1.0-1.7) Microbiology 08/04/20 Urine Culture - Final, Complete 08/04/20 Blood Culture - Final, Complete 08/04/20 Antimicrobic Susceptibility - Final, Complete Medications Current Medications Albumin Human 200 ml @ 200 mls/hr 1X ONCE IV Last administered on 08/08/20at 09:26; Start 08/08/20 at 09:00; Stop 08/08/20 at 09:59; Status DC Apixaban (Eliquis) 2.5 mg BID PO ; Start 08/08/20 at 09:00; Stop 08/08/20 at 09:10; Status DC Diphenhydramine HCl (Benadryl) 25 mg 1X PRN PRN IV ITCHING; Start 08/08/20 at 09:00; Stop 08/08/20 at 17:52; Status DC Diphenhydramine HCl (Benadryl) 25 mg 1X PRN PRN IV ITCHING; Start 08/08/20 at 09:00; Stop 08/08/20 at 17:52; Status DC Info (PHARMACY MONITORING -- do not chart) 1 each PRN DAILY PRN MC SEE COMMENTS; Start 08/08/20 at 09:00; Stop 08/08/20 at 17:52; Status DC Sodium Chloride 1,000 ml @ 400 mls/hr Q2H30M PRN IV PATENCY; Start 08/08/20 at 08:59; Stop 08/08/20 at 17:52; Status DC Sodium Chloride 1,000 ml @ 1,000 mls/hr Q1H PRN IV hypotension; Start 08/08/20 at 08:59; Stop 08/08/20 at 14:58; Status DC Vitals/I & O Vital Sign - Last 24 Hours 08/07/20 08/07/20 08/07/20 08/07/20 20:00 20:00 21:00 22:00 Temp 97.3 97.3 Pulse 80 74 76 Resp 38 25 32 B/P (MAP) 120/41 (67) 101/56 (71) 116/66 (83) Pulse Ox 88 91 87 O2 Delivery Bi-pap Nasal Cannula Nasal Cannula Nasal Cannula O2 Flow Rate 15.0 15.0 15.0 08/07/20 08/07/20 08/08/20 08/08/20 23:00 23:59 00:00 00:27 Temp 97.7 97.7 Pulse 76 78 Resp 28 30 B/P (MAP) 108/52 (70) 108/61 (77) Pulse Ox 86 87 91 O2 Delivery Nasal Cannula Bi-pap BiPAP/CPAP BiPAP/CPAP O2 Flow Rate 15.0 08/08/20 08/08/20 08/08/20 08/08/20 01:00 02:00 03:00 04:00 Pulse 72 72 75 Resp 24 21 18 B/P (MAP) 104/51 (68) 96/55 (69) 104/62 (76) Pulse Ox 91 92 91 O2 Delivery BiPAP/CPAP BiPAP/CPAP BiPAP/CPAP Bi-pap 08/08/20 08/08/20 08/08/20 08/08/20 04:00 05:00 05:18 06:00 Temp 97.2 97.2 Pulse 76 74 74 Resp 21 17 22 B/P (MAP) 114/75 (88) 106/74 (85) 100/58 (72) Pulse Ox 91 88 92 92 O2 Delivery BiPAP/CPAP BiPAP/CPAP BiPAP/CPAP BiPAP/CPAP 08/08/20 08/08/20 08/08/20 08/08/20 07:56 08:00 08:17 09:11 Temp 97.2 97.2 97.2 97.2 Pulse 74 69 Resp 25 19 B/P (MAP) 104/45 (64) 99/55 (70) Pulse Ox 92 92 O2 Delivery BiPAP/CPAP Bi-pap Nasal Cannula O2 Flow Rate 15.0 15.0 08/08/20 08/08/20 08/08/20 08/08/20 10:00 11:03 12:00 12:00 Temp 97.2 97.5 97.2 97.5 Pulse 71 71 Resp 28 24 B/P (MAP) 70/61 (64) 100/65 (77) Pulse Ox 92 92 O2 Delivery Nasal Cannula BiPAP/CPAP Bi-pap O2 Flow Rate 15.0 15.0 08/08/20 08/08/20 08/08/20 12:00 14:19 14:53 Temp 97.5 97.5 97.5 97.5 Pulse 71 72 Resp 24 23 B/P (MAP) 100/78 (85) 112/65 (81) Pulse Ox 92 94 94 O2 Delivery BiPAP/CPAP BiPAP/CPAP BiPAP/CPAP O2 Flow Rate Intake and Output 08/07/20 08/07/20 08/08/20 15:00 23:00 07:00 Intake Total 820 ml 672 ml 642 ml Output Total 10 ml 0 ml 0 ml Balance 810 ml 672 ml 642 ml FATMATA CARNEY MD Aug 08, 2020 19:42
== END 2020-08-08 15:00 | DRG 871 ==
LOC: ER 11:33 → 1 WEST ICU 14:39
PROVIDERS: ADMIT Internal Medicine; ATTEND Internal Medicine
PROC: 02HV33Z Insertion of Infusion Device into Superior Vena Cava, Percutaneous Approach (ICD-10-PCS; 2020-08-03)
PROC: B548ZZA Ultrasonography of Superior Vena Cava, Guidance (ICD-10-PCS; 2020-08-03)
PROC: 5A1D70Z Performance of Urinary Filtration, Intermittent, Less than 6 Hours Per Day (ICD-10-PCS; 2020-08-04)
PROC: 5A09357 Assistance with Respiratory Ventilation, Less than 24 Consecutive Hours, Continuous Positive Airway Pressure (ICD-10-PCS; 2020-08-04)
PROC: 5A1D70Z Performance of Urinary Filtration, Intermittent, Less than 6 Hours Per Day (ICD-10-PCS; 2020-08-05)
PROC: 5A09357 Assistance with Respiratory Ventilation, Less than 24 Consecutive Hours, Continuous Positive Airway Pressure (ICD-10-PCS; 2020-08-05)
PROC: 5A1D70Z Performance of Urinary Filtration, Intermittent, Less than 6 Hours Per Day (ICD-10-PCS; 2020-08-06)
PROC: 5A09357 Assistance with Respiratory Ventilation, Less than 24 Consecutive Hours, Continuous Positive Airway Pressure (ICD-10-PCS; 2020-08-06)
PROC: 30233K1 Transfusion of Nonautologous Frozen Plasma into Peripheral Vein, Percutaneous Approach (ICD-10-PCS; principal; 2020-08-07)
PROC: 30233N1 Transfusion of Nonautologous Red Blood Cells into Peripheral Vein, Percutaneous Approach (ICD-10-PCS; 2020-08-07)
PROC: 5A1D70Z Performance of Urinary Filtration, Intermittent, Less than 6 Hours Per Day (ICD-10-PCS; 2020-08-07)
PROC: 5A09357 Assistance with Respiratory Ventilation, Less than 24 Consecutive Hours, Continuous Positive Airway Pressure (ICD-10-PCS; 2020-08-07)
PROC: 5A1D70Z Performance of Urinary Filtration, Intermittent, Less than 6 Hours Per Day (ICD-10-PCS; 2020-08-08)
PROC: 5A09357 Assistance with Respiratory Ventilation, Less than 24 Consecutive Hours, Continuous Positive Airway Pressure (ICD-10-PCS; 2020-08-08)
DX: A41.52 Sepsis due to Pseudomonas (principal); N17.0 Acute kidney failure with tubular necrosis; E43 Unspecified severe protein-calorie malnutrition; J96.21 Acute and chronic respiratory failure with hypoxia; K72.00 Acute and subacute hepatic failure without coma; K57.91 Diverticulosis of intestine, part unspecified, without perforation or abscess with bleeding; N18.6 End stage renal disease; C85.90 Non-Hodgkin lymphoma, unspecified, unspecified site; D62 Acute posthemorrhagic anemia; D68.69 Other thrombophilia; E87.1 Hypo-osmolality and hyponatremia; G45.9 Transient cerebral ischemic attack, unspecified; I13.2 Hypertensive heart and chronic kidney disease with heart failure and with stage 5 chronic kidney disease, or end stage renal disease; I42.0 Dilated cardiomyopathy; I47.2 Ventricular tachycardia; M46.24 Osteomyelitis of vertebra, thoracic region; Z68.43 Body mass index [BMI] 50.0-59.9, adult; A41.9 Sepsis, unspecified organism; B96.5 Pseudomonas (aeruginosa) (mallei) (pseudomallei) as the cause of diseases classified elsewhere; B96.89 Other specified bacterial agents as the cause of diseases classified elsewhere; C50.929 Malignant neoplasm of unspecified site of unspecified male breast; E66.01 Morbid (severe) obesity due to excess calories; E78.5 Hyperlipidemia, unspecified; G47.33 Obstructive sleep apnea (adult) (pediatric); I25.10 Atherosclerotic heart disease of native coronary artery without angina pectoris; I48.0 Paroxysmal atrial fibrillation; I50.9 Heart failure, unspecified; I71.2 Thoracic aortic aneurysm, without rupture; J44.9 Chronic obstructive pulmonary disease, unspecified; J84.10 Pulmonary fibrosis, unspecified; K06.8 Other specified disorders of gingiva and edentulous alveolar ridge; K57.90 Diverticulosis of intestine, part unspecified, without perforation or abscess without bleeding; K64.9 Unspecified hemorrhoids; K80.20 Calculus of gallbladder without cholecystitis without obstruction; M46.44 Discitis, unspecified, thoracic region; R04.0 Epistaxis; Z79.01 Long term (current) use of anticoagulants; Z79.810 Long term (current) use of selective estrogen receptor modulators (SERMs); Z79.899 Other long term (current) drug therapy; Z82.0 Family history of epilepsy and other diseases of the nervous system; Z82.49 Family history of ischemic heart disease and other diseases of the circulatory system; Z83.3 Family history of diabetes mellitus; Z85.3 Personal history of malignant neoplasm of breast; Z85.71 Personal history of Hodgkin lymphoma; Z86.61 Personal history of infections of the central nervous system; Z86.711 Personal history of pulmonary embolism; Z86.73 Personal history of transient ischemic attack (TIA), and cerebral infarction without residual deficits; Z87.891 Personal history of nicotine dependence; Z90.13 Acquired absence of bilateral breasts and nipples; Z92.21 Personal history of antineoplastic chemotherapy; Z95.810 Presence of automatic (implantable) cardiac defibrillator; Z99.2 Dependence on renal dialysis; Z96.653 Presence of artificial knee joint, bilateral; K21.9 Gastro-esophageal reflux disease without esophagitis; M19.90 Unspecified osteoarthritis, unspecified site
CPT/HCPCS: 36415; 36556; 36600; 71045; 76937; 80053; 81001; 82533; 82805; 83540; 83550; 83735; 84100; 84484; 85007; 85025; 85027; 85610; 85730; 86706; 86850; 86900; 86901; 86920; 86927; 87040; 87077; 87086; 87186; 87205; 87340; 93005; 93308; 93320; 93325; 94640; 94660; 94760; 96365; 96366; C1892; C9113; J0882; J2543; J2930; J3010; J3430; J3490; J7030; J7050; J7060; P9016; P9017; P9045; P9046; 99285-25; G0378; J7613